=== PATIENT | male | born 1965 | race American Indian/Alaskan Native ===

== ENCOUNTER 2016-12-07 18:14 | Observation (INO) | payer MEDICAID, OTHER ==
[2016-12-07 18:14] VITALS: BMI 25.7
--- NOTE | 2016-12-07 19:37 | C.PDOC ---
History Of Present Illness Patient presents to the ED for EtOH intoxication. Patient just wants a place to stay. Patient denies any physical complaints at this time. Time Seen by Provider: 12/07/16 19:35 Chief Complaint (Nursing): Shortness Of Breath History Per: Patient History/Exam Limitations: intoxication Onset/Duration Of Symptoms: Hrs Current Symptoms Are (Timing): Still Present Recent travel outside of the [place]: No Past Medical History Reviewed: Historical Data, Nursing Documentation, Vital Signs Vital Signs: Last Vital Signs Temp 97.7 F 12/08/16 05:59 Pulse 93 H 12/08/16 05:59 Resp 20 12/08/16 05:59 BP 133/94 H 12/08/16 05:59 Pulse Ox 96 12/08/16 05:59 - Medical History PMH: Anxiety, Depression, HTN, Hypercholesterolemia, Personality Disorder ( multiple fights,agression), Schizophrenia Denies: Diabetes, Hepatitis, HIV, Chronic Kidney Disease, Seizures, Sexually Transmitted Disease - [facility] Procedures ALCOHOL DETOXIFICATION (01/08/14) DETOXIFICATION SERVICES FOR SUBSTANCE ABUSE TREATMENT (03/30/16) GROUP LIBRARY SCIENCE INSTRUCTOR FOR SUBSTANCE ABUSE TREATMENT, PSYCHOEDUCATION (03/06/16) GROUP PSYCHOTHERAPY (03/30/16) INDIVIDUAL PSYCHOTHERAPY, SUPPORTIVE (03/30/16) Family History: States: Unknown Family Hx - Social History Hx Tobacco Use: No Hx Alcohol Use: Yes Hx Substance Use: No - Immunization History Hx Tetanus Toxoid Vaccination: No Hx Influenza Vaccination: No Hx Pneumococcal Vaccination: No Review Of Systems Constitutional: Positive for: Other (EtOH intoxication) Gastrointestinal: Negative for: Nausea, Vomiting, Diarrhea Physical Exam - Physical Exam Appears: No Acute Distress, Other (EtOH on breath ) Skin: Warm, Dry Extremity: Normal ROM, No Tenderness ED Course And Treatment - Laboratory Results Result Diagrams: 12/07/16 20:45 12/07/16 20:45 Rate From EC Pulse Ox Interpretation: Normal - Radiology CXR: Interpreted by Me, Viewed By Me CXR Interpretation: No: Infiltrates, Fracture, Pnemothorax ED OBSERVATION Discharge: Yes Date of observation admission: 12/07/16 Time of observation admission: 21:13 - Observation admission statement Patient is being placed in observation because:: homeless - Goals of Observation Goals of observation are:: social service - Progress Note Progress Note: 12/07/16 21:30 no complaints 12/08/16 00:16 vitals stable 12/08/16 02:17 no complaints 12/08/16 04:17 arousable., no complaints Disposition Counseled Patient/Family Regarding: Studies Performed, Diagnosis, Need For Followup - Disposition Disposition: HOME/ ROUTINE Disposition Time: 19:37 Condition: FAIR - Clinical Impression Clinical Impression: Alcohol abuse - Scribe Statement The provider has reviewed the documentation as recorded by the Mikeibboone Nielsen All medical record entries made by the Agustin were at my direction and personally dictated by me. I have reviewed the chart and agree that the record accurately reflects my personal performance of the history, physical exam, medical decision making, and the department course for this patient. I have also personally directed, reviewed, and agree with the discharge instructions and disposition.
[2016-12-07] MEDS ORDERED: Sodium Chloride 0.9% 1,000 ML IV ONE (20:31)
[2016-12-07 20:58] LABS: BASO % 0.4 % (0.0-2.0); EOS # 0.1 K/uL (0.0-0.7); EOS % 2.1 % (0.0-4.0); LYMPH # 1.1 K/uL (1.0-4.3); LYMPH % 15.4 % (20.0-40.0); MEAN CELL VOLUME 92.4 fL (80.0-94.0); MEAN CORPUSCULAR HEMOGLOBIN 30.4 pg (27.0-31.0); MEAN CORPUSCULAR HGB CONC 32.9 g/dL (33.0-37.0); MEAN PLATELET VOLUME 7.9 fL (7.2-11.7); MONO # 1.3 K/uL (0.0-0.8); MONO % 18.5 % (0.0-10.0); RED CELL DISTRIBUTION WIDTH 12.8 % (11.5-14.5); WHITE BLOOD COUNT 6.8 K/uL (4.8-10.8)
[2016-12-07 21:08] LABS: CHLORIDE 100 mmol/L (98-107)
[2016-12-07 21:09] LABS: POTASSIUM 3.7 mmol/L (3.6-5.2); SODIUM 144 mmol/L (132-148)
[2016-12-07 21:11] LABS: AST/SGOT 67 U/L (17-59); BILIRUBIN,TOTAL 0.2 mg/dL (0.2-1.3); CARBON DIOXIDE 25 mmol/L (22-30); GFR AFRICAN-AMERICAN > 60
[2016-12-07 21:12] LABS: ALB/GLOB RATIO 1.2 (1.0-2.1); ALCOHOL SERUM 190 mg/dl (0-10); ALKALINE PHOSPHATASE 62 U/L (38-126); ALT/SGPT 25 U/L (21-72); BLOOD UREA NITROGEN 8 mg/dL (9-20); GLUCOSE,RANDOM 78 mg/dL (75-110); TOTAL PROTEIN 7.4 g/dL (6.3-8.3)
[2016-12-07 21:27] LABS: RBC URINE 1 /hpf (0-3); URINE BILIRUBIN NEGATIVE (NEGATIVE); URINE BLOOD NEGATIVE (NEGATIVE); URINE COLOR Straw (YELLOW); URINE GLUCOSE (UA) 1+ mg/dL (Normal); URINE KETONE NEGATIVE (NEGATIVE); URINE LEUKOCYTE ESTERASE NEG Leu/uL (Negative); URINE PROTEIN 2+ mg/dL (NEGATIVE); URINE UROBILINOGEN NORMAL mg/dL (0.2-1.0); WBC URINE 1 /hpf (0-5)
[2016-12-08 01:25] VITALS: RESP 20
[2016-12-08 06:02] VITALS: BP 133/94; PULSE 93; TEMP 97.7; O2SAT 96
--- NOTE | 2016-12-08 11:12 | RAD ---
PROCEDURE: CHEST RADIOGRAPH, 1 VIEW HISTORY: Detox/Psy COMPARISON: Comparison chest 01/22/2014 FINDINGS: LUNGS: Left lower lobe atelectasis and or infiltrate and small left effusion . Metallic skin closure doe seen along the left lateral chest wall. PLEURA: No apparent pneumothorax. . CARDIOVASCULAR: Cardiomegaly. OSSEOUS STRUCTURES: No significant abnormalities. VISUALIZED UPPER ABDOMEN: Normal. OTHER FINDINGS: None. IMPRESSION: Mild left basilar atelectasis and or infiltrate and small left effusion. Metallic skin closure doe seen along the left lateral chest wall
--- NOTE | 2016-12-09 23:43 | CARD ---
APPROVED REPORT EKG Measurement Heart [id number] MI 130P39 [id number] <Conclusion> Normal sinus rhythm Moderate voltage criteria for LVH, may be normal variant Borderline ECG
== END 2016-12-08 06:18 | disposition home or self-care (01) ==
LOC: C.ER 18:14 → C.9OBSV 21:12
PROVIDERS: ADMIT Emergency Medicine; ATTEND Emergency Medicine
DX: F10.120 Alcohol abuse with intoxication, uncomplicated (principal); Y90.6 Blood alcohol level of 120-199 mg/100 ml; I10 Essential (primary) hypertension

== ENCOUNTER 2016-12-10 01:06 | Inpatient (IN) | payer MEDICAID ==
[2016-12-10 01:06] VITALS: BMI 25.7
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
[2016-12-10 04:21] LABS: BASO # 0.1 K/uL (0.0-0.2); BASO % 1.8 % (0.0-2.0); EOS # 0.2 K/uL (0.0-0.7); EOS % 3.7 % (0.0-4.0); HEMATOCRIT 32.2 % (35.0-51.0); LYMPH # 1.5 K/uL (1.0-4.3); LYMPH % 35.1 % (20.0-40.0); MEAN CELL VOLUME 92.2 fL (80.0-94.0); MEAN CORPUSCULAR HEMOGLOBIN 30.9 pg (27.0-31.0); MEAN CORPUSCULAR HGB CONC 33.5 g/dL (33.0-37.0); MONO # 0.4 K/uL (0.0-0.8); MONO % 9.5 % (0.0-10.0); RED CELL DISTRIBUTION WIDTH 12.8 % (11.5-14.5); WHITE BLOOD COUNT 4.3 K/uL (4.8-10.8)
[2016-12-10 04:29] LABS: CHLORIDE 102 mmol/L (98-107)
[2016-12-10 04:30] LABS: POTASSIUM 3.8 mmol/L (3.6-5.2); SODIUM 145 mmol/L (132-148)
[2016-12-10 04:32] LABS: ALB/GLOB RATIO 1.1 (1.0-2.1); AST/SGOT 65 U/L (17-59); BILIRUBIN,TOTAL 0.3 mg/dL (0.2-1.3); BLOOD UREA NITROGEN 8 mg/dL (9-20); CARBON DIOXIDE 25 mmol/L (22-30); GFR AFRICAN-AMERICAN > 60; TOTAL PROTEIN 7.2 g/dL (6.3-8.3)
[2016-12-10 04:33] LABS: ALKALINE PHOSPHATASE 54 U/L (38-126); ALT/SGPT 35 U/L (21-72); CALCIUM 8.7 mg/dl (8.6-10.4); GLUCOSE,RANDOM 89 mg/dL (75-110)
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
[2016-12-10] MEDS ORDERED: Piperacillin/Tazobact 3.375 gm 100 ML IV STA (06:05)
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
--- NOTE | 2016-12-10 10:25 | RAD ---
HISTORY: chest pain, had recent chest tube on L side COMPARISON: Comparison chest 12/07/2016 FINDINGS: LUNGS: Increased opacity in the left mid to lower lung field consistent with the some combination of atelectasis and possibly infiltrate with small -medium size effusion. . Metallic skin closure doe again seen along the left lateral chest wall. Right lung clear. PLEURA: No pneumothorax apparent. CARDIOVASCULAR: Normal. OSSEOUS STRUCTURES: No significant abnormalities. VISUALIZED UPPER ABDOMEN: Normal. OTHER FINDINGS: None. IMPRESSION: Increased opacity in the left mid to lower lung field consistent with the some combination of atelectasis and possibly infiltrate with small -medium size effusion. . Metallic skin closure doe again seen along the left lateral chest wall. Right lung clear.
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
[2016-12-10] MEDS: Piperacillin/Tazobact 3.375 GM in Sodium Chloride 100 ML IVPB SCH ×2 (12:04→18:23)
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
[2016-12-10] MEDS: Vancomycin 1 gm/NS 200 ml 200 ML IVPB SCH (13:24)
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
[2016-12-11] MEDS: Piperacillin/Tazobact 3.375 GM in Sodium Chloride 100 ML IVPB SCH ×3 (02:00→17:44)
[2016-12-11 06:20] LABS: BASO # 0.1 K/uL (0.0-0.2); EOS # 0.2 K/uL (0.0-0.7); EOS % 3.3 % (0.0-4.0); HEMATOCRIT 32.3 % (35.0-51.0); LYMPH # 1.6 K/uL (1.0-4.3); MEAN CELL VOLUME 93.5 fL (80.0-94.0); MEAN CORPUSCULAR HEMOGLOBIN 30.5 pg (27.0-31.0); MEAN CORPUSCULAR HGB CONC 32.6 g/dL (33.0-37.0); MEAN PLATELET VOLUME 7.6 fL (7.2-11.7); MONO # 0.8 K/uL (0.0-0.8); MONO % 14.2 % (0.0-10.0); NRBC % 0.1 % (0.0-2.0); RED CELL DISTRIBUTION WIDTH 13.1 % (11.5-14.5); WHITE BLOOD COUNT 5.4 K/uL (4.8-10.8)
[2016-12-11 06:24] LABS: CHLORIDE 94 mmol/L (98-107); POTASSIUM 3.8 mmol/L (3.6-5.2); SODIUM 136 mmol/L (132-148)
[2016-12-11 06:26] LABS: GFR AFRICAN-AMERICAN > 60
[2016-12-11 06:27] LABS: ALB/GLOB RATIO 1.1 (1.0-2.1); ALKALINE PHOSPHATASE 52 U/L (38-126); ALT/SGPT 25 U/L (21-72); AST/SGOT 50 U/L (17-59); BILIRUBIN,TOTAL 0.5 mg/dL (0.2-1.3); BLOOD UREA NITROGEN 12 mg/dL (9-20); CALCIUM 8.6 mg/dl (8.6-10.4); CARBON DIOXIDE 31 mmol/L (22-30); GLUCOSE,RANDOM 85 mg/dL (75-110); TOTAL PROTEIN 6.5 g/dL (6.3-8.3)
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
[2016-12-11] MEDS: Multiple Vitamins Tab PO SCH (09:22)
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
--- NOTE | 2016-12-11 11:43 | CP.PCM.PN ---
<Darlene Hernandez H - Last Filed: 12/11/16 11:37> Subjective - Date & Time of Evaluation Date of Evaluation: 12/11/16 Time of Evaluation: 07:40 - Subjective Subjective: PGY2 Medicine Note - Dr. Jitendra Cobian's service: Patient seen and examined at bedside this AM. Patient sleeping comfortably. Patient reports pain at wound site. Patient denies fever, chills, SOB, abdominal pain, nausea, vomiting, diarrhea, constipation. Objective - Vital Signs/Intake and Output Vital Signs (last 24 hours): Temp Pulse Resp BP Pulse Ox 99.0 F 87 20 138/93 H 96 12/11/16 07:39 12/11/16 07:39 12/11/16 07:39 12/11/16 07:39 12/11/16 07:39 Intake and Output: 12/11/16 12/11/16 06:59 18:59 Intake Total 540 Balance 540 - Medications Medications: Current Medications Chlordiazepoxide (Librium) 25 mg PO Q6 [facility] PRN Reason: Taper Stop: 12/14/16 11:59 Last Admin: 12/11/16 05:47 Dose: 25 mg Folic Acid (Folic Acid) 1 mg PO DAILY [facility] Last Admin: 12/11/16 09:22 Dose: 1 mg Hydromorphone HCl (Dilaudid) 2 mg IVP Q8 PRN PRN Reason: Pain, moderate (4-7) Last Admin: 12/10/16 11:22 Dose: 2 mg Piperacillin Sod/Tazobactam (Sod 3.375 gm/ Sodium Chloride) 100 mls @ 200 mls/ hr IVPB Q8H [facility] Last Admin: 12/11/16 09:23 Dose: 200 mls/hr Vancomycin/Sodium Chloride (Vancocin) 200 mls @ 166.6 mls/hr IVPB Q12H [facility] Last Admin: 12/11/16 00:00 Dose: 166.6 mls/hr Influenza Virus Vaccine (Afluria) 45 mcg IM .ONCE ONE Stop: 12/12/16 10:01 Lorazepam (Ativan) 1 mg IVP Q4H PRN PRN Reason: Seizure activity Multivitamins (Hexavitamin) 1 tab PO DAILY [facility] Last Admin: 12/11/16 09:22 Dose: 1 tab Pneumococcal Polyvalent Vaccine (Pneumovax 23 Vaccine) 0.5 ml IM .ONCE ONE Stop: 12/12/16 10:01 Thiamine HCl (Vitamin B1 Tab) 100 mg PO DAILY [facility] Last Admin: 12/11/16 09:22 Dose: 100 mg - Labs Labs: 12/11/16 06:08 12/11/16 06:08 PT 11.0 SECONDS (9.7-12.2) 12/10/16 04:19 INR 1.0 12/10/16 04:19 APTT 34 SECONDS (21-34) 12/10/16 04:19 - Constitutional Appears: Non-toxic, No Acute Distress - Head Exam Head Exam: NORMAL INSPECTION - Eye Exam Eye Exam: EOMI - ENT Exam ENT Exam: Mucous Membranes Moist - Respiratory Exam Respiratory Exam: Chest Wall Tenderness, Clear to Ausculation Bilateral, NORMAL BREATHING PATTERN. absent: Rales, Rhonchi, Wheezes Additional comments: No drainage from wound site - Cardiovascular Exam Cardiovascular Exam: REGULAR RHYTHM, +S1, +S2. absent: Gallop, Rubs, Murmur - GI/Abdominal Exam GI & Abdominal Exam: Soft, Normal Bowel Sounds. absent: Firm, Guarding, Tenderness - Extremities Exam Extremities Exam: Normal Capillary Refill. absent: Pedal Edema - Neurological Exam Neurological Exam: Alert, Oriented x3 - Psychiatric Exam Psychiatric exam: Normal Affect, Normal Mood - Skin Skin Exam: Normal Color, Warm Assessment and Plan - Assessment and Plan (Free Text) Assessment: 1. Chest wound with abscess Sx consult - Dr. Hancock - help appreciated Patient cleared from surgical perspective Cardio consult - Dr. Nix - help appreciated F/U ECHO result EKG normal ID consult - Dr. Gordon- help appreciated Continue Vanco and Zosyn IVPB day 2 2. Alcohol abuse Librium taper Ativan IVP PRN seizure activity CIWA protocol Thiamine 100mg PO daily Folic Acid 1mg PO daily 3. Prophylaxis Protonix 40mg PO daily [facility] <Moraima Cobian - Last Filed: 12/11/16 20:04> Objective - Vital Signs/Intake and Output Vital Signs (last 24 hours): Temp Pulse Resp BP Pulse Ox 97.7 F 91 H 20 118/81 96 12/11/16 15:23 12/11/16 15:23 12/11/16 15:23 12/11/16 15:23 12/11/16 15:23 Intake and Output: 12/11/16 12/12/16 18:59 06:59 Intake Total 720 Output Total 200 Balance 520 - Medications Medications: Current Medications Chlordiazepoxide (Librium) 25 mg PO TID [facility] PRN Reason: Taper Stop: 12/14/16 11:59 Last Admin: 12/11/16 17:43 Dose: 25 mg Folic Acid (Folic Acid) 1 mg PO DAILY [facility] Last Admin: 12/11/16 09:22 Dose: 1 mg Hydromorphone HCl (Dilaudid) 2 mg IVP Q8 PRN PRN Reason: Pain, moderate (4-7) Last Admin: 12/11/16 13:05 Dose: 2 mg Piperacillin Sod/Tazobactam (Sod 3.375 gm/ Sodium Chloride) 100 mls @ 200 mls/ hr IVPB Q8H [facility] Last Admin: 12/11/16 17:44 Dose: 200 mls/hr Vancomycin/Sodium Chloride (Vancocin) 200 mls @ 166.6 mls/hr IVPB Q12H [facility] Last Admin: 12/11/16 12:25 Dose: 166.6 mls/hr Influenza Virus Vaccine (Afluria) 45 mcg IM .ONCE ONE Stop: 12/12/16 10:01 Lorazepam (Ativan) 1 mg IVP Q4H PRN PRN Reason: Seizure activity Multivitamins (Hexavitamin) 1 tab PO DAILY [facility] Last Admin: 12/11/16 09:22 Dose: 1 tab Pantoprazole Sodium (Protonix Ec Tab) 40 mg PO DAILY [facility] Last Admin: 12/11/16 12:25 Dose: 40 mg Pneumococcal Polyvalent Vaccine (Pneumovax 23 Vaccine) 0.5 ml IM .ONCE ONE Stop: 12/12/16 10:01 Thiamine HCl (Vitamin B1 Tab) 100 mg PO DAILY [facility] Last Admin: 12/11/16 09:22 Dose: 100 mg - Labs Labs: 12/11/16 06:08 12/11/16 06:08 PT 11.0 SECONDS (9.7-12.2) 12/10/16 04:19 INR 1.0 12/10/16 04:19 APTT 34 SECONDS (21-34) 12/10/16 04:19 Attending/Attestation - Attestation I have personally seen and examined this patient.: Yes I have fully participated in the care of the patient.: Yes I have reviewed all pertinent clinical information, including history, physical exam and plan: Yes Notes (Text): case seen and discussed with staff and resident mx agreed
--- NOTE | 2016-12-11 12:04 | CP.PCM.PN ---
Subjective - Date & Time of Evaluation Date of Evaluation: 12/11/16 Time of Evaluation: 08:50 - Subjective Subjective: Pt seen and examined at bedside. Pt awake, alert, and resting comfortably. Pt continues to complain of localized pain over wound site, at left upper quadrant of chest. Pt states that the pain is exacerbated by leaning back, coughing, and deep inspirations. However, pt denies the pain radiating elsewhere , and denies pus or bleeding from wound site. Pt also denies shortness of breath, subjective fever, cough, and congestion today. Pt admits that he has been compliant with his incentive spirometer, and has been using it every hour. Pt counseled to continue to use incentive spirometer every hour as preventative measures. Objective - Vital Signs/Intake and Output Vital Signs (last 24 hours): Temp Pulse Resp BP Pulse Ox 99.0 F 87 20 138/93 H 96 12/11/16 07:39 12/11/16 07:39 12/11/16 07:39 12/11/16 07:39 12/11/16 07:39 Intake and Output: 12/11/16 12/11/16 06:59 18:59 Intake Total 540 Balance 540 - Medications Medications: Current Medications Chlordiazepoxide (Librium) 25 mg PO TID [facility] PRN Reason: Taper Stop: 12/14/16 11:59 Last Admin: 12/11/16 05:47 Dose: 25 mg Folic Acid (Folic Acid) 1 mg PO DAILY [facility] Last Admin: 12/11/16 09:22 Dose: 1 mg Hydromorphone HCl (Dilaudid) 2 mg IVP Q8 PRN PRN Reason: Pain, moderate (4-7) Last Admin: 12/10/16 11:22 Dose: 2 mg Piperacillin Sod/Tazobactam (Sod 3.375 gm/ Sodium Chloride) 100 mls @ 200 mls/ hr IVPB Q8H [facility] Last Admin: 12/11/16 09:23 Dose: 200 mls/hr Vancomycin/Sodium Chloride (Vancocin) 200 mls @ 166.6 mls/hr IVPB Q12H [facility] Last Admin: 12/11/16 00:00 Dose: 166.6 mls/hr Influenza Virus Vaccine (Afluria) 45 mcg IM .ONCE ONE Stop: 12/12/16 10:01 Lorazepam (Ativan) 1 mg IVP Q4H PRN PRN Reason: Seizure activity Multivitamins (Hexavitamin) 1 tab PO DAILY [facility] Last Admin: 12/11/16 09:22 Dose: 1 tab Pantoprazole Sodium (Protonix Ec Tab) 40 mg PO DAILY [facility] Pneumococcal Polyvalent Vaccine (Pneumovax 23 Vaccine) 0.5 ml IM .ONCE ONE Stop: 12/12/16 10:01 Thiamine HCl (Vitamin B1 Tab) 100 mg PO DAILY [facility] Last Admin: 12/11/16 09:22 Dose: 100 mg - Labs Labs: 12/11/16 06:08 12/11/16 06:08 PT 11.0 SECONDS (9.7-12.2) 12/10/16 04:19 INR 1.0 12/10/16 04:19 APTT 34 SECONDS (21-34) 12/10/16 04:19 - Constitutional Appears: Non-toxic, No Acute Distress - Head Exam Head Exam: ATRAUMATIC, NORMOCEPHALIC - Eye Exam Eye Exam: Normal appearance Pupil Exam: NORMAL ACCOMODATION - ENT Exam ENT Exam: Mucous Membranes Moist - Respiratory Exam Respiratory Exam: Chest Wall Tenderness (Localized at wound site. ), Clear to Ausculation Bilateral, NORMAL BREATHING PATTERN. absent: Decreased Breath Sounds, Rales, Rhonchi, Wheezes, Respiratory Distress - Cardiovascular Exam Cardiovascular Exam: REGULAR RHYTHM, +S1, +S2. absent: Murmur - Extremities Exam Extremities Exam: absent: Pedal Edema - Neurological Exam Neurological Exam: Alert, Awake, Oriented x3 - Skin Skin Exam: Abrasion (Wound on left upper quadrant of chest, wrapped and undergoing treatment), Dry, Intact, Normal Color, Warm Assessment and Plan (1) Dyspnea on exertion Assessment & Plan: Inability to exert self likely due to pain at wound site with increased and prolonged inspiration as well as movement. Continue to monitor for fever, SOB, and CP. Status: Acute (2) Chest wall abscess Assessment & Plan: CT on 12/10/16 was unable to exclude abscess of chest wall. see report for full details. Consider surgical evaluation to rule out abscess of chest wall continue to monitor for SOB and GUALLPA, and pain medications Status: Acute (3) Alcohol abuse Assessment & Plan: Psychiatry team on board. Pt now on medications to prevent alcohol withdrawal and delirium tremens. Continue to monitor for Delirium Tremens Status: Acute
--- NOTE | 2016-12-11 12:14 | CP.PCM.PN ---
Subjective - Date & Time of Evaluation Date of Evaluation: 12/11/16 Time of Evaluation: 07:00 - Subjective Subjective: pain sob less Objective - Vital Signs/Intake and Output Vital Signs (last 24 hours): Temp Pulse Resp BP Pulse Ox 99.0 F 87 20 138/93 H 96 12/11/16 07:39 12/11/16 07:39 12/11/16 07:39 12/11/16 07:39 12/11/16 07:39 Intake and Output: 12/11/16 12/11/16 06:59 18:59 Intake Total 540 Balance 540 - Medications Medications: Current Medications Chlordiazepoxide (Librium) 25 mg PO TID [facility] PRN Reason: Taper Stop: 12/14/16 11:59 Last Admin: 12/11/16 05:47 Dose: 25 mg Folic Acid (Folic Acid) 1 mg PO DAILY [facility] Last Admin: 12/11/16 09:22 Dose: 1 mg Hydromorphone HCl (Dilaudid) 2 mg IVP Q8 PRN PRN Reason: Pain, moderate (4-7) Last Admin: 12/10/16 11:22 Dose: 2 mg Piperacillin Sod/Tazobactam (Sod 3.375 gm/ Sodium Chloride) 100 mls @ 200 mls/ hr IVPB Q8H [facility] Last Admin: 12/11/16 09:23 Dose: 200 mls/hr Vancomycin/Sodium Chloride (Vancocin) 200 mls @ 166.6 mls/hr IVPB Q12H [facility] Last Admin: 12/11/16 00:00 Dose: 166.6 mls/hr Influenza Virus Vaccine (Afluria) 45 mcg IM .ONCE ONE Stop: 12/12/16 10:01 Lorazepam (Ativan) 1 mg IVP Q4H PRN PRN Reason: Seizure activity Multivitamins (Hexavitamin) 1 tab PO DAILY [facility] Last Admin: 12/11/16 09:22 Dose: 1 tab Pantoprazole Sodium (Protonix Ec Tab) 40 mg PO DAILY [facility] Pneumococcal Polyvalent Vaccine (Pneumovax 23 Vaccine) 0.5 ml IM .ONCE ONE Stop: 12/12/16 10:01 Thiamine HCl (Vitamin B1 Tab) 100 mg PO DAILY [facility] Last Admin: 12/11/16 09:22 Dose: 100 mg - Labs Labs: 12/11/16 06:08 12/11/16 06:08 PT 11.0 SECONDS (9.7-12.2) 12/10/16 04:19 INR 1.0 12/10/16 04:19 APTT 34 SECONDS (21-34) 12/10/16 04:19 - Constitutional Appears: Non-toxic, Chronically Ill - Head Exam Head Exam: NORMOCEPHALIC - Eye Exam Eye Exam: absent: Scleral icterus - ENT Exam ENT Exam: Mucous Membranes Dry - Neck Exam Neck Exam: absent: Lymphadenopathy - Respiratory Exam Respiratory Exam: Decreased Breath Sounds, Rhonchi - Cardiovascular Exam Cardiovascular Exam: REGULAR RHYTHM, +S1, +S2 Assessment and Plan (1) Alcohol dependence Status: Acute (2) Chest wall abscess Status: Acute (3) Dyspnea on exertion Status: Acute
[2016-12-11] MEDS: Vancomycin 1 gm/NS 200 ml 200 ML IVPB SCH ×3 (12:25→22:10)
[2016-12-11] MEDS: Pantoprazole 40 mg EC Tab PO SCH (12:25)
--- NOTE | 2016-12-11 16:45 | CP.PCM.PN ---
Subjective - Date & Time of Evaluation Date of Evaluation: 12/11/16 Time of Evaluation: 12:00 - Subjective Subjective: clinically same Objective - Vital Signs/Intake and Output Vital Signs (last 24 hours): Temp Pulse Resp BP Pulse Ox 97.7 F 91 H 20 118/81 96 12/11/16 15:23 12/11/16 15:23 12/11/16 15:23 12/11/16 15:23 12/11/16 15:23 Intake and Output: 12/11/16 12/11/16 06:59 18:59 Intake Total 540 720 Output Total 200 Balance 540 520 - Medications Medications: Current Medications Chlordiazepoxide (Librium) 25 mg PO TID [facility] PRN Reason: Taper Stop: 12/14/16 11:59 Last Admin: 12/11/16 14:15 Dose: 25 mg Folic Acid (Folic Acid) 1 mg PO DAILY [facility] Last Admin: 12/11/16 09:22 Dose: 1 mg Hydromorphone HCl (Dilaudid) 2 mg IVP Q8 PRN PRN Reason: Pain, moderate (4-7) Last Admin: 12/11/16 13:05 Dose: 2 mg Piperacillin Sod/Tazobactam (Sod 3.375 gm/ Sodium Chloride) 100 mls @ 200 mls/ hr IVPB Q8H [facility] Last Admin: 12/11/16 09:23 Dose: 200 mls/hr Vancomycin/Sodium Chloride (Vancocin) 200 mls @ 166.6 mls/hr IVPB Q12H [facility] Last Admin: 12/11/16 12:25 Dose: 166.6 mls/hr Influenza Virus Vaccine (Afluria) 45 mcg IM .ONCE ONE Stop: 12/12/16 10:01 Lorazepam (Ativan) 1 mg IVP Q4H PRN PRN Reason: Seizure activity Multivitamins (Hexavitamin) 1 tab PO DAILY [facility] Last Admin: 12/11/16 09:22 Dose: 1 tab Pantoprazole Sodium (Protonix Ec Tab) 40 mg PO DAILY [facility] Last Admin: 12/11/16 12:25 Dose: 40 mg Pneumococcal Polyvalent Vaccine (Pneumovax 23 Vaccine) 0.5 ml IM .ONCE ONE Stop: 12/12/16 10:01 Thiamine HCl (Vitamin B1 Tab) 100 mg PO DAILY [facility] Last Admin: 12/11/16 09:22 Dose: 100 mg - Labs Labs: 12/11/16 06:08 12/11/16 06:08 PT 11.0 SECONDS (9.7-12.2) 12/10/16 04:19 INR 1.0 12/10/16 04:19 APTT 34 SECONDS (21-34) 12/10/16 04:19 - Constitutional Appears: Well - Head Exam Head Exam: ATRAUMATIC, NORMAL INSPECTION, NORMOCEPHALIC - Eye Exam Eye Exam: EOMI, Normal appearance, PERRL Pupil Exam: NORMAL ACCOMODATION, PERRL - ENT Exam ENT Exam: Mucous Membranes Moist, Normal Exam - Neck Exam Neck Exam: Full ROM, Normal Inspection. absent: Lymphadenopathy - Respiratory Exam Respiratory Exam: Decreased Breath Sounds - Cardiovascular Exam Cardiovascular Exam: REGULAR RHYTHM, +S1, +S2 - GI/Abdominal Exam GI & Abdominal Exam: Soft, Diminished Bowel Sounds - Rectal Exam Rectal Exam: Deferred Assessment and Plan (1) Alcohol abuse Status: Acute (2) Alcohol dependence Status: Acute (3) Alcohol intoxication Status: Acute (4) Alcohol intoxication Status: Acute (5) Alcohol intoxication in active alcoholic Status: Acute (6) Alcohol withdrawal syndrome Status: Acute (7) Cellulitis Status: Acute (8) Chest wall abscess Status: Acute (9) Constipation Status: Acute (10) Disorder due to alcohol abuse Status: Acute (11) Dyspnea on exertion Status: Acute (12) Major depressive disorder, recurrent, unspecified Status: Acute (13) Medical assessment Status: Acute (14) Narcotic abuse Status: Acute (15) Poison vanita dermatitis Status: Acute (16) Rectal bleeding Status: Acute (17) Schizoaffective disorder Status: Acute (18) Schizoaffective disorder Status: Acute (19) Urinary frequency Status: Acute (20) Visit for wound care Status: Acute (21) Visit for wound check Status: Acute - Assessment and Plan (Free Text) Plan: Counseling on alcohol cessation Monitor H&H Monitor wound IV antibiotics as advised Consults on board
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
[2016-12-12] MEDS: Piperacillin/Tazobact 3.375 GM in Sodium Chloride 100 ML IVPB SCH ×3 (02:00→17:19)
[2016-12-12 06:35] LABS: CHLORIDE 94 mmol/L (98-107)
[2016-12-12 06:37] LABS: BILIRUBIN,TOTAL 0.7 mg/dL (0.2-1.3); GFR AFRICAN-AMERICAN > 60
[2016-12-12 06:38] LABS: ALB/GLOB RATIO 1.2 (1.0-2.1); ALKALINE PHOSPHATASE 60 U/L (38-126); ALT/SGPT 26 U/L (21-72); AST/SGOT 37 U/L (17-59); BLOOD UREA NITROGEN 11 mg/dL (9-20); CALCIUM 8.8 mg/dl (8.6-10.4); CARBON DIOXIDE 32 mmol/L (22-30); GLUCOSE,RANDOM 100 mg/dL (75-110); TOTAL PROTEIN 6.8 g/dL (6.3-8.3)
[2016-12-12 06:50] LABS: BASO % 0.9 % (0.0-2.0); EOS # 0.2 K/uL (0.0-0.7); EOS % 4.2 % (0.0-4.0); HEMATOCRIT 32.8 % (35.0-51.0); LYMPH # 1.3 K/uL (1.0-4.3); LYMPH % 26.7 % (20.0-40.0); MEAN CELL VOLUME 93.6 fL (80.0-94.0); MEAN CORPUSCULAR HEMOGLOBIN 30.7 pg (27.0-31.0); MEAN CORPUSCULAR HGB CONC 32.8 g/dL (33.0-37.0); MEAN PLATELET VOLUME 7.8 fL (7.2-11.7); MONO # 0.7 K/uL (0.0-0.8); MONO % 13.8 % (0.0-10.0); RED CELL DISTRIBUTION WIDTH 13.1 % (11.5-14.5); WHITE BLOOD COUNT 4.9 K/uL (4.8-10.8)
[2016-12-12 06:58] LABS: SODIUM 135 mmol/L (132-148)
--- NOTE | 2016-12-12 07:27 | CP.PCM.PN ---
<Claus Morrison - Last Filed: 12/12/16 08:41> Subjective - Date & Time of Evaluation Date of Evaluation: 12/12/16 Time of Evaluation: 07:45 - Subjective Subjective: Cardiology Note- Dr. Nix' service Patient was seen and examined at bedside. Patient has no acute complaints at this time. No events overnight, per nursing. Objective - Vital Signs/Intake and Output Vital Signs (last 24 hours): Temp Pulse Resp BP Pulse Ox 97.7 F 75 18 116/74 97 12/12/16 07:19 12/12/16 07:19 12/12/16 07:19 12/12/16 07:19 12/12/16 07:19 Intake and Output: 12/12/16 12/12/16 06:59 18:59 Intake Total 400 Balance 400 - Medications Medications: Current Medications Chlordiazepoxide (Librium) 25 mg PO TID [facility] PRN Reason: Taper Stop: 12/14/16 11:59 Last Admin: 12/11/16 17:43 Dose: 25 mg Folic Acid (Folic Acid) 1 mg PO DAILY [facility] Last Admin: 12/11/16 09:22 Dose: 1 mg Hydromorphone HCl (Dilaudid) 2 mg IVP Q8 PRN PRN Reason: Pain, moderate (4-7) Last Admin: 12/11/16 13:05 Dose: 2 mg Piperacillin Sod/Tazobactam (Sod 3.375 gm/ Sodium Chloride) 100 mls @ 200 mls/ hr IVPB Q8H [facility] Last Admin: 12/12/16 02:00 Dose: 200 mls/hr Vancomycin/Sodium Chloride (Vancocin) 200 mls @ 166.6 mls/hr IVPB Q12H [facility] Last Admin: 12/11/16 22:10 Dose: 166.6 mls/hr Influenza Virus Vaccine (Afluria) 45 mcg IM .ONCE ONE Stop: 12/12/16 10:01 Lorazepam (Ativan) 1 mg IVP Q4H [facility] PRN Reason: Seizure activity Multivitamins (Hexavitamin) 1 tab PO DAILY [facility] Last Admin: 12/11/16 09:22 Dose: 1 tab Pantoprazole Sodium (Protonix Ec Tab) 40 mg PO DAILY [facility] Last Admin: 12/11/16 12:25 Dose: 40 mg Pneumococcal Polyvalent Vaccine (Pneumovax 23 Vaccine) 0.5 ml IM .ONCE ONE Stop: 12/12/16 10:01 Thiamine HCl (Vitamin B1 Tab) 100 mg PO DAILY [facility] Last Admin: 12/11/16 09:22 Dose: 100 mg - Labs Labs: 12/11/16 06:08 12/12/16 06:00 PT 11.0 SECONDS (9.7-12.2) 12/10/16 04:19 INR 1.0 12/10/16 04:19 APTT 34 SECONDS (21-34) 12/10/16 04:19 - Constitutional Appears: Non-toxic, No Acute Distress - Head Exam Head Exam: ATRAUMATIC, NORMAL INSPECTION, NORMOCEPHALIC - Eye Exam Pupil Exam: NORMAL ACCOMODATION - ENT Exam ENT Exam: Mucous Membranes Moist - Respiratory Exam Respiratory Exam: Clear to Ausculation Bilateral, NORMAL BREATHING PATTERN. absent: Prolonged Expiratory Phase, Rales, Rhonchi, Wheezes - Cardiovascular Exam Cardiovascular Exam: REGULAR RHYTHM, +S1, +S2 - GI/Abdominal Exam GI & Abdominal Exam: Soft, Normal Bowel Sounds. absent: Tenderness, Diminished Bowel Sounds, Hypoactive Bowel Sounds - Neurological Exam Neurological Exam: Alert, Awake, Oriented x3 - Psychiatric Exam Psychiatric exam: Normal Affect, Normal Mood - Skin Skin Exam: Dry, Normal Color, Warm. absent: Intact (left chest wound, superior to nipple, dry, tender to touch) Assessment and Plan (1) Chest wall abscess Status: Acute (2) Alcohol dependence Status: Acute - Assessment and Plan (Free Text) Assessment: (1) Chest wall abscess Status: Acute Comment: Chest CT w/o contrast- 12/10/16- Status post recent prcoedure to the left chest wall. Underlying edema in the chest wall, underlying loculated pleural fluid, underlying apparent parenchymal lung nodules, noting that all of these are in direct strasight line and possibly related to recent procedure, with history, the lung nodules are more likely to be abscesses. CXR- 12/10/16- Increased opacity in the left mid to lower lung field consistent with the some combination of atelectasis and possibly infiltrate with small-medium size effusion. Metallic skin closure doe again seen along the left lateral chest wall. Right lung clear. EKG- 12/07/16- NSR. Undergoing Vanc and Zosyn IV Abx treatment. Echo- 12/11/16-LV systolic function is normal. Normal LV segmental wall motion. Mild tricuspid regurg. Mild pulmonary hypertension (Please see full report) We will continue to follow. (2) Alcohol dependence Status: Acute Comment: Librium taper. management as per primary team Plan discussed with Dr. Nix <Lisa Nix - Last Filed: 12/14/16 10:21> Objective - Vital Signs/Intake and Output Vital Signs (last 24 hours): Temp Pulse Resp BP Pulse Ox 98.1 F 78 20 108/73 98 12/14/16 07:00 12/14/16 07:00 12/14/16 07:00 12/14/16 07:00 12/14/16 07:00 Intake and Output: 12/14/16 12/14/16 06:59 18:59 Intake Total 680 Output Total 1700 Balance -1020 - Medications Medications: Current Medications Chlordiazepoxide (Librium) 25 mg PO DAILY [facility] PRN Reason: Taper Stop: 12/14/16 11:59 Last Admin: 12/14/16 09:04 Dose: 25 mg Folic Acid (Folic Acid) 1 mg PO DAILY [facility] Last Admin: 12/14/16 09:05 Dose: 1 mg Hydromorphone HCl (Dilaudid) 2 mg IVP Q8 PRN PRN Reason: Pain, moderate (4-7) Last Admin: 12/12/16 12:16 Dose: 2 mg Piperacillin Sod/Tazobactam (Sod 3.375 gm/ Sodium Chloride) 100 mls @ 200 mls/ hr IVPB Q8H [facility] Last Admin: 12/14/16 09:05 Dose: 200 mls/hr Vancomycin/Sodium Chloride (Vancocin) 200 mls @ 166.6 mls/hr IVPB Q12H [facility] Last Admin: 12/14/16 10:04 Dose: 166.6 mls/hr Lorazepam (Ativan) 1 mg IVP Q4H [facility] PRN Reason: Seizure activity Multivitamins (Hexavitamin) 1 tab PO DAILY [facility] Last Admin: 12/14/16 09:04 Dose: 1 tab Pantoprazole Sodium (Protonix Ec Tab) 40 mg PO DAILY [facility] Last Admin: 12/14/16 09:05 Dose: 40 mg Thiamine HCl (Vitamin B1 Tab) 100 mg PO DAILY [facility] Last Admin: 12/14/16 09:05 Dose: 100 mg - Labs Labs: 12/14/16 05:45 12/14/16 05:45 PT 11.0 SECONDS (9.7-12.2) 12/10/16 04:19 INR 1.0 12/10/16 04:19 APTT 34 SECONDS (21-34) 12/10/16 04:19 Attending/Attestation - Attestation I have personally seen and examined this patient.: Yes I have fully participated in the care of the patient.: Yes I have reviewed all pertinent clinical information, including history, physical exam and plan: Yes Notes (Text): 12/14/16 10:20 pt rate control continue abc will need PICC
[2016-12-12] MEDS: Multiple Vitamins Tab PO SCH (09:53)
[2016-12-12] MEDS ORDERED: Pneumococcal 23-Valent Vaccine IM ONE (10:00)
[2016-12-12] MEDS ORDERED: Influenza Virus Vaccine 45 mcg/0.5 ml Syr IM ONE (10:00)
--- NOTE | 2016-12-12 10:42 | CP.PCM.PN ---
<Darlene Hernandez - Last Filed: 12/12/16 10:40> Subjective - Date & Time of Evaluation Date of Evaluation: 12/12/16 Time of Evaluation: 07:20 - Subjective Subjective: PGY2 Medicine Note - Dr. Jitendra Cobian's service: Patient seen and examined at bedside this AM. Patient sleeping comfortably. Patient reports pain at wound site. Patient denies fever, chills, SOB, abdominal pain, nausea, vomiting, diarrhea, constipation. Patient is odorous. Patient has been showered twice but odor remains. Objective - Vital Signs/Intake and Output Vital Signs (last 24 hours): Temp Pulse Resp BP Pulse Ox 97.7 F 75 18 116/74 97 12/12/16 07:19 12/12/16 08:00 12/12/16 07:19 12/12/16 07:19 12/12/16 07:19 Intake and Output: 12/12/16 12/12/16 06:59 18:59 Intake Total 400 Balance 400 - Medications Medications: Current Medications Chlordiazepoxide (Librium) 25 mg PO TID [facility] PRN Reason: Taper Stop: 12/14/16 11:59 Last Admin: 12/12/16 09:53 Dose: 25 mg Folic Acid (Folic Acid) 1 mg PO DAILY [facility] Last Admin: 12/12/16 09:53 Dose: 1 mg Hydromorphone HCl (Dilaudid) 2 mg IVP Q8 PRN PRN Reason: Pain, moderate (4-7) Last Admin: 12/11/16 13:05 Dose: 2 mg Piperacillin Sod/Tazobactam (Sod 3.375 gm/ Sodium Chloride) 100 mls @ 200 mls/ hr IVPB Q8H [facility] Last Admin: 12/12/16 09:54 Dose: 200 mls/hr Vancomycin/Sodium Chloride (Vancocin) 200 mls @ 166.6 mls/hr IVPB Q12H [facility] Last Admin: 12/11/16 22:10 Dose: 166.6 mls/hr Lorazepam (Ativan) 1 mg IVP Q4H PRN PRN Reason: Seizure activity Multivitamins (Hexavitamin) 1 tab PO DAILY [facility] Last Admin: 12/12/16 09:53 Dose: 1 tab Pantoprazole Sodium (Protonix Ec Tab) 40 mg PO DAILY [facility] Last Admin: 12/11/16 12:25 Dose: 40 mg Thiamine HCl (Vitamin B1 Tab) 100 mg PO DAILY [facility] Last Admin: 12/12/16 09:53 Dose: 100 mg - Labs Labs: 12/12/16 06:00 12/12/16 06:00 PT 11.0 SECONDS (9.7-12.2) 12/10/16 04:19 INR 1.0 12/10/16 04:19 APTT 34 SECONDS (21-34) 12/10/16 04:19 - Constitutional Appears: Non-toxic, No Acute Distress - Head Exam Head Exam: NORMAL INSPECTION - Eye Exam Eye Exam: EOMI - ENT Exam ENT Exam: Mucous Membranes Moist - Respiratory Exam Respiratory Exam: Chest Wall Tenderness, Clear to Ausculation Bilateral, NORMAL BREATHING PATTERN. absent: Rales, Rhonchi, Wheezes - Cardiovascular Exam Cardiovascular Exam: REGULAR RHYTHM, +S1, +S2. absent: Gallop, Rubs, Murmur - GI/Abdominal Exam GI & Abdominal Exam: Soft, Normal Bowel Sounds. absent: Firm, Guarding, Tenderness - Extremities Exam Extremities Exam: Normal Capillary Refill. absent: Pedal Edema - Neurological Exam Neurological Exam: Alert, Oriented x3 - Psychiatric Exam Psychiatric exam: Normal Affect, Normal Mood - Skin Skin Exam: Normal Color, Warm Assessment and Plan - Assessment and Plan (Free Text) Assessment: 1. Chest wound with abscess Sx consult - Dr. Hancock - help appreciated Patient cleared from surgical perspective Cardio consult - Dr. Nix - help appreciated ECHO shows grade I abnormal relaxation pattern and mild triscupid regurgitations EKG normal Blood culture positive for gram positive cocci Wound culture positive for Staph Aureus ID consult - Dr. Gordon- help appreciated Continue Vanco and Zosyn IVPB day 3 Will d/c to [facility] to continue IV Abx if possible PICC line ordered 2. Alcohol abuse Librium taper Ativan IVP PRN seizure activity CIWA protocol Thiamine 100mg PO daily Folic Acid 1mg PO daily 3. Prophylaxis Protonix 40mg PO daily SCD[facility] <Moraima Cobian S - Last Filed: 12/12/16 22:47> Objective - Vital Signs/Intake and Output Vital Signs (last 24 hours): Temp Pulse Resp BP Pulse Ox 97.4 F L 79 20 109/71 96 12/12/16 15:59 12/12/16 15:59 12/12/16 15:59 12/12/16 15:59 12/12/16 15:59 - Medications Medications: Current Medications Chlordiazepoxide (Librium) 25 mg PO BID [facility] PRN Reason: Taper Stop: 12/14/16 11:59 Last Admin: 12/12/16 17:19 Dose: 25 mg Folic Acid (Folic Acid) 1 mg PO DAILY [facility] Last Admin: 12/12/16 09:53 Dose: 1 mg Hydromorphone HCl (Dilaudid) 2 mg IVP Q8 PRN PRN Reason: Pain, moderate (4-7) Last Admin: 12/12/16 12:16 Dose: 2 mg Piperacillin Sod/Tazobactam (Sod 3.375 gm/ Sodium Chloride) 100 mls @ 200 mls/ hr IVPB Q8H [facility] Last Admin: 12/12/16 17:19 Dose: 200 mls/hr Vancomycin/Sodium Chloride (Vancocin) 200 mls @ 166.6 mls/hr IVPB Q12H [facility] Last Admin: 12/12/16 11:01 Dose: 166.6 mls/hr Lorazepam (Ativan) 1 mg IVP Q4H PRN PRN Reason: Seizure activity Multivitamins (Hexavitamin) 1 tab PO DAILY [facility] Last Admin: 12/12/16 09:53 Dose: 1 tab Pantoprazole Sodium (Protonix Ec Tab) 40 mg PO DAILY [facility] Last Admin: 12/12/16 11:00 Dose: 40 mg Thiamine HCl (Vitamin B1 Tab) 100 mg PO DAILY [facility] Last Admin: 12/12/16 09:53 Dose: 100 mg - Labs Labs: 12/12/16 06:00 12/12/16 06:00 PT 11.0 SECONDS (9.7-12.2) 12/10/16 04:19 INR 1.0 12/10/16 04:19 APTT 34 SECONDS (21-34) 12/10/16 04:19 Attending/Attestation - Attestation I have personally seen and examined this patient.: Yes I have fully participated in the care of the patient.: Yes I have reviewed all pertinent clinical information, including history, physical exam and plan: Yes Notes (Text): 12/12/16 22:47 case seen and discussed with staff and resident mx as agreed
[2016-12-12] MEDS: Pantoprazole 40 mg EC Tab PO SCH (11:00)
[2016-12-12] MEDS: Vancomycin 1 gm/NS 200 ml 200 ML IVPB SCH ×2 (11:01→23:35)
--- NOTE | 2016-12-12 11:13 | RAD ---
HISTORY: verify right PICC COMPARISON: Chest x-ray performed 12/10/16 TECHNIQUE: Chest, one view. FINDINGS: Right-sided PICC terminates at the expected location of the SVC. LUNGS: Left lower lobe atelectasis or pneumonia and small pleural effusion. No definite pneumothorax. Please note that chest x-ray has limited sensitivity for the detection of pulmonary masses. CARDIOVASCULAR: Heart size appears within normal limits. OSSEOUS STRUCTURES: No acute osseous abnormality identified. VISUALIZED UPPER ABDOMEN: Unremarkable. OTHER FINDINGS: None. IMPRESSION: Right-sided PICC. Left lower lobe atelectasis or pneumonia and small pleural effusion.
--- NOTE | 2016-12-12 11:52 | CP.PCM.PN ---
Subjective - Date & Time of Evaluation Date of Evaluation: 12/12/16 Time of Evaluation: 10:00 - Subjective Subjective: Pt seen and examined at bedside. Pt awake, alert, and resting comfortably. Pt continues to deny shortness of breath, subjective fever, cough, and congestion today. Pain on wound sight is improving Pt continues to deny any puss or bleeding from wound site. patient states that he is compliant with using his spirometer every hour Objective - Vital Signs/Intake and Output Vital Signs (last 24 hours): Temp Pulse Resp BP Pulse Ox 97.7 F 75 18 116/74 97 12/12/16 07:19 12/12/16 08:00 12/12/16 07:19 12/12/16 07:19 12/12/16 07:19 Intake and Output: 12/12/16 12/12/16 06:59 18:59 Intake Total 400 Balance 400 - Medications Medications: Current Medications Chlordiazepoxide (Librium) 25 mg PO TID [facility] PRN Reason: Taper Stop: 12/14/16 11:59 Last Admin: 12/12/16 09:53 Dose: 25 mg Folic Acid (Folic Acid) 1 mg PO DAILY [facility] Last Admin: 12/12/16 09:53 Dose: 1 mg Hydromorphone HCl (Dilaudid) 2 mg IVP Q8 PRN PRN Reason: Pain, moderate (4-7) Last Admin: 12/11/16 13:05 Dose: 2 mg Piperacillin Sod/Tazobactam (Sod 3.375 gm/ Sodium Chloride) 100 mls @ 200 mls/ hr IVPB Q8H [facility] Last Admin: 12/12/16 09:54 Dose: 200 mls/hr Vancomycin/Sodium Chloride (Vancocin) 200 mls @ 166.6 mls/hr IVPB Q12H [facility] Last Admin: 12/12/16 11:01 Dose: 166.6 mls/hr Lorazepam (Ativan) 1 mg IVP Q4H PRN PRN Reason: Seizure activity Multivitamins (Hexavitamin) 1 tab PO DAILY [facility] Last Admin: 12/12/16 09:53 Dose: 1 tab Pantoprazole Sodium (Protonix Ec Tab) 40 mg PO DAILY [facility] Last Admin: 12/12/16 11:00 Dose: 40 mg Thiamine HCl (Vitamin B1 Tab) 100 mg PO DAILY [facility] Last Admin: 12/12/16 09:53 Dose: 100 mg - Labs Labs: 12/12/16 06:00 12/12/16 06:00 PT 11.0 SECONDS (9.7-12.2) 12/10/16 04:19 INR 1.0 12/10/16 04:19 APTT 34 SECONDS (21-34) 12/10/16 04:19 - Constitutional Appears: Non-toxic, No Acute Distress - Head Exam Head Exam: NORMAL INSPECTION - Eye Exam Eye Exam: Normal appearance - ENT Exam ENT Exam: Mucous Membranes Moist - Respiratory Exam Respiratory Exam: Clear to Ausculation Bilateral - Cardiovascular Exam Cardiovascular Exam: REGULAR RHYTHM, RRR, +S1, +S2 - Neurological Exam Neurological Exam: Alert, Awake, Oriented x3 - Psychiatric Exam Psychiatric exam: Normal Affect, Normal Mood - Skin Skin Exam: Dry, Intact, Normal Color, Warm Additional comments: Wound site well dressed, dry, clean. Appears to be healing well. Assessment and Plan (1) Dyspnea on exertion Assessment & Plan: Continue to monitor for fever, SOB, and CP. Continue to monitor wound site Status: Acute (2) Chest wall abscess Assessment & Plan: CT on 12/10/16 was unable to exclude abscess of chest wall. see report for full details. Consider surgical evaluation to rule out abscess of chest wall continue to monitor for SOB and GUALLPA, and pain medications Status: Acute (3) Alcohol abuse Assessment & Plan: patient on librium taper continue to monitor for alcohol withdrawal and delirium tremens Psych team help appreciated Status: Acute
--- NOTE | 2016-12-12 18:16 | CP.PCM.PN ---
Subjective - Date & Time of Evaluation Date of Evaluation: 12/12/16 Time of Evaluation: 01:00 - Subjective Subjective: clinically same Objective - Vital Signs/Intake and Output Vital Signs (last 24 hours): Temp Pulse Resp BP Pulse Ox 97.4 F L 79 20 109/71 96 12/12/16 15:59 12/12/16 15:59 12/12/16 15:59 12/12/16 15:59 12/12/16 15:59 Intake and Output: 12/12/16 12/12/16 06:59 18:59 Intake Total 400 Balance 400 - Medications Medications: Current Medications Chlordiazepoxide (Librium) 25 mg PO BID [facility] PRN Reason: Taper Stop: 12/14/16 11:59 Last Admin: 12/12/16 17:19 Dose: 25 mg Folic Acid (Folic Acid) 1 mg PO DAILY [facility] Last Admin: 12/12/16 09:53 Dose: 1 mg Hydromorphone HCl (Dilaudid) 2 mg IVP Q8 PRN PRN Reason: Pain, moderate (4-7) Last Admin: 12/12/16 12:16 Dose: 2 mg Piperacillin Sod/Tazobactam (Sod 3.375 gm/ Sodium Chloride) 100 mls @ 200 mls/ hr IVPB Q8H [facility] Last Admin: 12/12/16 17:19 Dose: 200 mls/hr Vancomycin/Sodium Chloride (Vancocin) 200 mls @ 166.6 mls/hr IVPB Q12H [facility] Last Admin: 12/12/16 11:01 Dose: 166.6 mls/hr Lorazepam (Ativan) 1 mg IVP Q4H PRN PRN Reason: Seizure activity Multivitamins (Hexavitamin) 1 tab PO DAILY [facility] Last Admin: 12/12/16 09:53 Dose: 1 tab Pantoprazole Sodium (Protonix Ec Tab) 40 mg PO DAILY [facility] Last Admin: 12/12/16 11:00 Dose: 40 mg Thiamine HCl (Vitamin B1 Tab) 100 mg PO DAILY [facility] Last Admin: 12/12/16 09:53 Dose: 100 mg - Labs Labs: 12/12/16 06:00 12/12/16 06:00 PT 11.0 SECONDS (9.7-12.2) 12/10/16 04:19 INR 1.0 12/10/16 04:19 APTT 34 SECONDS (21-34) 12/10/16 04:19 - Constitutional Appears: Well - Head Exam Head Exam: ATRAUMATIC, NORMAL INSPECTION, NORMOCEPHALIC - Eye Exam Eye Exam: EOMI, Normal appearance, PERRL Pupil Exam: NORMAL ACCOMODATION, PERRL - ENT Exam ENT Exam: Mucous Membranes Moist, Normal Exam - Neck Exam Neck Exam: Full ROM, Normal Inspection. absent: Lymphadenopathy - Respiratory Exam Respiratory Exam: Decreased Breath Sounds - Cardiovascular Exam Cardiovascular Exam: REGULAR RHYTHM, +S1, +S2 - GI/Abdominal Exam GI & Abdominal Exam: Soft, Diminished Bowel Sounds - Rectal Exam Rectal Exam: Deferred Assessment and Plan (1) Alcohol abuse Status: Acute (2) Alcohol dependence Status: Acute (3) Alcohol intoxication Status: Acute (4) Alcohol intoxication Status: Acute (5) Alcohol intoxication in active alcoholic Status: Acute (6) Alcohol withdrawal syndrome Status: Acute (7) Cellulitis Status: Acute (8) Chest wall abscess Status: Acute (9) Constipation Status: Acute (10) Disorder due to alcohol abuse Status: Acute (11) Dyspnea on exertion Status: Acute (12) Major depressive disorder, recurrent, unspecified Status: Acute (13) Medical assessment Status: Acute (14) Narcotic abuse Status: Acute (15) Poison vanita dermatitis Status: Acute (16) Rectal bleeding Status: Acute (17) Schizoaffective disorder Status: Acute (18) Schizoaffective disorder Status: Acute (19) Urinary frequency Status: Acute (20) Visit for wound care Status: Acute (21) Visit for wound check Status: Acute - Assessment and Plan (Free Text) Plan: Continue same consults on board [facility] Psychiatric consult Spirometry Monitoring
--- NOTE | 2016-12-12 18:31 | CP.PCM.PN ---
Subjective - Date & Time of Evaluation Date of Evaluation: 12/12/16 Time of Evaluation: 09:00 - Subjective Subjective: still c/o pain less drainage Objective - Vital Signs/Intake and Output Vital Signs (last 24 hours): Temp Pulse Resp BP Pulse Ox 97.4 F L 79 20 109/71 96 12/12/16 15:59 12/12/16 15:59 12/12/16 15:59 12/12/16 15:59 12/12/16 15:59 Intake and Output: 12/12/16 12/12/16 06:59 18:59 Intake Total 400 Balance 400 - Medications Medications: Current Medications Chlordiazepoxide (Librium) 25 mg PO BID [facility] PRN Reason: Taper Stop: 12/14/16 11:59 Last Admin: 12/12/16 17:19 Dose: 25 mg Folic Acid (Folic Acid) 1 mg PO DAILY [facility] Last Admin: 12/12/16 09:53 Dose: 1 mg Hydromorphone HCl (Dilaudid) 2 mg IVP Q8 PRN PRN Reason: Pain, moderate (4-7) Last Admin: 12/12/16 12:16 Dose: 2 mg Piperacillin Sod/Tazobactam (Sod 3.375 gm/ Sodium Chloride) 100 mls @ 200 mls/ hr IVPB Q8H [facility] Last Admin: 12/12/16 17:19 Dose: 200 mls/hr Vancomycin/Sodium Chloride (Vancocin) 200 mls @ 166.6 mls/hr IVPB Q12H [facility] Last Admin: 12/12/16 11:01 Dose: 166.6 mls/hr Lorazepam (Ativan) 1 mg IVP Q4H PRN PRN Reason: Seizure activity Multivitamins (Hexavitamin) 1 tab PO DAILY [facility] Last Admin: 12/12/16 09:53 Dose: 1 tab Pantoprazole Sodium (Protonix Ec Tab) 40 mg PO DAILY [facility] Last Admin: 12/12/16 11:00 Dose: 40 mg Thiamine HCl (Vitamin B1 Tab) 100 mg PO DAILY [facility] Last Admin: 12/12/16 09:53 Dose: 100 mg - Labs Labs: 12/12/16 06:00 12/12/16 06:00 PT 11.0 SECONDS (9.7-12.2) 12/10/16 04:19 INR 1.0 12/10/16 04:19 APTT 34 SECONDS (21-34) 12/10/16 04:19 - Constitutional Appears: Non-toxic, Cachectic, Chronically Ill - Head Exam Head Exam: NORMOCEPHALIC - Eye Exam Eye Exam: absent: Scleral icterus - ENT Exam ENT Exam: Mucous Membranes Dry - Neck Exam Neck Exam: absent: Lymphadenopathy, Thyromegaly - Respiratory Exam Respiratory Exam: Decreased Breath Sounds, Clear to Ausculation Bilateral - Cardiovascular Exam Cardiovascular Exam: REGULAR RHYTHM, +S1, +S2 - GI/Abdominal Exam GI & Abdominal Exam: Distended, Soft. absent: Tenderness Assessment and Plan (1) Alcohol dependence Status: Acute (2) Chest wall abscess Status: Acute (3) Dyspnea on exertion Status: Acute
[2016-12-13] MEDS: Piperacillin/Tazobact 3.375 GM in Sodium Chloride 100 ML IVPB SCH ×3 (02:00→17:22)
[2016-12-13 06:40] LABS: CHLORIDE 95 mmol/L (98-107); SODIUM 137 mmol/L (132-148)
[2016-12-13 06:43] LABS: ALB/GLOB RATIO 1.2 (1.0-2.1); ALKALINE PHOSPHATASE 58 U/L (38-126); ALT/SGPT 25 U/L (21-72); AST/SGOT 37 U/L (17-59); BILIRUBIN,TOTAL 0.7 mg/dL (0.2-1.3); BLOOD UREA NITROGEN 11 mg/dL (9-20); CARBON DIOXIDE 30 mmol/L (22-30); GFR AFRICAN-AMERICAN > 60; GLUCOSE,RANDOM 100 mg/dL (75-110); TOTAL PROTEIN 6.7 g/dL (6.3-8.3)
[2016-12-13 06:44] LABS: CALCIUM 8.8 mg/dl (8.6-10.4)
[2016-12-13 06:45] LABS: BASO % 0.5 % (0.0-2.0); EOS # 0.2 K/uL (0.0-0.7); HEMATOCRIT 33.4 % (35.0-51.0); LYMPH # 0.7 K/uL (1.0-4.3); LYMPH % 11.7 % (20.0-40.0); MEAN CELL VOLUME 94.1 fL (80.0-94.0); MEAN CORPUSCULAR HEMOGLOBIN 31.7 pg (27.0-31.0); MEAN CORPUSCULAR HGB CONC 33.8 g/dL (33.0-37.0); MEAN PLATELET VOLUME 7.5 fL (7.2-11.7); MONO # 0.5 K/uL (0.0-0.8); MONO % 7.8 % (0.0-10.0); NRBC % 0.1 % (0.0-2.0); RED CELL DISTRIBUTION WIDTH 13.2 % (11.5-14.5); WHITE BLOOD COUNT 5.9 K/uL (4.8-10.8)
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
[2016-12-13] MEDS: Pantoprazole 40 mg EC Tab PO SCH (09:37)
[2016-12-13] MEDS: Multiple Vitamins Tab PO SCH (09:37)
[2016-12-13] MEDS: Vancomycin 1 gm/NS 200 ml 200 ML IVPB SCH ×2 (11:19→22:08)
--- NOTE | 2016-12-13 12:59 | CP.PCM.PN ---
Subjective - Date & Time of Evaluation Date of Evaluation: 12/13/16 Time of Evaluation: 12:20 - Subjective Subjective: clinically same Objective - Vital Signs/Intake and Output Vital Signs (last 24 hours): Temp Pulse Resp BP Pulse Ox 98 F 83 18 133/86 95 12/13/16 08:13 12/13/16 08:13 12/13/16 08:13 12/13/16 08:13 12/13/16 08:13 Intake and Output: 12/13/16 12/13/16 06:59 18:59 Intake Total 1370 Output Total 1900 Balance -530 - Medications Medications: Current Medications Chlordiazepoxide (Librium) 25 mg PO DAILY [facility] PRN Reason: Taper Stop: 12/14/16 11:59 Last Admin: 12/13/16 09:37 Dose: 25 mg Folic Acid (Folic Acid) 1 mg PO DAILY [facility] Last Admin: 12/13/16 09:37 Dose: 1 mg Hydromorphone HCl (Dilaudid) 2 mg IVP Q8 PRN PRN Reason: Pain, moderate (4-7) Last Admin: 12/12/16 12:16 Dose: 2 mg Piperacillin Sod/Tazobactam (Sod 3.375 gm/ Sodium Chloride) 100 mls @ 200 mls/ hr IVPB Q8H [facility] Last Admin: 12/13/16 09:38 Dose: 200 mls/hr Vancomycin/Sodium Chloride (Vancocin) 200 mls @ 166.6 mls/hr IVPB Q12H [facility] Last Admin: 12/13/16 11:19 Dose: 166.6 mls/hr Lorazepam (Ativan) 1 mg IVP Q4H [facility] PRN Reason: Seizure activity Multivitamins (Hexavitamin) 1 tab PO DAILY [facility] Last Admin: 12/13/16 09:37 Dose: 1 tab Pantoprazole Sodium (Protonix Ec Tab) 40 mg PO DAILY [facility] Last Admin: 12/13/16 09:37 Dose: 40 mg Thiamine HCl (Vitamin B1 Tab) 100 mg PO DAILY [facility] Last Admin: 12/13/16 09:38 Dose: 100 mg - Labs Labs: 12/13/16 06:20 12/13/16 06:20 PT 11.0 SECONDS (9.7-12.2) 12/10/16 04:19 INR 1.0 12/10/16 04:19 APTT 34 SECONDS (21-34) 12/10/16 04:19 - Constitutional Appears: Well - Head Exam Head Exam: ATRAUMATIC, NORMAL INSPECTION, NORMOCEPHALIC - Eye Exam Eye Exam: EOMI, Normal appearance, PERRL Pupil Exam: NORMAL ACCOMODATION, PERRL - ENT Exam ENT Exam: Mucous Membranes Moist, Normal Exam - Neck Exam Neck Exam: Full ROM, Normal Inspection. absent: Lymphadenopathy - Respiratory Exam Respiratory Exam: Decreased Breath Sounds - Cardiovascular Exam Cardiovascular Exam: REGULAR RHYTHM, +S1, +S2 - GI/Abdominal Exam GI & Abdominal Exam: Soft, Diminished Bowel Sounds - Rectal Exam Rectal Exam: Deferred Assessment and Plan (1) Alcohol abuse Status: Acute (2) Alcohol dependence Status: Acute (3) Alcohol intoxication Status: Acute (4) Alcohol intoxication Status: Acute (5) Alcohol intoxication in active alcoholic Status: Acute (6) Alcohol withdrawal syndrome Status: Acute (7) Cellulitis Status: Acute (8) Chest wall abscess Status: Acute (9) Constipation Status: Acute (10) Disorder due to alcohol abuse Status: Acute (11) Dyspnea on exertion Status: Acute (12) Major depressive disorder, recurrent, unspecified Status: Acute (13) Medical assessment Status: Acute (14) Narcotic abuse Status: Acute (15) Poison vanita dermatitis Status: Acute (16) Rectal bleeding Status: Acute (17) Schizoaffective disorder Status: Acute (18) Schizoaffective disorder Status: Acute (19) Urinary frequency Status: Acute (20) Visit for wound care Status: Acute (21) Visit for wound check Status: Acute - Assessment and Plan (Free Text) Plan: Continue as ordered IV antibiotics Vitals monitoring Dr. Hancock Cefazolin Lorazepam
--- NOTE | 2016-12-13 13:59 | CP.PCM.PN ---
Subjective - Date & Time of Evaluation Date of Evaluation: 12/13/16 Time of Evaluation: 09:00 - Subjective Subjective: Dr. Cobian service: Patient seen in room, he is sitting up comfortable. He is complaining of some mild chest pain but has no other complaints. He is able to walk ok and is using the incentive spirometer. Objective - Vital Signs/Intake and Output Vital Signs (last 24 hours): Temp Pulse Resp BP Pulse Ox 98 F 83 18 133/86 95 12/13/16 08:13 12/13/16 08:13 12/13/16 08:13 12/13/16 08:13 12/13/16 08:13 Intake and Output: 12/13/16 12/13/16 06:59 18:59 Intake Total 1370 Output Total 1900 Balance -530 - Medications Medications: Current Medications Chlordiazepoxide (Librium) 25 mg PO DAILY [facility] PRN Reason: Taper Stop: 12/14/16 11:59 Last Admin: 12/13/16 09:37 Dose: 25 mg Folic Acid (Folic Acid) 1 mg PO DAILY [facility] Last Admin: 12/13/16 09:37 Dose: 1 mg Hydromorphone HCl (Dilaudid) 2 mg IVP Q8 PRN PRN Reason: Pain, moderate (4-7) Last Admin: 12/12/16 12:16 Dose: 2 mg Piperacillin Sod/Tazobactam (Sod 3.375 gm/ Sodium Chloride) 100 mls @ 200 mls/ hr IVPB Q8H [facility] Last Admin: 12/13/16 09:38 Dose: 200 mls/hr Vancomycin/Sodium Chloride (Vancocin) 200 mls @ 166.6 mls/hr IVPB Q12H [facility] Last Admin: 12/13/16 11:19 Dose: 166.6 mls/hr Lorazepam (Ativan) 1 mg IVP Q4H PRN PRN Reason: Seizure activity Multivitamins (Hexavitamin) 1 tab PO DAILY [facility] Last Admin: 12/13/16 09:37 Dose: 1 tab Pantoprazole Sodium (Protonix Ec Tab) 40 mg PO DAILY [facility] Last Admin: 12/13/16 09:37 Dose: 40 mg Thiamine HCl (Vitamin B1 Tab) 100 mg PO DAILY [facility] Last Admin: 12/13/16 09:38 Dose: 100 mg - Labs Labs: 12/13/16 06:20 12/13/16 06:20 PT 11.0 SECONDS (9.7-12.2) 12/10/16 04:19 INR 1.0 12/10/16 04:19 APTT 34 SECONDS (21-34) 12/10/16 04:19 - Constitutional Appears: Non-toxic, No Acute Distress - Head Exam Head Exam: NORMAL INSPECTION - Eye Exam Eye Exam: Normal appearance, PERRL. absent: Scleral icterus Pupil Exam: NORMAL ACCOMODATION - ENT Exam ENT Exam: Normal Exam - Respiratory Exam Respiratory Exam: Clear to Ausculation Bilateral. absent: Rales, Rhonchi, Wheezes - Cardiovascular Exam Cardiovascular Exam: REGULAR RHYTHM, RRR, +S1, +S2. absent: Gallop, Rubs Additional comments: There is a wound dressing over the left side of his chest. - GI/Abdominal Exam GI & Abdominal Exam: Soft, Tenderness, Normal Bowel Sounds. absent: Guarding - Extremities Exam Extremities Exam: Normal Inspection. absent: Pedal Edema - Psychiatric Exam Psychiatric exam: Normal Affect, Normal Mood Assessment and Plan - Assessment and Plan (Free Text) Assessment: 1. Chest wound with abscess 12/13: PICC line in place, patient will need jail IV antibiotics, however he was denied [facility]. Will continue with current managment. Sx consult - Dr. Hancock - help appreciated Patient cleared from surgical perspective Cardio consult - Dr. Nix - help appreciated ECHO shows grade I abnormal relaxation pattern and mild triscupid regurgitations EKG normal Blood culture positive for gram positive cocci Wound culture positive for Staph Aureus ID consult - Dr. Gordon- help appreciated Continue Vanco and Zosyn IVPB day 3 Will d/c to [facility] to continue IV Abx if possible PICC line ordered 2. Alcohol abuse Librium taper Ativan IVP PRN seizure activity CIWA protocol Thiamine 100mg PO daily Folic Acid 1mg PO daily 3. Prophylaxis Protonix 40mg PO daily [facility]
[2016-12-14] MEDS: Piperacillin/Tazobact 3.375 GM in Sodium Chloride 100 ML IVPB SCH ×2 (02:00→09:05)
[2016-12-14 06:34] LABS: BASO % 0.8 % (0.0-2.0); EOS # 0.3 K/uL (0.0-0.7); EOS % 4.2 % (0.0-4.0); HEMATOCRIT 35.4 % (35.0-51.0); LYMPH % 17.4 % (20.0-40.0); MEAN CELL VOLUME 94.6 fL (80.0-94.0); MEAN CORPUSCULAR HEMOGLOBIN 30.3 pg (27.0-31.0); MEAN PLATELET VOLUME 7.8 fL (7.2-11.7); MONO # 0.6 K/uL (0.0-0.8); RED CELL DISTRIBUTION WIDTH 13.4 % (11.5-14.5)
[2016-12-14 06:42] LABS: CHLORIDE 95 mmol/L (98-107)
[2016-12-14 06:43] LABS: POTASSIUM 3.9 mmol/L (3.6-5.2); SODIUM 136 mmol/L (132-148)
[2016-12-14 06:45] LABS: ALB/GLOB RATIO 1.2 (1.0-2.1); ALKALINE PHOSPHATASE 53 U/L (38-126); ALT/SGPT 21 U/L (21-72); AST/SGOT 31 U/L (17-59); BILIRUBIN,TOTAL 0.6 mg/dL (0.2-1.3); BLOOD UREA NITROGEN 15 mg/dL (9-20); CARBON DIOXIDE 29 mmol/L (22-30); GFR AFRICAN-AMERICAN > 60
[2016-12-14 06:46] LABS: CALCIUM 8.8 mg/dl (8.6-10.4); GLUCOSE,RANDOM 92 mg/dL (75-110)
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
[2016-12-14] MEDS: Multiple Vitamins Tab PO SCH (09:04)
[2016-12-14] MEDS: Pantoprazole 40 mg EC Tab PO SCH (09:05)
--- NOTE | 2016-12-14 09:11 | CP.PCM.PN ---
<Bhupinder Mane H - Last Filed: 12/14/16 20:05> Subjective - Date & Time of Evaluation Date of Evaluation: 12/14/16 Time of Evaluation: 09:00 - Subjective Subjective: Dr. Cobian, service: Patient is seen and examined in room. He is complains of 2 episodes of diarrhea last night. He says they were dark brown in color. He currently denies abdominal pain, shortness of breath, nausea/vomiting, palpitations. He is still having pain over the left side of his affected chest wall area. Objective - Vital Signs/Intake and Output Vital Signs (last 24 hours): Temp Pulse Resp BP Pulse Ox 98.1 F 78 20 108/73 98 12/14/16 07:00 12/14/16 07:00 12/14/16 07:00 12/14/16 07:00 12/14/16 07:00 Intake and Output: 12/14/16 12/14/16 06:59 18:59 Intake Total 680 Output Total 1700 Balance -1020 - Medications Medications: Current Medications Chlordiazepoxide (Librium) 25 mg PO DAILY [facility] PRN Reason: Taper Stop: 12/14/16 11:59 Last Admin: 12/14/16 09:04 Dose: 25 mg Folic Acid (Folic Acid) 1 mg PO DAILY [facility] Last Admin: 12/14/16 09:05 Dose: 1 mg Hydromorphone HCl (Dilaudid) 2 mg IVP Q8 PRN PRN Reason: Pain, moderate (4-7) Last Admin: 12/12/16 12:16 Dose: 2 mg Piperacillin Sod/Tazobactam (Sod 3.375 gm/ Sodium Chloride) 100 mls @ 200 mls/ hr IVPB Q8H [facility] Last Admin: 12/14/16 09:05 Dose: 200 mls/hr Vancomycin/Sodium Chloride (Vancocin) 200 mls @ 166.6 mls/hr IVPB Q12H [facility] Last Admin: 12/13/16 22:08 Dose: 166.6 mls/hr Lorazepam (Ativan) 1 mg IVP Q4H PRN PRN Reason: Seizure activity Multivitamins (Hexavitamin) 1 tab PO DAILY [facility] Last Admin: 12/14/16 09:04 Dose: 1 tab Pantoprazole Sodium (Protonix Ec Tab) 40 mg PO DAILY [facility] Last Admin: 12/14/16 09:05 Dose: 40 mg Thiamine HCl (Vitamin B1 Tab) 100 mg PO DAILY [facility] Last Admin: 12/14/16 09:05 Dose: 100 mg - Labs Labs: 12/14/16 05:45 12/14/16 05:45 PT 11.0 SECONDS (9.7-12.2) 12/10/16 04:19 INR 1.0 12/10/16 04:19 APTT 34 SECONDS (21-34) 12/10/16 04:19 - Constitutional Appears: Non-toxic, No Acute Distress - Eye Exam Eye Exam: Normal appearance Pupil Exam: NORMAL ACCOMODATION - ENT Exam ENT Exam: Normal Exam - Respiratory Exam Respiratory Exam: Clear to Ausculation Bilateral. absent: Rales, Rhonchi, Wheezes Additional comments: clean dressing noted over the left chest wall area. - Cardiovascular Exam Cardiovascular Exam: REGULAR RHYTHM, RRR, +S1, +S2. absent: Gallop, Rubs - GI/Abdominal Exam GI & Abdominal Exam: Soft, Normal Bowel Sounds. absent: Distended, Guarding, Tenderness, Hyperactive Bowel Sounds - Neurological Exam Neurological Exam: Oriented x3 - Psychiatric Exam Psychiatric exam: Normal Affect, Normal Mood - Skin Skin Exam: Normal Color Assessment and Plan - Assessment and Plan (Free Text) Assessment: 1. Chest wound with abscess 12/14: Consider stool studies if diarrhea continues, IV antiobitics for now. Will start Florastor bid as well. 12/13: PICC line in place, patient will need nursing home IV antibiotics, however he was denied [facility]. Will continue with current managment. Sx consult - Dr. Hancock - help appreciated Patient cleared from surgical perspective Cardio consult - Dr. Nix - help appreciated ECHO shows grade I abnormal relaxation pattern and mild triscupid regurgitations EKG normal Blood culture positive for gram positive cocci Wound culture positive for Staph Aureus ID consult - Dr. Gordon- help appreciated Continue Vanco and Zosyn IVPB day 3 Will d/c to [facility] to continue IV Abx if possible PICC line ordered 2. Alcohol abuse Librium taper Ativan IVP PRN seizure activity CIWA protocol Thiamine 100mg PO daily Folic Acid 1mg PO daily 3. Prophylaxis Protonix 40mg PO daily [facility] <Moraima Cobian S - Last Filed: 12/15/16 16:56> Objective - Vital Signs/Intake and Output Vital Signs (last 24 hours): Temp Pulse Resp BP Pulse Ox 98.2 F 78 20 109/71 97 12/15/16 16:06 12/15/16 16:06 12/15/16 16:06 12/15/16 16:06 12/15/16 16:06 Intake and Output: 12/15/16 12/15/16 06:59 18:59 Intake Total 1400 Output Total 800 Balance -800 1400 - Medications Medications: Current Medications Folic Acid (Folic Acid) 1 mg PO DAILY [facility] Last Admin: 12/15/16 09:18 Dose: 1 mg Hydromorphone HCl (Dilaudid) 2 mg IVP Q8 PRN PRN Reason: Pain, moderate (4-7) Last Admin: 12/12/16 12:16 Dose: 2 mg Vancomycin/Sodium Chloride (Vancocin) 200 mls @ 166.6 mls/hr IVPB Q12H [facility] Last Admin: 12/15/16 11:44 Dose: 166.6 mls/hr Lorazepam (Ativan) 1 mg IVP Q4H PRN PRN Reason: Seizure activity Multivitamins (Hexavitamin) 1 tab PO DAILY [facility] Last Admin: 12/15/16 09:18 Dose: 1 tab Pantoprazole Sodium (Protonix Ec Tab) 40 mg PO DAILY [facility] Last Admin: 12/15/16 09:18 Dose: 40 mg Saccharomyces Boulardii (Florastor) 250 mg PO BID [facility] Last Admin: 12/15/16 09:18 Dose: 250 mg Thiamine HCl (Vitamin B1 Tab) 100 mg PO DAILY [facility] Last Admin: 12/15/16 09:18 Dose: 100 mg - Labs Labs: 12/15/16 05:58 12/15/16 05:58 PT 11.0 SECONDS (9.7-12.2) 12/10/16 04:19 INR 1.0 12/10/16 04:19 APTT 34 SECONDS (21-34) 12/10/16 04:19 Attending/Attestation - Attestation I have personally seen and examined this patient.: Yes I have fully participated in the care of the patient.: Yes I have reviewed all pertinent clinical information, including history, physical exam and plan: Yes Notes (Text): 12/14 case seen and discuss with resident and staff
[2016-12-14] MEDS: Vancomycin 1 gm/NS 200 ml 200 ML IVPB SCH ×2 (10:04→22:10)
--- NOTE | 2016-12-14 10:46 | CP.PCM.PN ---
Subjective - Date & Time of Evaluation Date of Evaluation: 12/14/16 Time of Evaluation: 11:40 - Subjective Subjective: clinically same Objective - Vital Signs/Intake and Output Vital Signs (last 24 hours): Temp Pulse Resp BP Pulse Ox 98.1 F 78 20 108/73 98 12/14/16 07:00 12/14/16 07:00 12/14/16 07:00 12/14/16 07:00 12/14/16 07:00 Intake and Output: 12/14/16 12/14/16 06:59 18:59 Intake Total 680 Output Total 1700 Balance -1020 - Medications Medications: Current Medications Chlordiazepoxide (Librium) 25 mg PO DAILY [facility] PRN Reason: Taper Stop: 12/14/16 11:59 Last Admin: 12/14/16 09:04 Dose: 25 mg Folic Acid (Folic Acid) 1 mg PO DAILY [facility] Last Admin: 12/14/16 09:05 Dose: 1 mg Hydromorphone HCl (Dilaudid) 2 mg IVP Q8 PRN PRN Reason: Pain, moderate (4-7) Last Admin: 12/12/16 12:16 Dose: 2 mg Piperacillin Sod/Tazobactam (Sod 3.375 gm/ Sodium Chloride) 100 mls @ 200 mls/ hr IVPB Q8H [facility] Last Admin: 12/14/16 09:05 Dose: 200 mls/hr Vancomycin/Sodium Chloride (Vancocin) 200 mls @ 166.6 mls/hr IVPB Q12H [facility] Last Admin: 12/14/16 10:04 Dose: 166.6 mls/hr Lorazepam (Ativan) 1 mg IVP Q4H PRN PRN Reason: Seizure activity Multivitamins (Hexavitamin) 1 tab PO DAILY [facility] Last Admin: 12/14/16 09:04 Dose: 1 tab Pantoprazole Sodium (Protonix Ec Tab) 40 mg PO DAILY [facility] Last Admin: 12/14/16 09:05 Dose: 40 mg Thiamine HCl (Vitamin B1 Tab) 100 mg PO DAILY [facility] Last Admin: 12/14/16 09:05 Dose: 100 mg - Labs Labs: 12/14/16 05:45 12/14/16 05:45 PT 11.0 SECONDS (9.7-12.2) 12/10/16 04:19 INR 1.0 12/10/16 04:19 APTT 34 SECONDS (21-34) 12/10/16 04:19 - Constitutional Appears: Well - Head Exam Head Exam: ATRAUMATIC, NORMAL INSPECTION, NORMOCEPHALIC - Eye Exam Eye Exam: EOMI, Normal appearance, PERRL Pupil Exam: NORMAL ACCOMODATION, PERRL - ENT Exam ENT Exam: Mucous Membranes Moist, Normal Exam - Neck Exam Neck Exam: Full ROM, Normal Inspection. absent: Lymphadenopathy - Respiratory Exam Respiratory Exam: Decreased Breath Sounds - Cardiovascular Exam Cardiovascular Exam: REGULAR RHYTHM, +S1, +S2 - GI/Abdominal Exam GI & Abdominal Exam: Soft, Diminished Bowel Sounds - Rectal Exam Rectal Exam: Deferred Assessment and Plan (1) Alcohol abuse Status: Acute (2) Alcohol dependence Status: Acute (3) Alcohol intoxication Status: Acute (4) Alcohol intoxication Status: Acute (5) Alcohol intoxication in active alcoholic Status: Acute (6) Alcohol withdrawal syndrome Status: Acute (7) Cellulitis Status: Acute (8) Chest wall abscess Status: Acute (9) Constipation Status: Acute (10) Disorder due to alcohol abuse Status: Acute (11) Dyspnea on exertion Status: Acute (12) Major depressive disorder, recurrent, unspecified Status: Acute (13) Medical assessment Status: Acute (14) Narcotic abuse Status: Acute (15) Poison vanita dermatitis Status: Acute (16) Rectal bleeding Status: Acute (17) Schizoaffective disorder Status: Acute (18) Schizoaffective disorder Status: Acute (19) Urinary frequency Status: Acute (20) Visit for wound care Status: Acute (21) Visit for wound check Status: Acute - Assessment and Plan (Free Text) Plan: Discontinue Zosyn Vancomycin Pain meds Consults on board Dr. Alva
--- NOTE | 2016-12-14 15:48 | CP.PCM.PN ---
Subjective - Date & Time of Evaluation Date of Evaluation: 12/14/16 Time of Evaluation: 09:00 - Subjective Subjective: still with drainage consider bone scan r/o om cont iv vanco d/c zosyn Objective - Vital Signs/Intake and Output Vital Signs (last 24 hours): Temp Pulse Resp BP Pulse Ox 98.1 F 78 20 108/73 98 12/14/16 07:00 12/14/16 08:00 12/14/16 07:00 12/14/16 07:00 12/14/16 07:00 Intake and Output: 12/14/16 12/14/16 06:59 18:59 Intake Total 680 820 Output Total 1700 Balance -1020 820 - Medications Medications: Current Medications Folic Acid (Folic Acid) 1 mg PO DAILY [facility] Last Admin: 12/14/16 09:05 Dose: 1 mg Hydromorphone HCl (Dilaudid) 2 mg IVP Q8 PRN PRN Reason: Pain, moderate (4-7) Last Admin: 12/12/16 12:16 Dose: 2 mg Piperacillin Sod/Tazobactam (Sod 3.375 gm/ Sodium Chloride) 100 mls @ 200 mls/ hr IVPB Q8H [facility] Last Admin: 12/14/16 09:05 Dose: 200 mls/hr Vancomycin/Sodium Chloride (Vancocin) 200 mls @ 166.6 mls/hr IVPB Q12H [facility] Last Admin: 12/14/16 10:04 Dose: 166.6 mls/hr Lorazepam (Ativan) 1 mg IVP Q4H PRN PRN Reason: Seizure activity Multivitamins (Hexavitamin) 1 tab PO DAILY [facility] Last Admin: 12/14/16 09:04 Dose: 1 tab Pantoprazole Sodium (Protonix Ec Tab) 40 mg PO DAILY [facility] Last Admin: 12/14/16 09:05 Dose: 40 mg Thiamine HCl (Vitamin B1 Tab) 100 mg PO DAILY [facility] Last Admin: 12/14/16 09:05 Dose: 100 mg - Labs Labs: 12/14/16 05:45 12/14/16 05:45 PT 11.0 SECONDS (9.7-12.2) 12/10/16 04:19 INR 1.0 12/10/16 04:19 APTT 34 SECONDS (21-34) 12/10/16 04:19 - Constitutional Appears: Non-toxic, Cachectic, Chronically Ill - Head Exam Head Exam: NORMOCEPHALIC - Eye Exam Eye Exam: PERRL. absent: Scleral icterus - ENT Exam ENT Exam: Mucous Membranes Dry - Neck Exam Neck Exam: absent: Lymphadenopathy - Respiratory Exam Respiratory Exam: Decreased Breath Sounds, Rhonchi - Cardiovascular Exam Cardiovascular Exam: REGULAR RHYTHM, +S1, +S2 - GI/Abdominal Exam GI & Abdominal Exam: Distended, Soft. absent: Tenderness - Rectal Exam Rectal Exam: Deferred Assessment and Plan (1) Alcohol dependence Status: Acute (2) Chest wall abscess Status: Acute (3) Dyspnea on exertion Status: Acute
[2016-12-15 06:12] LABS: BASO # 0.1 K/uL (0.0-0.2); BASO % 0.9 % (0.0-2.0); EOS # 0.3 K/uL (0.0-0.7); EOS % 3.6 % (0.0-4.0); HEMATOCRIT 36.8 % (35.0-51.0); LYMPH # 1.2 K/uL (1.0-4.3); LYMPH % 16.9 % (20.0-40.0); MEAN CELL VOLUME 94.2 fL (80.0-94.0); MEAN CORPUSCULAR HEMOGLOBIN 30.3 pg (27.0-31.0); MEAN CORPUSCULAR HGB CONC 32.1 g/dL (33.0-37.0); MONO # 0.8 K/uL (0.0-0.8); RED CELL DISTRIBUTION WIDTH 13.3 % (11.5-14.5)
[2016-12-15 06:25] LABS: CHLORIDE 97 mmol/L (98-107); SODIUM 137 mmol/L (132-148)
[2016-12-15 06:26] LABS: POTASSIUM 3.9 mmol/L (3.6-5.2)
[2016-12-15 06:28] LABS: ALB/GLOB RATIO 1.1 (1.0-2.1); ALKALINE PHOSPHATASE 55 U/L (38-126); ALT/SGPT 19 U/L (21-72); AST/SGOT 33 U/L (17-59); BILIRUBIN,TOTAL 0.6 mg/dL (0.2-1.3); BLOOD UREA NITROGEN 18 mg/dL (9-20); CALCIUM 8.6 mg/dl (8.6-10.4); CARBON DIOXIDE 29 mmol/L (22-30); GFR AFRICAN-AMERICAN > 60; GLUCOSE,RANDOM 93 mg/dL (75-110); TOTAL PROTEIN 7.2 g/dL (6.3-8.3)
[2016-12-15] MEDS: Saccharomyces Boulardi 250 mg Cap PO SCH ×2 (09:18→17:47)
[2016-12-15] MEDS: Pantoprazole 40 mg EC Tab PO SCH (09:18)
[2016-12-15] MEDS: Multiple Vitamins Tab PO SCH (09:18)
[2016-12-15] MEDS: Vancomycin 1 gm/NS 200 ml 200 ML IVPB SCH ×2 (11:44→22:58)
--- NOTE | 2016-12-15 15:01 | CP.PCM.PN ---
Subjective - Date & Time of Evaluation Date of Evaluation: 12/15/16 Time of Evaluation: 10:40 - Subjective Subjective: clinically same Objective - Vital Signs/Intake and Output Vital Signs (last 24 hours): Temp Pulse Resp BP Pulse Ox 98.4 F 75 20 113/75 96 12/15/16 07:00 12/15/16 08:00 12/15/16 07:00 12/15/16 07:00 12/15/16 07:00 Intake and Output: 12/15/16 12/15/16 06:59 18:59 Intake Total 1400 Output Total 800 Balance -800 1400 - Medications Medications: Current Medications Folic Acid (Folic Acid) 1 mg PO DAILY [facility] Last Admin: 12/15/16 09:18 Dose: 1 mg Hydromorphone HCl (Dilaudid) 2 mg IVP Q8 PRN PRN Reason: Pain, moderate (4-7) Last Admin: 12/12/16 12:16 Dose: 2 mg Vancomycin/Sodium Chloride (Vancocin) 200 mls @ 166.6 mls/hr IVPB Q12H [facility] Last Admin: 12/15/16 11:44 Dose: 166.6 mls/hr Lorazepam (Ativan) 1 mg IVP Q4H PRN PRN Reason: Seizure activity Multivitamins (Hexavitamin) 1 tab PO DAILY [facility] Last Admin: 12/15/16 09:18 Dose: 1 tab Pantoprazole Sodium (Protonix Ec Tab) 40 mg PO DAILY [facility] Last Admin: 12/15/16 09:18 Dose: 40 mg Saccharomyces Boulardii (Florastor) 250 mg PO BID [facility] Last Admin: 12/15/16 09:18 Dose: 250 mg Thiamine HCl (Vitamin B1 Tab) 100 mg PO DAILY [facility] Last Admin: 12/15/16 09:18 Dose: 100 mg - Labs Labs: 12/15/16 05:58 12/15/16 05:58 PT 11.0 SECONDS (9.7-12.2) 12/10/16 04:19 INR 1.0 12/10/16 04:19 APTT 34 SECONDS (21-34) 12/10/16 04:19 - Constitutional Appears: Well - Head Exam Head Exam: ATRAUMATIC, NORMAL INSPECTION, NORMOCEPHALIC - Eye Exam Eye Exam: EOMI, Normal appearance, PERRL Pupil Exam: NORMAL ACCOMODATION, PERRL - ENT Exam ENT Exam: Mucous Membranes Moist, Normal Exam - Neck Exam Neck Exam: Full ROM, Normal Inspection. absent: Lymphadenopathy - Respiratory Exam Respiratory Exam: Decreased Breath Sounds - Cardiovascular Exam Cardiovascular Exam: REGULAR RHYTHM, +S1, +S2 - GI/Abdominal Exam GI & Abdominal Exam: Soft, Diminished Bowel Sounds - Rectal Exam Rectal Exam: Deferred Assessment and Plan (1) Alcohol abuse Status: Acute (2) Alcohol intoxication Status: Acute (3) Alcohol dependence Status: Acute (4) Alcohol intoxication Status: Acute (5) Alcohol intoxication in active alcoholic Status: Acute (6) Alcohol withdrawal syndrome Status: Acute (7) Cellulitis Status: Acute (8) Chest wall abscess Status: Acute (9) Constipation Status: Acute (10) Disorder due to alcohol abuse Status: Acute (11) Dyspnea on exertion Status: Acute (12) Major depressive disorder, recurrent, unspecified Status: Acute (13) Medical assessment Status: Acute (14) Narcotic abuse Status: Acute (15) Poison vanita dermatitis Status: Acute (16) Rectal bleeding Status: Acute (17) Schizoaffective disorder Status: Acute (18) Schizoaffective disorder Status: Acute (19) Urinary frequency Status: Acute (20) Visit for wound care Status: Acute (21) Visit for wound check Status: Acute - Assessment and Plan (Free Text) Plan: Continue vancomycin discontinue Zosyn Bone scan Drainage present Consults Labs next a.m.
[2016-12-16] MEDS: Multiple Vitamins Tab PO SCH (09:11)
[2016-12-16] MEDS: Saccharomyces Boulardi 250 mg Cap PO SCH ×2 (09:11→17:24)
[2016-12-16] MEDS: Pantoprazole 40 mg EC Tab PO SCH (09:11)
[2016-12-16] MEDS: Vancomycin 1 gm/NS 200 ml 200 ML IVPB SCH (10:16)
--- NOTE | 2016-12-16 14:51 | CP.PCM.PN ---
Subjective - Date & Time of Evaluation Date of Evaluation: 12/16/16 Time of Evaluation: 10:00 - Subjective Subjective: CULTURE NEG FOR MRSA CONT IV ANCEF POSSIBLE LTAC Objective - Vital Signs/Intake and Output Vital Signs (last 24 hours): Temp Pulse Resp BP Pulse Ox 98 F 83 18 110/75 98 12/16/16 07:49 12/16/16 08:00 12/16/16 07:49 12/16/16 07:49 12/16/16 07:49 Intake and Output: 12/16/16 12/16/16 06:59 18:59 Intake Total 470 1400 Output Total 1200 400 Balance -730 1000 - Medications Medications: Current Medications Folic Acid (Folic Acid) 1 mg PO DAILY [facility] Last Admin: 12/16/16 09:11 Dose: 1 mg Cefazolin Sodium 2,000 mg/ (Sodium Chloride) 50 mls @ 100 mls/hr IVPB Q8H [facility] Lorazepam (Ativan) 1 mg IVP Q4H PRN PRN Reason: Seizure activity Multivitamins (Hexavitamin) 1 tab PO DAILY [facility] Last Admin: 12/16/16 09:11 Dose: 1 tab Pantoprazole Sodium (Protonix Ec Tab) 40 mg PO DAILY [facility] Last Admin: 12/16/16 09:11 Dose: 40 mg Saccharomyces Boulardii (Florastor) 250 mg PO BID [facility] Last Admin: 12/16/16 09:11 Dose: 250 mg Thiamine HCl (Vitamin B1 Tab) 100 mg PO DAILY [facility] Last Admin: 12/16/16 09:11 Dose: 100 mg - Labs Labs: 12/15/16 05:58 12/15/16 05:58 PT 11.0 SECONDS (9.7-12.2) 12/10/16 04:19 INR 1.0 12/10/16 04:19 APTT 34 SECONDS (21-34) 12/10/16 04:19 - Constitutional Appears: Non-toxic, Chronically Ill - Head Exam Head Exam: NORMOCEPHALIC - Eye Exam Eye Exam: PERRL. absent: Scleral icterus - ENT Exam ENT Exam: Mucous Membranes Dry - Neck Exam Neck Exam: absent: Lymphadenopathy - Respiratory Exam Respiratory Exam: Decreased Breath Sounds, Clear to Ausculation Bilateral - Cardiovascular Exam Cardiovascular Exam: REGULAR RHYTHM, +S1, +S2 - GI/Abdominal Exam GI & Abdominal Exam: Distended, Soft - Rectal Exam Rectal Exam: Deferred - Exam Exam: NORMAL INSPECTION Assessment and Plan (1) Alcohol dependence Status: Acute (2) Chest wall abscess Status: Acute (3) Dyspnea on exertion Status: Acute
--- NOTE | 2016-12-16 17:27 | CP.PCM.PN ---
Subjective - Date & Time of Evaluation Date of Evaluation: 12/16/16 Time of Evaluation: 07:30 - Subjective Subjective: Pt no cp tolerating PO on abx Objective - Vital Signs/Intake and Output Vital Signs (last 24 hours): Temp Pulse Resp BP Pulse Ox 98 F 84 18 119/88 100 12/16/16 15:17 12/16/16 16:00 12/16/16 15:17 12/16/16 15:17 12/16/16 15:17 Intake and Output: 12/16/16 12/16/16 06:59 18:59 Intake Total 470 1400 Output Total 1200 400 Balance -730 1000 - Medications Medications: Current Medications Folic Acid (Folic Acid) 1 mg PO DAILY [facility] Last Admin: 12/16/16 09:11 Dose: 1 mg Cefazolin Sodium 2 gm/ (Dextrose) 50 mls @ 100 mls/hr IVPB Q8H [facility] Last Admin: 12/16/16 17:24 Dose: 100 mls/hr Lorazepam (Ativan) 1 mg IVP Q4H PRN PRN Reason: Seizure activity Multivitamins (Hexavitamin) 1 tab PO DAILY [facility] Last Admin: 12/16/16 09:11 Dose: 1 tab Pantoprazole Sodium (Protonix Ec Tab) 40 mg PO DAILY [facility] Last Admin: 12/16/16 09:11 Dose: 40 mg Saccharomyces Boulardii (Florastor) 250 mg PO BID [facility] Last Admin: 12/16/16 17:24 Dose: 250 mg Thiamine HCl (Vitamin B1 Tab) 100 mg PO DAILY [facility] Last Admin: 12/16/16 09:11 Dose: 100 mg - Labs Labs: 12/15/16 05:58 12/15/16 05:58 PT 11.0 SECONDS (9.7-12.2) 12/10/16 04:19 INR 1.0 12/10/16 04:19 APTT 34 SECONDS (21-34) 12/10/16 04:19 - Constitutional Appears: Well - Head Exam Head Exam: ATRAUMATIC - Eye Exam Eye Exam: Normal appearance - ENT Exam ENT Exam: Mucous Membranes Moist - Respiratory Exam Respiratory Exam: Clear to Ausculation Bilateral - Cardiovascular Exam Cardiovascular Exam: REGULAR RHYTHM - GI/Abdominal Exam GI & Abdominal Exam: Normal Bowel Sounds - Extremities Exam Extremities Exam: Normal Inspection - Neurological Exam Neurological Exam: Alert, Awake - Psychiatric Exam Psychiatric exam: Normal Mood - Skin Skin Exam: Warm Assessment and Plan (1) Alcohol abuse Assessment & Plan: continue abx no signs of etoh withdrawal comfortable tolerating po hr 84 now Status: Acute (2) Chest wall abscess Status: Acute
--- NOTE | 2016-12-16 17:28 | CP.PCM.PN ---
Subjective - Date & Time of Evaluation Date of Evaluation: 12/16/16 Time of Evaluation: 10:15 - Subjective Subjective: clinically same Objective - Vital Signs/Intake and Output Vital Signs (last 24 hours): Temp Pulse Resp BP Pulse Ox 98 F 84 18 119/88 100 12/16/16 15:17 12/16/16 16:00 12/16/16 15:17 12/16/16 15:17 12/16/16 15:17 Intake and Output: 12/16/16 12/16/16 06:59 18:59 Intake Total 470 1400 Output Total 1200 400 Balance -730 1000 - Medications Medications: Current Medications Folic Acid (Folic Acid) 1 mg PO DAILY [facility] Last Admin: 12/16/16 09:11 Dose: 1 mg Cefazolin Sodium 2 gm/ (Dextrose) 50 mls @ 100 mls/hr IVPB Q8H [facility] Last Admin: 12/16/16 17:24 Dose: 100 mls/hr Lorazepam (Ativan) 1 mg IVP Q4H PRN PRN Reason: Seizure activity Multivitamins (Hexavitamin) 1 tab PO DAILY [facility] Last Admin: 12/16/16 09:11 Dose: 1 tab Pantoprazole Sodium (Protonix Ec Tab) 40 mg PO DAILY [facility] Last Admin: 12/16/16 09:11 Dose: 40 mg Saccharomyces Boulardii (Florastor) 250 mg PO BID [facility] Last Admin: 12/16/16 17:24 Dose: 250 mg Thiamine HCl (Vitamin B1 Tab) 100 mg PO DAILY [facility] Last Admin: 12/16/16 09:11 Dose: 100 mg - Labs Labs: 12/15/16 05:58 12/15/16 05:58 PT 11.0 SECONDS (9.7-12.2) 12/10/16 04:19 INR 1.0 12/10/16 04:19 APTT 34 SECONDS (21-34) 12/10/16 04:19 - Constitutional Appears: Well - Head Exam Head Exam: ATRAUMATIC, NORMAL INSPECTION, NORMOCEPHALIC - Eye Exam Eye Exam: EOMI, Normal appearance, PERRL Pupil Exam: NORMAL ACCOMODATION, PERRL - ENT Exam ENT Exam: Mucous Membranes Moist, Normal Exam - Neck Exam Neck Exam: Full ROM, Normal Inspection. absent: Lymphadenopathy - Respiratory Exam Respiratory Exam: Decreased Breath Sounds - Cardiovascular Exam Cardiovascular Exam: REGULAR RHYTHM, +S1, +S2 - GI/Abdominal Exam GI & Abdominal Exam: Soft, Diminished Bowel Sounds - Rectal Exam Rectal Exam: Deferred Assessment and Plan (1) Alcohol abuse Status: Acute (2) Alcohol intoxication Status: Acute (3) Alcohol dependence Status: Acute (4) Alcohol intoxication Status: Acute (5) Alcohol intoxication in active alcoholic Status: Acute (6) Alcohol withdrawal syndrome Status: Acute (7) Cellulitis Status: Acute (8) Chest wall abscess Status: Acute (9) Constipation Status: Acute (10) Disorder due to alcohol abuse Status: Acute (11) Dyspnea on exertion Status: Acute (12) Major depressive disorder, recurrent, unspecified Status: Acute (13) Medical assessment Status: Acute (14) Narcotic abuse Status: Acute (15) Poison vanita dermatitis Status: Acute (16) Rectal bleeding Status: Acute (17) Schizoaffective disorder Status: Acute (18) Schizoaffective disorder Status: Acute (19) Urinary frequency Status: Acute (20) Visit for wound care Status: Acute (21) Visit for wound check Status: Acute - Assessment and Plan (Free Text) Plan: Continue same Continue antibiotics Consults DVT prophylaxis Lorazepam Cefazolin
--- NOTE | 2016-12-17 07:23 | CP.PCM.PN ---
<Larissa Birmingham - Last Filed: 12/17/16 09:40> Subjective - Date & Time of Evaluation Date of Evaluation: 12/17/16 Time of Evaluation: 07:30 - Subjective Subjective: Cardiology Progress Note for Dr. Nix Patient seen and examined at bedside. There were no acute overnight events as per nursing. Patient reports feeling well. He is awaiting placement. He denies CP, SOB, numbness/tingling, n/v/d, fever or chills. Objective - Vital Signs/Intake and Output Vital Signs (last 24 hours): Temp Pulse Resp BP Pulse Ox 98.3 F 90 20 122/80 99 12/17/16 00:11 12/17/16 00:11 12/17/16 00:11 12/17/16 00:11 12/17/16 00:11 Intake and Output: 12/17/16 12/17/16 06:59 18:59 Intake Total 70 Balance 70 - Medications Medications: Current Medications Folic Acid (Folic Acid) 1 mg PO DAILY [facility] Last Admin: 12/16/16 09:11 Dose: 1 mg Cefazolin Sodium 2 gm/ (Dextrose) 50 mls @ 100 mls/hr IVPB Q8H [facility] Last Admin: 12/16/16 23:53 Dose: 100 mls/hr Lorazepam (Ativan) 1 mg IVP Q4H PRN PRN Reason: Seizure activity Multivitamins (Hexavitamin) 1 tab PO DAILY [facility] Last Admin: 12/16/16 09:11 Dose: 1 tab Pantoprazole Sodium (Protonix Ec Tab) 40 mg PO DAILY [facility] Last Admin: 12/16/16 09:11 Dose: 40 mg Saccharomyces Boulardii (Florastor) 250 mg PO BID [facility] Last Admin: 12/16/16 17:24 Dose: 250 mg Thiamine HCl (Vitamin B1 Tab) 100 mg PO DAILY [facility] Last Admin: 12/16/16 09:11 Dose: 100 mg - Labs Labs: 12/15/16 05:58 12/15/16 05:58 PT 11.0 SECONDS (9.7-12.2) 12/10/16 04:19 INR 1.0 12/10/16 04:19 APTT 34 SECONDS (21-34) 12/10/16 04:19 - Constitutional Appears: No Acute Distress - Head Exam Head Exam: NORMAL INSPECTION - Eye Exam Eye Exam: Normal appearance Pupil Exam: NORMAL ACCOMODATION - ENT Exam ENT Exam: Mucous Membranes Moist - Neck Exam Neck Exam: Full ROM - Respiratory Exam Respiratory Exam: Clear to Ausculation Bilateral, NORMAL BREATHING PATTERN. absent: Rales, Rhonchi, Wheezes - Cardiovascular Exam Cardiovascular Exam: REGULAR RHYTHM, +S1, +S2. absent: Tachycardia, Gallop, Rubs, Murmur - GI/Abdominal Exam GI & Abdominal Exam: Soft, Normal Bowel Sounds. absent: Guarding, Tenderness, Mass, Rebound - Extremities Exam Extremities Exam: Normal Inspection. absent: Calf Tenderness, Pedal Edema - Neurological Exam Neurological Exam: Alert, Awake, CN II-XII Intact, Oriented x3 - Skin Skin Exam: Dry, Normal Color, Warm Assessment and Plan - Assessment and Plan (Free Text) Assessment: This is a 51Y M with PMH alcoholism, HTN and HLD admitted for 1) Chest abscess 2) Bacteremia 4) Alcoholism 5) Hx of HTN 6) Hx of HLD Plan: - Patient awaiting placement - Continue Rocephin via PICC line - Continue to monitor vitals GI ppx: Protonix DVT ppx: SCDs Case seen, reviewed and discussed with Dr. Boyd Birmingham PGY1 <Lisa Nix - Last Filed: 01/28/17 05:51> Objective - Vital Signs/Intake and Output Vital Signs (last 24 hours): Temp Pulse Resp BP Pulse Ox 97.4 F L 93 H 20 155/82 H 99 12/24/16 08:00 12/24/16 08:00 12/24/16 08:00 12/24/16 08:00 12/24/16 08:00 - Labs Labs: 12/24/16 07:24 12/24/16 07:24 PT 11.0 SECONDS (9.7-12.2) 12/10/16 04:19 INR 1.0 12/10/16 04:19 APTT 34 SECONDS (21-34) 12/10/16 04:19 Assessment and Plan (1) Alcohol abuse Status: Acute (2) Chest wall abscess Status: Acute Attending/Attestation - Attestation I have personally seen and examined this patient.: Yes I have fully participated in the care of the patient.: Yes I have reviewed all pertinent clinical information, including history, physical exam and plan: Yes Notes (Text): 01/28/17 05:51 pt for tx for group home abx cp from trauma abscess
--- NOTE | 2016-12-17 09:07 | CP.PCM.PN ---
Subjective - Date & Time of Evaluation Date of Evaluation: 12/17/16 Time of Evaluation: 09:40 - Subjective Subjective: Dr. Lionel Cobain service: Patient is Objective - Vital Signs/Intake and Output Vital Signs (last 24 hours): Temp Pulse Resp BP Pulse Ox 97.7 F 81 18 103/69 98 12/17/16 07:00 12/17/16 07:00 12/17/16 07:00 12/17/16 07:00 12/17/16 07:00 Intake and Output: 12/17/16 12/17/16 06:59 18:59 Intake Total 70 Balance 70 - Medications Medications: Current Medications Folic Acid (Folic Acid) 1 mg PO DAILY [facility] Last Admin: 12/16/16 09:11 Dose: 1 mg Cefazolin Sodium 2 gm/ (Dextrose) 50 mls @ 100 mls/hr IVPB Q8H [facility] Last Admin: 12/16/16 23:53 Dose: 100 mls/hr Lorazepam (Ativan) 1 mg IVP Q4H PRN PRN Reason: Seizure activity Multivitamins (Hexavitamin) 1 tab PO DAILY [facility] Last Admin: 12/16/16 09:11 Dose: 1 tab Pantoprazole Sodium (Protonix Ec Tab) 40 mg PO DAILY [facility] Last Admin: 12/16/16 09:11 Dose: 40 mg Saccharomyces Boulardii (Florastor) 250 mg PO BID [facility] Last Admin: 12/16/16 17:24 Dose: 250 mg Thiamine HCl (Vitamin B1 Tab) 100 mg PO DAILY [facility] Last Admin: 12/16/16 09:11 Dose: 100 mg - Labs Labs: 12/15/16 05:58 12/15/16 05:58 PT 11.0 SECONDS (9.7-12.2) 12/10/16 04:19 INR 1.0 12/10/16 04:19 APTT 34 SECONDS (21-34) 12/10/16 04:19 Assessment and Plan - Assessment and Plan (Free Text) Assessment: 1. Chest wound with abscess 12/14: Consider stool studies if diarrhea continues, IV antiobitics for now. Will start Florastor bid as well. 12/13: PICC line in place, patient will need long-term IV antibiotics, however he was denied [facility]. Will continue with current managment. Sx consult - Dr. Hancock - help appreciated Patient cleared from surgical perspective Cardio consult - Dr. Nix - help appreciated ECHO shows grade I abnormal relaxation pattern and mild triscupid regurgitations EKG normal Blood culture positive for gram positive cocci Wound culture positive for Staph Aureus ID consult - Dr. Gordon- help appreciated Continue Vanco and Zosyn IVPB day 3 Will d/c to [facility] to continue IV Abx if possible PICC line ordered 2. Alcohol abuse Librium taper Ativan IVP PRN seizure activity CIWA protocol Thiamine 100mg PO daily Folic Acid 1mg PO daily 3. Prophylaxis Protonix 40mg PO daily [facility]
[2016-12-17] MEDS: Saccharomyces Boulardi 250 mg Cap PO SCH ×2 (09:13→18:32)
[2016-12-17] MEDS: Pantoprazole 40 mg EC Tab PO SCH (09:14)
[2016-12-17] MEDS: Multiple Vitamins Tab PO SCH (09:14)
--- NOTE | 2016-12-17 11:54 | CP.PCM.PN ---
Subjective - Date & Time of Evaluation Date of Evaluation: 12/17/16 Time of Evaluation: 08:00 - Subjective Subjective: cultures noted iv rx in progress Objective - Vital Signs/Intake and Output Vital Signs (last 24 hours): Temp Pulse Resp BP Pulse Ox 97.7 F 81 18 103/69 98 12/17/16 07:00 12/17/16 11:07 12/17/16 07:00 12/17/16 07:00 12/17/16 07:00 Intake and Output: 12/17/16 12/17/16 06:59 18:59 Intake Total 70 Balance 70 - Medications Medications: Current Medications Folic Acid (Folic Acid) 1 mg PO DAILY [facility] Last Admin: 12/17/16 09:14 Dose: 1 mg Cefazolin Sodium 2 gm/ (Dextrose) 50 mls @ 100 mls/hr IVPB Q8H [facility] Last Admin: 12/17/16 09:14 Dose: 100 mls/hr Multivitamins (Hexavitamin) 1 tab PO DAILY [facility] Last Admin: 12/17/16 09:14 Dose: 1 tab Pantoprazole Sodium (Protonix Ec Tab) 40 mg PO DAILY [facility] Last Admin: 12/17/16 09:14 Dose: 40 mg Saccharomyces Boulardii (Florastor) 250 mg PO BID [facility] Last Admin: 12/17/16 09:13 Dose: 250 mg Thiamine HCl (Vitamin B1 Tab) 100 mg PO DAILY [facility] Last Admin: 12/17/16 09:14 Dose: 100 mg - Labs Labs: 12/15/16 05:58 12/15/16 05:58 PT 11.0 SECONDS (9.7-12.2) 12/10/16 04:19 INR 1.0 12/10/16 04:19 APTT 34 SECONDS (21-34) 12/10/16 04:19 - Constitutional Appears: Non-toxic, Chronically Ill - Head Exam Head Exam: NORMOCEPHALIC - Eye Exam Eye Exam: absent: Scleral icterus - ENT Exam ENT Exam: Mucous Membranes Dry - Neck Exam Neck Exam: absent: Lymphadenopathy - Respiratory Exam Respiratory Exam: Decreased Breath Sounds - Cardiovascular Exam Cardiovascular Exam: REGULAR RHYTHM - GI/Abdominal Exam GI & Abdominal Exam: Distended Assessment and Plan (1) Alcohol dependence Status: Acute (2) Chest wall abscess Status: Acute (3) Dyspnea on exertion Status: Acute
--- NOTE | 2016-12-17 17:16 | CP.PCM.PN ---
Subjective - Date & Time of Evaluation Date of Evaluation: 12/17/16 Time of Evaluation: 10:40 - Subjective Subjective: clinically same Objective - Vital Signs/Intake and Output Vital Signs (last 24 hours): Temp Pulse Resp BP Pulse Ox 98 F 84 20 132/86 99 12/17/16 16:09 12/17/16 16:09 12/17/16 16:09 12/17/16 16:09 12/17/16 16:09 Intake and Output: 12/17/16 12/17/16 06:59 18:59 Intake Total 70 Balance 70 - Medications Medications: Current Medications Folic Acid (Folic Acid) 1 mg PO DAILY [facility] Last Admin: 12/17/16 09:14 Dose: 1 mg Cefazolin Sodium 2 gm/ (Dextrose) 50 mls @ 100 mls/hr IVPB Q8H [facility] Last Admin: 12/17/16 16:33 Dose: 100 mls/hr Multivitamins (Hexavitamin) 1 tab PO DAILY [facility] Last Admin: 12/17/16 09:14 Dose: 1 tab Pantoprazole Sodium (Protonix Ec Tab) 40 mg PO DAILY [facility] Last Admin: 12/17/16 09:14 Dose: 40 mg Saccharomyces Boulardii (Florastor) 250 mg PO BID [facility] Last Admin: 12/17/16 09:13 Dose: 250 mg Thiamine HCl (Vitamin B1 Tab) 100 mg PO DAILY [facility] Last Admin: 12/17/16 09:14 Dose: 100 mg - Labs Labs: 12/15/16 05:58 12/15/16 05:58 PT 11.0 SECONDS (9.7-12.2) 12/10/16 04:19 INR 1.0 12/10/16 04:19 APTT 34 SECONDS (21-34) 12/10/16 04:19 - Constitutional Appears: Well - Head Exam Head Exam: ATRAUMATIC, NORMAL INSPECTION, NORMOCEPHALIC - Eye Exam Eye Exam: EOMI, Normal appearance, PERRL Pupil Exam: NORMAL ACCOMODATION, PERRL - ENT Exam ENT Exam: Mucous Membranes Moist, Normal Exam - Neck Exam Neck Exam: Full ROM, Normal Inspection. absent: Lymphadenopathy - Respiratory Exam Respiratory Exam: Decreased Breath Sounds - Cardiovascular Exam Cardiovascular Exam: REGULAR RHYTHM, +S1, +S2 - GI/Abdominal Exam GI & Abdominal Exam: Soft, Diminished Bowel Sounds - Rectal Exam Rectal Exam: Deferred Assessment and Plan (1) Alcohol abuse Status: Acute (2) Alcohol intoxication Status: Acute (3) Alcohol dependence Status: Acute (4) Alcohol intoxication Status: Acute (5) Alcohol intoxication in active alcoholic Status: Acute (6) Alcohol withdrawal syndrome Status: Acute (7) Cellulitis Status: Acute (8) Chest wall abscess Status: Acute (9) Constipation Status: Acute (10) Disorder due to alcohol abuse Status: Acute (11) Dyspnea on exertion Status: Acute (12) Major depressive disorder, recurrent, unspecified Status: Acute (13) Medical assessment Status: Acute (14) Narcotic abuse Status: Acute (15) Poison vanita dermatitis Status: Acute (16) Rectal bleeding Status: Acute (17) Schizoaffective disorder Status: Acute (18) Schizoaffective disorder Status: Acute (19) Urinary frequency Status: Acute (20) Visit for wound care Status: Acute (21) Visit for wound check Status: Acute - Assessment and Plan (Free Text) Plan: IV antibiotics Consults on board Culture reports noted Labs next a.m. Talked with family
[2016-12-18] MEDS: Multiple Vitamins Tab PO SCH (09:04)
[2016-12-18] MEDS: Pantoprazole 40 mg EC Tab PO SCH (09:04)
[2016-12-18] MEDS: Saccharomyces Boulardi 250 mg Cap PO SCH ×2 (09:04→17:35)
--- NOTE | 2016-12-18 10:36 | CP.PCM.PN ---
Subjective - Date & Time of Evaluation Date of Evaluation: 12/18/16 Time of Evaluation: 12:20 - Subjective Subjective: clinically same Objective - Vital Signs/Intake and Output Vital Signs (last 24 hours): Temp Pulse Resp BP Pulse Ox 98 F 77 18 111/77 98 12/18/16 08:04 12/18/16 08:04 12/18/16 08:04 12/18/16 08:04 12/18/16 08:04 Intake and Output: 12/18/16 12/18/16 06:59 18:59 Intake Total 470 Output Total 200 Balance 270 - Medications Medications: Current Medications Folic Acid (Folic Acid) 1 mg PO DAILY [facility] Last Admin: 12/18/16 09:04 Dose: 1 mg Cefazolin Sodium 2 gm/ (Dextrose) 50 mls @ 100 mls/hr IVPB Q8H [facility] Last Admin: 12/18/16 09:04 Dose: 100 mls/hr Multivitamins (Hexavitamin) 1 tab PO DAILY [facility] Last Admin: 12/18/16 09:04 Dose: 1 tab Pantoprazole Sodium (Protonix Ec Tab) 40 mg PO DAILY [facility] Last Admin: 12/18/16 09:04 Dose: 40 mg Saccharomyces Boulardii (Florastor) 250 mg PO BID [facility] Last Admin: 12/18/16 09:04 Dose: 250 mg Thiamine HCl (Vitamin B1 Tab) 100 mg PO DAILY [facility] Last Admin: 12/18/16 09:04 Dose: 100 mg - Labs Labs: 12/15/16 05:58 12/15/16 05:58 PT 11.0 SECONDS (9.7-12.2) 12/10/16 04:19 INR 1.0 12/10/16 04:19 APTT 34 SECONDS (21-34) 12/10/16 04:19 - Constitutional Appears: Well - Head Exam Head Exam: ATRAUMATIC, NORMAL INSPECTION, NORMOCEPHALIC - Eye Exam Eye Exam: EOMI, Normal appearance, PERRL Pupil Exam: NORMAL ACCOMODATION, PERRL - ENT Exam ENT Exam: Mucous Membranes Moist, Normal Exam - Neck Exam Neck Exam: Full ROM, Normal Inspection. absent: Lymphadenopathy - Respiratory Exam Respiratory Exam: Decreased Breath Sounds - Cardiovascular Exam Cardiovascular Exam: REGULAR RHYTHM, +S1, +S2 - GI/Abdominal Exam GI & Abdominal Exam: Soft, Diminished Bowel Sounds - Rectal Exam Rectal Exam: Deferred Assessment and Plan (1) Alcohol abuse Status: Acute (2) Alcohol intoxication Status: Acute (3) Alcohol dependence Status: Acute (4) Alcohol intoxication Status: Acute (5) Alcohol intoxication in active alcoholic Status: Acute (6) Alcohol withdrawal syndrome Status: Acute (7) Cellulitis Status: Acute (8) Chest wall abscess Status: Acute (9) Constipation Status: Acute (10) Disorder due to alcohol abuse Status: Acute (11) Dyspnea on exertion Status: Acute (12) Major depressive disorder, recurrent, unspecified Status: Acute (13) Medical assessment Status: Acute (14) Narcotic abuse Status: Acute (15) Poison vanita dermatitis Status: Acute (16) Rectal bleeding Status: Acute (17) Schizoaffective disorder Status: Acute (18) Schizoaffective disorder Status: Acute (19) Urinary frequency Status: Acute (20) Visit for wound care Status: Acute (21) Visit for wound check Status: Acute - Assessment and Plan (Free Text) Plan: Diarrhea resolved No any major complaints Labs reviewed IV cefazolin ID consult Protonix
--- NOTE | 2016-12-18 11:30 | CP.PCM.PN ---
<MaryDarlene Paolo - Last Filed: 12/18/16 11:25> Subjective - Date & Time of Evaluation Date of Evaluation: 12/18/16 Time of Evaluation: 09:45 - Subjective Subjective: PGY2 Medicine Note- Dr. Jitendra Cobian's Service: Patient seen and examined at bedside this AM. Patient sitting up in bed comfortably. Patient reports left nipple pain. Patient says diarrhea has resolved. Patient denies fever, chills, SOB, abdominal pain, nausea, vomiting, diarrhea, constipation, dysuria. Objective - Vital Signs/Intake and Output Vital Signs (last 24 hours): Temp Pulse Resp BP Pulse Ox 98 F 77 18 111/77 98 12/18/16 08:04 12/18/16 08:04 12/18/16 08:04 12/18/16 08:04 12/18/16 08:04 Intake and Output: 12/18/16 12/18/16 06:59 18:59 Intake Total 470 Output Total 200 Balance 270 - Medications Medications: Current Medications Folic Acid (Folic Acid) 1 mg PO DAILY [facility] Last Admin: 12/18/16 09:04 Dose: 1 mg Cefazolin Sodium 2 gm/ (Dextrose) 50 mls @ 100 mls/hr IVPB Q8H [facility] Last Admin: 12/18/16 09:04 Dose: 100 mls/hr Multivitamins (Hexavitamin) 1 tab PO DAILY [facility] Last Admin: 12/18/16 09:04 Dose: 1 tab Pantoprazole Sodium (Protonix Ec Tab) 40 mg PO DAILY [facility] Last Admin: 12/18/16 09:04 Dose: 40 mg Saccharomyces Boulardii (Florastor) 250 mg PO BID [facility] Last Admin: 12/18/16 09:04 Dose: 250 mg Thiamine HCl (Vitamin B1 Tab) 100 mg PO DAILY [facility] Last Admin: 12/18/16 09:04 Dose: 100 mg - Labs Labs: 12/15/16 05:58 12/15/16 05:58 PT 11.0 SECONDS (9.7-12.2) 12/10/16 04:19 INR 1.0 12/10/16 04:19 APTT 34 SECONDS (21-34) 12/10/16 04:19 - Constitutional Appears: Non-toxic, No Acute Distress - Head Exam Head Exam: NORMAL INSPECTION - Eye Exam Eye Exam: EOMI - ENT Exam ENT Exam: Mucous Membranes Moist - Respiratory Exam Respiratory Exam: Clear to Ausculation Bilateral, NORMAL BREATHING PATTERN. absent: Rales, Rhonchi, Wheezes - Cardiovascular Exam Cardiovascular Exam: REGULAR RHYTHM, +S1, +S2. absent: Gallop, Rubs, Murmur - GI/Abdominal Exam GI & Abdominal Exam: Soft, Normal Bowel Sounds. absent: Firm, Guarding, Tenderness - Extremities Exam Extremities Exam: absent: Pedal Edema - Neurological Exam Neurological Exam: Alert, Oriented x3 - Psychiatric Exam Psychiatric exam: Normal Affect, Normal Mood - Skin Skin Exam: Normal Color, Warm Assessment and Plan - Assessment and Plan (Free Text) Assessment: 1. Chest wound with abscess 12/18: Continue IV antibiotics Diarrhea resolved with changing antibiotics Patient now on Cefazolin 2gm IVPB Q8H since 12/16/16 Continue Florastor 250mg PO BID 12/14: Consider stool studies if diarrhea continues, IV antiobitics for now. Will start Florastor bid as well. 12/13: PICC line in place, patient will need intermediate card tender IV antibiotics, however he was denied HÉCTOR. Will continue with current managment. Sx consult - Dr. Hancock - help appreciated Patient cleared from surgical perspective Cardio consult - Dr. Nix - help appreciated ECHO shows grade I abnormal relaxation pattern and mild triscupid regurgitations EKG normal Blood culture positive for gram positive cocci Wound culture positive for Staph Aureus ID consult - Dr. Gordon- help appreciated Continue Vanco and Zosyn IVPB day 3 Will d/c to [facility]CTOR to continue IV Abx if possible PICC line ordered 2. Alcohol abuse Librium taper Ativan IVP PRN seizure activity CIWA protocol Thiamine 100mg PO daily Folic Acid 1mg PO daily 3. Prophylaxis Protonix 40mg PO daily [facility] <Moraima Cobian S - Last Filed: 12/18/16 18:05> Objective - Vital Signs/Intake and Output Vital Signs (last 24 hours): Temp Pulse Resp BP Pulse Ox 98.4 F 87 20 114/79 97 12/18/16 15:00 12/18/16 15:00 12/18/16 15:00 12/18/16 15:00 12/18/16 15:00 Intake and Output: 12/18/16 12/18/16 06:59 18:59 Intake Total 470 Output Total 200 Balance 270 - Medications Medications: Current Medications Folic Acid (Folic Acid) 1 mg PO DAILY [facility] Last Admin: 12/18/16 09:04 Dose: 1 mg Cefazolin Sodium 2 gm/ (Dextrose) 50 mls @ 100 mls/hr IVPB Q8H [facility] Last Admin: 12/18/16 16:45 Dose: 100 mls/hr Multivitamins (Hexavitamin) 1 tab PO DAILY [facility] Last Admin: 12/18/16 09:04 Dose: 1 tab Pantoprazole Sodium (Protonix Ec Tab) 40 mg PO DAILY [facility] Last Admin: 12/18/16 09:04 Dose: 40 mg Saccharomyces Boulardii (Florastor) 250 mg PO BID [facility] Last Admin: 12/18/16 17:35 Dose: 250 mg Thiamine HCl (Vitamin B1 Tab) 100 mg PO DAILY [facility] Last Admin: 12/18/16 09:04 Dose: 100 mg - Labs Labs: 12/15/16 05:58 12/15/16 05:58 PT 11.0 SECONDS (9.7-12.2) 12/10/16 04:19 INR 1.0 12/10/16 04:19 APTT 34 SECONDS (21-34) 12/10/16 04:19 Attending/Attestation - Attestation I have personally seen and examined this patient.: Yes I have fully participated in the care of the patient.: Yes I have reviewed all pertinent clinical information, including history, physical exam and plan: Yes Notes (Text): 12/18/16 18:04 case seen and discused with staff and resident
--- NOTE | 2016-12-18 12:13 | CP.PCM.PN ---
<Larissa Birmingham - Last Filed: 12/18/16 15:48> Subjective - Date & Time of Evaluation Date of Evaluation: 12/18/16 Time of Evaluation: 12:00 - Subjective Subjective: Cardiology Progress Note for Dr. Nix Patient seen and examined at bedside. As per nursing, there were no acute overnight events. Patient reports he had some drainage from the trauma site, but denies having any pain, CP, n/v/d, SOB, dysuria, hematuria, numbness or tingling. Objective - Vital Signs/Intake and Output Vital Signs (last 24 hours): Temp Pulse Resp BP Pulse Ox 98 F 77 18 111/77 98 12/18/16 08:04 12/18/16 08:04 12/18/16 08:04 12/18/16 08:04 12/18/16 08:04 Intake and Output: 12/18/16 12/18/16 06:59 18:59 Intake Total 470 Output Total 200 Balance 270 - Medications Medications: Current Medications Folic Acid (Folic Acid) 1 mg PO DAILY [facility] Last Admin: 12/18/16 09:04 Dose: 1 mg Cefazolin Sodium 2 gm/ (Dextrose) 50 mls @ 100 mls/hr IVPB Q8H [facility] Last Admin: 12/18/16 09:04 Dose: 100 mls/hr Multivitamins (Hexavitamin) 1 tab PO DAILY [facility] Last Admin: 12/18/16 09:04 Dose: 1 tab Pantoprazole Sodium (Protonix Ec Tab) 40 mg PO DAILY [facility] Last Admin: 12/18/16 09:04 Dose: 40 mg Saccharomyces Boulardii (Florastor) 250 mg PO BID [facility] Last Admin: 12/18/16 09:04 Dose: 250 mg Thiamine HCl (Vitamin B1 Tab) 100 mg PO DAILY [facility] Last Admin: 12/18/16 09:04 Dose: 100 mg - Labs Labs: 12/15/16 05:58 12/15/16 05:58 PT 11.0 SECONDS (9.7-12.2) 12/10/16 04:19 INR 1.0 12/10/16 04:19 APTT 34 SECONDS (21-34) 12/10/16 04:19 - Constitutional Appears: No Acute Distress - Head Exam Head Exam: NORMAL INSPECTION - Eye Exam Eye Exam: Normal appearance Pupil Exam: NORMAL ACCOMODATION - ENT Exam ENT Exam: Mucous Membranes Moist - Neck Exam Neck Exam: Normal Inspection - Respiratory Exam Respiratory Exam: Clear to Ausculation Bilateral, NORMAL BREATHING PATTERN. absent: Rales, Rhonchi, Wheezes - Cardiovascular Exam Cardiovascular Exam: REGULAR RHYTHM, +S1, +S2. absent: Gallop, Rubs, Murmur - GI/Abdominal Exam GI & Abdominal Exam: Soft, Normal Bowel Sounds. absent: Rigid, Tenderness, Mass , Rebound - Extremities Exam Extremities Exam: Normal Inspection. absent: Calf Tenderness, Pedal Edema - Neurological Exam Neurological Exam: Alert, Awake, CN II-XII Intact, Oriented x3 - Psychiatric Exam Psychiatric exam: Normal Affect, Normal Mood - Skin Skin Exam: Dry, Normal Color, Warm Assessment and Plan - Assessment and Plan (Free Text) Assessment: This is a 51Y M with PMH alcoholism, HTN and HLD admitted for 1) Chest abscess 2) Bacteremia - blood cultures positive for coag neg staph 4) Alcoholism 5) Hx of HTN 6) Hx of HLD Plan: - Continue Rocephin IV - Continue to monitor vitals - pt normotensive despite having hx of HTN - Pt denied for HÉCTOR GI ppx: Protonix DVT ppx: SCDs Case seen, reviewed and discussed with Dr. Nix Thank you for the consultation. Will sign off. Please re-consult if needed. Paloma Birmingham PGY1 <Lisa Nix - Last Filed: 01/28/17 05:40> Objective - Vital Signs/Intake and Output Vital Signs (last 24 hours): Temp Pulse Resp BP Pulse Ox 97.4 F L 93 H 20 155/82 H 99 12/24/16 08:00 12/24/16 08:00 12/24/16 08:00 12/24/16 08:00 12/24/16 08:00 - Labs Labs: 12/24/16 07:24 12/24/16 07:24 PT 11.0 SECONDS (9.7-12.2) 12/10/16 04:19 INR 1.0 12/10/16 04:19 APTT 34 SECONDS (21-34) 12/10/16 04:19 Assessment and Plan (1) Alcohol abuse Status: Acute (2) Chest wall abscess Status: Acute Attending/Attestation - Attestation I have personally seen and examined this patient.: Yes I have fully participated in the care of the patient.: Yes I have reviewed all pertinent clinical information, including history, physical exam and plan: Yes Notes (Text): 01/28/17 05:40 for transfer to [facility] continue abx for abscess hr stable
[2016-12-18 16:37] VITALS: RESP 20
[2016-12-19 06:55] LABS: BASO # 0.1 K/uL (0.0-0.2); BASO % 1.4 % (0.0-2.0); EOS # 0.3 K/uL (0.0-0.7); EOS % 4.6 % (0.0-4.0); HEMATOCRIT 37.2 % (35.0-51.0); LYMPH # 1.8 K/uL (1.0-4.3); LYMPH % 30.7 % (20.0-40.0); MEAN CELL VOLUME 93.7 fL (80.0-94.0); MEAN CORPUSCULAR HEMOGLOBIN 30.6 pg (27.0-31.0); MEAN CORPUSCULAR HGB CONC 32.7 g/dL (33.0-37.0); MEAN PLATELET VOLUME 8.2 fL (7.2-11.7); MONO # 1.1 K/uL (0.0-0.8); MONO % 19.8 % (0.0-10.0); NRBC % 0.1 % (0.0-2.0); RED CELL DISTRIBUTION WIDTH 13.4 % (11.5-14.5); WHITE BLOOD COUNT 5.8 K/uL (4.8-10.8)
[2016-12-19 07:04] LABS: CHLORIDE 95 mmol/L (98-107); SODIUM 139 mmol/L (132-148)
[2016-12-19 07:07] LABS: ALB/GLOB RATIO 1.2 (1.0-2.1); ALKALINE PHOSPHATASE 52 U/L (38-126); ALT/SGPT 24 U/L (21-72); AST/SGOT 33 U/L (17-59); BILIRUBIN,TOTAL 0.7 mg/dL (0.2-1.3); BLOOD UREA NITROGEN 15 mg/dL (9-20); CARBON DIOXIDE 28 mmol/L (22-30); GFR AFRICAN-AMERICAN > 60; GLUCOSE,RANDOM 91 mg/dL (75-110); TOTAL PROTEIN 7.3 g/dL (6.3-8.3)
[2016-12-19 07:08] LABS: CALCIUM 8.8 mg/dl (8.6-10.4)
[2016-12-19 07:09] LABS: POTASSIUM 4.2 mmol/L (3.6-5.2)
[2016-12-19] MEDS: Multiple Vitamins Tab PO SCH (09:40)
[2016-12-19] MEDS: Pantoprazole 40 mg EC Tab PO SCH (09:40)
[2016-12-19] MEDS: Saccharomyces Boulardi 250 mg Cap PO SCH ×2 (09:40→17:12)
--- NOTE | 2016-12-19 12:57 | CP.PCM.PN ---
<MaryDarlene Paolo - Last Filed: 12/19/16 12:55> Subjective - Date & Time of Evaluation Date of Evaluation: 12/19/16 Time of Evaluation: 08:50 - Subjective Subjective: PGY2 Medicine Note- Dr. Jitendra Cobian's Service: Patient seen and examined at bedside this AM. Patient sitting up in bed comfortably. Patient reports left rib pain. Patient denies fever, chills, SOB , abdominal pain, nausea, vomiting, diarrhea, constipation, dysuria. Objective - Vital Signs/Intake and Output Vital Signs (last 24 hours): Temp Pulse Resp BP Pulse Ox 97.6 F 73 20 110/70 100 12/19/16 07:44 12/19/16 08:24 12/19/16 07:44 12/19/16 07:44 12/19/16 07:44 Intake and Output: 12/19/16 12/19/16 06:59 18:59 Intake Total 730 Balance 730 - Medications Medications: Current Medications Folic Acid (Folic Acid) 1 mg PO DAILY [facility] Last Admin: 12/19/16 09:40 Dose: 1 mg Cefazolin Sodium 2 gm/ (Dextrose) 50 mls @ 100 mls/hr IVPB Q8H [facility] Last Admin: 12/19/16 09:00 Dose: 100 mls/hr Multivitamins (Hexavitamin) 1 tab PO DAILY [facility] Last Admin: 12/19/16 09:40 Dose: 1 tab Pantoprazole Sodium (Protonix Ec Tab) 40 mg PO DAILY [facility] Last Admin: 12/19/16 09:40 Dose: 40 mg Saccharomyces Boulardii (Florastor) 250 mg PO BID [facility] Last Admin: 12/19/16 09:40 Dose: 250 mg Thiamine HCl (Vitamin B1 Tab) 100 mg PO DAILY [facility] Last Admin: 12/19/16 09:40 Dose: 100 mg - Labs Labs: 12/19/16 06:51 12/19/16 06:51 PT 11.0 SECONDS (9.7-12.2) 12/10/16 04:19 INR 1.0 12/10/16 04:19 APTT 34 SECONDS (21-34) 12/10/16 04:19 - Constitutional Appears: Non-toxic, No Acute Distress - Head Exam Head Exam: NORMAL INSPECTION - Eye Exam Eye Exam: EOMI - ENT Exam ENT Exam: Mucous Membranes Moist - Respiratory Exam Respiratory Exam: Clear to Ausculation Bilateral, NORMAL BREATHING PATTERN. absent: Rales, Rhonchi, Wheezes - Cardiovascular Exam Cardiovascular Exam: REGULAR RHYTHM, +S1, +S2. absent: Gallop, Rubs, Murmur - GI/Abdominal Exam GI & Abdominal Exam: Soft, Normal Bowel Sounds. absent: Firm, Guarding, Tenderness - Extremities Exam Extremities Exam: Normal Capillary Refill. absent: Pedal Edema - Neurological Exam Neurological Exam: Alert, Oriented x3 - Psychiatric Exam Psychiatric exam: Normal Affect, Normal Mood - Skin Skin Exam: Normal Color, Warm Assessment and Plan - Assessment and Plan (Free Text) Assessment: 1. Chest wound with abscess 12/19: continue IV Abx 12/18: Continue IV antibiotics Diarrhea resolved with changing antibiotics Patient now on Cefazolin 2gm IVPB Q8H since 12/16/16 Continue Florastor 250mg PO BID 12/14: Consider stool studies if diarrhea continues, IV antiobitics for now. Will start Florastor bid as well. 12/13: PICC line in place, patient will need fdc IV antibiotics, however he was denied HÉCTOR. Will continue with current managment. Sx consult - Dr. Hancock - help appreciated Patient cleared from surgical perspective Cardio consult - Dr. Nix - help appreciated ECHO shows grade I abnormal relaxation pattern and mild triscupid regurgitations EKG normal Blood culture positive for gram positive cocci Wound culture positive for Staph Aureus ID consult - Dr. Gordon- help appreciated Continue Vanco and Zosyn IVPB day 3 Will d/c to [facility]CTOR to continue IV Abx if possible PICC line ordered 2. Alcohol abuse Librium taper Ativan IVP PRN seizure activity CIWA protocol Thiamine 100mg PO daily Folic Acid 1mg PO daily 3. Prophylaxis Protonix 40mg PO daily [facility] <Moraima Cobian S - Last Filed: 12/26/16 22:46> Objective - Vital Signs/Intake and Output Vital Signs (last 24 hours): Temp Pulse Resp BP Pulse Ox 97.4 F L 93 H 20 155/82 H 99 12/24/16 08:00 12/24/16 08:00 12/24/16 08:00 12/24/16 08:00 12/24/16 08:00 - Labs Labs: 12/24/16 07:24 04/03/17 07:24 PT 11.0 SECONDS (9.7-12.2) 12/10/16 04:19 INR 1.0 12/10/16 04:19 APTT 34 SECONDS (21-34) 12/10/16 04:19 Attending/Attestation - Attestation I have personally seen and examined this patient.: Yes I have fully participated in the care of the patient.: Yes I have reviewed all pertinent clinical information, including history, physical exam and plan: Yes Notes (Text): case seen and discussed with staff and resident mx as agreed
--- NOTE | 2016-12-19 18:10 | CP.PCM.PN ---
Subjective - Date & Time of Evaluation Date of Evaluation: 12/19/16 Time of Evaluation: 09:00 - Subjective Subjective: clinically same Objective - Vital Signs/Intake and Output Vital Signs (last 24 hours): Temp Pulse Resp BP Pulse Ox 98.0 F 73 20 128/83 100 12/19/16 15:00 12/19/16 16:41 12/19/16 15:00 12/19/16 15:00 12/19/16 15:00 Intake and Output: 12/19/16 12/19/16 06:59 18:59 Intake Total 730 Balance 730 - Medications Medications: Current Medications Folic Acid (Folic Acid) 1 mg PO DAILY [facility] Last Admin: 12/19/16 09:40 Dose: 1 mg Cefazolin Sodium 2 gm/ (Dextrose) 50 mls @ 100 mls/hr IVPB Q8H [facility] Last Admin: 12/19/16 16:14 Dose: 100 mls/hr Multivitamins (Hexavitamin) 1 tab PO DAILY [facility] Last Admin: 12/19/16 09:40 Dose: 1 tab Pantoprazole Sodium (Protonix Ec Tab) 40 mg PO DAILY [facility] Last Admin: 12/19/16 09:40 Dose: 40 mg Saccharomyces Boulardii (Florastor) 250 mg PO BID [facility] Last Admin: 12/19/16 17:12 Dose: 250 mg Thiamine HCl (Vitamin B1 Tab) 100 mg PO DAILY [facility] Last Admin: 12/19/16 09:40 Dose: 100 mg - Labs Labs: 12/19/16 06:51 12/19/16 06:51 PT 11.0 SECONDS (9.7-12.2) 12/10/16 04:19 INR 1.0 12/10/16 04:19 APTT 34 SECONDS (21-34) 12/10/16 04:19 - Constitutional Appears: Well - Head Exam Head Exam: ATRAUMATIC, NORMAL INSPECTION, NORMOCEPHALIC - Eye Exam Eye Exam: EOMI, Normal appearance, PERRL Pupil Exam: NORMAL ACCOMODATION, PERRL - ENT Exam ENT Exam: Mucous Membranes Moist, Normal Exam - Neck Exam Neck Exam: Full ROM, Normal Inspection. absent: Lymphadenopathy - Respiratory Exam Respiratory Exam: Decreased Breath Sounds - Cardiovascular Exam Cardiovascular Exam: REGULAR RHYTHM, +S1, +S2 - GI/Abdominal Exam GI & Abdominal Exam: Soft, Diminished Bowel Sounds - Rectal Exam Rectal Exam: Deferred Assessment and Plan (1) Alcohol abuse Status: Acute (2) Alcohol intoxication Status: Acute (3) Alcohol dependence Status: Acute (4) Alcohol intoxication Status: Acute (5) Alcohol intoxication in active alcoholic Status: Acute (6) Alcohol withdrawal syndrome Status: Acute (7) Cellulitis Status: Acute (8) Chest wall abscess Status: Acute (9) Constipation Status: Acute (10) Disorder due to alcohol abuse Status: Acute (11) Dyspnea on exertion Status: Acute (12) Major depressive disorder, recurrent, unspecified Status: Acute (13) Medical assessment Status: Acute (14) Narcotic abuse Status: Acute (15) Poison vanita dermatitis Status: Acute (16) Rectal bleeding Status: Acute (17) Schizoaffective disorder Status: Acute (18) Schizoaffective disorder Status: Acute (19) Urinary frequency Status: Acute (20) Visit for wound care Status: Acute (21) Visit for wound check Status: Acute - Assessment and Plan (Free Text) Plan: Counseling for alcohol cessation Thiamine Folic acid ID consult Cardio consult Condition discussed with family
--- NOTE | 2016-12-19 19:09 | CP.PCM.PN ---
Subjective - Date & Time of Evaluation Date of Evaluation: 12/19/16 Time of Evaluation: 08:00 - Subjective Subjective: drainage + cont rx Objective - Vital Signs/Intake and Output Vital Signs (last 24 hours): Temp Pulse Resp BP Pulse Ox 98.0 F 73 20 128/83 100 12/19/16 15:00 12/19/16 16:41 12/19/16 15:00 12/19/16 15:00 12/19/16 15:00 - Medications Medications: Current Medications Folic Acid (Folic Acid) 1 mg PO DAILY [facility] Last Admin: 12/19/16 09:40 Dose: 1 mg Cefazolin Sodium 2 gm/ (Dextrose) 50 mls @ 100 mls/hr IVPB Q8H [facility] Last Admin: 12/19/16 16:14 Dose: 100 mls/hr Multivitamins (Hexavitamin) 1 tab PO DAILY [facility] Last Admin: 12/19/16 09:40 Dose: 1 tab Pantoprazole Sodium (Protonix Ec Tab) 40 mg PO DAILY [facility] Last Admin: 12/19/16 09:40 Dose: 40 mg Saccharomyces Boulardii (Florastor) 250 mg PO BID [facility] Last Admin: 12/19/16 17:12 Dose: 250 mg Thiamine HCl (Vitamin B1 Tab) 100 mg PO DAILY [facility] Last Admin: 12/19/16 09:40 Dose: 100 mg - Labs Labs: 12/19/16 06:51 12/19/16 06:51 PT 11.0 SECONDS (9.7-12.2) 12/10/16 04:19 INR 1.0 12/10/16 04:19 APTT 34 SECONDS (21-34) 12/10/16 04:19 - Constitutional Appears: Non-toxic, Cachectic, Chronically Ill - Head Exam Head Exam: NORMOCEPHALIC - Eye Exam Eye Exam: absent: Scleral icterus - ENT Exam ENT Exam: Mucous Membranes Dry, Normal External Ear Exam - Neck Exam Neck Exam: absent: Lymphadenopathy - Respiratory Exam Respiratory Exam: Decreased Breath Sounds - Cardiovascular Exam Cardiovascular Exam: REGULAR RHYTHM - GI/Abdominal Exam GI & Abdominal Exam: Distended, Soft - Rectal Exam Rectal Exam: Deferred - Exam Exam: NORMAL INSPECTION Assessment and Plan (1) Alcohol dependence Status: Acute (2) Chest wall abscess Status: Acute (3) Dyspnea on exertion Status: Acute
[2016-12-20 07:35] LABS: BASO # 0.1 K/uL (0.0-0.2); BASO % 1.5 % (0.0-2.0); EOS # 0.2 K/uL (0.0-0.7); LYMPH # 1.9 K/uL (1.0-4.3); LYMPH % 33.4 % (20.0-40.0); MEAN CELL VOLUME 93.6 fL (80.0-94.0); MEAN CORPUSCULAR HEMOGLOBIN 30.7 pg (27.0-31.0); MEAN CORPUSCULAR HGB CONC 32.8 g/dL (33.0-37.0); MEAN PLATELET VOLUME 7.7 fL (7.2-11.7); MONO # 1.1 K/uL (0.0-0.8); MONO % 18.9 % (0.0-10.0); NRBC % 0.1 % (0.0-2.0); RED CELL DISTRIBUTION WIDTH 13.2 % (11.5-14.5); WHITE BLOOD COUNT 5.7 K/uL (4.8-10.8)
[2016-12-20 07:55] LABS: CHLORIDE 96 mmol/L (98-107)
[2016-12-20 07:56] LABS: POTASSIUM 4.3 mmol/L (3.6-5.2); SODIUM 137 mmol/L (132-148)
[2016-12-20 07:58] LABS: ALB/GLOB RATIO 1.2 (1.0-2.1); ALKALINE PHOSPHATASE 58 U/L (38-126); AST/SGOT 29 U/L (17-59); BILIRUBIN,TOTAL 0.5 mg/dL (0.2-1.3); BLOOD UREA NITROGEN 13 mg/dL (9-20); CARBON DIOXIDE 26 mmol/L (22-30); GFR AFRICAN-AMERICAN > 60; GLUCOSE,RANDOM 86 mg/dL (75-110); TOTAL PROTEIN 7.1 g/dL (6.3-8.3)
[2016-12-20 07:59] LABS: ALT/SGPT 15 U/L (21-72); CALCIUM 8.9 mg/dl (8.6-10.4)
[2016-12-20] MEDS: Saccharomyces Boulardi 250 mg Cap PO SCH ×2 (09:40→18:26)
[2016-12-20] MEDS: Pantoprazole 40 mg EC Tab PO SCH (09:40)
[2016-12-20] MEDS: Multiple Vitamins Tab PO SCH (09:40)
--- NOTE | 2016-12-20 10:35 | CP.PCM.PN ---
<Bhupinder Mane - Last Filed: 12/20/16 17:47> Subjective - Date & Time of Evaluation Date of Evaluation: 12/20/16 Time of Evaluation: 10:00 - Subjective Subjective: Dr. Lionel Cobian service: patient seen and examined in room. Patient reports pain is improved but he still feels some minor pain at wound site. He is no longer having any more fever or chills as he had a few days ago. He is also walking, eating, having regular bowel movements with no diarrhea. Objective - Vital Signs/Intake and Output Vital Signs (last 24 hours): Temp Pulse Resp BP Pulse Ox 97.9 F 78 20 121/84 99 12/20/16 07:30 12/20/16 07:30 12/20/16 07:30 12/20/16 07:30 12/20/16 07:30 Intake and Output: 12/20/16 12/20/16 06:59 18:59 Intake Total 340 Balance 340 - Medications Medications: Current Medications Folic Acid (Folic Acid) 1 mg PO DAILY [facility] Last Admin: 12/20/16 09:40 Dose: 1 mg Cefazolin Sodium 2 gm/ (Dextrose) 50 mls @ 100 mls/hr IVPB Q8H [facility] Last Admin: 12/20/16 08:11 Dose: 100 mls/hr Multivitamins (Hexavitamin) 1 tab PO DAILY [facility] Last Admin: 12/20/16 09:40 Dose: 1 tab Pantoprazole Sodium (Protonix Ec Tab) 40 mg PO DAILY [facility] Last Admin: 12/20/16 09:40 Dose: 40 mg Saccharomyces Boulardii (Florastor) 250 mg PO BID [facility] Last Admin: 12/20/16 09:40 Dose: 250 mg Thiamine HCl (Vitamin B1 Tab) 100 mg PO DAILY [facility] Last Admin: 12/20/16 09:40 Dose: 100 mg - Labs Labs: 12/20/16 07:06 12/20/16 07:06 PT 11.0 SECONDS (9.7-12.2) 12/10/16 04:19 INR 1.0 12/10/16 04:19 APTT 34 SECONDS (21-34) 12/10/16 04:19 - Constitutional Appears: Non-toxic, No Acute Distress - Head Exam Head Exam: ATRAUMATIC, NORMOCEPHALIC - Eye Exam Eye Exam: Normal appearance - ENT Exam ENT Exam: Normal Exam - Respiratory Exam Respiratory Exam: Clear to Ausculation Bilateral. absent: Rhonchi, Wheezes Additional comments: dressing over his the left side of his chest - Cardiovascular Exam Cardiovascular Exam: REGULAR RHYTHM, RRR, +S1, +S2. absent: Gallop, Rubs - GI/Abdominal Exam GI & Abdominal Exam: Soft, Normal Bowel Sounds. absent: Tenderness - Extremities Exam Extremities Exam: Normal Inspection. absent: Pedal Edema - Back Exam Back Exam: NORMAL INSPECTION - Neurological Exam Neurological Exam: Alert. absent: Normal Gait - Psychiatric Exam Psychiatric exam: Normal Affect, Normal Mood - Skin Skin Exam: Normal Color, Warm Assessment and Plan - Assessment and Plan (Free Text) Assessment: 1. Chest wound with abscess 12/20: continue IV Abx for now, no changes 12/19: continue IV Abx 12/18: Continue IV antibiotics Diarrhea resolved with changing antibiotics Patient now on Cefazolin 2gm IVPB Q8H since 12/16/16 Continue Florastor 250mg PO BID 12/14: Consider stool studies if diarrhea continues, IV antiobitics for now. Will start Florastor bid as well. 12/13: PICC line in place, patient will need half-way IV antibiotics, however he was denied HÉCTOR. Will continue with current managment. Sx consult - Dr. Hancock - help appreciated Patient cleared from surgical perspective Cardio consult - Dr. Nix - help appreciated ECHO shows grade I abnormal relaxation pattern and mild triscupid regurgitations EKG normal Blood culture positive for gram positive cocci Wound culture positive for Staph Aureus ID consult - Dr. Gordon- help appreciated Continue Vanco and Zosyn IVPB day 3 Will d/c to [facility]CTOR to continue IV Abx if possible PICC line ordered 2. Alcohol abuse Librium taper Ativan IVP PRN seizure activity CIWA protocol Thiamine 100mg PO daily Folic Acid 1mg PO daily 3. Prophylaxis Protonix 40mg PO daily [facility] <Moraima Cobian S - Last Filed: 12/26/16 22:45> Objective - Vital Signs/Intake and Output Vital Signs (last 24 hours): Temp Pulse Resp BP Pulse Ox 97.4 F L 78 20 123/86 98 12/20/16 15:00 12/20/16 15:00 12/20/16 15:00 12/20/16 15:00 12/20/16 15:00 - Medications Medications: Current Medications Folic Acid (Folic Acid) 1 mg PO DAILY [facility] Last Admin: 12/20/16 09:40 Dose: 1 mg Cefazolin Sodium 2 gm/ (Dextrose) 50 mls @ 100 mls/hr IVPB Q8H [facility] Last Admin: 12/21/16 00:00 Dose: 100 mls/hr Multivitamins (Hexavitamin) 1 tab PO DAILY [facility] Last Admin: 12/20/16 09:40 Dose: 1 tab Pantoprazole Sodium (Protonix Ec Tab) 40 mg PO DAILY [facility] Last Admin: 12/20/16 09:40 Dose: 40 mg Saccharomyces Boulardii (Florastor) 250 mg PO BID [facility] Last Admin: 12/20/16 18:26 Dose: 250 mg Thiamine HCl (Vitamin B1 Tab) 100 mg PO DAILY [facility] Last Admin: 12/20/16 09:40 Dose: 100 mg - Labs Labs: 12/20/16 07:06 12/20/16 07:06 PT 11.0 SECONDS (9.7-12.2) 12/10/16 04:19 INR 1.0 12/10/16 04:19 APTT 34 SECONDS (21-34) 12/10/16 04:19 Attending/Attestation - Attestation I have personally seen and examined this patient.: Yes I have fully participated in the care of the patient.: Yes I have reviewed all pertinent clinical information, including history, physical exam and plan: Yes Notes (Text): case seen and discussed with staff and resident management agreed
--- NOTE | 2016-12-20 11:44 | CP.PCM.PN ---
Subjective - Date & Time of Evaluation Date of Evaluation: 12/20/16 Time of Evaluation: 09:20 - Subjective Subjective: clinically same Objective - Vital Signs/Intake and Output Vital Signs (last 24 hours): Temp Pulse Resp BP Pulse Ox 97.9 F 78 20 121/84 99 12/20/16 07:30 12/20/16 07:30 12/20/16 07:30 12/20/16 07:30 12/20/16 07:30 Intake and Output: 12/20/16 12/20/16 06:59 18:59 Intake Total 340 Balance 340 - Medications Medications: Current Medications Folic Acid (Folic Acid) 1 mg PO DAILY [facility] Last Admin: 12/20/16 09:40 Dose: 1 mg Cefazolin Sodium 2 gm/ (Dextrose) 50 mls @ 100 mls/hr IVPB Q8H [facility] Last Admin: 12/20/16 08:11 Dose: 100 mls/hr Multivitamins (Hexavitamin) 1 tab PO DAILY [facility] Last Admin: 12/20/16 09:40 Dose: 1 tab Pantoprazole Sodium (Protonix Ec Tab) 40 mg PO DAILY [facility] Last Admin: 12/20/16 09:40 Dose: 40 mg Saccharomyces Boulardii (Florastor) 250 mg PO BID [facility] Last Admin: 12/20/16 09:40 Dose: 250 mg Thiamine HCl (Vitamin B1 Tab) 100 mg PO DAILY [facility] Last Admin: 12/20/16 09:40 Dose: 100 mg - Labs Labs: 12/20/16 07:06 12/20/16 07:06 PT 11.0 SECONDS (9.7-12.2) 12/10/16 04:19 INR 1.0 12/10/16 04:19 APTT 34 SECONDS (21-34) 12/10/16 04:19 - Constitutional Appears: Well - Head Exam Head Exam: ATRAUMATIC, NORMAL INSPECTION, NORMOCEPHALIC - Eye Exam Eye Exam: EOMI, Normal appearance, PERRL Pupil Exam: NORMAL ACCOMODATION, PERRL - ENT Exam ENT Exam: Mucous Membranes Moist, Normal Exam - Neck Exam Neck Exam: Full ROM, Normal Inspection. absent: Lymphadenopathy - Respiratory Exam Respiratory Exam: Decreased Breath Sounds - Cardiovascular Exam Cardiovascular Exam: REGULAR RHYTHM, +S1, +S2 - GI/Abdominal Exam GI & Abdominal Exam: Soft, Diminished Bowel Sounds - Rectal Exam Rectal Exam: Deferred Assessment and Plan (1) Alcohol abuse Status: Acute (2) Alcohol intoxication Status: Acute (3) Alcohol dependence Status: Acute (4) Alcohol intoxication Status: Acute (5) Alcohol intoxication in active alcoholic Status: Acute (6) Alcohol withdrawal syndrome Status: Acute (7) Cellulitis Status: Acute (8) Chest wall abscess Status: Acute (9) Constipation Status: Acute (10) Disorder due to alcohol abuse Status: Acute (11) Dyspnea on exertion Status: Acute (12) Major depressive disorder, recurrent, unspecified Status: Acute (13) Medical assessment Status: Acute (14) Narcotic abuse Status: Acute (15) Poison vanita dermatitis Status: Acute (16) Rectal bleeding Status: Acute (17) Schizoaffective disorder Status: Acute (18) Schizoaffective disorder Status: Acute (19) Urinary frequency Status: Acute (20) Visit for wound care Status: Acute (21) Visit for wound check Status: Acute - Assessment and Plan (Free Text) Plan: Feeling better Wound care IV Cefazolin ID consult Protonix Dietitian referral
[2016-12-21 07:19] LABS: BASO % 0.5 % (0.0-2.0); EOS # 0.3 K/uL (0.0-0.7); EOS % 5.9 % (0.0-4.0); HEMATOCRIT 37.3 % (35.0-51.0); LYMPH # 1.8 K/uL (1.0-4.3); LYMPH % 34.8 % (20.0-40.0); MEAN CELL VOLUME 93.5 fL (80.0-94.0); MEAN CORPUSCULAR HEMOGLOBIN 30.2 pg (27.0-31.0); MEAN CORPUSCULAR HGB CONC 32.3 g/dL (33.0-37.0); MONO # 0.9 K/uL (0.0-0.8); MONO % 17.3 % (0.0-10.0); NRBC % 0.1 % (0.0-2.0); RED CELL DISTRIBUTION WIDTH 13.1 % (11.5-14.5); WHITE BLOOD COUNT 5.2 K/uL (4.8-10.8)
[2016-12-21 07:38] LABS: CHLORIDE 97 mmol/L (98-107); POTASSIUM 4.3 mmol/L (3.6-5.2); SODIUM 140 mmol/L (132-148)
[2016-12-21 07:40] LABS: GFR AFRICAN-AMERICAN > 60
[2016-12-21 07:41] LABS: ALB/GLOB RATIO 1.2 (1.0-2.1); ALKALINE PHOSPHATASE 51 U/L (38-126); ALT/SGPT 19 U/L (21-72); AST/SGOT 28 U/L (17-59); BILIRUBIN,TOTAL 0.8 mg/dL (0.2-1.3); BLOOD UREA NITROGEN 15 mg/dL (9-20); CALCIUM 8.7 mg/dl (8.6-10.4); CARBON DIOXIDE 26 mmol/L (22-30); GLUCOSE,RANDOM 85 mg/dL (75-110); TOTAL PROTEIN 7.4 g/dL (6.3-8.3)
[2016-12-21] MEDS: Pantoprazole 40 mg EC Tab PO SCH (09:22)
[2016-12-21] MEDS: Saccharomyces Boulardi 250 mg Cap PO SCH ×2 (09:22→17:19)
[2016-12-21] MEDS: Multiple Vitamins Tab PO SCH (09:22)
--- NOTE | 2016-12-21 09:53 | CP.PCM.PN ---
Subjective - Date & Time of Evaluation Date of Evaluation: 12/21/16 Time of Evaluation: 09:00 - Subjective Subjective: clinically same Objective - Vital Signs/Intake and Output Vital Signs (last 24 hours): Temp Pulse Resp BP Pulse Ox 97.9 F 79 20 109/68 98 12/21/16 07:56 12/21/16 07:56 12/21/16 07:56 12/21/16 07:56 12/21/16 07:56 Intake and Output: 12/21/16 12/21/16 06:59 18:59 Intake Total 340 Balance 340 - Medications Medications: Current Medications Folic Acid (Folic Acid) 1 mg PO DAILY [facility] Last Admin: 12/21/16 09:22 Dose: 1 mg Cefazolin Sodium 2 gm/ (Dextrose) 50 mls @ 100 mls/hr IVPB Q8H [facility] Last Admin: 12/21/16 08:04 Dose: 100 mls/hr Multivitamins (Hexavitamin) 1 tab PO DAILY [facility] Last Admin: 12/21/16 09:22 Dose: 1 tab Pantoprazole Sodium (Protonix Ec Tab) 40 mg PO DAILY [facility] Last Admin: 12/21/16 09:22 Dose: 40 mg Saccharomyces Boulardii (Florastor) 250 mg PO BID [facility] Last Admin: 12/21/16 09:22 Dose: 250 mg Thiamine HCl (Vitamin B1 Tab) 100 mg PO DAILY [facility] Last Admin: 12/21/16 09:22 Dose: 100 mg - Labs Labs: 12/21/16 07:01 12/21/16 07:01 PT 11.0 SECONDS (9.7-12.2) 12/10/16 04:19 INR 1.0 12/10/16 04:19 APTT 34 SECONDS (21-34) 12/10/16 04:19 - Constitutional Appears: Well - Head Exam Head Exam: ATRAUMATIC, NORMAL INSPECTION, NORMOCEPHALIC - Eye Exam Eye Exam: EOMI, Normal appearance, PERRL Pupil Exam: NORMAL ACCOMODATION, PERRL - ENT Exam ENT Exam: Mucous Membranes Moist, Normal Exam - Neck Exam Neck Exam: Full ROM, Normal Inspection. absent: Lymphadenopathy - Respiratory Exam Respiratory Exam: Decreased Breath Sounds - Cardiovascular Exam Cardiovascular Exam: REGULAR RHYTHM, +S1, +S2 - GI/Abdominal Exam GI & Abdominal Exam: Soft, Diminished Bowel Sounds - Rectal Exam Rectal Exam: Deferred Assessment and Plan (1) Alcohol abuse Status: Acute (2) Alcohol intoxication Status: Acute (3) Alcohol dependence Status: Acute (4) Alcohol intoxication Status: Acute (5) Alcohol intoxication in active alcoholic Status: Acute (6) Alcohol withdrawal syndrome Status: Acute (7) Cellulitis Status: Acute (8) Chest wall abscess Status: Acute (9) Constipation Status: Acute (10) Disorder due to alcohol abuse Status: Acute (11) Dyspnea on exertion Status: Acute (12) Major depressive disorder, recurrent, unspecified Status: Acute (13) Medical assessment Status: Acute (14) Narcotic abuse Status: Acute (15) Poison vanita dermatitis Status: Acute (16) Rectal bleeding Status: Acute (17) Schizoaffective disorder Status: Acute (18) Schizoaffective disorder Status: Acute (19) Urinary frequency Status: Acute (20) Visit for wound care Status: Acute (21) Visit for wound check Status: Acute - Assessment and Plan (Free Text) Plan: Continue IV antibiotics Protonix Wound care Dr. Evan Mane SCDs
--- NOTE | 2016-12-21 17:52 | CP.PCM.PN ---
Subjective - Date & Time of Evaluation Date of Evaluation: 12/21/16 Time of Evaluation: 07:00 - Subjective Subjective: slow progress need to cont iv rx Objective - Vital Signs/Intake and Output Vital Signs (last 24 hours): Temp Pulse Resp BP Pulse Ox 98.6 F 80 20 136/94 H 99 12/21/16 15:00 12/21/16 15:00 12/21/16 15:00 12/21/16 15:00 12/21/16 15:00 Intake and Output: 12/21/16 12/21/16 06:59 18:59 Intake Total 340 550 Balance 340 550 - Medications Medications: Current Medications Folic Acid (Folic Acid) 1 mg PO DAILY [facility] Last Admin: 12/21/16 09:22 Dose: 1 mg Cefazolin Sodium 2 gm/ (Dextrose) 50 mls @ 100 mls/hr IVPB Q8H [facility] Last Admin: 12/21/16 17:18 Dose: 100 mls/hr Multivitamins (Hexavitamin) 1 tab PO DAILY [facility] Last Admin: 12/21/16 09:22 Dose: 1 tab Pantoprazole Sodium (Protonix Ec Tab) 40 mg PO DAILY [facility] Last Admin: 12/21/16 09:22 Dose: 40 mg Saccharomyces Boulardii (Florastor) 250 mg PO BID [facility] Last Admin: 12/21/16 17:19 Dose: 250 mg Thiamine HCl (Vitamin B1 Tab) 100 mg PO DAILY [facility] Last Admin: 12/21/16 09:22 Dose: 100 mg - Labs Labs: 12/21/16 07:01 12/21/16 07:01 PT 11.0 SECONDS (9.7-12.2) 12/10/16 04:19 INR 1.0 12/10/16 04:19 APTT 34 SECONDS (21-34) 12/10/16 04:19 - Constitutional Appears: Non-toxic, Cachectic, Chronically Ill - Head Exam Head Exam: NORMOCEPHALIC - Eye Exam Eye Exam: PERRL. absent: Scleral icterus - ENT Exam ENT Exam: Mucous Membranes Dry, Normal External Ear Exam - Neck Exam Neck Exam: absent: Lymphadenopathy - Respiratory Exam Respiratory Exam: Decreased Breath Sounds, Clear to Ausculation Bilateral - Cardiovascular Exam Cardiovascular Exam: REGULAR RHYTHM, +S1, +S2 - GI/Abdominal Exam GI & Abdominal Exam: Distended, Soft. absent: Tenderness - Rectal Exam Rectal Exam: Deferred - Exam Exam: NORMAL INSPECTION - Extremities Exam Extremities Exam: absent: Pedal Edema - Back Exam Back Exam: absent: CVA tenderness (L), CVA tenderness (R) - Neurological Exam Neurological Exam: Alert, Awake, Oriented x3 Assessment and Plan (1) Alcohol dependence Status: Acute (2) Chest wall abscess Status: Acute (3) Dyspnea on exertion Status: Acute
--- NOTE | 2016-12-21 20:03 | CP.PCM.PN ---
Subjective - Date & Time of Evaluation Date of Evaluation: 12/21/16 Time of Evaluation: 10:00 - Subjective Subjective: Dr. Pineda service: Patient seen and examined in room. Patient is complaining of mild pain but other [place] has no other complaints. He denies fever, chills, nasuea, vomiting, or diarrhea. Objective - Vital Signs/Intake and Output Vital Signs (last 24 hours): Temp Pulse Resp BP Pulse Ox 98.6 F 80 20 136/94 H 99 12/21/16 15:00 12/21/16 15:00 12/21/16 15:00 12/21/16 15:00 12/21/16 15:00 Intake and Output: 12/21/16 12/22/16 18:59 06:59 Intake Total 550 Balance 550 - Medications Medications: Current Medications Folic Acid (Folic Acid) 1 mg PO DAILY [facility] Last Admin: 12/21/16 09:22 Dose: 1 mg Cefazolin Sodium 2 gm/ (Dextrose) 50 mls @ 100 mls/hr IVPB Q8H [facility] Last Admin: 12/21/16 17:18 Dose: 100 mls/hr Multivitamins (Hexavitamin) 1 tab PO DAILY [facility] Last Admin: 12/21/16 09:22 Dose: 1 tab Pantoprazole Sodium (Protonix Ec Tab) 40 mg PO DAILY [facility] Last Admin: 12/21/16 09:22 Dose: 40 mg Saccharomyces Boulardii (Florastor) 250 mg PO BID [facility] Last Admin: 12/21/16 17:19 Dose: 250 mg Thiamine HCl (Vitamin B1 Tab) 100 mg PO DAILY [facility] Last Admin: 12/21/16 09:22 Dose: 100 mg - Labs Labs: 12/21/16 07:01 12/21/16 07:01 PT 11.0 SECONDS (9.7-12.2) 12/10/16 04:19 INR 1.0 12/10/16 04:19 APTT 34 SECONDS (21-34) 12/10/16 04:19 - Constitutional Appears: Non-toxic, No Acute Distress - Head Exam Head Exam: ATRAUMATIC, NORMAL INSPECTION, NORMOCEPHALIC - Eye Exam Eye Exam: Normal appearance - ENT Exam ENT Exam: Normal Exam - Respiratory Exam Respiratory Exam: Clear to Ausculation Bilateral. absent: Rhonchi, Wheezes - Cardiovascular Exam Cardiovascular Exam: REGULAR RHYTHM, RRR, +S1, +S2. absent: Gallop, Rubs - GI/Abdominal Exam GI & Abdominal Exam: Soft. absent: Tenderness, Normal Bowel Sounds - Extremities Exam Extremities Exam: Normal Inspection - Neurological Exam Neurological Exam: Alert - Psychiatric Exam Psychiatric exam: Normal Affect, Normal Mood Assessment and Plan - Assessment and Plan (Free Text) Assessment: 1. Chest wound with abscess 12/21: IV Abx, no changes 12/20: continue IV Abx for now, no changes 12/19: continue IV Abx 12/18: Continue IV antibiotics Diarrhea resolved with changing antibiotics Patient now on Cefazolin 2gm IVPB Q8H since 12/16/16 Continue Florastor 250mg PO BID 12/14: Consider stool studies if diarrhea continues, IV antiobitics for now. Will start Florastor bid as well. 12/13: PICC line in place, patient will need buttermaker continuous churn IV antibiotics, however he was denied H[facility]CTOR. Will continue with current managment. Sx consult - Dr. Hancock - help appreciated Patient cleared from surgical perspective Cardio consult - Dr. Nix - help appreciated ECHO shows grade I abnormal relaxation pattern and mild triscupid regurgitations EKG normal Blood culture positive for gram positive cocci Wound culture positive for Staph Aureus ID consult - Dr. Gordon- help appreciated Continue Vanco and Zosyn IVPB day 3 Will d/c to [facility] to continue IV Abx if possible PICC line ordered 2. Alcohol abuse Librium taper Ativan IVP PRN seizure activity CIWA protocol Thiamine 100mg PO daily Folic Acid 1mg PO daily 3. Prophylaxis Protonix 40mg PO daily [facility]
[2016-12-22 07:34] LABS: BASO # 0.1 K/uL (0.0-0.2); BASO % 1.4 % (0.0-2.0); EOS # 0.5 K/uL (0.0-0.7); EOS % 9.4 % (0.0-4.0); HEMATOCRIT 36.8 % (35.0-51.0); LYMPH # 1.5 K/uL (1.0-4.3); LYMPH % 30.3 % (20.0-40.0); MEAN CORPUSCULAR HEMOGLOBIN 30.1 pg (27.0-31.0); MEAN CORPUSCULAR HGB CONC 32.3 g/dL (33.0-37.0); MEAN PLATELET VOLUME 7.9 fL (7.2-11.7); MONO # 0.9 K/uL (0.0-0.8); MONO % 18.2 % (0.0-10.0); NRBC % 0.1 % (0.0-2.0); WHITE BLOOD COUNT 4.9 K/uL (4.8-10.8)
[2016-12-22 07:36] LABS: CHLORIDE 97 mmol/L (98-107); POTASSIUM 4.1 mmol/L (3.6-5.2); SODIUM 137 mmol/L (132-148)
[2016-12-22 07:39] LABS: ALB/GLOB RATIO 1.2 (1.0-2.1); ALKALINE PHOSPHATASE 58 U/L (38-126); ALT/SGPT 14 U/L (21-72); AST/SGOT 25 U/L (17-59); BILIRUBIN,TOTAL 0.4 mg/dL (0.2-1.3); BLOOD UREA NITROGEN 14 mg/dL (9-20); CARBON DIOXIDE 28 mmol/L (22-30); GFR AFRICAN-AMERICAN > 60; GLUCOSE,RANDOM 88 mg/dL (75-110); TOTAL PROTEIN 7.1 g/dL (6.3-8.3)
[2016-12-22] MEDS: Multiple Vitamins Tab PO SCH (10:35)
[2016-12-22] MEDS: Pantoprazole 40 mg EC Tab PO SCH (10:35)
[2016-12-22] MEDS: Saccharomyces Boulardi 250 mg Cap PO SCH ×2 (10:36→17:49)
--- NOTE | 2016-12-22 14:35 | CP.PCM.PN ---
Subjective - Date & Time of Evaluation Date of Evaluation: 12/22/16 Time of Evaluation: 09:20 - Subjective Subjective: clinically same Objective - Vital Signs/Intake and Output Vital Signs (last 24 hours): Temp Pulse Resp BP Pulse Ox 98.2 F 94 H 20 115/74 100 12/22/16 08:00 12/22/16 08:00 12/22/16 08:00 12/22/16 08:00 12/22/16 08:00 Intake and Output: 12/22/16 12/22/16 06:59 18:59 Intake Total 550 Balance 550 - Medications Medications: Current Medications Folic Acid (Folic Acid) 1 mg PO DAILY [facility] Last Admin: 12/22/16 10:36 Dose: 1 mg Cefazolin Sodium 2 gm/ (Dextrose) 50 mls @ 100 mls/hr IVPB Q8H [facility] Last Admin: 12/22/16 10:35 Dose: 100 mls/hr Multivitamins (Hexavitamin) 1 tab PO DAILY [facility] Last Admin: 12/22/16 10:35 Dose: 1 tab Pantoprazole Sodium (Protonix Ec Tab) 40 mg PO DAILY [facility] Last Admin: 12/22/16 10:35 Dose: 40 mg Saccharomyces Boulardii (Florastor) 250 mg PO BID [facility] Last Admin: 12/22/16 10:36 Dose: 250 mg Thiamine HCl (Vitamin B1 Tab) 100 mg PO DAILY [facility] Last Admin: 12/22/16 10:36 Dose: 100 mg - Labs Labs: 12/22/16 07:13 12/22/16 07:13 PT 11.0 SECONDS (9.7-12.2) 12/10/16 04:19 INR 1.0 12/10/16 04:19 APTT 34 SECONDS (21-34) 12/10/16 04:19 Assessment and Plan (1) Alcohol abuse Status: Acute (2) Alcohol intoxication Status: Acute (3) Alcohol dependence Status: Acute (4) Alcohol intoxication Status: Acute (5) Alcohol intoxication in active alcoholic Status: Acute (6) Alcohol withdrawal syndrome Status: Acute (7) Cellulitis Status: Acute (8) Chest wall abscess Status: Acute (9) Constipation Status: Acute (10) Disorder due to alcohol abuse Status: Acute (11) Dyspnea on exertion Status: Acute (12) Major depressive disorder, recurrent, unspecified Status: Acute (13) Medical assessment Status: Acute (14) Narcotic abuse Status: Acute (15) Poison vanita dermatitis Status: Acute (16) Rectal bleeding Status: Acute (17) Schizoaffective disorder Status: Acute (18) Schizoaffective disorder Status: Acute (19) Urinary frequency Status: Acute (20) Visit for wound care Status: Acute (21) Visit for wound check Status: Acute - Assessment and Plan (Free Text) Plan: Continue same feeling better consults thiamine Protonix
[2016-12-23 07:11] LABS: BASO # 0.1 K/uL (0.0-0.2); BASO % 1.4 % (0.0-2.0); EOS # 0.5 K/uL (0.0-0.7); EOS % 10.7 % (0.0-4.0); LYMPH # 1.4 K/uL (1.0-4.3); LYMPH % 29.7 % (20.0-40.0); MEAN CELL VOLUME 92.9 fL (80.0-94.0); MEAN CORPUSCULAR HEMOGLOBIN 29.9 pg (27.0-31.0); MEAN CORPUSCULAR HGB CONC 32.2 g/dL (33.0-37.0); MEAN PLATELET VOLUME 7.9 fL (7.2-11.7); MONO # 0.8 K/uL (0.0-0.8); MONO % 17.8 % (0.0-10.0); NRBC % 0.1 % (0.0-2.0); RED CELL DISTRIBUTION WIDTH 13.4 % (11.5-14.5); WHITE BLOOD COUNT 4.6 K/uL (4.8-10.8)
[2016-12-23 07:19] LABS: CHLORIDE 97 mmol/L (98-107); POTASSIUM 4.2 mmol/L (3.6-5.2); SODIUM 139 mmol/L (132-148)
[2016-12-23 07:21] LABS: GFR AFRICAN-AMERICAN > 60
[2016-12-23 07:22] LABS: ALB/GLOB RATIO 1.2 (1.0-2.1); ALKALINE PHOSPHATASE 54 U/L (38-126); ALT/SGPT 20 U/L (21-72); AST/SGOT 25 U/L (17-59); BILIRUBIN,TOTAL 0.3 mg/dL (0.2-1.3); BLOOD UREA NITROGEN 13 mg/dL (9-20); CARBON DIOXIDE 28 mmol/L (22-30); GLUCOSE,RANDOM 83 mg/dL (75-110)
[2016-12-23 07:23] LABS: CALCIUM 8.8 mg/dl (8.6-10.4)
[2016-12-23] MEDS: Multiple Vitamins Tab PO SCH (09:51)
[2016-12-23] MEDS: Saccharomyces Boulardi 250 mg Cap PO SCH ×2 (09:51→17:14)
[2016-12-23] MEDS: Pantoprazole 40 mg EC Tab PO SCH (09:51)
--- NOTE | 2016-12-23 16:08 | CP.PCM.PN ---
Subjective - Date & Time of Evaluation Date of Evaluation: 12/23/16 Time of Evaluation: 08:25 - Subjective Subjective: kerri iv antibitic Objective - Vital Signs/Intake and Output Vital Signs (last 24 hours): Temp Pulse Resp BP Pulse Ox 99.1 F 82 20 118/77 100 12/23/16 08:00 12/23/16 08:00 12/23/16 08:00 12/23/16 08:00 12/23/16 08:00 Intake and Output: 12/23/16 12/23/16 06:59 18:59 Intake Total 740 Balance 740 - Medications Medications: Current Medications Folic Acid (Folic Acid) 1 mg PO DAILY [facility] Last Admin: 12/23/16 09:51 Dose: 1 mg Cefazolin Sodium 2 gm/ (Dextrose) 50 mls @ 100 mls/hr IVPB Q8H [facility] Last Admin: 12/23/16 09:49 Dose: 100 mls/hr Multivitamins (Hexavitamin) 1 tab PO DAILY [facility] Last Admin: 12/23/16 09:51 Dose: 1 tab Pantoprazole Sodium (Protonix Ec Tab) 40 mg PO DAILY [facility] Last Admin: 12/23/16 09:51 Dose: 40 mg Saccharomyces Boulardii (Florastor) 250 mg PO BID [facility] Last Admin: 12/23/16 09:51 Dose: 250 mg Thiamine HCl (Vitamin B1 Tab) 100 mg PO DAILY [facility] Last Admin: 12/23/16 09:51 Dose: 100 mg - Labs Labs: 12/23/16 07:01 12/23/16 07:01 PT 11.0 SECONDS (9.7-12.2) 12/10/16 04:19 INR 1.0 12/10/16 04:19 APTT 34 SECONDS (21-34) 12/10/16 04:19 Assessment and Plan (1) Alcohol abuse Status: Acute (2) Alcohol intoxication Status: Acute (3) Alcohol dependence Status: Acute (4) Alcohol intoxication Status: Acute (5) Alcohol intoxication in active alcoholic Status: Acute (6) Alcohol withdrawal syndrome Status: Acute (7) Cellulitis Status: Acute (8) Chest wall abscess Status: Acute (9) Constipation Status: Acute (10) Disorder due to alcohol abuse Status: Acute (11) Dyspnea on exertion Status: Acute (12) Major depressive disorder, recurrent, unspecified Status: Acute (13) Medical assessment Status: Acute (14) Narcotic abuse Status: Acute (15) Poison vanita dermatitis Status: Acute (16) Rectal bleeding Status: Acute (17) Schizoaffective disorder Status: Acute (18) Schizoaffective disorder Status: Acute (19) Urinary frequency Status: Acute (20) Visit for wound care Status: Acute (21) Visit for wound check Status: Acute - Assessment and Plan (Free Text) Plan: Continue same labs reviewed IV antibiotics P.o. as tolerated Consults
--- NOTE | 2016-12-23 16:21 | CP.PCM.PN ---
Subjective - Date & Time of Evaluation Date of Evaluation: 12/23/16 Time of Evaluation: 09:00 - Subjective Subjective: still c/o pain wound slow to heal cont iv rx for 6 weeks Objective - Vital Signs/Intake and Output Vital Signs (last 24 hours): Temp Pulse Resp BP Pulse Ox 99.1 F 82 20 118/77 100 12/23/16 08:00 12/23/16 08:00 12/23/16 08:00 12/23/16 08:00 12/23/16 08:00 Intake and Output: 12/23/16 12/23/16 06:59 18:59 Intake Total 740 Balance 740 - Medications Medications: Current Medications Folic Acid (Folic Acid) 1 mg PO DAILY [facility] Last Admin: 12/23/16 09:51 Dose: 1 mg Cefazolin Sodium 2 gm/ (Dextrose) 50 mls @ 100 mls/hr IVPB Q8H [facility] Last Admin: 12/23/16 09:49 Dose: 100 mls/hr Multivitamins (Hexavitamin) 1 tab PO DAILY [facility] Last Admin: 12/23/16 09:51 Dose: 1 tab Pantoprazole Sodium (Protonix Ec Tab) 40 mg PO DAILY [facility] Last Admin: 12/23/16 09:51 Dose: 40 mg Saccharomyces Boulardii (Florastor) 250 mg PO BID [facility] Last Admin: 12/23/16 09:51 Dose: 250 mg Thiamine HCl (Vitamin B1 Tab) 100 mg PO DAILY [facility] Last Admin: 12/23/16 09:51 Dose: 100 mg - Labs Labs: 12/23/16 07:01 12/23/16 07:01 PT 11.0 SECONDS (9.7-12.2) 12/10/16 04:19 INR 1.0 12/10/16 04:19 APTT 34 SECONDS (21-34) 12/10/16 04:19 - Constitutional Appears: Non-toxic - Head Exam Head Exam: NORMOCEPHALIC - Eye Exam Eye Exam: absent: Scleral icterus - ENT Exam ENT Exam: Mucous Membranes Dry - Neck Exam Neck Exam: absent: Lymphadenopathy - Respiratory Exam Respiratory Exam: Decreased Breath Sounds - Cardiovascular Exam Cardiovascular Exam: REGULAR RHYTHM - GI/Abdominal Exam GI & Abdominal Exam: Distended, Soft. absent: Tenderness Assessment and Plan (1) Alcohol dependence Status: Acute (2) Chest wall abscess Status: Acute (3) Dyspnea on exertion Status: Acute
[2016-12-24 01:26] VITALS: O2SAT 99
[2016-12-24 07:30] LABS: BASO % 0.1 % (0.0-2.0); EOS # 0.5 K/uL (0.0-0.7); EOS % 10.6 % (0.0-4.0); HEMATOCRIT 38.3 % (35.0-51.0); LYMPH # 1.5 K/uL (1.0-4.3); LYMPH % 33.9 % (20.0-40.0); MEAN CELL VOLUME 92.9 fL (80.0-94.0); MEAN CORPUSCULAR HGB CONC 32.3 g/dL (33.0-37.0); MEAN PLATELET VOLUME 7.4 fL (7.2-11.7); MONO # 0.7 K/uL (0.0-0.8); MONO % 16.4 % (0.0-10.0); RED CELL DISTRIBUTION WIDTH 13.1 % (11.5-14.5); WHITE BLOOD COUNT 4.5 K/uL (4.8-10.8)
[2016-12-24 07:40] LABS: CHLORIDE 96 mmol/L (98-107); SODIUM 139 mmol/L (132-148)
[2016-12-24 07:41] LABS: POTASSIUM 3.7 mmol/L (3.6-5.2)
[2016-12-24 07:43] LABS: ALB/GLOB RATIO 1.2 (1.0-2.1); ALKALINE PHOSPHATASE 54 U/L (38-126); ALT/SGPT 18 U/L (21-72); AST/SGOT 25 U/L (17-59); BILIRUBIN,TOTAL 0.3 mg/dL (0.2-1.3); BLOOD UREA NITROGEN 13 mg/dL (9-20); CARBON DIOXIDE 27 mmol/L (22-30); GFR AFRICAN-AMERICAN > 60; GLUCOSE,RANDOM 94 mg/dL (75-110); TOTAL PROTEIN 7.3 g/dL (6.3-8.3)
[2016-12-24 07:44] LABS: CALCIUM 8.9 mg/dl (8.6-10.4)
--- NOTE | 2016-12-24 09:52 | CP.PCM.PN ---
<Darlene Hernandez Paolo - Last Filed: 12/24/16 09:49> Subjective - Date & Time of Evaluation Date of Evaluation: 12/24/16 Time of Evaluation: 07:50 - Subjective Subjective: PGY2 Medicine Note - Dr. Jitendra Cobian's service: Patient seen and examined in room this AM. Patient reports continued upper left chest pain. Patient denies fever, chills, SOB, abdominal pain, nausea, vomiting, diarrhea, constipation. Objective - Vital Signs/Intake and Output Vital Signs (last 24 hours): Temp Pulse Resp BP Pulse Ox 98.1 F 77 20 110/77 99 12/24/16 00:00 12/24/16 00:00 12/24/16 00:00 12/24/16 00:00 12/24/16 00:00 Intake and Output: 12/24/16 12/24/16 06:59 18:59 Intake Total 450 340 Balance 450 340 - Medications Medications: Current Medications Folic Acid (Folic Acid) 1 mg PO DAILY [facility] Last Admin: 12/23/16 09:51 Dose: 1 mg Cefazolin Sodium 2 gm/ (Dextrose) 50 mls @ 100 mls/hr IVPB Q8H [facility] Last Admin: 12/24/16 08:28 Dose: 100 mls/hr Multivitamins (Hexavitamin) 1 tab PO DAILY [facility] Last Admin: 12/23/16 09:51 Dose: 1 tab Pantoprazole Sodium (Protonix Ec Tab) 40 mg PO DAILY [facility] Last Admin: 12/23/16 09:51 Dose: 40 mg Saccharomyces Boulardii (Florastor) 250 mg PO BID [facility] Last Admin: 12/23/16 17:14 Dose: 250 mg Thiamine HCl (Vitamin B1 Tab) 100 mg PO DAILY [facility] Last Admin: 12/23/16 09:51 Dose: 100 mg - Labs Labs: 12/24/16 07:24 12/24/16 07:24 PT 11.0 SECONDS (9.7-12.2) 12/10/16 04:19 INR 1.0 12/10/16 04:19 APTT 34 SECONDS (21-34) 12/10/16 04:19 - Constitutional Appears: Non-toxic, No Acute Distress - Head Exam Head Exam: NORMAL INSPECTION - Eye Exam Eye Exam: EOMI - ENT Exam ENT Exam: Mucous Membranes Moist - Respiratory Exam Respiratory Exam: Chest Wall Tenderness, Clear to Ausculation Bilateral, NORMAL BREATHING PATTERN. absent: Rales, Rhonchi, Wheezes - Cardiovascular Exam Cardiovascular Exam: REGULAR RHYTHM, +S1, +S2. absent: Gallop, Rubs, Murmur - GI/Abdominal Exam GI & Abdominal Exam: Soft, Normal Bowel Sounds. absent: Distended, Firm, Tenderness - Neurological Exam Neurological Exam: Alert, Oriented x3 - Psychiatric Exam Psychiatric exam: Normal Affect, Normal Mood - Skin Skin Exam: Normal Color, Warm Assessment and Plan - Assessment and Plan (Free Text) Assessment: 1. Chest wound with abscess 12/24: continue IV Abx for total of [address] Gordon. IV abx ending on January 21. Will discuss with case management. 12/21: IV Abx, no changes 12/20: continue IV Abx for now, no changes 12/19: continue IV Abx 12/18: Continue IV antibiotics Diarrhea resolved with changing antibiotics Patient now on Cefazolin 2gm IVPB Q8H since 12/16/16 Continue Florastor 250mg PO BID 12/14: Consider stool studies if diarrhea continues, IV antiobitics for now. Will start Florastor bid as well. 12/13: PICC line in place, patient will need keyboard specialist IV antibiotics, however he was denied [facility]CTOR. Will continue with current managment. Sx consult - Dr. Hancock - help appreciated Patient cleared from surgical perspective Cardio consult - Dr. Nix - help appreciated ECHO shows grade I abnormal relaxation pattern and mild triscupid regurgitations EKG normal Blood culture positive for gram positive cocci Wound culture positive for Staph Aureus ID consult - Dr. Gordon- help appreciated Continue Vanco and Zosyn IVPB day 3 Will d/c to [facility] to continue IV Abx if possible PICC line ordered 2. Alcohol abuse Librium taper Ativan IVP PRN seizure activity CIWA protocol Thiamine 100mg PO daily Folic Acid 1mg PO daily 3. Prophylaxis Protonix 40mg PO daily [facility] <Moraima Cobian S - Last Filed: 12/25/16 00:05> Objective - Vital Signs/Intake and Output Vital Signs (last 24 hours): Temp Pulse Resp BP Pulse Ox 97.4 F L 93 H 20 155/82 H 99 12/24/16 08:00 12/24/16 08:00 12/24/16 08:00 12/24/16 08:00 12/24/16 08:00 Intake and Output: 12/24/16 12/25/16 18:59 06:59 Intake Total 890 Balance 890 - Labs Labs: 12/24/16 07:24 12/24/16 07:24 PT 11.0 SECONDS (9.7-12.2) 12/10/16 04:19 INR 1.0 12/10/16 04:19 APTT 34 SECONDS (21-34) 12/10/16 04:19 Attending/Attestation - Attestation I have personally seen and examined this patient.: Yes I have fully participated in the care of the patient.: Yes I have reviewed all pertinent clinical information, including history, physical exam and plan: Yes Notes (Text): 12/25/16 00:05 case seen and discussed with staff and resident management as agreed
--- NOTE | 2016-12-24 10:45 | CP.PCM.PN ---
Subjective - Date & Time of Evaluation Date of Evaluation: 12/24/16 Time of Evaluation: 10:00 - Subjective Subjective: labs noted consider bone scan Objective - Vital Signs/Intake and Output Vital Signs (last 24 hours): Temp Pulse Resp BP Pulse Ox 98.1 F 77 20 110/77 99 12/24/16 00:00 12/24/16 00:00 12/24/16 00:00 12/24/16 00:00 12/24/16 00:00 Intake and Output: 12/24/16 12/24/16 06:59 18:59 Intake Total 450 340 Balance 450 340 - Medications Medications: Current Medications Folic Acid (Folic Acid) 1 mg PO DAILY [facility] Last Admin: 12/23/16 09:51 Dose: 1 mg Cefazolin Sodium 2 gm/ (Dextrose) 50 mls @ 100 mls/hr IVPB Q8H [facility] Last Admin: 12/24/16 08:28 Dose: 100 mls/hr Multivitamins (Hexavitamin) 1 tab PO DAILY [facility] Last Admin: 12/23/16 09:51 Dose: 1 tab Pantoprazole Sodium (Protonix Ec Tab) 40 mg PO DAILY [facility] Last Admin: 12/23/16 09:51 Dose: 40 mg Saccharomyces Boulardii (Florastor) 250 mg PO BID [facility] Last Admin: 12/23/16 17:14 Dose: 250 mg Thiamine HCl (Vitamin B1 Tab) 100 mg PO DAILY [facility] Last Admin: 12/23/16 09:51 Dose: 100 mg - Labs Labs: 12/24/16 07:24 12/24/16 07:24 PT 11.0 SECONDS (9.7-12.2) 12/10/16 04:19 INR 1.0 12/10/16 04:19 APTT 34 SECONDS (21-34) 12/10/16 04:19 - Constitutional Appears: Non-toxic, Cachectic, Chronically Ill - Head Exam Head Exam: NORMOCEPHALIC - Eye Exam Eye Exam: PERRL. absent: Scleral icterus - ENT Exam ENT Exam: Mucous Membranes Dry, Normal External Ear Exam - Neck Exam Neck Exam: absent: Lymphadenopathy - Respiratory Exam Respiratory Exam: Decreased Breath Sounds - Cardiovascular Exam Cardiovascular Exam: REGULAR RHYTHM - GI/Abdominal Exam GI & Abdominal Exam: Distended, Soft. absent: Tenderness Assessment and Plan (1) Alcohol dependence Status: Acute (2) Chest wall abscess Status: Acute (3) Dyspnea on exertion Status: Acute
[2016-12-24] MEDS: Saccharomyces Boulardi 250 mg Cap PO SCH (11:07)
[2016-12-24] MEDS: Multiple Vitamins Tab PO SCH (11:07)
[2016-12-24] MEDS: Pantoprazole 40 mg EC Tab PO SCH (11:07)
[2016-12-24 12:50] VITALS: BP 155/82; PULSE 93; TEMP 97.4
--- NOTE | 2016-12-24 18:15 | CP.PCM.PN ---
Subjective - Date & Time of Evaluation Date of Evaluation: 12/24/16 Time of Evaluation: 09:20 - Subjective Subjective: clinically same Objective - Vital Signs/Intake and Output Vital Signs (last 24 hours): Temp Pulse Resp BP Pulse Ox 97.4 F L 93 H 20 155/82 H 99 12/24/16 08:00 12/24/16 08:00 12/24/16 08:00 12/24/16 08:00 12/24/16 08:00 Intake and Output: 12/24/16 12/24/16 06:59 18:59 Intake Total 450 890 Balance 450 890 - Medications Medications: Current Medications Folic Acid (Folic Acid) 1 mg PO DAILY [facility] Last Admin: 12/24/16 11:07 Dose: 1 mg Cefazolin Sodium 2 gm/ (Dextrose) 50 mls @ 100 mls/hr IVPB Q8H [facility] Last Admin: 12/24/16 08:28 Dose: 100 mls/hr Multivitamins (Hexavitamin) 1 tab PO DAILY [facility] Last Admin: 12/24/16 11:07 Dose: 1 tab Pantoprazole Sodium (Protonix Ec Tab) 40 mg PO DAILY [facility] Last Admin: 12/24/16 11:07 Dose: 40 mg Saccharomyces Boulardii (Florastor) 250 mg PO BID [facility] Last Admin: 12/24/16 11:07 Dose: 250 mg Thiamine HCl (Vitamin B1 Tab) 100 mg PO DAILY [facility] Last Admin: 12/24/16 11:07 Dose: 100 mg - Labs Labs: 12/24/16 07:24 12/24/16 07:24 PT 11.0 SECONDS (9.7-12.2) 12/10/16 04:19 INR 1.0 12/10/16 04:19 APTT 34 SECONDS (21-34) 12/10/16 04:19 Assessment and Plan (1) Alcohol abuse Status: Acute (2) Alcohol intoxication Status: Acute (3) Alcohol dependence Status: Acute (4) Alcohol intoxication Status: Acute (5) Alcohol intoxication in active alcoholic Status: Acute (6) Alcohol withdrawal syndrome Status: Acute (7) Cellulitis Status: Acute (8) Chest wall abscess Status: Acute (9) Constipation Status: Acute (10) Disorder due to alcohol abuse Status: Acute (11) Dyspnea on exertion Status: Acute (12) Major depressive disorder, recurrent, unspecified Status: Acute (13) Medical assessment Status: Acute (14) Narcotic abuse Status: Acute (15) Poison vanita dermatitis Status: Acute (16) Rectal bleeding Status: Acute (17) Schizoaffective disorder Status: Acute (18) Schizoaffective disorder Status: Acute (19) Urinary frequency Status: Acute (20) Visit for wound care Status: Acute (21) Visit for wound check Status: Acute - Assessment and Plan (Free Text) Plan: Discharge patient to home IV antibiotics for 4 more weeks IV Rocephin Return to the emergency department if symptoms return follow-up at clinic after 1 week
--- NOTE | 2017-02-01 13:50 | CARD ---
APPROVED REPORT EKG Measurement Heart [id number] <Conclusion> Normal sinus rhythm Minimal voltage criteria for LVH, may be normal variant Borderline ECG
== END 2016-12-24 17:10 | disposition home or self-care (01) | DRG 418 ==
LOC: C.ER 01:06 → C.9E 07:13 → C.5T 08:16 → C.6T 12:53 → C.3T 12-18 10:34
PROVIDERS: ADMIT Internal Medicine Nephrology; ATTEND Internal Medicine Nephrology
PROC: GZ58ZZZ Individual Psychotherapy, Cognitive-Behavioral (ICD-10-PCS; 2016-12-11)
PROC: HZ2ZZZZ Detoxification Services for Substance Abuse Treatment (ICD-10-PCS; 2016-12-11)
PROC: B548ZZA Ultrasonography of Superior Vena Cava, Guidance (ICD-10-PCS; principal; 2016-12-12)
PROC: 02HV33Z Insertion of Infusion Device into Superior Vena Cava, Percutaneous Approach (ICD-10-PCS; 2016-12-12)
DX: T81.4XXA Infection following a procedure, initial encounter (principal); S21.112A Laceration without foreign body of left front wall of thorax without penetration into thoracic cavity, initial encounter; L02.213 Cutaneous abscess of chest wall; J98.11 Atelectasis; L03.313 Cellulitis of chest wall; F25.0 Schizoaffective disorder, bipolar type; T79.8XXA Other early complications of trauma, initial encounter; I10 Essential (primary) hypertension; Y83.8 Other surgical procedures as the cause of abnormal reaction of the patient, or of later complication, without mention of misadventure at the time of the procedure; E78.5 Hyperlipidemia, unspecified; E78.00 Pure hypercholesterolemia, unspecified; F17.200 Nicotine dependence, unspecified, uncomplicated; F41.1 Generalized anxiety disorder; X99.9XXA Assault by unspecified sharp object, initial encounter; F10.220 Alcohol dependence with intoxication, uncomplicated; B95.7 Other staphylococcus as the cause of diseases classified elsewhere; Z59.0 Homelessness

== ENCOUNTER 2016-12-25 13:37 | Emergency (ER) | payer MEDICAID ==
[2016-12-25 13:38] VITALS: BMI 25.7
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
[2016-12-25 16:00] VITALS: BP 102/65; PULSE 89; RESP 18; TEMP 98; O2SAT 99
== END 2016-12-25 16:00 | disposition home or self-care (01) ==
LOC: C.ER 13:37
DX: Z09 Encounter for follow-up examination after completed treatment for conditions other than malignant neoplasm (principal); Z98.890 Other specified postprocedural states

== ENCOUNTER 2016-12-26 14:20 | Inpatient (IN) | payer MEDICAID ==
[2016-12-26 14:20] VITALS: BMI 25.7
[2016-12-26] MEDS ORDERED: cefTRIAXone IV 1 gm in Dextros 50 ML IVPB ONE ×2 (14:44→14:59)
[2016-12-26 15:04] LABS: BASO # 0.1 K/uL (0.0-0.2); BASO % 1.1 % (0.0-2.0); EOS # 0.1 K/uL (0.0-0.7); EOS % 1.2 % (0.0-4.0); HEMATOCRIT 37.2 % (35.0-51.0); LYMPH # 1.7 K/uL (1.0-4.3); LYMPH % 20.6 % (20.0-40.0); MEAN CELL VOLUME 92.5 fL (80.0-94.0); MEAN CORPUSCULAR HEMOGLOBIN 30.2 pg (27.0-31.0); MEAN CORPUSCULAR HGB CONC 32.7 g/dL (33.0-37.0); MEAN PLATELET VOLUME 7.4 fL (7.2-11.7); MONO # 0.6 K/uL (0.0-0.8); MONO % 7.7 % (0.0-10.0); RED CELL DISTRIBUTION WIDTH 13.3 % (11.5-14.5); WHITE BLOOD COUNT 8.4 K/uL (4.8-10.8)
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
--- NOTE | 2016-12-26 16:00 | RAD ---
HISTORY: check PICC line placement COMPARISON: 12/12/2016 FINDINGS: LUNGS: No active pulmonary disease. PLEURA: No significant pleural effusion identified, no pneumothorax apparent. CARDIOVASCULAR: Normal heart size. Right PICC catheter terminates in the region of the right atrium. OSSEOUS STRUCTURES: No significant abnormalities. VISUALIZED UPPER ABDOMEN: Normal. OTHER FINDINGS: None. IMPRESSION: Right PICC catheter terminates in the region of the right atrium.
[2016-12-26 16:13] LABS: CHLORIDE 101 mmol/L (98-107); SODIUM 146 mmol/L (132-148)
[2016-12-26 16:14] LABS: POTASSIUM 4.2 mmol/L (3.6-5.2)
[2016-12-26 16:16] LABS: ALB/GLOB RATIO 1.3 (1.0-2.1); ALKALINE PHOSPHATASE 59 U/L (38-126); ALT/SGPT 19 U/L (21-72); AST/SGOT 55 U/L (17-59); BILIRUBIN,TOTAL 0.3 mg/dL (0.2-1.3); BLOOD UREA NITROGEN 15 mg/dL (9-20); CALCIUM 9.1 mg/dl (8.6-10.4); CARBON DIOXIDE 22 mmol/L (22-30); GFR AFRICAN-AMERICAN > 60; GLUCOSE,RANDOM 68 mg/dL (75-110); TOTAL PROTEIN 8.5 g/dL (6.3-8.3)
[2016-12-26 16:33] LABS: ALCOHOL SERUM 350 mg/dl (0-10)
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
[2016-12-27] MEDS ORDERED: HYDROmorphone 1 mg/ml ISec IVP PRN (03:04)
[2016-12-27 07:03] LABS: RBC URINE 1 /hpf (0-3); URINE BACTERIA RARE (<OCC); URINE BILIRUBIN NEGATIVE (NEGATIVE); URINE BLOOD NEGATIVE (NEGATIVE); URINE COLOR Yellow (YELLOW); URINE GLUCOSE (UA) NORMAL (Normal); URINE KETONE TRACE mg/dL (NEGATIVE); URINE LEUKOCYTE ESTERASE NEG Leu/uL (Negative); URINE PROTEIN NEGATIVE (NEGATIVE); URINE UROBILINOGEN NORMAL mg/dL (0.2-1.0); WBC URINE 2 /hpf (0-5)
[2016-12-27 09:21] VITALS: BP 120/76; PULSE 97; RESP 18; TEMP 99.7; O2SAT 98
[2016-12-27] MEDS ORDERED: cefTRIAXone (Rocephin) 2 gm Inj IVPB SCH (10:00)
[2016-12-27] MEDS ORDERED: cefTRIAXone 2 GM in Sodium Chloride 0.9% 100 ML IVPB SCH (10:00)
[2016-12-27] MEDS ORDERED: Pantoprazole 40 mg EC Tab PO SCH (10:00)
[2016-12-27] MEDS ORDERED: Multiple Vitamins Tab PO SCH (10:00)
[2016-12-27] MEDS ORDERED: Bacitracin Ointment 30 GM TUBE TOP SCH (16:00)
--- NOTE | 2016-12-27 17:14 | CP.PCM.PN ---
<AlhajiBhupinder H - Last Filed: 12/27/16 17:23> Subjective - Date & Time of Evaluation Date of Evaluation: 12/27/16 Time of Evaluation: 09:00 - Subjective Subjective: Dr. Ethan Cobian Patient admitted last night. He is reporting feeling weak and short breath trying to walk up a hill. But he has no other complaints. Objective - Vital Signs/Intake and Output Vital Signs (last 24 hours): Temp Pulse Resp BP Pulse Ox 99.7 F H 97 H 18 120/76 98 12/27/16 07:00 12/27/16 07:00 12/27/16 07:00 12/27/16 07:00 12/27/16 07:00 Intake and Output: 12/27/16 12/27/16 06:59 18:59 Intake Total 500 Balance 500 - Medications Medications: Current Medications Bacitracin (Bacitracin) 0 gm TOP DAILY [facility] Chlordiazepoxide (Librium) 25 mg PO Q8 PRN PRN Reason: alcohol withdrawal syndrome Heparin Sodium (Porcine) (Heparin) 5,000 units SC Q12 [facility] Last Admin: 12/27/16 10:28 Dose: 5,000 units Hydromorphone HCl (Dilaudid) 1 mg IVP Q8H PRN PRN Reason: Pain, severe (8-10) Ceftriaxone Sodium 2 gm/ (Sodium Chloride) 100 mls @ 200 mls/hr IVPB DAILY [facility] Last Admin: 12/27/16 10:28 Dose: 200 mls/hr Multivitamins (Hexavitamin) 1 tab PO DAILY [facility] Last Admin: 12/27/16 10:27 Dose: 1 tab Pantoprazole Sodium (Protonix Ec Tab) 40 mg PO DAILY [facility] Last Admin: 12/27/16 10:27 Dose: 40 mg Pneumococcal Polyvalent Vaccine (Pneumovax 23 Vaccine) 0.5 ml IM .ONCE ONE Stop: 12/28/16 10:01 Thiamine HCl (Vitamin B1 Tab) 100 mg PO DAILY [facility] Last Admin: 12/27/16 10:27 Dose: 100 mg - Constitutional Appears: Non-toxic, No Acute Distress - Head Exam Head Exam: NORMAL INSPECTION - Eye Exam Eye Exam: Normal appearance Pupil Exam: NORMAL ACCOMODATION - Neck Exam Neck Exam: Normal Inspection - Respiratory Exam Respiratory Exam: Clear to Ausculation Bilateral. absent: Rales, Rhonchi, Wheezes Additional comments: clean dressing observed. - Cardiovascular Exam Cardiovascular Exam: REGULAR RHYTHM, RRR, +S1, +S2. absent: Gallop, Rubs - GI/Abdominal Exam GI & Abdominal Exam: Soft, Normal Bowel Sounds. absent: Tenderness - Extremities Exam Extremities Exam: Normal Inspection - Back Exam Back Exam: NORMAL INSPECTION - Neurological Exam Neurological Exam: Oriented x3 - Psychiatric Exam Psychiatric exam: Normal Affect, Normal Mood - Skin Skin Exam: Normal Color Assessment and Plan (1) Chest wall abscess Assessment & Plan: Patient discharged home to have IV antibiotics as per previous discharge 28 days of IV Rocephin 2 grams daily. Status: Acute <CobianEvertruthabida S - Last Filed: 12/27/16 17:45> Objective - Vital Signs/Intake and Output Vital Signs (last 24 hours): Temp Pulse Resp BP Pulse Ox 99.7 F H 97 H 18 120/76 98 12/27/16 07:00 12/27/16 07:00 12/27/16 07:00 12/27/16 07:00 12/27/16 07:00 Intake and Output: 12/27/16 12/27/16 06:59 18:59 Intake Total 500 Balance 500 - Medications Medications: Current Medications Bacitracin (Bacitracin) 0 gm TOP DAILY [facility] Last Admin: 12/27/16 17:31 Dose: 1 applic Chlordiazepoxide (Librium) 25 mg PO Q8 PRN PRN Reason: alcohol withdrawal syndrome Heparin Sodium (Porcine) (Heparin) 5,000 units SC Q12 [facility] Last Admin: 12/27/16 10:28 Dose: 5,000 units Hydromorphone HCl (Dilaudid) 1 mg IVP Q8H PRN PRN Reason: Pain, severe (8-10) Ceftriaxone Sodium 2 gm/ (Sodium Chloride) 100 mls @ 200 mls/hr IVPB DAILY [facility] Last Admin: 12/27/16 10:28 Dose: 200 mls/hr Multivitamins (Hexavitamin) 1 tab PO DAILY [facility] Last Admin: 12/27/16 10:27 Dose: 1 tab Pantoprazole Sodium (Protonix Ec Tab) 40 mg PO DAILY [facility] Last Admin: 12/27/16 10:27 Dose: 40 mg Pneumococcal Polyvalent Vaccine (Pneumovax 23 Vaccine) 0.5 ml IM .ONCE ONE Stop: 12/28/16 10:01 Thiamine HCl (Vitamin B1 Tab) 100 mg PO DAILY [facility] Last Admin: 12/27/16 10:27 Dose: 100 mg Attending/Attestation - Attestation I have personally seen and examined this patient.: Yes I have fully participated in the care of the patient.: Yes I have reviewed all pertinent clinical information, including history, physical exam and plan: Yes Notes (Text): 12/27/16 17:45 case seen and discussed with staff adn resident
[2016-12-28] MEDS ORDERED: Influenza Virus Vaccine 45 mcg/0.5 ml Syr IM ONE (10:00)
[2016-12-28] MEDS ORDERED: Pneumococcal 23-Valent Vaccine IM ONE (10:00)
== END 2016-12-27 17:45 | disposition home or self-care (01) | DRG 277 ==
LOC: C.ER 14:20 → C.9E 16:14 → C.3T 20:41
PROVIDERS: ADMIT Internal Medicine Nephrology; ATTEND Internal Medicine Nephrology
DX: L02.213 Cutaneous abscess of chest wall (principal); F20.9 Schizophrenia, unspecified; I10 Essential (primary) hypertension; E78.00 Pure hypercholesterolemia, unspecified; Z87.891 Personal history of nicotine dependence; F10.129 Alcohol abuse with intoxication, unspecified; F60.9 Personality disorder, unspecified

== ENCOUNTER 2016-12-28 14:46 | Observation (INO) | payer MEDICAID ==
[2016-12-28 14:46] VITALS: BMI 24.0
[2016-12-28 14:51] VITALS: TEMP 97.6
[2016-12-28] MEDS ORDERED: Sodium Chloride 0.9% 1,000 ML IV ONE (15:26)
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
[2016-12-28 19:42] VITALS: BP 135/79; PULSE 89; RESP 18; O2SAT 98
== END 2016-12-28 19:06 | disposition home or self-care (01) ==
LOC: C.ER 14:46 → C.9OBSV 15:56
PROVIDERS: ADMIT Internal Medicine; ATTEND Internal Medicine
DX: R42 Dizziness and giddiness (principal); F11.10 Opioid abuse, uncomplicated; F10.10 Alcohol abuse, uncomplicated; I10 Essential (primary) hypertension; F60.9 Personality disorder, unspecified; F20.9 Schizophrenia, unspecified; E78.00 Pure hypercholesterolemia, unspecified; F32.9 Major depressive disorder, single episode, unspecified; F41.9 Anxiety disorder, unspecified; R78.81 Bacteremia; Z59.0 Homelessness
CPT/HCPCS: 99284; G0378

== ENCOUNTER 2016-12-29 19:50 | Observation (INO) | payer MEDICAID ==
[2016-12-29 19:50] VITALS: BMI 24.0
[2016-12-29 20:15] VITALS: RESP 20; TEMP 97.3; O2SAT 98
--- NOTE | 2016-12-29 20:59 | C.PDOC ---
History Of Present Illness The patient, a 51 y/o male, presents to the ED for evaluation of alcohol intoxication for an unknown duration. Patient is familiar to the ED and has had many prior visits concerning alcohol intoxication. Patient admits to drinking earlier today. He denies suicidal/homicidal ideation and has no physical complaints at this time. Chief Complaint (Nursing): Substance Abuse History Per: Patient History/Exam Limitations: intoxication Onset/Duration Of Symptoms: Unknown Current Symptoms Are (Timing): Still Present Suicide/Self Injury Attempted (Context): None Modifying Factor(s): Alcohol Associated Symptoms: denies: Suicidal Thoughts, Suicidal Plan Involuntary Hold By: None Recent travel outside of the [place]: No Additional History Per: Patient Past Medical History Reviewed: Historical Data, Nursing Documentation, Vital Signs Vital Signs: Last Vital Signs Temp 97.3 F L 12/29/16 20:13 Pulse 91 H 12/29/16 20:13 Resp 20 12/29/16 20:13 BP 118/81 12/29/16 20:13 Pulse Ox 98 12/29/16 21:02 - Medical History PMH: Anxiety, Depression, HTN, Hypercholesterolemia, Personality Disorder ( multiple fights,agression), Schizophrenia Denies: Diabetes, Hepatitis, HIV, Chronic Kidney Disease, Seizures, Sexually Transmitted Disease Surgical History: No Surg Hx - [facility] Procedures ALCOHOL DETOXIFICATION (01/08/14) DETOXIFICATION SERVICES FOR SUBSTANCE ABUSE TREATMENT (12/10/16) GROUP MOTION PICTURE DIRECTOR FOR SUBSTANCE ABUSE TREATMENT, PSYCHOEDUCATION (03/06/16) GROUP PSYCHOTHERAPY (03/30/16) INDIVIDUAL PSYCHOTHERAPY, COGNITIVE-BEHAVIORAL (12/10/16) INDIVIDUAL PSYCHOTHERAPY, SUPPORTIVE (03/30/16) INSERTION OF INFUSION DEV INTO SUP VENA CAVA, PERC APPROACH (12/10/16) ULTRASONOGRAPHY OF SUPERIOR VENA CAVA, GUIDANCE (12/10/16) Family History: States: Unknown Family Hx - Social History Hx Tobacco Use: No Hx Alcohol Use: Yes (daily) Hx Substance Use: No - Immunization History Hx Tetanus Toxoid Vaccination: No Hx Influenza Vaccination: No Hx Pneumococcal Vaccination: No Review Of Systems Except As Marked, All Systems Reviewed And Found Negative. Constitutional: Positive for: Other (+ETOH intoxication ) Psych: Negative for: Suicidal ideation Physical Exam - Physical Exam Appears: No Acute Distress, Other (visibly intoxicated ) Skin: Normal Color, Warm, Dry Head: Atraumatic, Normacephalic Eye(s): bilateral: Normal Inspection Oral Mucosa: Moist, Other (alcohol on breath ) Neck: Supple Chest: Symmetrical, No Deformity, No Tenderness Cardiovascular: Rhythm Regular Respiratory: Normal Breath Sounds Back: Normal Inspection Extremity: Normal ROM, Capillary Refill (less than 2 seconds) Neurological/Psych: Other (arousable to touch and verbal stimuli ) Gait: Unsteady ED Course And Treatment O2 Sat by Pulse Oximetry: 98 (on RA) Pulse Ox Interpretation: Normal ED OBSERVATION Discharge: Yes Date of observation admission: 12/29/16 - Observation admission statement Patient is being placed in observation because:: acute alcohol intoxication - Goals of Observation Goals of observation are:: sobriety - Progress Note Progress Note: 12/29/16 21:01 patient is resting comfortably, vitals remain stable. Disposition - Disposition Disposition: HOME/ ROUTINE Disposition Time: 06:00 Condition: IMPROVED - Clinical Impression Clinical Impression: Alcohol abuse - Scribe Statement The provider has reviewed the documentation as recorded by the Scribe (Monika Cobian) Provider Attestation: All medical record entries made by the Scribe were at my direction and personally dictated by me. I have reviewed the chart and agree that the record accurately reflects my personal performance of the history, physical exam, medical decision making, and the department course for this patient. I have also personally directed, reviewed, and agree with the discharge instructions and disposition.
[2016-12-30 06:00] VITALS: BP 119/73; PULSE 76
== END 2016-12-30 05:43 | disposition home or self-care (01) ==
LOC: C.ER 19:50 → C.9OBSV 21:26
PROVIDERS: ADMIT Emergency Medicine; ATTEND Emergency Medicine
DX: F10.229 Alcohol dependence with intoxication, unspecified (principal); F41.8 Other specified anxiety disorders; I10 Essential (primary) hypertension; F20.9 Schizophrenia, unspecified
CPT/HCPCS: 82948; 99283; G0378

== ENCOUNTER 2016-12-30 13:48 | Observation (INO) | payer MEDICAID ==
[2016-12-30 13:49] VITALS: BMI 24.0
--- NOTE | 2016-12-30 14:27 | C.PDOC ---
History Of Present Illness Pt was BIBEMS due to public alcohol intoxication. Time Seen by Provider: 12/30/16 13:56 Chief Complaint (Nursing): Substance Abuse History Per: Patient, EMS History/Exam Limitations: intoxication Onset/Duration Of Symptoms: Unknown (today) Current Symptoms Are (Timing): Still Present Suicide/Self Injury Attempted (Context): None Modifying Factor(s): Alcohol Severity: Severe Additional History Per: Prior Records Past Medical History Reviewed: Historical Data, Nursing Documentation, Vital Signs Vital Signs: Last Vital Signs Temp 98.2 F 12/30/16 21:23 Pulse 92 H 12/30/16 21:23 Resp 18 12/30/16 21:23 BP 105/58 L 12/30/16 21:23 Pulse Ox 97 12/30/16 21:23 - Medical History PMH: Anxiety, Depression, HTN, Hypercholesterolemia, Personality Disorder ( multiple fights,agression), Schizophrenia Other PMH: Alcohol abuse - [facility] Procedures ALCOHOL DETOXIFICATION (01/08/14) DETOXIFICATION SERVICES FOR SUBSTANCE ABUSE TREATMENT (12/10/16) GROUP DIGITAL COMPUTER SYSTEMS ANALYST FOR SUBSTANCE ABUSE TREATMENT, PSYCHOEDUCATION (03/06/16) GROUP PSYCHOTHERAPY (03/30/16) INDIVIDUAL PSYCHOTHERAPY, COGNITIVE-BEHAVIORAL (12/10/16) INDIVIDUAL PSYCHOTHERAPY, SUPPORTIVE (03/30/16) INSERTION OF INFUSION DEV INTO SUP VENA CAVA, PERC APPROACH (12/10/16) ULTRASONOGRAPHY OF SUPERIOR VENA CAVA, GUIDANCE (12/10/16) Family History: States: Unknown Family Hx - Social History Hx Tobacco Use: No Hx Alcohol Use: Yes (daily) Hx Substance Use: No - Immunization History Hx Tetanus Toxoid Vaccination: No Hx Influenza Vaccination: No Hx Pneumococcal Vaccination: No Review Of Systems Review Of Systems: ROS cannot be obtained secondary to pt's inabilty to answer questions. Physical Exam - Physical Exam Appears: No Acute Distress, Other (AOB, intoxicated) Skin: Normal Color, Warm, Dry Head: Atraumatic Eye(s): bilateral: PERRL Neck: Normal ROM, No Midline Cervical Tenderness, No Step Off Deformity, Supple Chest: No Subcutaneous Emphysema, Other (small wound in left anterior chest wall. No swelling or surrounding erythema. ) Cardiovascular: Rhythm Regular Respiratory: Normal Breath Sounds, No Accessory Muscle Use Gastrointestinal/Abdominal: Soft, No Tenderness Extremity: Normal ROM, No Deformity, Other (PICC line in left arm. No erythema, swelling or drainage.) Extremity: Bilateral: Normal Color And Temperature Pulses: Left Radial: Normal Neurological/Psych: Eyes Open With Command, Other (Moving all extremities) Pain Response: Withdraws With Pain Gait: Unable To Assess ED Course And Treatment O2 Sat by Pulse Oximetry: 96 Pulse Ox Interpretation: Normal ED OBSERVATION Date of observation admission: 12/30/16 Time of observation admission: 14:00 - Observation admission statement Patient is being placed in observation because:: Alcohol intoxication. - Goals of Observation Goals of observation are:: Sobriety. Disposition - Disposition Disposition Time: 00:53 Condition: STABLE - Clinical Impression Clinical Impression: Alcohol abuse Physician Patient Turnover Patient Signed Over To: Dimitri Matthews DO Handoff Comments: to reassess pt once sober in the AM
[2016-12-31 05:24] VITALS: BP 110/60; PULSE 90; RESP 20; TEMP 98.1; O2SAT 97
== END 2016-12-31 04:27 | disposition home or self-care (01) ==
LOC: C.ER 13:48 → C.9OBSV 14:29
PROVIDERS: ADMIT Emergency Medicine; ATTEND Emergency Medicine
DX: F10.129 Alcohol abuse with intoxication, unspecified (principal); I10 Essential (primary) hypertension
CPT/HCPCS: 82948; G0378

== ENCOUNTER 2017-01-07 13:32 | Observation (INO) | payer MEDICAID ==
[2017-01-07 13:32] VITALS: BMI 24.0
[2017-01-07 14:05] VITALS: TEMP 97.7
--- NOTE | 2017-01-07 15:43 | C.PDOC ---
History Of Present Illness 51 y/o male is brought to the ED by EMS for alcohol intoxication. Patient admits to drinking today. Denies any suicidal ideation, homicidal ideation, or any physical complaints. Patient is well known to this ED for a history of multiple prior visits for same. Time Seen by Provider: 01/07/17 15:07 Chief Complaint (Nursing): Substance Abuse History Per: Patient, EMS History/Exam Limitations: no limitations Onset/Duration Of Symptoms: Hrs, Persistent Current Symptoms Are (Timing): Still Present Suicide/Self Injury Attempted (Context): None Modifying Factor(s): Alcohol Recent travel outside of the [place]: No Past Medical History Reviewed: Historical Data, Nursing Documentation, Vital Signs Vital Signs: Last Vital Signs Temp 97.7 F 01/07/17 14:02 Pulse 88 01/07/17 14:02 Resp 18 01/07/17 14:02 BP 124/75 01/07/17 14:02 Pulse Ox 99 01/07/17 17:53 - Medical History PMH: Anxiety, Depression, HTN, Hypercholesterolemia, Personality Disorder ( multiple fights,agression), Schizophrenia Surgical History: No Surg Hx - [facility] Procedures ALCOHOL DETOXIFICATION (01/08/14) DETOXIFICATION SERVICES FOR SUBSTANCE ABUSE TREATMENT (12/10/16) GROUP IT WEB DEVELOPMENT CONSULTANT FOR SUBSTANCE ABUSE TREATMENT, PSYCHOEDUCATION (03/06/16) GROUP PSYCHOTHERAPY (03/30/16) INDIVIDUAL PSYCHOTHERAPY, COGNITIVE-BEHAVIORAL (12/10/16) INDIVIDUAL PSYCHOTHERAPY, SUPPORTIVE (03/30/16) INSERTION OF INFUSION DEV INTO SUP VENA CAVA, PERC APPROACH (12/10/16) ULTRASONOGRAPHY OF SUPERIOR VENA CAVA, GUIDANCE (12/10/16) Family History: States: No Known Family Hx - Social History Hx Tobacco Use: No Hx Alcohol Use: Yes (daily) Hx Substance Use: No - Immunization History Hx Tetanus Toxoid Vaccination: No Hx Influenza Vaccination: No Hx Pneumococcal Vaccination: No Review Of Systems Except As Marked, All Systems Reviewed And Found Negative. Constitutional: Positive for: Other (alcohol intoxication) Musculoskeletal: Negative for: Other (pain) Psych: Negative for: Suicidal ideation (or homicidal ideation) Physical Exam - Physical Exam Appears: Non-toxic, No Acute Distress, Unkempt Skin: Normal Color, Warm, Dry, Other (healing wound to the left chest, no evidence of cellulitis) Head: Atraumatic, Normacephalic Eye(s): bilateral: Normal Inspection, PERRL, EOMI Oral Mucosa: Moist Neck: Normal ROM Chest: Symmetrical Cardiovascular: Rhythm Regular, No Friction Rub, No Murmur Respiratory: Normal Breath Sounds, No Rales, No Rhonchi, No Wheezing Gastrointestinal/Abdominal: Normal Exam, Soft, No Tenderness Extremity: Normal ROM, Other ((+) PICC line in the right arm, no evidence of cellulitis) Extremity: Bilateral: Atraumatic Neurological/Psych: Oriented x3, Normal Speech, Normal Cognition, Normal Motor Gait: Steady ED Course And Treatment O2 Sat by Pulse Oximetry: 99 (ra) Pulse Ox Interpretation: Normal Medical Decision Making Medical Decision Making: Plan: * Finger Stick The patient is asking to change the dressing of his PICC line, dressing changed by the ED nurse. Pt has a wound on the chest which was cleansed and sterile dressing applied. ED OBSERVATION Discharge: Yes Date of observation admission: 01/07/17 Time of observation admission: 15:00 - Observation admission statement Patient is being placed in observation because:: alcohol intoxication - Goals of Observation Goals of observation are:: observing for sobriety and re-examination - Progress Note Progress Note: 01/07/17 16:29 Patient is resting comfortably. Arousable by name and movement. Speech still slurred and unsteady gait. 01/07/17 17:52 On re-exam, the patient reports improvement of symptoms. Ambulatory with steady gait, and normal speech. Abdomen is soft, non-tender and patient is tolerating PO well. Lungs are CTA, heart is RRR. Follow up with the medical doctor within 1 -2 days. Return if worsened. Disposition - Disposition Disposition: HOME/ ROUTINE Disposition Time: 17:53 Condition: IMPROVED - Clinical Impression Clinical Impression: Alcohol intoxication, Visit for wound check - PA / [employer] / Resident Statement MD/DO has reviewed & agrees with the documentation as recorded. - Scribe Statement The provider has reviewed the documentation as recorded by the Scribe (Keila Silva) All medical record entries made by the Scribe were at my direction and personally dictated by me. I have reviewed the chart and agree that the record accurately reflects my personal performance of the history, physical exam, medical decision making, and the department course for this patient. I have also personally directed, reviewed, and agree with the discharge instructions and disposition.
[2017-01-07 18:20] VITALS: BP 120/70; PULSE 78; RESP 20; O2SAT 98
== END 2017-01-07 17:53 | disposition home or self-care (01) ==
LOC: C.ER 13:32 → C.9OBSV 16:30
PROVIDERS: ADMIT Emergency Medicine; ATTEND Emergency Medicine
DX: F10.129 Alcohol abuse with intoxication, unspecified (principal); E78.00 Pure hypercholesterolemia, unspecified; I10 Essential (primary) hypertension; Z48.01 Encounter for change or removal of surgical wound dressing
CPT/HCPCS: 82948; G0378

== ENCOUNTER 2017-01-11 12:51 | Emergency (ER) | payer MEDICAID ==
[2017-01-11 12:52] VITALS: BMI 24.0
[2017-01-11 13:09] VITALS: BP 117/74; PULSE 83; TEMP 97.4; O2SAT 98
[2017-01-11] MEDS ORDERED: Naloxone 0.4 mg/ml Inj (Adult) IV ONE (13:40)
--- NOTE | 2017-01-11 13:42 | C.PDOC ---
History Of Present Illness 51 year old male with a history of alcohol and heroin abuse presents to the ED via EMS for public intoxication. Patient is well known to the ED for many recent evaluations for the same. He notes he receives IV antibiotics infusion daily and has no physical complaints. Time Seen by Provider: 01/11/17 13:13 Chief Complaint (Nursing): Shortness Of Breath History Per: Patient, EMS History/Exam Limitations: no limitations Onset/Duration Of Symptoms: Hrs Current Symptoms Are (Timing): Still Present Past Medical History Reviewed: Historical Data, Nursing Documentation, Vital Signs Vital Signs: Last Vital Signs Temp 97.4 F L 01/11/17 13:01 Pulse 83 01/11/17 13:01 Resp 12 01/11/17 13:40 BP 117/74 01/11/17 13:01 Pulse Ox 98 01/11/17 13:41 - Medical History PMH: Anxiety, Depression, HTN, Hypercholesterolemia, Personality Disorder ( multiple fights,agression), Schizophrenia - [facility] Procedures ALCOHOL DETOXIFICATION (01/08/14) DETOXIFICATION SERVICES FOR SUBSTANCE ABUSE TREATMENT (12/10/16) GROUP AUTO GARAGE MECHANIC FOR SUBSTANCE ABUSE TREATMENT, PSYCHOEDUCATION (03/06/16) GROUP PSYCHOTHERAPY (03/30/16) INDIVIDUAL PSYCHOTHERAPY, COGNITIVE-BEHAVIORAL (12/10/16) INDIVIDUAL PSYCHOTHERAPY, SUPPORTIVE (03/30/16) INSERTION OF INFUSION DEV INTO SUP VENA CAVA, PERC APPROACH (12/10/16) ULTRASONOGRAPHY OF SUPERIOR VENA CAVA, GUIDANCE (12/10/16) Family History: States: Unknown Family Hx - Social History Hx Tobacco Use: No Hx Alcohol Use: Yes (daily) Hx Substance Use: No - Immunization History Hx Tetanus Toxoid Vaccination: Yes Hx Influenza Vaccination: Yes Hx Pneumococcal Vaccination: No Review Of Systems Except As Marked, All Systems Reviewed And Found Negative. Constitutional: Positive for: Other (+Public intoxication). Negative for: Fever , Chills Cardiovascular: Negative for: Chest Pain, Palpitations Gastrointestinal: Negative for: Nausea, Vomiting, Abdominal Pain Physical Exam - Physical Exam Appears: Non-toxic, No Acute Distress Skin: Normal Color, Warm, Dry Head: Atraumatic, Normacephalic Eye(s): bilateral: EOMI, Other (+Pin point) Oral Mucosa: Moist Chest: Symmetrical Respiratory: No Accessory Muscle Use Extremity: Normal ROM, Other (+PICC line to right arm) Neurological/Psych: Oriented x3, Normal Speech Gait: Steady ED Course And Treatment O2 Sat by Pulse Oximetry: 98 (Room air) Pulse Ox Interpretation: Normal Progress Note: Patient given Narcan. Medical Decision Making Medical Decision Making: alcohol and heroine abuse, continued pt denies heroine abuse-pinpoint pupils c/w opiate abuse. NO acute issues fully ambultory and stable gait. Disposition Doctor Will See Patient In The: Office Counseled Patient/Family Regarding: Studies Performed, Diagnosis - Disposition Referrals: [facility] [Outside] [facility] [Outside] [facility] [Outside] Disposition: HOME/ ROUTINE Disposition Time: 13:41 Condition: GOOD Additional Instructions: follow-up in the outpatient infusion center for your regular antibiotics treatments. Avoid heroine/narcotics abuse. Seek outpatient or inpatient detox programs- see list given Instructions: Narcotic Abuse (ED), Alcohol Intoxication (ED) - Clinical Impression Clinical Impression: Alcohol abuse, Narcotic abuse - Scribe Statement The provider has reviewed the documentation as recorded by the Scribe Chaya Meneses. Provider Attestation: All medical record entries made by the Scribe were at my direction and personally dictated by me. I have reviewed the chart and agree that the record accurately reflects my personal performance of the history, physical exam, medical decision making, and the department course for this patient. I have also personally directed, reviewed, and agree with the discharge instructions and disposition.
[2017-01-11] MEDS ORDERED: Naloxone 0.4 mg/ml Inj (Adult) ONE (13:45)
[2017-01-11 13:50] VITALS: RESP 12
== END 2017-01-11 14:01 | disposition home or self-care (01) ==
LOC: C.ER 12:51
DX: F10.120 Alcohol abuse with intoxication, uncomplicated (principal); F11.10 Opioid abuse, uncomplicated; Y90.9 Presence of alcohol in blood, level not specified
CPT/HCPCS: 96374; 99283; J2310

== ENCOUNTER 2017-01-24 00:25 | Emergency (ER) | payer MEDICAID ==
[2017-01-24 00:25] VITALS: BMI 24.0
--- NOTE | 2017-01-24 00:53 | C.PDOC ---
History Of Present Illness pt states his picc line is hurting him. Unknown duration. Pt inebriated with strong etoh smell on breath. Able to move his arms without any difficulty Time Seen by Provider: 01/24/17 00:53 Chief Complaint (Nursing): Upper Extremity Problem/Injury History Per: Patient History/Exam Limitations: no limitations Onset/Duration Of Symptoms: Days Current Symptoms Are (Timing): Better Quality: Dull Severity: Mild Pain Scale Rating Of: 2 Exacerbating Factor(s): Nothing Recent travel outside of the [place]: No Additional History Per: Patient Past Medical History Reviewed: Historical Data, Nursing Documentation, Vital Signs Vital Signs: Last Vital Signs Temp 97.5 F L 01/24/17 05:18 Pulse 77 01/24/17 05:18 Resp 16 01/24/17 05:18 BP 106/70 01/24/17 05:18 Pulse Ox 99 01/24/17 05:18 - Medical History PMH: Anxiety, Depression, HTN, Hypercholesterolemia, Personality Disorder ( multiple fights,agression), Schizophrenia Denies: HIV, Chronic Kidney Disease, Seizures, Sexually Transmitted Disease - [facility] Procedures ALCOHOL DETOXIFICATION (01/08/14) DETOXIFICATION SERVICES FOR SUBSTANCE ABUSE TREATMENT (12/10/16) GROUP BANDING MACHINE OPERATOR FOR SUBSTANCE ABUSE TREATMENT, PSYCHOEDUCATION (03/06/16) GROUP PSYCHOTHERAPY (03/30/16) INDIVIDUAL PSYCHOTHERAPY, COGNITIVE-BEHAVIORAL (12/10/16) INDIVIDUAL PSYCHOTHERAPY, SUPPORTIVE (03/30/16) INSERTION OF INFUSION DEV INTO SUP VENA CAVA, PERC APPROACH (12/10/16) ULTRASONOGRAPHY OF SUPERIOR VENA CAVA, GUIDANCE (12/10/16) Family History: States: No Known Family Hx - Social History Hx Tobacco Use: No Hx Alcohol Use: Yes (daily) Hx Substance Use: No - Immunization History Hx Tetanus Toxoid Vaccination: Yes Hx Influenza Vaccination: Yes Hx Pneumococcal Vaccination: No Review Of Systems Constitutional: Negative for: Fever, Chills Cardiovascular: Negative for: Chest Pain, Palpitations Respiratory: Negative for: Shortness of Breath Gastrointestinal: Negative for: Nausea, Vomiting Genitourinary: Negative for: Dysuria Musculoskeletal: Positive for: Arm Pain (right with intact picc line) Skin: Negative for: Rash, Lesions, Jaundice Neurological: Negative for: Weakness Psych: Negative for: Anxiety Physical Exam - Physical Exam Appears: Non-toxic, No Acute Distress Skin: Warm, Dry Head: Normacephalic Chest: Symmetrical Cardiovascular: Rhythm Regular Respiratory: No Rales, No Rhonchi, No Wheezing Gastrointestinal/Abdominal: Soft, No Tenderness, No Distention Extremity: Normal ROM, Other (r picc line, no eythema) Extremity: Bilateral: Atraumatic Neurological/Psych: Oriented x3, Normal Speech, Normal Cognition Gait: Unsteady (due to alcohol intoxication) ED Course And Treatment O2 Sat by Pulse Oximetry: 96 Pulse Ox Interpretation: Normal - Radiology CXR: Interpreted by Me, Viewed By Me CXR Interpretation: Yes: Other (picc in proper placement). No: Infiltrates, Fracture, Pnemothorax Reevaluation Time: 05:21 Reassessment Condition: Improved ED OBSERVATION Discharge: Yes Date of observation admission: 01/24/17 Time of observation admission: 01:18 - Observation admission statement Patient is being placed in observation because:: acute alcohol intoxication - Goals of Observation Goals of observation are:: sobriety - Progress Note Progress Note: 01/24/17 01:18 no complaints, vitals stable 01/24/17 03:18 arousable 01/24/17 05:18 vitals stable Disposition Counseled Patient/Family Regarding: Studies Performed, Diagnosis, Need For Followup - Disposition Referrals: Moraima Cobian MD [Staff Provider] - Disposition: HOME/ ROUTINE Disposition Time: 00:53 Condition: FAIR Instructions: Alcohol Intoxication (DC) - Clinical Impression Clinical Impression: Alcohol intoxication
[2017-01-24 05:19] VITALS: BP 106/70; PULSE 77; RESP 16; TEMP 97.5
[2017-01-24 05:23] VITALS: O2SAT 96
--- NOTE | 2017-01-24 08:41 | RAD ---
PROCEDURE: CHEST RADIOGRAPH, 1 VIEW HISTORY: r picc line placement COMPARISON: 12/26/2016 FINDINGS: LUNGS: Right PICC line with tip extending to the cavoatrial junction. Mild venous congestion. PLEURA: No pneumothorax or pleural fluid seen. CARDIOVASCULAR: Normal. OSSEOUS STRUCTURES: No significant abnormalities. VISUALIZED UPPER ABDOMEN: Normal. OTHER FINDINGS: None. IMPRESSION: Right PICC line with tip extending to the cavoatrial junction. Mild venous congestion.
== END 2017-01-24 05:45 | disposition home or self-care (01) ==
LOC: C.ER 00:25
DX: F10.129 Alcohol abuse with intoxication, unspecified (principal); Y90.9 Presence of alcohol in blood, level not specified

== ENCOUNTER 2017-01-31 17:38 | Inpatient (IN) | payer MEDICAID ==
[2017-01-31 17:49] VITALS: BMI 25.7
[2017-01-31] MEDS ORDERED: Naloxone 0.4 mg/ml Inj (Adult) IV STA (18:06)
--- NOTE | 2017-01-31 18:54 | C.PDOC ---
History Of Present Illness A 51 y/o male brought in by EMS after being found obtunded at [facility] today. Pt has had many recent evaluations for alcohol abuse in the ER. Pt notes having a Picc line on the right arm for his daily antibiotics therapy, but notes not going to therapy today. Pt denies nausea, diarrhea, vomiting, fever, chills, suicidal or homicidal ideation, or any other complaints. Time Seen by Provider: 01/31/17 18:03 Chief Complaint (Nursing): Rib Injury History Per: Patient History/Exam Limitations: no limitations Onset/Duration Of Symptoms: Hrs Current Symptoms Are (Timing): Still Present Severity: Mild Recent travel outside of the [place]: No Additional History Per: Patient Past Medical History Reviewed: Historical Data, Nursing Documentation, Vital Signs Vital Signs: Last Vital Signs Temp 97.4 F L 01/31/17 17:49 Pulse 78 01/31/17 19:35 Resp 12 01/31/17 19:35 BP 121/82 01/31/17 19:35 Pulse Ox 98 01/31/17 21:15 - Medical History PMH: Anxiety, Depression, HTN, Hypercholesterolemia, Personality Disorder ( multiple fights,agression), Schizophrenia Denies: HIV, Chronic Kidney Disease, Seizures, Sexually Transmitted Disease - [facility] Procedures ALCOHOL DETOXIFICATION (01/08/14) DETOXIFICATION SERVICES FOR SUBSTANCE ABUSE TREATMENT (12/10/16) GROUP COUTIERIER FOR SUBSTANCE ABUSE TREATMENT, PSYCHOEDUCATION (03/06/16) GROUP PSYCHOTHERAPY (03/30/16) INDIVIDUAL PSYCHOTHERAPY, COGNITIVE-BEHAVIORAL (12/10/16) INDIVIDUAL PSYCHOTHERAPY, SUPPORTIVE (03/30/16) INSERTION OF INFUSION DEV INTO SUP VENA CAVA, PERC APPROACH (12/10/16) ULTRASONOGRAPHY OF SUPERIOR VENA CAVA, GUIDANCE (12/10/16) Family History: States: Unknown Family Hx - Social History Hx Tobacco Use: No Hx Alcohol Use: Yes (daily) Hx Substance Use: No - Immunization History Hx Tetanus Toxoid Vaccination: Yes Hx Influenza Vaccination: Yes Hx Pneumococcal Vaccination: No Review Of Systems Except As Marked, All Systems Reviewed And Found Negative. Constitutional: Positive for: Other (Obtunded). Negative for: Fever, Chills Gastrointestinal: Negative for: Nausea, Vomiting, Diarrhea Psych: Negative for: Suicidal ideation Physical Exam - Physical Exam Appears: Non-toxic, No Acute Distress, Other (Hypersomulent, + AOB) Skin: Warm, Dry Head: Atraumatic, Normacephalic Eye(s): bilateral: Other (Pinpoint pupils) Cardiovascular: Rhythm Regular, No Murmur Respiratory: Normal Breath Sounds, No Rales, No Rhonchi, No Wheezing Gastrointestinal/Abdominal: Soft, No Tenderness Extremity: Other (Picc line right arm. Good placement but dirty bandages.) Neurological/Psych: Normal Speech, Normal Motor, Normal Sensation, Other (Awake and alert) ED Course And Treatment - Laboratory Results Result Diagrams: 01/31/17 20:48 01/31/17 20:48 Lab Interpretation: Abnormal (etoh 358H, tox neg.) ECG: Interpreted By Me ECG Rhythm: Sinus Rhythm ECG Interpretation: Normal Rate From EC O2 Sat by Pulse Oximetry: 98 (RA) Pulse Ox Interpretation: Normal - Radiology CXR: Interpreted by Me CXR Interpretation: Yes: No Acute Disease Progress Note: narcan IV given, with no significant effect, tox neg opiates, ? if abusing narcotics Reevaluation Time: 21:30 Reassessment Condition: Improved - Physician Consult Information Outcome Of Conversation: 2100: d/w Dr. Gordon- pt's ID - ok to pull PICC line, will consult. 2100: d/w Dr. Jitendra hagan to Obs. Medical Decision Making Medical Decision Making: Impression: 51 y/o male found obtunded at [facility] today Plans: -Narcan -Reassess and disposition Patient is resting comfortably, and is in no acute distress. Patient was instructed to follow up with PMD in 1-2 days for further evaluation. persistent alcohol abuse, daily- non-compliant with daily IV Rocephin 2 g IV probably due to alcoholism ? if R arm PICC line still working- may be removed per Dr. Gordon Disposition Doctor Will See Patient In The: Hospital Counseled Patient/Family Regarding: Studies Performed, Diagnosis - Disposition Disposition: HOSPITALIZED Disposition Time: 21:31 Condition: FAIR - Clinical Impression Clinical Impression: Alcohol intoxication - Scribe Statement The provider has reviewed the documentation as recorded by the Scribe Blayne [email or web address] All medical record entries made by the Scribe were at my direction and personally dictated by me. I have reviewed the chart and agree that the record accurately reflects my personal performance of the history, physical exam, medical decision making, and the department course for this patient. I have also personally directed, reviewed, and agree with the discharge instructions and disposition.
[2017-01-31] MEDS ORDERED: Naloxone 0.4 mg/ml Inj (Adult) ONE (19:35)
[2017-01-31] MEDS ORDERED: Sodium Chloride 0.9% 1,000 ML IV ONE (19:55)
[2017-01-31] MEDS ORDERED: cefTRIAXone IV 1 gm in Dextros 100 ML IV ONE (20:09)
[2017-01-31] MEDS ORDERED: Sodium Chloride 0.9% 1,000 ML ONE (20:56)
[2017-01-31] MEDS ORDERED: cefTRIAXone IV 1 gm in Dextros 50 ML IVPB ONE (20:56)
[2017-01-31 21:02] LABS: BASO # 0.1 K/uL (0.0-0.2); BASO % 2.3 % (0.0-2.0); EOS # 0.1 K/uL (0.0-0.7); EOS % 4.5 % (0.0-4.0); HEMATOCRIT 37.4 % (35.0-51.0); LYMPH # 1.2 K/uL (1.0-4.3); LYMPH % 39.9 % (20.0-40.0); MEAN CELL VOLUME 91.1 fL (80.0-94.0); MEAN CORPUSCULAR HEMOGLOBIN 29.6 pg (27.0-31.0); MEAN CORPUSCULAR HGB CONC 32.5 g/dL (33.0-37.0); MEAN PLATELET VOLUME 8.1 fL (7.2-11.7); MONO # 0.4 K/uL (0.0-0.8); MONO % 13.9 % (0.0-10.0); RED CELL DISTRIBUTION WIDTH 14.3 % (11.5-14.5)
[2017-01-31 21:04] LABS: CHLORIDE 100 mmol/L (98-107)
[2017-01-31 21:05] LABS: POTASSIUM 4.4 mmol/L (3.6-5.2); SODIUM 140 mmol/L (132-148)
[2017-01-31 21:07] LABS: ALB/GLOB RATIO 1.3 (1.0-2.1); BILIRUBIN,TOTAL 0.6 mg/dL (0.2-1.3); CARBON DIOXIDE 29 mmol/L (22-30); GFR AFRICAN-AMERICAN > 60; TOTAL PROTEIN 7.8 g/dL (6.3-8.3)
[2017-01-31 21:08] LABS: ALKALINE PHOSPHATASE 71 U/L (38-126); ALT/SGPT 24 U/L (21-72); AST/SGOT 45 U/L (17-59); BLOOD UREA NITROGEN 10 mg/dL (9-20); CALCIUM 8.8 mg/dl (8.6-10.4); GLUCOSE,RANDOM 93 mg/dL (75-110)
[2017-01-31 21:10] LABS: URINE BACTERIA RARE (<OCC); URINE BILIRUBIN NEGATIVE (NEGATIVE); URINE BLOOD NEGATIVE (NEGATIVE); URINE COLOR Colorless (YELLOW); URINE GLUCOSE (UA) NORMAL (Normal); URINE KETONE NEGATIVE (NEGATIVE); URINE LEUKOCYTE ESTERASE NEG Leu/uL (Negative); URINE PROTEIN NEGATIVE (NEGATIVE); URINE UROBILINOGEN NORMAL mg/dL (0.2-1.0)
[2017-01-31 21:25] LABS: ALCOHOL SERUM 358 mg/dl (0-10)
[2017-01-31] MEDS ORDERED: Multivitamin (MVI) 10 ML, Thiamine 100 MG, Folic Acid 1 MG in Sodium Chloride 0.9% 1,00... IV ONE (22:50)
[2017-01-31] MEDS ORDERED: Dextrose 5%/0.45% NS 1,000 ML IV SCH (23:00)
--- NOTE | 2017-02-01 07:41 | RAD ---
HISTORY: adm COMPARISON: Comparison is made to 01/24/2017 FINDINGS: LUNGS: No active pulmonary disease. PLEURA: No significant pleural effusion identified, no pneumothorax apparent. CARDIOVASCULAR: Normal. OSSEOUS STRUCTURES: No significant abnormalities. VISUALIZED UPPER ABDOMEN: Normal. OTHER FINDINGS: None. IMPRESSION: No active disease.
[2017-02-01] MEDS ORDERED: Multivitamin (MVI) 10 ML, Thiamine 100 MG, Folic Acid 1 MG in Sodium Chloride 0.9% 1,00... IV ONE (09:08)
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
[2017-02-01] MEDS: Pantoprazole 40 mg EC Tab PO SCH (10:32)
[2017-02-01] MEDS: Enoxaparin 40 mg Syringe SC SCH (10:32)
--- NOTE | 2017-02-01 10:59 | CP.PCM.PN ---
<PrinceClaus - Last Filed: 02/01/17 14:19> Subjective - Date & Time of Evaluation Date of Evaluation: 02/01/17 Time of Evaluation: 09:00 - Subjective Subjective: Medicine Note- Dr. Cobian's service Patient was seen and examined at bedside. Patient reports he has pain in his right arm around the PICC site. He says he is unusure if he has been compliant with the antibiotics he was supposed to receive outpatient, he reports he has been drinking a lot, last drink was yesterday morning. No events overnight per nursing. Objective - Vital Signs/Intake and Output Vital Signs (last 24 hours): Temp Pulse Resp BP Pulse Ox 98.3 F 103 H 18 125/66 96 02/01/17 08:19 02/01/17 08:19 02/01/17 08:19 02/01/17 08:19 02/01/17 08:19 Intake and Output: 02/01/17 02/01/17 06:59 18:59 Intake Total 600 Balance 600 - Medications Medications: Current Medications Enoxaparin Sodium (Lovenox) 40 mg SC DAILY [facility] Last Admin: 02/01/17 10:32 Dose: 40 mg Ceftriaxone Sodium 1 gm/ (Sodium Chloride) 100 mls @ 100 mls/hr IVPB DAILY [facility] Last Admin: 02/01/17 10:33 Dose: 100 mls/hr Multivitamins/Vitamin C 10 ml/Thiamine HCl 100 mg/ Folic Acid 1 mg/ Sodium Chloride 1,011.2 mls @ 80 mls/hr IV .[id number] ONE Stop: 02/01/17 21:46 Pantoprazole Sodium (Protonix Ec Tab) 40 mg PO DAILY [facility] Last Admin: 02/01/17 10:32 Dose: 40 mg - Constitutional Appears: Non-toxic, No Acute Distress - Head Exam Head Exam: ATRAUMATIC, NORMAL INSPECTION, NORMOCEPHALIC - Eye Exam Pupil Exam: NORMAL ACCOMODATION, PERRL - ENT Exam ENT Exam: Mucous Membranes Moist - Respiratory Exam Respiratory Exam: Clear to Ausculation Bilateral, NORMAL BREATHING PATTERN. absent: Prolonged Expiratory Phase, Rales, Rhonchi, Wheezes - Cardiovascular Exam Cardiovascular Exam: REGULAR RHYTHM, +S1, +S2 Additional comments: Chest wound in right pectoral area clean and in tact. No erythema, drainage. Slightly tender to palpation. - GI/Abdominal Exam GI & Abdominal Exam: Soft, Normal Bowel Sounds. absent: Tenderness, Diminished Bowel Sounds, Hypoactive Bowel Sounds - Extremities Exam Extremities Exam: Normal Capillary Refill, Normal Inspection Additional comments: right arm , PICC in place, tender to palpation at insertion site and proximal. No erythema, swelling, drainage - Neurological Exam Neurological Exam: Alert, Awake, Oriented x3 - Psychiatric Exam Psychiatric exam: Normal Affect, Normal Mood - Skin Skin Exam: Dry, Intact, Normal Color, Warm Assessment and Plan - Assessment and Plan (Free Text) Assessment: Alcohol Abuse/Intoxication Alcohol, Quant on admission -358 Consult Psych- Dr. Monson Ativan 1mg IVP Q4h PRN Librium 50mg PO given today Librium taper starting tomorrow, to start at 25mg TID tomorrow Folic Acid 1mg PO Daily Multivitamin PO Daily Hx of Chest Wound/ infection Consult ID- Dr. Gordon Continue Ceftriaxone 1gm IVPB Daily Prophylactic Measure- Protonix 40mg PO Daily Lovenox 40mg SC Daily all medical management as per Dr. Cobian. <Moraima Cobian S - Last Filed: 04/26/17 00:30> Objective - Vital Signs/Intake and Output Vital Signs (last 24 hours): Temp Pulse Resp BP Pulse Ox 98.7 F 92 H 20 144/91 H 100 02/11/17 16:53 02/11/17 16:53 02/11/17 16:53 02/11/17 16:53 02/11/17 16:53 - Labs Labs: 02/09/17 08:32 02/09/17 08:32 Attending/Attestation - Attestation I have personally seen and examined this patient.: Yes I have fully participated in the care of the patient.: Yes I have reviewed all pertinent clinical information, including history, physical exam and plan: Yes Notes (Text): Intertrochanteric fracture of left femur -S/p left hip CR/IM nailing POD#3 -Follow ortho recommendations -Follow up outpatient in 1 week 2. DVT of left femoral vein -Follow vascular surgery and heme recommendations -Xray showed patient already had IVC filter in place -Lovenox 70mg SC BID 3. UTI -Follow ID recommendations -Continue rocephin for 7 more days -No leukocytosis, afebrile -Urine culture positive for Klebsiella Pneumoniae 4. Acute blood loss anemia -Continue to monitor CBC -Transfuse as needed 5. Hypothyroidism -Continue home synthroid 6. HTN -Continue home Amlodipine 7. HLD -Continue crestor
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
[2017-02-01] MEDS: Multiple Vitamins Tab PO SCH (12:25)
--- NOTE | 2017-02-01 18:29 | CP.PCM.CON ---
History of Present Illness - History of Present Illness History of Present Illness: A 51 y/o male brought in by EMS after being found obtunded at [facility] today. Pt has had many recent evaluations for alcohol abuse in the ER. Pt notes having a Picc line on the right arm for his daily antibiotics therapy, but notes not going to therapy today. Pt denies nausea, diarrhea, vomiting, fever, chills, suicidal or homicidal ideation, or any other complaints. - Medical History PMH: Anxiety, Depression, HTN, Hypercholesterolemia, Personality Disorder ( multiple fights,agression), Schizophrenia Denies: HIV, Chronic Kidney Disease, Seizures, Sexually Transmitted Disease - Review of Systems - Constitutional Constitutional: absent: As Per HPI, Anorexia, Chills, Daytime Sleepiness, Excessive Sweating, Fatigue, Fever, Frequent Falls, Headache, Increased Appetite , Lethargy, Malaise, Night Sweats, Snoring, Sleep Apnea, Weight Gain, Weight Loss, Weakness, Other - EENT Eyes: absent: As Per HPI, Blind Spots, Blurred Vision, Change in Vision, Decreased Night Vision, Diplopia, Discharge, Dry Eye, Exophthalmos, Floaters, Irritation, Itchy Eyes, Loss of Peripheral Vision, Pain, Photophobia, Requires Corrective Lenses, Sees Flashes, Spots in Vision, Tunnel Vision, Other Visual Disturbances, Loss of Vision, Other Ears: absent: As Per HPI, Decreased Hearing, Ear Discharge, Ear Pain, Tinnitus, Abnormal Hearing, Disequilibrium, Dizziness, Other Nose/Mouth/Throat: absent: As Per HPI, Epistaxis, Nasal Congestion, Nasal Discharge, Nasal Obstruction, Nasal Trauma, Nose Pain, Post Nasal Drip, Sinus Pain, Sinus Pressure, Bleeding Gums, Change in Voice, Dental Pain, Dry Mouth, Dysphagia, Halitosis, Hoarsness, Lip Swelling, Mouth Lesions, Mouth Pain, Odynophagia, Sore Throat, Throat Swelling, Tongue Swelling, Facial Pain, Neck Pain, Neck Mass, Other - Cardiovascular Cardiovascular: absent: As Per HPI, Acrocyanosis, Chest Pain, Chest Pain at Rest , Chest Pain with Activity, Claudication, Diaphoresis, Dyspnea, Dyspnea on Exertion, Edema, Irregular Heart Rhythm, Pain Radiating to Arm/Neck/Jaw, Leg Edema, Leg Ulcers, Lightheadedness, Orthopnea, Palpitations, Paroxysmal Nocturnal Dyspnea, Pedal Edema, Radiating Pain, Rapid Heart Rate, Slow Heart Rate, Syncope, Other - Respiratory Respiratory: absent: As Per HPI, Cough, Dyspnea, Hemoptysis, Dyspnea on Exertion , Wheezing, Snoring, Stridor, Pain on Inspiration, Chest Congestion, Excessive Mucous Production, Change in Mucous Color, Pain with Coughing, Other - Gastrointestinal Gastrointestinal: absent: As Per HPI, Abdominal Pain, Belching, Bloating, Change in Bowel Habits, Change in Stool Character, Coffee Ground Emesis, Constipation, Cramping, Diarrhea, Dyspepsia, Dysphagia, Early Satiety, Excessive Flatus, Fecal Incontinence, Heartburn, Hematemesis, Hematochezia, Loose Stools, Melena, Nausea, Odynophagia, Temesmus, Vomiting, Other - Genitourinary Genitourinary: absent: As Per HPI, Change in Urinary Stream, Difficulty Urinating, Dysuria, Flank Pain, Hematuria, Pyuria, Nocturia, Urinary Incontinence, Urinary Frequency, Urinary Hesitance, Urinary Urgency, Voiding Freq/Small Amts, Freq UTI, Hx Renal/Bladder Calculi, Hx /Renal Surgery, Bladder Distension, Other - Musculoskeletal Musculoskeletal: absent: As Per HPI, Abnormal Gait, Arthralgias, Atrophy, Back Pain, Deformity, Joint Swelling, Limited Range of Motion, Loss of Height, Muscle Cramps, Muscle Weakness, Myalgias, Neck Pain, Numbness, Radiating Pain into Limb, Stiffness, Tingling, Other - Integumentary Integumentary: absent: As Per HPI, Acne, Alopecia, Bleeding Lesions, Change in Hair, Change in Nails, Change in Pigmentation, Changing Lesions, Dry Skin, Erythema, Furuncle, Hirsutism, Lesions, New Lesions, Non-Healing Lesions, Photosensitivity, Pruritus, Rash, Skin Pain, Skin Ulcer, Sores, Striae, Swelling , Unusual Bruising, Wounds, Jaundice, Other - Neurological Neurological: absent: As Per HPI, Abnormal Gait, Abnormal Hearing, Abnormal Movements, Abnormal Speech, Behavioral Changes, Burning Sensations, Confusion, Convulsions, Disequilibrium, Dizziness, Numbness, Focal Weakness, Frequent Falls , Headaches, Lack of Coordination, Loss of Vision, Memory Loss, Paresthesias, Radicular Pain, Restless Legs, Sensory Deficit, Syncope, Tingling, Tremor, Vertigo, Weakness, Other Visual Disturbances, Other - Psychiatric Psychiatric: absent: As Per HPI, Abnormal Sleep Pattern, Anhedonia, Anxiety, Auditory Hallucinations, Behavioral Changes, Change in Appetite, Change in Libido, Confusion, Depression, Difficulty Concentrating, Hallucinations, Homicidal Ideation, Hopelessness, Irritability, Memory Loss, Mood Swings, Panic Attacks, Paranoia, Suicidal Ideation, Visual Hallucinations, Tactile Hallucinations, Other - Endocrine Endocrine: absent: As Per HPI, Change in Body Appearance, Change in Libido, Cold Intolorance, Deepening of Voice, Excessive Sweating, Fatigue, Flushing, Heat Intolorance, Increase in Ring/Shoe/Hat Size, Palpitations, Polydipsia, Polyphagia, Polyuria, Other - Hematologic/Lymphatic Hematologic: absent: As Per HPI, Easy Bleeding, Easy Bruising, Lymphadenopathy, Other Past Patient History - Infectious Disease Hx of Infectious Diseases: None - Past Medical History & Family History Past Medical History?: Yes - Past Social History Smoking Status: Never Smoked - CARDIAC Hx Cardiac Disorders: Yes Hx Congestive Heart Failure: No Hx Hypercholesterolemia: Yes Hx Hypertension: Yes - PULMONARY Hx Chronic Obstructive Pulmonary Disease (COPD): No - NEUROLOGICAL HX Cerebrovascular Accident: No - HEENT Hx HEENT Problems: No Hx Blind: No Hx Cataracts: No Hx Deafness: No Hx Difficulty Chewing: No Hx Epistaxis: No Hx Glaucoma: No Hx Macular Degeneration: No Hx Sinusitis: No - RENAL Hx Renal Failure: No - ENDOCRINE/METABOLIC Hx Diabetes Mellitus Type 1: No Hx Diabetes Mellitus Type 2: No Hx Hypothyroidism: No - HEMATOLOGICAL/ONCOLOGICAL Hx Blood Disorders: No Hx AIDS: No Hx Anemia: No Hx Blood Transfusions: No Hx Blood Transfusion Reaction: No Hx Bruising: No Hx Cancer: No Hx Chemotherapy: No Hx Cirrhosis: No Hx Gum Bleeding: No Hx Hemophilia: No Hx Hepatitis A: No Hx Hepatitis B: No Hx Hepatitis C: No Hx Human Immunodeficiency Virus (HIV): No Hx Leukemia: No Hx Metastesis: No Hx Shingles: No Hx Sickle Cell Disease: No Hx Unexplained Bleeding: No Hx von Willebrand's Disease: No - INTEGUMENTARY Hx Dermatological Problems: No Hx Basil Cell: No Hx Mi: No Hx Cellulitis: No Hx Eczema: No Hx Melanoma: No Hx Psoriasis: No Hx Squamous Cell: No - MUSCULOSKELETAL/RHEUMATOLOGICAL Hx Falls: No - GASTROINTESTINAL Hx Gastrointestinal Disorders: No Hx Bowel Surgery: No Hx Clostridium Difficile: No Hx Colitis: No Hx Colostomy: No Hx Constipation: No Hx Crohn's Disease: No Hx Diarrhea: No Hx Diverticulitis: No Hx Esophageal Varices: No Hx Fatty Liver Disease: No Hx Gall Bladder Disease: No Hx Gastritis: No Hx Gastroesophageal Reflux: No Hx Hemorrhoids: No Hx Ileostomy: No Hx Irritable Bowel: No Hx Liver Failure: No Hx Nausea: No Hx Pancreatitis: No HX Swallowing Problems: No Hx Ulcer: No Hx Vomiting: No - GENITOURINARY/GYNECOLOGICAL Hx Genitourinary Disorders: No - PSYCHIATRIC Hx Substance Use: No - SURGICAL HISTORY Hx Surgeries: Yes Hx Abdominal Aortic Aneurysm Repair: No Hx Amputation: No Hx Angiogram: No Hx Angioplasty: No Hx Appendectomy: No Hx Arteriovenous Shunt: No Hx Arthroscopy: No Hx Bile Duct Stent: No Hx Breast Biopsy: No Hx Cataract Extraction: No Hx Cardiac Catheterization: No Hx Carotid Endarterectomy: No Hx Section: No Hx Cholecystectomy: No Hx Coronary Artery Bypass Graft: No Hx Coronary Stent: No Hx Dilation and Curettage: No Hx Eye Surgery: No Hx Femoral-Popliteal Bypass Graft: No Hx Gastric Bypass Surgery: No Hx Herniorrhaphy: No Hx Hysterectomy: No Hx Joint Replacement: No Hx Kidney Transplant: No Hx Liver Transplant: No Hx Mastectomy: No Hx Musculoskeletal Surgery: No Hx Open Heart Surgery: No Hx Open Reduction Internal Fixation: No Hx Orthopedic Surgery: No Hx Parathyroidectomy: No Hx Penile Implant: No Hx Pulmonary Surgery: No Hx Splenectomy: No Hx Thyroidectomy: No Hx Tonsillectomy: No Hx Tubal Ligation: No Hx Valve Replacement: No Hx Vascular Surgery: No Hx Vascular Access Device: No Other/Comment: poor historian. Chest tube insertion as of Oct 2016; picc insertion right upper arm. - ANESTHESIA Hx Anesthesia: Yes Hx Anesthesia Reactions: No Hx Malignant Hyperthermia: No Meds Allergies/Adverse Reactions: Allergies Allergy/AdvReac Type Severity Reaction Status Date / Time No Known Allergies Allergy Verified 01/31/17 17:45 - Medications Medications: Current Medications Chlordiazepoxide (Librium) 25 mg PO TID NAOMY PRN Reason: Taper Stop: 02/05/17 11:59 Chlordiazepoxide (Librium) 25 mg PO Q12H NAOMY Stop: 02/02/17 06:01 Last Admin: 02/01/17 17:36 Dose: 25 mg Enoxaparin Sodium (Lovenox) 40 mg SC DAILY [facility] Last Admin: 02/01/17 10:32 Dose: 40 mg Folic Acid (Folic Acid) 1 mg PO DAILY [facility] Last Admin: 02/01/17 12:25 Dose: 1 mg Gabapentin (Neurontin) 100 mg PO TID [facility] Last Admin: 02/01/17 17:36 Dose: 100 mg Ceftriaxone Sodium 1 gm/ (Sodium Chloride) 100 mls @ 100 mls/hr IVPB DAILY [facility] Last Admin: 02/01/17 10:33 Dose: 100 mls/hr Multivitamins/Vitamin C 10 ml/Thiamine HCl 100 mg/ Folic Acid 1 mg/ Sodium Chloride 1,011.2 mls @ 80 mls/hr IV .[id number] ONE Stop: 02/01/17 21:46 Last Admin: 02/01/17 11:07 Dose: 80 mls/hr Lorazepam (Ativan) 1 mg IVP Q4H PRN PRN Reason: Withdrawal Symptoms Last Admin: 02/01/17 16:35 Dose: 1 mg Multivitamins (Hexavitamin) 1 tab PO DAILY [facility] Last Admin: 02/01/17 12:25 Dose: 1 tab Pantoprazole Sodium (Protonix Ec Tab) 40 mg PO DAILY [facility] Last Admin: 02/01/17 10:32 Dose: 40 mg Quetiapine Fumarate (Seroquel) 100 mg PO [facility] Thiamine HCl (Vitamin B1 Tab) 100 mg PO DAILY [facility] Last Admin: 02/01/17 12:25 Dose: 100 mg Physical Exam - Constitutional Appears: Non-toxic, Chronically Ill - Head Exam Head Exam: NORMOCEPHALIC - ENT Exam ENT Exam: Mucous Membranes Dry - Neck Exam Neck exam: Negative for: Lymphadenopathy - Respiratory Exam Respiratory Exam: Decreased Breath Sounds, Clear to Auscultation Bilateral - Cardiovascular Exam Cardiovascular Exam: REGULAR RHYTHM, +S1, +S2 - GI/Abdominal Exam GI & Abdominal Exam: Diminished Bowel Sounds, Soft. absent: Tenderness - Rectal Exam Rectal Exam: Deferred - Exam Exam: NORMAL INSPECTION - Extremities Exam Extremities exam: Negative for: pedal edema - Back Exam Back exam: absent: CVA tenderness (L), CVA tenderness (R) - Neurological Exam Neurological exam: Alert, CN II-XII Intact, Oriented x3, Reflexes Normal - Psychiatric Exam Psychiatric exam: Depressed - Skin Skin Exam: Dry Results - Vital Signs Recent Vital Signs: Last Vital Signs Temp 98.3 F 05/12/17 08:19 Pulse 103 H 02/01/17 08:19 Resp 18 02/01/17 08:19 BP 125/66 02/01/17 08:19 Pulse Ox 96 02/01/17 08:19 - Labs Result Diagrams: 01/31/17 20:48 01/31/17 20:48 Assessment & Plan (1) Alcohol intoxication Status: Acute (2) Alcohol abuse Status: Acute (3) Alcohol dependence Status: Acute (4) Alcohol intoxication Status: Acute (5) Alcohol intoxication in active alcoholic Status: Acute (6) Alcohol withdrawal syndrome Status: Acute - Assessment and Plan (Free Text) Assessment: s/p chest wall trauma/ infection s/p I and D neutrop[enia PICC in situ right arm recommend to remove PICC if cultures neg Heme eval and follow up detox and substance abuse counselling thank you very much
--- NOTE | 2017-02-02 09:08 | RAD ---
HISTORY: to check placement of PICC line COMPARISON: Comparison is made to 01/31/2017 FINDINGS: LUNGS: No active pulmonary disease. PLEURA: No significant pleural effusion identified, no pneumothorax apparent. CARDIOVASCULAR: Normal. OSSEOUS STRUCTURES: No significant abnormalities. VISUALIZED UPPER ABDOMEN: Normal. OTHER FINDINGS: Appropriate position of the right PICC line with the tip is likely at the distal SVC. IMPRESSION: No active disease.
[2017-02-02] MEDS: Multiple Vitamins Tab PO SCH (09:56)
[2017-02-02] MEDS: Enoxaparin 40 mg Syringe SC SCH (09:56)
[2017-02-02] MEDS: Pantoprazole 40 mg EC Tab PO SCH (09:56)
--- NOTE | 2017-02-02 14:35 | CP.PCM.PN ---
Subjective - Date & Time of Evaluation Date of Evaluation: 02/02/17 Time of Evaluation: 09:20 - Subjective Subjective: clinically same Objective - Vital Signs/Intake and Output Vital Signs (last 24 hours): Temp Pulse Resp BP Pulse Ox 97.9 F 77 20 148/90 97 02/02/17 07:28 02/02/17 07:28 02/02/17 07:28 02/02/17 07:28 02/02/17 07:28 Intake and Output: 02/02/17 02/02/17 06:59 18:59 Intake Total 680 Output Total 550 Balance 130 - Medications Medications: Current Medications Chlordiazepoxide (Librium) 25 mg PO TID [facility] PRN Reason: Taper Stop: 02/05/17 11:59 Last Admin: 02/02/17 13:52 Dose: 25 mg Enoxaparin Sodium (Lovenox) 40 mg SC DAILY [facility] Last Admin: 02/02/17 09:56 Dose: 40 mg Folic Acid (Folic Acid) 1 mg PO DAILY [facility] Last Admin: 02/02/17 09:55 Dose: 1 mg Gabapentin (Neurontin) 100 mg PO TID [facility] Last Admin: 02/02/17 13:52 Dose: 100 mg Ceftriaxone Sodium 1 gm/ (Sodium Chloride) 100 mls @ 100 mls/hr IVPB DAILY [facility] Last Admin: 02/02/17 10:20 Dose: 100 mls/hr Lorazepam (Ativan) 1 mg IVP Q4H PRN PRN Reason: Withdrawal Symptoms Last Admin: 02/01/17 16:35 Dose: 1 mg Multivitamins (Hexavitamin) 1 tab PO DAILY [facility] Last Admin: 02/02/17 09:56 Dose: 1 tab Pantoprazole Sodium (Protonix Ec Tab) 40 mg PO DAILY [facility] Last Admin: 02/02/17 09:56 Dose: 40 mg Quetiapine Fumarate (Seroquel) 100 mg PO HS [facility] Last Admin: 02/01/17 20:59 Dose: 100 mg Thiamine HCl (Vitamin B1 Tab) 100 mg PO DAILY [facility] Last Admin: 02/02/17 09:55 Dose: 100 mg Assessment and Plan (1) Alcohol abuse Status: Acute (2) Alcohol dependence Status: Acute (3) Alcohol intoxication Status: Acute (4) Alcohol intoxication Status: Acute (5) Alcohol intoxication in active alcoholic Status: Acute (6) Alcohol withdrawal syndrome Status: Acute (7) Cellulitis Status: Acute (8) Chest wall abscess Status: Acute (9) Constipation Status: Acute (10) Disorder due to alcohol abuse Status: Acute (11) Dyspnea on exertion Status: Acute (12) Major depressive disorder, recurrent, unspecified Status: Acute (13) Medical assessment Status: Acute (14) Narcotic abuse Status: Acute (15) Poison vanita dermatitis Status: Acute (16) Rectal bleeding Status: Acute (17) Schizoaffective disorder Status: Acute (18) Schizoaffective disorder Status: Acute (19) Urinary frequency Status: Acute (20) Visit for wound care Status: Acute (21) Visit for wound check Status: Acute - Assessment and Plan (Free Text) Plan: Consult ID Consult psychiatry Folic acid Lovenox Ceftriaxone Protonix Librium Neurontin Thiamine
[2017-02-03] MEDS: Multiple Vitamins Tab PO SCH (10:20)
[2017-02-03] MEDS: Pantoprazole 40 mg EC Tab PO SCH (10:20)
[2017-02-03] MEDS: Enoxaparin 40 mg Syringe SC SCH (10:20)
--- NOTE | 2017-02-03 14:18 | CP.PCM.PN ---
Subjective - Date & Time of Evaluation Date of Evaluation: 02/03/17 Time of Evaluation: 07:00 - Subjective Subjective: CULTURES NEG THUS FAR IV RX IN PROGRESS WOULD D/C PICC LINE Objective - Vital Signs/Intake and Output Vital Signs (last 24 hours): Temp Pulse Resp BP Pulse Ox 97.6 F 84 20 126/88 98 02/03/17 08:19 02/03/17 08:19 02/03/17 08:19 02/03/17 08:19 02/03/17 08:19 Intake and Output: 02/03/17 02/03/17 06:59 18:59 Intake Total 830 Output Total 500 Balance -500 830 - Medications Medications: Current Medications Chlordiazepoxide (Librium) 25 mg PO BID [facility] PRN Reason: Taper Stop: 02/05/17 11:59 Last Admin: 02/03/17 10:20 Dose: 25 mg Enoxaparin Sodium (Lovenox) 40 mg SC DAILY [facility] Last Admin: 02/03/17 10:20 Dose: 40 mg Folic Acid (Folic Acid) 1 mg PO DAILY [facility] Last Admin: 02/03/17 10:20 Dose: 1 mg Gabapentin (Neurontin) 100 mg PO TID [facility] Last Admin: 02/03/17 13:18 Dose: 100 mg Ceftriaxone Sodium 1 gm/ (Sodium Chloride) 100 mls @ 100 mls/hr IVPB DAILY [facility] Last Admin: 02/03/17 10:20 Dose: 100 mls/hr Lorazepam (Ativan) 1 mg IVP Q4H PRN PRN Reason: Withdrawal Symptoms Last Admin: 02/01/17 16:35 Dose: 1 mg Multivitamins (Hexavitamin) 1 tab PO DAILY [facility] Last Admin: 02/03/17 10:20 Dose: 1 tab Pantoprazole Sodium (Protonix Ec Tab) 40 mg PO DAILY [facility] Last Admin: 02/03/17 10:20 Dose: 40 mg Quetiapine Fumarate (Seroquel) 100 mg PO HS [facility] Last Admin: 02/02/17 21:45 Dose: 100 mg Thiamine HCl (Vitamin B1 Tab) 100 mg PO DAILY [facility] Last Admin: 02/03/17 10:20 Dose: 100 mg - Constitutional Appears: Non-toxic, Chronically Ill - Head Exam Head Exam: NORMOCEPHALIC - Eye Exam Eye Exam: PERRL. absent: Scleral icterus - ENT Exam ENT Exam: Mucous Membranes Dry - Neck Exam Neck Exam: absent: Lymphadenopathy - Respiratory Exam Respiratory Exam: Decreased Breath Sounds, Rhonchi - Cardiovascular Exam Cardiovascular Exam: REGULAR RHYTHM, +S1, +S2 - GI/Abdominal Exam GI & Abdominal Exam: Distended, Soft, Diminished Bowel Sounds - Rectal Exam Rectal Exam: Deferred Assessment and Plan (1) Alcohol intoxication Status: Acute (2) Alcohol abuse Status: Acute (3) Alcohol dependence Status: Acute (4) Alcohol intoxication Status: Acute (5) Alcohol intoxication in active alcoholic Status: Acute (6) Alcohol withdrawal syndrome Status: Acute
--- NOTE | 2017-02-03 16:21 | CP.PCM.PN ---
Subjective - Date & Time of Evaluation Date of Evaluation: 02/03/17 Time of Evaluation: 13:10 - Subjective Subjective: Clinically same Objective - Vital Signs/Intake and Output Vital Signs (last 24 hours): Temp Pulse Resp BP Pulse Ox 97.6 F 84 20 126/88 98 02/03/17 08:19 02/03/17 08:19 02/03/17 08:19 02/03/17 08:19 02/03/17 08:19 Intake and Output: 02/03/17 02/03/17 06:59 18:59 Intake Total 830 Output Total 500 Balance -500 830 - Medications Medications: Current Medications Chlordiazepoxide (Librium) 25 mg PO BID [facility] PRN Reason: Taper Stop: 02/05/17 11:59 Last Admin: 02/03/17 10:20 Dose: 25 mg Enoxaparin Sodium (Lovenox) 40 mg SC DAILY [facility] Last Admin: 02/03/17 10:20 Dose: 40 mg Folic Acid (Folic Acid) 1 mg PO DAILY [facility] Last Admin: 02/03/17 10:20 Dose: 1 mg Gabapentin (Neurontin) 100 mg PO TID [facility] Last Admin: 02/03/17 13:18 Dose: 100 mg Ceftriaxone Sodium 1 gm/ (Sodium Chloride) 100 mls @ 100 mls/hr IVPB DAILY [facility] Last Admin: 02/03/17 10:20 Dose: 100 mls/hr Lorazepam (Ativan) 1 mg IVP Q4H PRN PRN Reason: Withdrawal Symptoms Last Admin: 02/01/17 16:35 Dose: 1 mg Multivitamins (Hexavitamin) 1 tab PO DAILY [facility] Last Admin: 02/03/17 10:20 Dose: 1 tab Pantoprazole Sodium (Protonix Ec Tab) 40 mg PO DAILY [facility] Last Admin: 02/03/17 10:20 Dose: 40 mg Quetiapine Fumarate (Seroquel) 100 mg PO HS [facility] Last Admin: 02/02/17 21:45 Dose: 100 mg Thiamine HCl (Vitamin B1 Tab) 100 mg PO DAILY [facility] Last Admin: 02/03/17 10:20 Dose: 100 mg Assessment and Plan (1) Alcohol abuse Status: Acute (2) Alcohol dependence Status: Acute (3) Alcohol intoxication Status: Acute (4) Alcohol intoxication Status: Acute (5) Alcohol intoxication in active alcoholic Status: Acute (6) Alcohol withdrawal syndrome Status: Acute (7) Cellulitis Status: Acute (8) Chest wall abscess Status: Acute (9) Constipation Status: Acute (10) Disorder due to alcohol abuse Status: Acute (11) Dyspnea on exertion Status: Acute (12) Major depressive disorder, recurrent, unspecified Status: Acute (13) Medical assessment Status: Acute (14) Narcotic abuse Status: Acute (15) Poison vanita dermatitis Status: Acute (16) Rectal bleeding Status: Acute (17) Schizoaffective disorder Status: Acute (18) Schizoaffective disorder Status: Acute (19) Urinary frequency Status: Acute (20) Visit for wound care Status: Acute (21) Visit for wound check Status: Acute - Assessment and Plan (Free Text) Plan: Follow-up with ID Follow-up with psychiatry Culture negative Continue antibiotic as ordered Librium Folic acid Thiamine Protonix Discontinue PICC line
--- NOTE | 2017-02-04 07:24 | CP.PCM.PN ---
<Claus Morrison - Last Filed: 02/04/17 11:29> Subjective - Date & Time of Evaluation Date of Evaluation: 02/04/17 Time of Evaluation: 07:45 - Subjective Subjective: Medicine Note- Dr. Cobian's service Patient was seen and examined at bedside. Patient reports that he is feeling well, no acute complaints at this time. He still has tenderness along his PICC line and proximal to it. No events overnight, per nursing. Objective - Vital Signs/Intake and Output Vital Signs (last 24 hours): Temp Pulse Resp BP Pulse Ox 98 F 74 20 133/95 H 98 02/04/17 00:00 02/04/17 00:00 02/04/17 00:00 02/04/17 00:00 02/04/17 00:00 Intake and Output: 02/04/17 02/04/17 06:59 18:59 Intake Total 350 Output Total 450 Balance -100 - Medications Medications: Current Medications Chlordiazepoxide (Librium) 25 mg PO BID [facility] PRN Reason: Taper Stop: 02/05/17 11:59 Last Admin: 02/03/17 17:48 Dose: 25 mg Enoxaparin Sodium (Lovenox) 40 mg SC DAILY [facility] Last Admin: 02/03/17 10:20 Dose: 40 mg Folic Acid (Folic Acid) 1 mg PO DAILY [facility] Last Admin: 02/03/17 10:20 Dose: 1 mg Gabapentin (Neurontin) 100 mg PO TID [facility] Last Admin: 02/03/17 17:49 Dose: 100 mg Ceftriaxone Sodium 1 gm/ (Sodium Chloride) 100 mls @ 100 mls/hr IVPB DAILY [facility] Last Admin: 02/03/17 10:20 Dose: 100 mls/hr Lorazepam (Ativan) 1 mg IVP Q4H PRN PRN Reason: Withdrawal Symptoms Last Admin: 02/01/17 16:35 Dose: 1 mg Multivitamins (Hexavitamin) 1 tab PO DAILY [facility] Last Admin: 02/03/17 10:20 Dose: 1 tab Pantoprazole Sodium (Protonix Ec Tab) 40 mg PO DAILY [facility] Last Admin: 02/03/17 10:20 Dose: 40 mg Quetiapine Fumarate (Seroquel) 100 mg PO HS [facility] Last Admin: 02/03/17 21:26 Dose: 100 mg Thiamine HCl (Vitamin B1 Tab) 100 mg PO DAILY [facility] Last Admin: 02/03/17 10:20 Dose: 100 mg - Constitutional Appears: Non-toxic, No Acute Distress - Head Exam Head Exam: ATRAUMATIC, NORMAL INSPECTION, NORMOCEPHALIC - Eye Exam Pupil Exam: NORMAL ACCOMODATION, PERRL - ENT Exam ENT Exam: Mucous Membranes Moist - Neck Exam Neck Exam: Normal Inspection - Respiratory Exam Respiratory Exam: Clear to Ausculation Bilateral, NORMAL BREATHING PATTERN. absent: Prolonged Expiratory Phase, Rales, Rhonchi, Wheezes - Cardiovascular Exam Cardiovascular Exam: REGULAR RHYTHM, +S1, +S2 Additional comments: left sided chest wound present, tender to palpation, no erythema or drainage. - GI/Abdominal Exam GI & Abdominal Exam: Soft, Normal Bowel Sounds. absent: Tenderness, Diminished Bowel Sounds, Hernia, Hyperactive Bowel Sounds, Hypoactive Bowel Sounds - Extremities Exam Extremities Exam: Normal Capillary Refill, Normal Inspection - Neurological Exam Neurological Exam: Alert, Awake, Oriented x3 - Psychiatric Exam Psychiatric exam: Normal Affect, Normal Mood - Skin Skin Exam: Dry, Intact, Normal Color, Warm Assessment and Plan - Assessment and Plan (Free Text) Assessment: Alcohol Abuse/Intoxication Alcohol, Quant on admission -358 Consult Psych- Dr. Monson Ativan 1mg IVP Q4h PRN Continue Librium Taper Folic Acid 1mg PO Daily Multivitamin PO Daily Depression Continue Seroquel 100mg PO Daily Hx of Chest Wound/ infection Consult ID- Dr. Gordon Continue Ceftriaxone 1gm IVPB Daily Pending Blood Culture Prophylactic Measure- Protonix 40mg PO Daily Lovenox 40mg SC Daily all medical management as per Dr. Cobian. <Moraima Cobian - Last Filed: 02/04/17 20:47> Objective - Vital Signs/Intake and Output Vital Signs (last 24 hours): Temp Pulse Resp BP Pulse Ox 98.0 F 76 20 124/83 98 02/04/17 16:00 02/04/17 16:00 02/04/17 16:00 02/04/17 16:00 02/04/17 16:00 Intake and Output: 02/04/17 02/05/17 18:59 06:59 Intake Total 600 Balance 600 - Medications Medications: Current Medications Chlordiazepoxide (Librium) 25 mg PO DAILY [facility] PRN Reason: Taper Stop: 02/05/17 11:59 Last Admin: 02/04/17 09:31 Dose: 25 mg Enoxaparin Sodium (Lovenox) 40 mg SC DAILY [facility] Last Admin: 02/04/17 09:31 Dose: 40 mg Folic Acid (Folic Acid) 1 mg PO DAILY [facility] Last Admin: 02/04/17 09:31 Dose: 1 mg Gabapentin (Neurontin) 100 mg PO TID [facility] Last Admin: 02/04/17 17:49 Dose: 100 mg Ceftriaxone Sodium 1 gm/ (Sodium Chloride) 100 mls @ 100 mls/hr IVPB DAILY [facility] Last Admin: 02/04/17 09:32 Dose: 100 mls/hr Lorazepam (Ativan) 1 mg IVP Q4H PRN PRN Reason: Withdrawal Symptoms Last Admin: 02/01/17 16:35 Dose: 1 mg Multivitamins (Hexavitamin) 1 tab PO DAILY [facility] Last Admin: 02/04/17 09:31 Dose: 1 tab Pantoprazole Sodium (Protonix Ec Tab) 40 mg PO DAILY [facility] Last Admin: 02/04/17 09:31 Dose: 40 mg Quetiapine Fumarate (Seroquel) 100 mg PO HS [facility] Last Admin: 02/03/17 21:26 Dose: 100 mg Thiamine HCl (Vitamin B1 Tab) 100 mg PO DAILY [facility] Last Admin: 02/04/17 09:31 Dose: 100 mg - Labs Labs: 02/04/17 11:57 02/04/17 11:57 Attending/Attestation - Attestation I have personally seen and examined this patient.: Yes I have fully participated in the care of the patient.: Yes I have reviewed all pertinent clinical information, including history, physical exam and plan: Yes Notes (Text): 02/04/17 20:47 h/o chest wound infection on rocephin case seen and discused with staff and resident
[2017-02-04] MEDS: Enoxaparin 40 mg Syringe SC SCH (09:31)
[2017-02-04] MEDS: Multiple Vitamins Tab PO SCH (09:31)
[2017-02-04] MEDS: Pantoprazole 40 mg EC Tab PO SCH (09:31)
--- NOTE | 2017-02-04 10:07 | CARD ---
APPROVED REPORT EKG Measurement Heart [id number] [id number] <Conclusion> Sinus rhythm with short [place] LVH Borderline ECG
[2017-02-04 12:08] LABS: BASO % 1.1 % (0.0-2.0); EOS # 0.2 K/uL (0.0-0.7); EOS % 4.2 % (0.0-4.0); HEMATOCRIT 38.9 % (35.0-51.0); LYMPH # 1.1 K/uL (1.0-4.3); LYMPH % 28.6 % (20.0-40.0); MEAN CELL VOLUME 92.5 fL (80.0-94.0); MEAN CORPUSCULAR HGB CONC 32.4 g/dL (33.0-37.0); MEAN PLATELET VOLUME 8.9 fL (7.2-11.7); MONO # 0.7 K/uL (0.0-0.8); MONO % 19.3 % (0.0-10.0); NRBC % 0.1 % (0.0-2.0); RED CELL DISTRIBUTION WIDTH 13.8 % (11.5-14.5); WHITE BLOOD COUNT 3.7 K/uL (4.8-10.8)
[2017-02-04 12:14] LABS: CHLORIDE 93 mmol/L (98-107)
[2017-02-04 12:15] LABS: POTASSIUM 3.9 mmol/L (3.6-5.2); SODIUM 133 mmol/L (132-148)
[2017-02-04 12:17] LABS: ALB/GLOB RATIO 1.3 (1.0-2.1); ALKALINE PHOSPHATASE 57 U/L (38-126); AST/SGOT 36 U/L (17-59); BILIRUBIN,TOTAL 0.6 mg/dL (0.2-1.3); BLOOD UREA NITROGEN 13 mg/dL (9-20); CARBON DIOXIDE 31 mmol/L (22-30); GFR AFRICAN-AMERICAN > 60; GLUCOSE,RANDOM 85 mg/dL (75-110); TOTAL PROTEIN 7.2 g/dL (6.3-8.3)
[2017-02-04 12:18] LABS: ALT/SGPT 24 U/L (21-72); CALCIUM 8.5 mg/dl (8.6-10.4)
--- NOTE | 2017-02-04 17:52 | CP.PCM.PN ---
Subjective - Date & Time of Evaluation Date of Evaluation: 02/04/17 Time of Evaluation: 09:40 - Subjective Subjective: clinically same Objective - Vital Signs/Intake and Output Vital Signs (last 24 hours): Temp Pulse Resp BP Pulse Ox 98.0 F 76 20 124/83 98 02/04/17 16:00 02/04/17 16:00 02/04/17 16:00 02/04/17 16:00 02/04/17 16:00 Intake and Output: 02/04/17 02/04/17 06:59 18:59 Intake Total 350 600 Output Total 450 Balance -100 600 - Medications Medications: Current Medications Chlordiazepoxide (Librium) 25 mg PO DAILY [facility] PRN Reason: Taper Stop: 02/05/17 11:59 Last Admin: 02/04/17 09:31 Dose: 25 mg Enoxaparin Sodium (Lovenox) 40 mg SC DAILY [facility] Last Admin: 02/04/17 09:31 Dose: 40 mg Folic Acid (Folic Acid) 1 mg PO DAILY [facility] Last Admin: 02/04/17 09:31 Dose: 1 mg Gabapentin (Neurontin) 100 mg PO TID [facility] Last Admin: 02/04/17 17:49 Dose: 100 mg Ceftriaxone Sodium 1 gm/ (Sodium Chloride) 100 mls @ 100 mls/hr IVPB DAILY [facility] Last Admin: 02/04/17 09:32 Dose: 100 mls/hr Lorazepam (Ativan) 1 mg IVP Q4H PRN PRN Reason: Withdrawal Symptoms Last Admin: 02/01/17 16:35 Dose: 1 mg Multivitamins (Hexavitamin) 1 tab PO DAILY [facility] Last Admin: 02/04/17 09:31 Dose: 1 tab Pantoprazole Sodium (Protonix Ec Tab) 40 mg PO DAILY [facility] Last Admin: 02/04/17 09:31 Dose: 40 mg Quetiapine Fumarate (Seroquel) 100 mg PO HS [facility] Last Admin: 02/03/17 21:26 Dose: 100 mg Thiamine HCl (Vitamin B1 Tab) 100 mg PO DAILY [facility] Last Admin: 02/04/17 09:31 Dose: 100 mg - Labs Labs: 02/04/17 11:57 02/04/17 11:57 - Constitutional Appears: Well - Head Exam Head Exam: ATRAUMATIC, NORMAL INSPECTION, NORMOCEPHALIC - Eye Exam Eye Exam: EOMI, Normal appearance, PERRL Pupil Exam: NORMAL ACCOMODATION, PERRL - ENT Exam ENT Exam: Mucous Membranes Moist, Normal Exam - Neck Exam Neck Exam: Full ROM, Normal Inspection. absent: Lymphadenopathy - Respiratory Exam Respiratory Exam: Decreased Breath Sounds - Cardiovascular Exam Cardiovascular Exam: REGULAR RHYTHM, +S1, +S2 - GI/Abdominal Exam GI & Abdominal Exam: Soft, Diminished Bowel Sounds - Rectal Exam Rectal Exam: Deferred Assessment and Plan (1) Alcohol abuse Status: Acute (2) Alcohol dependence Status: Acute (3) Alcohol intoxication Status: Acute (4) Alcohol intoxication Status: Acute (5) Alcohol intoxication in active alcoholic Status: Acute (6) Alcohol withdrawal syndrome Status: Acute (7) Cellulitis Status: Acute (8) Chest wall abscess Status: Acute (9) Constipation Status: Acute (10) Disorder due to alcohol abuse Status: Acute (11) Dyspnea on exertion Status: Acute (12) Major depressive disorder, recurrent, unspecified Status: Acute (13) Medical assessment Status: Acute (14) Narcotic abuse Status: Acute (15) Poison vanita dermatitis Status: Acute (16) Rectal bleeding Status: Acute (17) Schizoaffective disorder Status: Acute (18) Schizoaffective disorder Status: Acute (19) Urinary frequency Status: Acute (20) Visit for wound care Status: Acute (21) Visit for wound check Status: Acute - Assessment and Plan (Free Text) Plan: ollow-up with ID Follow-up with psychiatry Continue antibiotic as ordered Librium Folic acid Thiamine Protonix
[2017-02-04] MEDS ORDERED: Vancomycin 1 gm/NS 200 ml 1 GM/200 ML BAG IVPB ONE (22:00)
--- NOTE | 2017-02-05 07:04 | CP.PCM.PN ---
<Claus Morrison - Last Filed: 02/05/17 13:10> Subjective - Date & Time of Evaluation Date of Evaluation: 02/05/17 Time of Evaluation: 07:50 - Subjective Subjective: Medicine note- Dr. Cobian's service Patient was seen and examined at bedside. Patient reports no acute complaints. He says his chest wound and the area proximal to the PICC line is tankroom tender. He denies any fevers, chills. No events overnight, per nursing. Objective - Vital Signs/Intake and Output Vital Signs (last 24 hours): Temp Pulse Resp BP Pulse Ox 98.1 F 85 20 112/78 96 02/05/17 02:11 02/05/17 02:11 02/05/17 02:11 02/05/17 02:11 02/05/17 02:11 Intake and Output: 02/05/17 02/05/17 06:59 18:59 Intake Total 300 Output Total 450 Balance -150 - Medications Medications: Current Medications Chlordiazepoxide (Librium) 25 mg PO DAILY [facility] Reason: Taper Stop: 02/05/17 11:59 Last Admin: 02/04/17 09:31 Dose: 25 mg Enoxaparin Sodium (Lovenox) 40 mg SC DAILY [facility] Last Admin: 02/04/17 09:31 Dose: 40 mg Folic Acid (Folic Acid) 1 mg PO DAILY [facility] Last Admin: 02/04/17 09:31 Dose: 1 mg Gabapentin (Neurontin) 100 mg PO TID [facility] Last Admin: 02/04/17 17:49 Dose: 100 mg Ceftriaxone Sodium 1 gm/ (Sodium Chloride) 100 mls @ 100 mls/hr IVPB DAILY [facility] Last Admin: 02/04/17 09:32 Dose: 100 mls/hr Vancomycin/Sodium Chloride (Vancocin) 1 gm in 200 mls @ 133 mls/hr IVPB ONCE ONE Stop: 02/05/17 11:30 Lorazepam (Ativan) 1 mg IVP Q4H PRN PRN Reason: Withdrawal Symptoms Last Admin: 02/01/17 16:35 Dose: 1 mg Multivitamins (Hexavitamin) 1 tab PO DAILY [facility] Last Admin: 02/04/17 09:31 Dose: 1 tab Pantoprazole Sodium (Protonix Ec Tab) 40 mg PO DAILY [facility] Last Admin: 05/15/17 09:31 Dose: 40 mg Quetiapine Fumarate (Seroquel) 100 mg PO [facility] Last Admin: 02/04/17 21:43 Dose: 100 mg Thiamine HCl (Vitamin B1 Tab) 100 mg PO DAILY [facility] Last Admin: 02/04/17 09:31 Dose: 100 mg - Labs Labs: 02/04/17 11:57 02/04/17 11:57 - Constitutional Appears: Non-toxic, No Acute Distress - Head Exam Head Exam: ATRAUMATIC, NORMAL INSPECTION, NORMOCEPHALIC - Eye Exam Pupil Exam: NORMAL ACCOMODATION, PERRL - ENT Exam ENT Exam: Mucous Membranes Moist - Respiratory Exam Respiratory Exam: Clear to Ausculation Bilateral, NORMAL BREATHING PATTERN. absent: Prolonged Expiratory Phase, Rales, Rhonchi, Wheezes - Cardiovascular Exam Cardiovascular Exam: REGULAR RHYTHM, +S1, +S2 Additional comments: left chest wound tender to palpation - GI/Abdominal Exam GI & Abdominal Exam: Soft, Normal Bowel Sounds. absent: Tenderness, Diminished Bowel Sounds, Hypoactive Bowel Sounds - Extremities Exam Extremities Exam: Normal Capillary Refill - Neurological Exam Neurological Exam: Alert, Awake, Oriented x3 - Psychiatric Exam Psychiatric exam: Normal Affect, Normal Mood - Skin Skin Exam: Dry, Intact, Normal Color, Warm Assessment and Plan - Assessment and Plan (Free Text) Assessment: Alcohol Abuse/Intoxication Alcohol, Quant on admission -358 Consult Psych- Dr. Monson Ativan 1mg IVP Q4h PRN Continue Librium Taper Folic Acid 1mg PO Daily Multivitamin PO Daily Depression Continue Seroquel 100mg PO Daily Hx of Chest Wound/ infection Consult ID- Dr. Gordon Continue Ceftriaxone 1gm IVPB Daily Blood culture - 02/03/17- gram positive cocci in 1 tube, no growth in 2nd tube Ordered blood culture today, instructed nurse to collect peripherally before vanco is started Ordered PICC line to be removed Prophylactic Measure- Protonix 40mg PO Daily Lovenox 40mg SC Daily all medical management as per Dr. Cobian. <Moraima Cobian - Last Filed: 02/05/17 13:41> Objective - Vital Signs/Intake and Output Vital Signs (last 24 hours): Temp Pulse Resp BP Pulse Ox 97.7 F 71 20 114/72 98 02/05/17 07:45 02/05/17 07:45 02/05/17 07:45 02/05/17 07:45 02/05/17 07:45 Intake and Output: 02/05/17 02/05/17 06:59 18:59 Intake Total 300 Output Total 450 Balance -150 - Medications Medications: Current Medications Enoxaparin Sodium (Lovenox) 40 mg SC DAILY [facility] Last Admin: 02/05/17 10:53 Dose: 40 mg Folic Acid (Folic Acid) 1 mg PO DAILY [facility] Last Admin: 02/05/17 10:40 Dose: 1 mg Gabapentin (Neurontin) 100 mg PO TID [facility] Last Admin: 02/05/17 10:40 Dose: 100 mg Ceftriaxone Sodium 1 gm/ (Sodium Chloride) 100 mls @ 100 mls/hr IVPB DAILY [facility] Last Admin: 02/05/17 10:40 Dose: 100 mls/hr Vancomycin/Sodium Chloride (Vancocin) 1 gm in 200 mls @ 133.333 mls/hr IVPB Q12H [facility] Stop: 02/11/17 01:01 Lorazepam (Ativan) 1 mg IVP Q4H PRN PRN Reason: Withdrawal Symptoms Last Admin: 02/01/17 16:35 Dose: 1 mg Multivitamins (Hexavitamin) 1 tab PO DAILY [facility] Last Admin: 02/05/17 10:40 Dose: 1 tab Pantoprazole Sodium (Protonix Ec Tab) 40 mg PO DAILY [facility] Last Admin: 02/05/17 10:47 Dose: 40 mg Quetiapine Fumarate (Seroquel) 100 mg PO HS [facility] Last Admin: 02/04/17 21:43 Dose: 100 mg Thiamine HCl (Vitamin B1 Tab) 100 mg PO DAILY [facility] Last Admin: 02/05/17 10:40 Dose: 100 mg - Labs Labs: 02/05/17 07:09 02/05/17 07:09 Attending/Attestation - Attestation I have personally seen and examined this patient.: Yes I have fully participated in the care of the patient.: Yes I have reviewed all pertinent clinical information, including history, physical exam and plan: Yes Notes (Text): 02/05/17 13:[address] gordon who wnts to remove piccline and blod cultrue if still psotive will tret kerri same pt been notified about it
[2017-02-05 07:47] LABS: BASO # 0.1 K/uL (0.0-0.2); EOS # 0.2 K/uL (0.0-0.7); EOS % 4.4 % (0.0-4.0); HEMATOCRIT 38.9 % (35.0-51.0); LYMPH # 1.4 K/uL (1.0-4.3); LYMPH % 33.3 % (20.0-40.0); MEAN CELL VOLUME 92.7 fL (80.0-94.0); MEAN CORPUSCULAR HEMOGLOBIN 30.1 pg (27.0-31.0); MEAN CORPUSCULAR HGB CONC 32.5 g/dL (33.0-37.0); MONO # 0.6 K/uL (0.0-0.8); MONO % 14.5 % (0.0-10.0); NRBC % 0.1 % (0.0-2.0); RED CELL DISTRIBUTION WIDTH 14.1 % (11.5-14.5); WHITE BLOOD COUNT 4.1 K/uL (4.8-10.8)
[2017-02-05 08:00] LABS: CHLORIDE 98 mmol/L (98-107)
[2017-02-05 08:01] LABS: POTASSIUM 4.1 mmol/L (3.6-5.2); SODIUM 135 mmol/L (132-148)
[2017-02-05 08:03] LABS: ALB/GLOB RATIO 1.2 (1.0-2.1); AST/SGOT 38 U/L (17-59); BILIRUBIN,TOTAL 0.6 mg/dL (0.2-1.3); CARBON DIOXIDE 30 mmol/L (22-30); GFR AFRICAN-AMERICAN > 60; TOTAL PROTEIN 7.3 g/dL (6.3-8.3)
[2017-02-05 08:04] LABS: ALKALINE PHOSPHATASE 58 U/L (38-126); ALT/SGPT 21 U/L (21-72); BLOOD UREA NITROGEN 14 mg/dL (9-20); CALCIUM 8.9 mg/dl (8.6-10.4); GLUCOSE,RANDOM 89 mg/dL (75-110)
[2017-02-05] MEDS ORDERED: Vancomycin 1 gm/NS 200 ml 1 GM/200 ML BAG IVPB ONE (10:00)
[2017-02-05] MEDS: Multiple Vitamins Tab PO SCH (10:40)
[2017-02-05] MEDS: Pantoprazole 40 mg EC Tab PO SCH (10:47)
[2017-02-05] MEDS: Enoxaparin 40 mg Syringe SC SCH (10:53)
--- NOTE | 2017-02-05 12:37 | CP.PCM.PN ---
Subjective - Date & Time of Evaluation Date of Evaluation: 02/05/17 Time of Evaluation: 09:00 - Subjective Subjective: blood c/s + 1/2 sets with coag neg staph will need to remove PICC line start Vanco Objective - Vital Signs/Intake and Output Vital Signs (last 24 hours): Temp Pulse Resp BP Pulse Ox 97.7 F 71 20 114/72 98 02/05/17 07:45 02/05/17 07:45 02/05/17 07:45 02/05/17 07:45 02/05/17 07:45 Intake and Output: 02/05/17 02/05/17 06:59 18:59 Intake Total 300 Output Total 450 Balance -150 - Medications Medications: Current Medications Enoxaparin Sodium (Lovenox) 40 mg SC DAILY [facility] Last Admin: 02/05/17 10:53 Dose: 40 mg Folic Acid (Folic Acid) 1 mg PO DAILY [facility] Last Admin: 02/05/17 10:40 Dose: 1 mg Gabapentin (Neurontin) 100 mg PO TID [facility] Last Admin: 02/05/17 10:40 Dose: 100 mg Ceftriaxone Sodium 1 gm/ (Sodium Chloride) 100 mls @ 100 mls/hr IVPB DAILY [facility] Last Admin: 02/05/17 10:40 Dose: 100 mls/hr Lorazepam (Ativan) 1 mg IVP Q4H PRN PRN Reason: Withdrawal Symptoms Last Admin: 02/01/17 16:35 Dose: 1 mg Multivitamins (Hexavitamin) 1 tab PO DAILY [facility] Last Admin: 02/05/17 10:40 Dose: 1 tab Pantoprazole Sodium (Protonix Ec Tab) 40 mg PO DAILY [facility] Last Admin: 02/05/17 10:47 Dose: 40 mg Quetiapine Fumarate (Seroquel) 100 mg PO HS [facility] Last Admin: 02/04/17 21:43 Dose: 100 mg Thiamine HCl (Vitamin B1 Tab) 100 mg PO DAILY [facility] Last Admin: 02/05/17 10:40 Dose: 100 mg - Labs Labs: 02/05/17 07:09 02/05/17 07:09 Assessment and Plan (1) Alcohol intoxication Status: Acute (2) Alcohol abuse Status: Acute (3) Alcohol dependence Status: Acute (4) Alcohol intoxication Status: Acute (5) Alcohol intoxication in active alcoholic Status: Acute (6) Alcohol withdrawal syndrome Status: Acute
[2017-02-05] MEDS ORDERED: Vancomycin 1 gm/NS 200 ml 1 GM/200 ML BAG IVPB SCH (13:00)
[2017-02-06] MEDS: Vancomycin 1 gm/NS 200 ml 1 GM/200 ML BAG IVPB SCH ×2 (01:02→14:40)
--- NOTE | 2017-02-06 07:36 | CP.PCM.PN ---
<JumaJosé Miguel - Last Filed: 02/06/17 15:24> Subjective - Date & Time of Evaluation Date of Evaluation: 02/06/17 Time of Evaluation: 09:00 - Subjective Subjective: PGY2 on medicine Dr. Cobian service: Pt seen and examined at bedside this morning. Pt said his left sided chest wound soreness persisted. PICC line was removed and covered in clean dressing. Denied fever, chills, n/v, constipation, diarrhea. Objective - Vital Signs/Intake and Output Vital Signs (last 24 hours): Temp Pulse Resp BP Pulse Ox 99 F 96 H 20 98/59 L 97 02/06/17 00:00 02/06/17 06:05 02/06/17 06:05 02/06/17 06:05 02/06/17 06:05 Intake and Output: 02/06/17 02/06/17 06:59 18:59 Intake Total 540 Balance 540 - Medications Medications: Current Medications Enoxaparin Sodium (Lovenox) 40 mg SC DAILY [facility] Last Admin: 02/05/17 10:53 Dose: 40 mg Folic Acid (Folic Acid) 1 mg PO DAILY [facility] Last Admin: 02/05/17 10:40 Dose: 1 mg Gabapentin (Neurontin) 100 mg PO TID [facility] Last Admin: 02/05/17 17:34 Dose: 100 mg Ceftriaxone Sodium 1 gm/ (Sodium Chloride) 100 mls @ 100 mls/hr IVPB DAILY [facility] Last Admin: 02/05/17 10:40 Dose: 100 mls/hr Vancomycin/Sodium Chloride (Vancocin) 1 gm in 200 mls @ 133.333 mls/hr IVPB Q12H [facility] Stop: 02/11/17 01:01 Last Admin: 02/06/17 01:02 Dose: 133.333 mls/hr Lorazepam (Ativan) 1 mg IVP Q4H PRN PRN Reason: Withdrawal Symptoms Last Admin: 02/01/17 16:35 Dose: 1 mg Multivitamins (Hexavitamin) 1 tab PO DAILY [facility] Last Admin: 02/05/17 10:40 Dose: 1 tab Pantoprazole Sodium (Protonix Ec Tab) 40 mg PO DAILY [facility] Last Admin: 02/05/17 10:47 Dose: 40 mg Quetiapine Fumarate (Seroquel) 100 mg PO HS [facility] Last Admin: 02/05/17 22:21 Dose: 100 mg Thiamine HCl (Vitamin B1 Tab) 100 mg PO DAILY [facility] Last Admin: 02/05/17 10:40 Dose: 100 mg - Labs Labs: 02/05/17 07:09 02/05/17 07:09 - Constitutional Appears: Non-toxic, No Acute Distress - Head Exam Head Exam: NORMAL INSPECTION, NORMOCEPHALIC - Eye Exam Eye Exam: Normal appearance Pupil Exam: NORMAL ACCOMODATION - Respiratory Exam Respiratory Exam: Chest Wall Tenderness, Clear to Ausculation Bilateral, NORMAL BREATHING PATTERN. absent: Rhonchi, Wheezes - Cardiovascular Exam Cardiovascular Exam: REGULAR RHYTHM, +S1, +S2. absent: Gallop, Rubs - GI/Abdominal Exam GI & Abdominal Exam: Soft, Normal Bowel Sounds - Neurological Exam Neurological Exam: Alert, Awake, Oriented x3 - Psychiatric Exam Psychiatric exam: Normal Mood - Skin Skin Exam: Intact Assessment and Plan - Assessment and Plan (Free Text) Assessment: Alcohol Abuse/Intoxication Alcohol, Quant on admission -358 Consult Psych- Dr. Monson Ativan 1mg IVP Q4h PRN Folic Acid 1mg PO Daily Librium Taper finished Multivitamin PO Daily Depression Continue Seroquel 100mg PO Daily Hx of Chest Wound/ infection Consult ID- Dr. Gordon Ceftriaxone 1g IV daily 02/01 Vancomycin 1g IV q12H 02/06 Blood culture - 02/03/17- gram positive cocci in 1 tube, no growth in 2nd tube Ordered blood culture today, instructed nurse to collect peripherally before vanco is started Ordered PICC line to be removed F/U repeat blood culture Prophylactic Measure Protonix 40mg PO Daily Lovenox 40mg SC Daily All medical management as per Dr. Cobian. <Moraima Cobian S - Last Filed: 04/26/17 00:30> Objective - Vital Signs/Intake and Output Vital Signs (last 24 hours): Temp Pulse Resp BP Pulse Ox 98.7 F 92 H 20 144/91 H 100 02/11/17 16:53 02/11/17 16:53 02/11/17 16:53 02/11/17 16:53 02/11/17 16:53 - Labs Labs: 02/09/17 08:32 02/09/17 08:32 Attending/Attestation - Attestation I have personally seen and examined this patient.: Yes I have fully participated in the care of the patient.: Yes I have reviewed all pertinent clinical information, including history, physical exam and plan: Yes Notes (Text): Is seen and discussed with the staff and the resident continue IV ceftriaxone management as ordered
[2017-02-06 07:51] LABS: BASO % 0.3 % (0.0-2.0); EOS # 0.1 K/uL (0.0-0.7); HEMATOCRIT 35.2 % (35.0-51.0); LYMPH # 0.5 K/uL (1.0-4.3); MEAN CORPUSCULAR HEMOGLOBIN 30.3 pg (27.0-31.0); MEAN CORPUSCULAR HGB CONC 32.9 g/dL (33.0-37.0); MEAN PLATELET VOLUME 8.5 fL (7.2-11.7); MONO # 0.9 K/uL (0.0-0.8); MONO % 12.3 % (0.0-10.0); PLATELET COUNT 173 K/uL (130-400); RED CELL DISTRIBUTION WIDTH 13.8 % (11.5-14.5)
[2017-02-06 07:54] LABS: WHITE BLOOD COUNT 7.2 K/uL (4.8-10.8)
[2017-02-06 08:07] LABS: CHLORIDE 96 mmol/L (98-107); POTASSIUM 3.8 mmol/L (3.6-5.2); SODIUM 133 mmol/L (132-148)
[2017-02-06 08:09] LABS: ALB/GLOB RATIO 1.2 (1.0-2.1); AST/SGOT 28 U/L (17-59); BILIRUBIN,TOTAL 0.6 mg/dL (0.2-1.3); CARBON DIOXIDE 30 mmol/L (22-30); GFR AFRICAN-AMERICAN > 60; TOTAL PROTEIN 6.7 g/dL (6.3-8.3)
[2017-02-06 08:10] LABS: ALKALINE PHOSPHATASE 44 U/L (38-126); ALT/SGPT 21 U/L (21-72); BLOOD UREA NITROGEN 15 mg/dL (9-20); CALCIUM 8.4 mg/dl (8.6-10.4); GLUCOSE,RANDOM 103 mg/dL (75-110)
[2017-02-06 08:45] LABS: EOSINOPHIL 5 % (0-4); NEUTROPHIL 78 % (50-75); TOTAL CELLS COUNTED 100
--- NOTE | 2017-02-06 09:45 | CP.PCM.PN ---
Subjective - Date & Time of Evaluation Date of Evaluation: 02/06/17 Time of Evaluation: 09:40 - Subjective Subjective: clinically same Objective - Vital Signs/Intake and Output Vital Signs (last 24 hours): Temp Pulse Resp BP Pulse Ox 98.8 F 105 H 20 95/61 L 98 02/06/17 07:00 02/06/17 07:00 02/06/17 07:00 02/06/17 07:00 02/06/17 07:00 Intake and Output: 02/06/17 02/06/17 06:59 18:59 Intake Total 540 Balance 540 - Medications Medications: Current Medications Enoxaparin Sodium (Lovenox) 40 mg SC DAILY [facility] Last Admin: 02/05/17 10:53 Dose: 40 mg Folic Acid (Folic Acid) 1 mg PO DAILY [facility] Last Admin: 02/05/17 10:40 Dose: 1 mg Gabapentin (Neurontin) 100 mg PO TID [facility] Last Admin: 02/05/17 17:34 Dose: 100 mg Ceftriaxone Sodium 1 gm/ (Sodium Chloride) 100 mls @ 100 mls/hr IVPB DAILY [facility] Last Admin: 02/05/17 10:40 Dose: 100 mls/hr Vancomycin/Sodium Chloride (Vancocin) 1 gm in 200 mls @ 133.333 mls/hr IVPB Q12H [facility] Stop: 02/11/17 01:01 Last Admin: 02/06/17 01:02 Dose: 133.333 mls/hr Lorazepam (Ativan) 1 mg IVP Q4H PRN PRN Reason: Withdrawal Symptoms Last Admin: 02/01/17 16:35 Dose: 1 mg Multivitamins (Hexavitamin) 1 tab PO DAILY [facility] Last Admin: 02/05/17 10:40 Dose: 1 tab Pantoprazole Sodium (Protonix Ec Tab) 40 mg PO DAILY [facility] Last Admin: 02/05/17 10:47 Dose: 40 mg Quetiapine Fumarate (Seroquel) 100 mg PO HS [facility] Last Admin: 02/05/17 22:21 Dose: 100 mg Thiamine HCl (Vitamin B1 Tab) 100 mg PO DAILY [facility] Last Admin: 02/05/17 10:40 Dose: 100 mg - Labs Labs: 02/06/17 07:31 02/06/17 07:31 - Constitutional Appears: Well - Head Exam Head Exam: ATRAUMATIC, NORMAL INSPECTION, NORMOCEPHALIC - Eye Exam Eye Exam: EOMI, Normal appearance, PERRL Pupil Exam: NORMAL ACCOMODATION, PERRL - ENT Exam ENT Exam: Mucous Membranes Moist, Normal Exam - Neck Exam Neck Exam: Full ROM, Normal Inspection. absent: Lymphadenopathy - Respiratory Exam Respiratory Exam: Decreased Breath Sounds - Cardiovascular Exam Cardiovascular Exam: REGULAR RHYTHM, +S1, +S2 - GI/Abdominal Exam GI & Abdominal Exam: Soft, Diminished Bowel Sounds - Rectal Exam Rectal Exam: Deferred Assessment and Plan (1) Alcohol abuse Status: Acute (2) Alcohol dependence Status: Acute (3) Alcohol intoxication Status: Acute (4) Alcohol intoxication Status: Acute (5) Alcohol intoxication in active alcoholic Status: Acute (6) Alcohol withdrawal syndrome Status: Acute (7) Cellulitis Status: Acute (8) Chest wall abscess Status: Acute (9) Constipation Status: Acute (10) Disorder due to alcohol abuse Status: Acute (11) Dyspnea on exertion Status: Acute (12) Major depressive disorder, recurrent, unspecified Status: Acute (13) Medical assessment Status: Acute (14) Narcotic abuse Status: Acute (15) Poison vanita dermatitis Status: Acute (16) Rectal bleeding Status: Acute (17) Schizoaffective disorder Status: Acute (18) Schizoaffective disorder Status: Acute (19) Urinary frequency Status: Acute (20) Visit for wound care Status: Acute (21) Visit for wound check Status: Acute - Assessment and Plan (Free Text) Plan: Follow-up with ID Follow-up with psychiatry Continue Lovenox Folic acid Neurontin IV antibiotics Protonix Thiamine Follow-up repeat blood culture
[2017-02-06] MEDS: Multiple Vitamins Tab PO SCH (11:10)
[2017-02-06] MEDS: Enoxaparin 40 mg Syringe SC SCH (11:10)
[2017-02-06] MEDS: Pantoprazole 40 mg EC Tab PO SCH (11:10)
--- NOTE | 2017-02-06 17:27 | CP.PCM.PN ---
Subjective - Date & Time of Evaluation Date of Evaluation: 02/06/17 Time of Evaluation: 10:00 - Subjective Subjective: blood c/s + recc to d/c picc line cont vanco Objective - Vital Signs/Intake and Output Vital Signs (last 24 hours): Temp Pulse Resp BP Pulse Ox 98.4 F 96 H 20 105/71 98 02/06/17 16:00 02/06/17 16:00 02/06/17 16:00 02/06/17 16:00 02/06/17 16:00 Intake and Output: 02/06/17 02/06/17 06:59 18:59 Intake Total 540 490 Output Total 600 Balance 540 -110 - Medications Medications: Current Medications Enoxaparin Sodium (Lovenox) 40 mg SC DAILY [facility] Last Admin: 02/06/17 11:10 Dose: 40 mg Folic Acid (Folic Acid) 1 mg PO DAILY [facility] Last Admin: 02/06/17 11:10 Dose: 1 mg Gabapentin (Neurontin) 100 mg PO TID [facility] Last Admin: 02/06/17 14:40 Dose: 100 mg Ceftriaxone Sodium 1 gm/ (Sodium Chloride) 100 mls @ 100 mls/hr IVPB DAILY [facility] Last Admin: 02/06/17 11:11 Dose: 100 mls/hr Vancomycin/Sodium Chloride (Vancocin) 1 gm in 200 mls @ 133.333 mls/hr IVPB Q12H [facility] Stop: 02/11/17 01:01 Last Admin: 02/06/17 14:40 Dose: 133.333 mls/hr Lorazepam (Ativan) 1 mg IVP Q4H PRN PRN Reason: Withdrawal Symptoms Last Admin: 02/01/17 16:35 Dose: 1 mg Multivitamins (Hexavitamin) 1 tab PO DAILY [facility] Last Admin: 02/06/17 11:10 Dose: 1 tab Pantoprazole Sodium (Protonix Ec Tab) 40 mg PO DAILY [facility] Last Admin: 02/06/17 11:10 Dose: 40 mg Quetiapine Fumarate (Seroquel) 100 mg PO HS [facility] Last Admin: 02/05/17 22:21 Dose: 100 mg Thiamine HCl (Vitamin B1 Tab) 100 mg PO DAILY [facility] Last Admin: 02/06/17 11:10 Dose: 100 mg - Labs Labs: 02/06/17 07:31 02/06/17 07:31 Assessment and Plan (1) Alcohol intoxication Status: Acute (2) Alcohol abuse Status: Acute (3) Alcohol dependence Status: Acute (4) Alcohol intoxication Status: Acute (5) Alcohol intoxication in active alcoholic Status: Acute (6) Alcohol withdrawal syndrome Status: Acute
[2017-02-07 07:50] LABS: CHLORIDE 100 mmol/L (98-107); POTASSIUM 4.6 mmol/L (3.6-5.2); SODIUM 137 mmol/L (132-148)
[2017-02-07 07:52] LABS: ALB/GLOB RATIO 1.2 (1.0-2.1); ALKALINE PHOSPHATASE 49 U/L (38-126); ALT/SGPT 17 U/L (21-72); AST/SGOT 31 U/L (17-59); BILIRUBIN,TOTAL 0.6 mg/dL (0.2-1.3); BLOOD UREA NITROGEN 15 mg/dL (9-20); CARBON DIOXIDE 29 mmol/L (22-30); GFR AFRICAN-AMERICAN > 60; TOTAL PROTEIN 6.9 g/dL (6.3-8.3)
[2017-02-07 07:53] LABS: CALCIUM 8.9 mg/dl (8.6-10.4); GLUCOSE,RANDOM 105 mg/dL (75-110)
[2017-02-07 08:08] LABS: BASO % 0.9 % (0.0-2.0); EOS # 0.2 K/uL (0.0-0.7); EOS % 4.5 % (0.0-4.0); HEMATOCRIT 36.4 % (35.0-51.0); LYMPH % 23.6 % (20.0-40.0); MEAN CELL VOLUME 93.3 fL (80.0-94.0); MEAN CORPUSCULAR HEMOGLOBIN 30.2 pg (27.0-31.0); MEAN CORPUSCULAR HGB CONC 32.4 g/dL (33.0-37.0); MEAN PLATELET VOLUME 8.3 fL (7.2-11.7); MONO # 0.9 K/uL (0.0-0.8); NRBC % 0.1 % (0.0-2.0); RED CELL DISTRIBUTION WIDTH 13.9 % (11.5-14.5); WHITE BLOOD COUNT 4.3 K/uL (4.8-10.8)
--- NOTE | 2017-02-07 22:29 | CP.PCM.PN ---
Subjective - Date & Time of Evaluation Date of Evaluation: 02/07/17 Time of Evaluation: 12:30 - Subjective Subjective: Clinically same Objective - Vital Signs/Intake and Output Vital Signs (last 24 hours): Temp Pulse Resp BP Pulse Ox 97.4 F L 91 H 20 123/85 99 02/07/17 15:00 02/07/17 15:00 02/07/17 15:00 02/07/17 15:00 02/07/17 15:00 - Medications Medications: Current Medications Enoxaparin Sodium (Lovenox) 40 mg SC DAILY [facility] Last Admin: 02/06/17 11:10 Dose: 40 mg Folic Acid (Folic Acid) 1 mg PO DAILY [facility] Last Admin: 02/06/17 11:10 Dose: 1 mg Gabapentin (Neurontin) 100 mg PO TID [facility] Last Admin: 02/06/17 17:29 Dose: 100 mg Ceftriaxone Sodium 1 gm/ (Sodium Chloride) 100 mls @ 100 mls/hr IVPB DAILY [facility] Last Admin: 02/06/17 11:11 Dose: 100 mls/hr Vancomycin/Sodium Chloride (Vancocin) 1 gm in 200 mls @ 133.333 mls/hr IVPB Q12H [facility] Stop: 02/11/17 01:01 Last Admin: 02/06/17 14:40 Dose: 133.333 mls/hr Lorazepam (Ativan) 1 mg IVP Q4H PRN PRN Reason: Withdrawal Symptoms Last Admin: 02/01/17 16:35 Dose: 1 mg Multivitamins (Hexavitamin) 1 tab PO DAILY [facility] Last Admin: 02/06/17 11:10 Dose: 1 tab Pantoprazole Sodium (Protonix Ec Tab) 40 mg PO DAILY [facility] Last Admin: 02/06/17 11:10 Dose: 40 mg Quetiapine Fumarate (Seroquel) 100 mg PO HS [facility] Last Admin: 02/07/17 21:39 Dose: 100 mg Thiamine HCl (Vitamin B1 Tab) 100 mg PO DAILY [facility] Last Admin: 02/06/17 11:10 Dose: 100 mg - Labs Labs: 02/06/17 07:31 02/07/17 04:00 Assessment and Plan - Assessment and Plan (Free Text) Plan: Follow-up with ID Follow-up with psychiatry Blood culture positive Continue vancomycin Lovenox Folic acid Thiamine Neurontin
[2017-02-08] MEDS: Vancomycin 1 gm/NS 200 ml 1 GM/200 ML BAG IVPB SCH ×3 (01:15→14:09)
[2017-02-08 08:25] VITALS: RESP 20
[2017-02-08 09:13] LABS: BASO # 0.1 K/uL (0.0-0.2); BASO % 1.6 % (0.0-2.0); EOS # 0.3 K/uL (0.0-0.7); EOS % 5.1 % (0.0-4.0); HEMATOCRIT 37.9 % (35.0-51.0); LYMPH # 1.3 K/uL (1.0-4.3); LYMPH % 26.3 % (20.0-40.0); MEAN CELL VOLUME 92.7 fL (80.0-94.0); MEAN CORPUSCULAR HGB CONC 32.3 g/dL (33.0-37.0); MEAN PLATELET VOLUME 8.7 fL (7.2-11.7); MONO # 1.1 K/uL (0.0-0.8); PLATELET COUNT 210 K/uL (130-400); RED CELL DISTRIBUTION WIDTH 13.5 % (11.5-14.5)
[2017-02-08] MEDS: Enoxaparin 40 mg Syringe SC SCH (09:20)
[2017-02-08] MEDS: Pantoprazole 40 mg EC Tab PO SCH (09:20)
[2017-02-08] MEDS: Multiple Vitamins Tab PO SCH (09:20)
--- NOTE | 2017-02-08 09:32 | CP.PCM.PN ---
<Rhoda Bejarano - Last Filed: 02/08/17 10:29> Subjective - Date & Time of Evaluation Date of Evaluation: 02/08/17 Time of Evaluation: 10:29 - Subjective Subjective: Medicine Progress Note Patient seen and examined. Patient has no acute complaints and is no acute distress. Denies chest pain, headache, shortness of breath and abdominal pain. Objective - Vital Signs/Intake and Output Vital Signs (last 24 hours): Temp Pulse Resp BP Pulse Ox 97.9 F 75 20 122/83 99 02/08/17 08:24 02/08/17 08:24 02/08/17 08:24 02/08/17 08:24 02/08/17 08:24 Intake and Output: 02/08/17 02/08/17 06:59 18:59 Intake Total 440 Balance 440 - Medications Medications: Current Medications Enoxaparin Sodium (Lovenox) 40 mg SC DAILY [facility] Last Admin: 02/08/17 09:20 Dose: 40 mg Folic Acid (Folic Acid) 1 mg PO DAILY [facility] Last Admin: 02/08/17 09:20 Dose: 1 mg Gabapentin (Neurontin) 100 mg PO TID [facility] Last Admin: 02/08/17 09:20 Dose: 100 mg Ceftriaxone Sodium 1 gm/ (Sodium Chloride) 100 mls @ 100 mls/hr IVPB DAILY [facility] Last Admin: 02/08/17 09:25 Dose: 100 mls/hr Vancomycin/Sodium Chloride (Vancocin) 1 gm in 200 mls @ 133.333 mls/hr IVPB Q12H [facility] Stop: 02/11/17 01:01 Last Admin: 02/08/17 01:15 Dose: 133.333 mls/hr Lorazepam (Ativan) 1 mg IVP Q4H PRN PRN Reason: Withdrawal Symptoms Last Admin: 02/01/17 16:35 Dose: 1 mg Multivitamins (Hexavitamin) 1 tab PO DAILY [facility] Last Admin: 02/08/17 09:20 Dose: 1 tab Pantoprazole Sodium (Protonix Ec Tab) 40 mg PO DAILY [facility] Last Admin: 02/08/17 09:20 Dose: 40 mg Quetiapine Fumarate (Seroquel) 100 mg PO HS [facility] Last Admin: 02/07/17 21:39 Dose: 100 mg Thiamine HCl (Vitamin B1 Tab) 100 mg PO DAILY [facility] Last Admin: 02/08/17 09:20 Dose: 100 mg - Labs Labs: 02/08/17 09:01 02/07/17 04:00 - Constitutional Appears: Non-toxic, No Acute Distress - Head Exam Head Exam: ATRAUMATIC, NORMOCEPHALIC - Eye Exam Eye Exam: EOMI, Normal appearance - ENT Exam ENT Exam: Mucous Membranes Moist - Respiratory Exam Respiratory Exam: Clear to Ausculation Bilateral, NORMAL BREATHING PATTERN - Cardiovascular Exam Cardiovascular Exam: REGULAR RHYTHM, +S1, +S2 - GI/Abdominal Exam GI & Abdominal Exam: Soft, Normal Bowel Sounds - Extremities Exam Extremities Exam: Normal Inspection - Neurological Exam Neurological Exam: Alert, Awake, Oriented x3 - Psychiatric Exam Psychiatric exam: Normal Affect, Normal Mood - Skin Skin Exam: Normal Color, Warm Assessment and Plan - Assessment and Plan (Free Text) Assessment: Alcohol Abuse/Intoxication Alcohol, Quant on admission -358 Consult Psych- Dr. Monson Ativan 1mg IVP Q4h PRN Folic Acid 1mg PO Daily Librium Taper finished Multivitamin PO Daily Depression Continue Seroquel 100mg PO Daily Hx of Chest Wound/ infection Consult ID- Dr. Gordon. Per Dr Gordon, blood culture must be negative for 5 days before discharging. Ceftriaxone 1g IV daily since 02/01 Vancomycin 1g IV q12H since 02/06 Blood culture - 02/03/17- gram positive cocci in 1 tube, no growth in 2nd tube Repeat blood culture 02/05 negative x48 hours PICC line removed 02/06 Prophylactic Measure Protonix 40mg PO Daily Lovenox 40mg SC Daily All medical management as per Dr. Cobian. <Moraima Cobian S - Last Filed: 02/08/17 15:14> Objective - Vital Signs/Intake and Output Vital Signs (last 24 hours): Temp Pulse Resp BP Pulse Ox 97.9 F 75 20 122/83 99 02/08/17 08:24 02/08/17 08:24 02/08/17 08:24 02/08/17 08:24 02/08/17 08:24 Intake and Output: 02/08/17 02/08/17 06:59 18:59 Intake Total 440 Balance 440 - Medications Medications: Current Medications Folic Acid (Folic Acid) 1 mg PO DAILY [facility] Last Admin: 02/08/17 09:20 Dose: 1 mg Gabapentin (Neurontin) 100 mg PO TID [facility] Last Admin: 02/08/17 14:16 Dose: 100 mg Ceftriaxone Sodium 1 gm/ (Sodium Chloride) 100 mls @ 100 mls/hr IVPB DAILY [facility] Last Admin: 02/08/17 09:25 Dose: 100 mls/hr Vancomycin/Sodium Chloride (Vancocin) 1 gm in 200 mls @ 133.333 mls/hr IVPB Q12H [facility] Stop: 02/11/17 01:01 Last Admin: 02/08/17 14:09 Dose: 133.333 mls/hr Multivitamins (Hexavitamin) 1 tab PO DAILY [facility] Last Admin: 02/08/17 09:20 Dose: 1 tab Pantoprazole Sodium (Protonix Ec Tab) 40 mg PO DAILY [facility] Last Admin: 02/08/17 09:20 Dose: 40 mg Quetiapine Fumarate (Seroquel) 100 mg PO HS [facility] Last Admin: 02/07/17 21:39 Dose: 100 mg Thiamine HCl (Vitamin B1 Tab) 100 mg PO DAILY [facility] Last Admin: 02/08/17 09:20 Dose: 100 mg - Labs Labs: 02/08/17 09:01 02/08/17 09:01 Attending/Attestation - Attestation I have personally seen and examined this patient.: Yes I have fully participated in the care of the patient.: Yes I have reviewed all pertinent clinical information, including history, physical exam and plan: Yes Notes (Text): 02/08/17 15:13 discussed wt pt and staff admitetd iw chest tube infection
[2017-02-08 10:10] LABS: CHLORIDE 97 mmol/L (98-107)
[2017-02-08 10:11] LABS: POTASSIUM 4.3 mmol/L (3.6-5.2); SODIUM 137 mmol/L (132-148)
[2017-02-08 10:13] LABS: BILIRUBIN,TOTAL 0.4 mg/dL (0.2-1.3); CARBON DIOXIDE 31 mmol/L (22-30); GFR AFRICAN-AMERICAN > 60
[2017-02-08 10:14] LABS: ALB/GLOB RATIO 1.2 (1.0-2.1); ALKALINE PHOSPHATASE 57 U/L (38-126); ALT/SGPT 23 U/L (21-72); AST/SGOT 32 U/L (17-59); BLOOD UREA NITROGEN 16 mg/dL (9-20); CALCIUM 9.4 mg/dl (8.6-10.4); GLUCOSE,RANDOM 99 mg/dL (75-110); TOTAL PROTEIN 7.3 g/dL (6.3-8.3)
[2017-02-08 10:35] LABS: BASOPHIL 1 % (0-2); EOSINOPHIL 6 % (0-4); NEUTROPHIL 46 % (50-75); REACTIVE LYMPHOCYTES 1 % (0-0); TOTAL CELLS COUNTED 100
[2017-02-08 10:36] LABS: LARGE PLATELETS PRESENT
--- NOTE | 2017-02-08 14:15 | CP.PCM.PN ---
Subjective - Date & Time of Evaluation Date of Evaluation: 02/08/17 Time of Evaluation: 10:00 - Subjective Subjective: REPEAT C/S NEG PICC LINE REMOVED TO COMPLETE 7 DAYS IV VANCO Objective - Vital Signs/Intake and Output Vital Signs (last 24 hours): Temp Pulse Resp BP Pulse Ox 97.9 F 75 20 122/83 99 02/08/17 08:24 02/08/17 08:24 02/08/17 08:24 02/08/17 08:24 02/08/17 08:24 Intake and Output: 02/08/17 02/08/17 06:59 18:59 Intake Total 440 Balance 440 - Medications Medications: Current Medications Folic Acid (Folic Acid) 1 mg PO DAILY [facility] Last Admin: 02/08/17 09:20 Dose: 1 mg Gabapentin (Neurontin) 100 mg PO TID [facility] Last Admin: 02/08/17 09:20 Dose: 100 mg Ceftriaxone Sodium 1 gm/ (Sodium Chloride) 100 mls @ 100 mls/hr IVPB DAILY [facility] Last Admin: 02/08/17 09:25 Dose: 100 mls/hr Vancomycin/Sodium Chloride (Vancocin) 1 gm in 200 mls @ 133.333 mls/hr IVPB Q12H [facility] Stop: 02/11/17 01:01 Last Admin: 02/08/17 14:09 Dose: 133.333 mls/hr Multivitamins (Hexavitamin) 1 tab PO DAILY [facility] Last Admin: 02/08/17 09:20 Dose: 1 tab Pantoprazole Sodium (Protonix Ec Tab) 40 mg PO DAILY [facility] Last Admin: 02/08/17 09:20 Dose: 40 mg Quetiapine Fumarate (Seroquel) 100 mg PO HS [facility] Last Admin: 02/07/17 21:39 Dose: 100 mg Thiamine HCl (Vitamin B1 Tab) 100 mg PO DAILY [facility] Last Admin: 02/08/17 09:20 Dose: 100 mg - Labs Labs: 02/08/17 09:01 02/08/17 09:01 Assessment and Plan (1) Alcohol intoxication Status: Acute (2) Alcohol abuse Status: Acute (3) Alcohol dependence Status: Acute (4) Alcohol intoxication Status: Acute (5) Alcohol intoxication in active alcoholic Status: Acute (6) Alcohol withdrawal syndrome Status: Acute
[2017-02-09] MEDS: Vancomycin 1 gm/NS 200 ml 1 GM/200 ML BAG IVPB SCH ×2 (00:40→14:17)
[2017-02-09 08:53] LABS: EOS # 0.2 K/uL (0.0-0.7); EOS % 4.4 % (0.0-4.0); HEMATOCRIT 37.6 % (35.0-51.0); LYMPH # 1.3 K/uL (1.0-4.3); LYMPH % 25.6 % (20.0-40.0); MEAN CELL VOLUME 92.9 fL (80.0-94.0); MEAN CORPUSCULAR HEMOGLOBIN 30.2 pg (27.0-31.0); MEAN CORPUSCULAR HGB CONC 32.5 g/dL (33.0-37.0); MEAN PLATELET VOLUME 8.4 fL (7.2-11.7); MONO % 20.9 % (0.0-10.0); NRBC % 0.1 % (0.0-2.0); PLATELET COUNT 247 K/uL (130-400); WHITE BLOOD COUNT 4.9 K/uL (4.8-10.8)
[2017-02-09 09:06] LABS: CHLORIDE 96 mmol/L (98-107)
[2017-02-09 09:07] LABS: POTASSIUM 4.3 mmol/L (3.6-5.2); SODIUM 138 mmol/L (132-148)
[2017-02-09 09:09] LABS: ALB/GLOB RATIO 1.2 (1.0-2.1); ALKALINE PHOSPHATASE 52 U/L (38-126); ALT/SGPT 18 U/L (21-72); AST/SGOT 25 U/L (17-59); BILIRUBIN,TOTAL 0.5 mg/dL (0.2-1.3); BLOOD UREA NITROGEN 15 mg/dL (9-20); CARBON DIOXIDE 34 mmol/L (22-30); GFR AFRICAN-AMERICAN > 60; GLUCOSE,RANDOM 105 mg/dL (75-110); TOTAL PROTEIN 7.3 g/dL (6.3-8.3)
[2017-02-09 09:10] LABS: CALCIUM 9.4 mg/dl (8.6-10.4)
[2017-02-09 09:34] LABS: EOSINOPHIL 5 % (0-4); NEUTROPHIL 43 % (50-75); REACTIVE LYMPHOCYTES 1 % (0-0); TOTAL CELLS COUNTED 100
[2017-02-09 09:38] LABS: LARGE PLATELETS PRESENT
[2017-02-09] MEDS: Multiple Vitamins Tab PO SCH (10:42)
[2017-02-09] MEDS: Pantoprazole 40 mg EC Tab PO SCH (10:42)
--- NOTE | 2017-02-09 12:41 | CP.PCM.PN ---
Subjective - Date & Time of Evaluation Date of Evaluation: 02/09/17 Time of Evaluation: 07:20 - Subjective Subjective: clinically same Objective - Vital Signs/Intake and Output Vital Signs (last 24 hours): Temp Pulse Resp BP Pulse Ox 97.6 F 81 20 119/77 97 02/09/17 08:16 02/09/17 08:16 02/09/17 08:16 02/09/17 08:16 02/09/17 08:16 Intake and Output: 02/09/17 02/09/17 06:59 18:59 Intake Total 1100 Output Total 0 Balance 1100 - Medications Medications: Current Medications Folic Acid (Folic Acid) 1 mg PO DAILY [facility] Last Admin: 02/09/17 10:42 Dose: 1 mg Gabapentin (Neurontin) 100 mg PO TID [facility] Last Admin: 02/09/17 10:42 Dose: 100 mg Ceftriaxone Sodium 1 gm/ (Sodium Chloride) 100 mls @ 100 mls/hr IVPB DAILY [facility] Last Admin: 02/09/17 10:43 Dose: 100 mls/hr Vancomycin/Sodium Chloride (Vancocin) 1 gm in 200 mls @ 133.333 mls/hr IVPB Q12H [facility] Stop: 02/11/17 01:01 Last Admin: 02/09/17 00:40 Dose: 133.333 mls/hr Multivitamins (Hexavitamin) 1 tab PO DAILY [facility] Last Admin: 02/09/17 10:42 Dose: 1 tab Pantoprazole Sodium (Protonix Ec Tab) 40 mg PO DAILY [facility] Last Admin: 02/09/17 10:42 Dose: 40 mg Quetiapine Fumarate (Seroquel) 100 mg PO [facility] Last Admin: 02/08/17 22:12 Dose: 100 mg Thiamine HCl (Vitamin B1 Tab) 100 mg PO DAILY [facility] Last Admin: 02/09/17 10:42 Dose: 100 mg - Labs Labs: 02/09/17 08:32 02/09/17 08:32 - Constitutional Appears: Well - Head Exam Head Exam: ATRAUMATIC, NORMAL INSPECTION, NORMOCEPHALIC - Eye Exam Eye Exam: EOMI, Normal appearance, PERRL Pupil Exam: NORMAL ACCOMODATION, PERRL - ENT Exam ENT Exam: Mucous Membranes Moist, Normal Exam - Neck Exam Neck Exam: Full ROM, Normal Inspection. absent: Lymphadenopathy - Respiratory Exam Respiratory Exam: Decreased Breath Sounds - Cardiovascular Exam Cardiovascular Exam: REGULAR RHYTHM, +S1, +S2 - GI/Abdominal Exam GI & Abdominal Exam: Soft, Diminished Bowel Sounds - Rectal Exam Rectal Exam: Deferred Assessment and Plan - Assessment and Plan (Free Text) Plan: Follow-up with ID Follow-up with psychiatry Repeat C/S negative Continue vancomycin Folic acid Neurontin Protonix Thiamine
[2017-02-10] MEDS: Vancomycin 1 gm/NS 200 ml 1 GM/200 ML BAG IVPB SCH ×4 (01:10→13:00)
[2017-02-10] MEDS: Multiple Vitamins Tab PO SCH ×2 (10:50→11:08)
[2017-02-10] MEDS: Pantoprazole 40 mg EC Tab PO SCH ×2 (10:50→11:08)
--- NOTE | 2017-02-10 14:48 | CP.PCM.PN ---
Subjective - Date & Time of Evaluation Date of Evaluation: 02/10/17 Time of Evaluation: 11:50 - Subjective Subjective: Clinically same Objective - Vital Signs/Intake and Output Vital Signs (last 24 hours): Temp Pulse Resp BP Pulse Ox 97.3 F L 82 20 127/87 99 02/10/17 08:34 02/10/17 08:34 02/10/17 08:34 02/10/17 08:34 02/10/17 08:34 Intake and Output: 02/10/17 02/10/17 06:59 18:59 Intake Total 1400 900 Balance 1400 900 - Medications Medications: Current Medications Folic Acid (Folic Acid) 1 mg PO DAILY [facility] Last Admin: 02/10/17 11:08 Dose: 1 mg Gabapentin (Neurontin) 100 mg PO TID [facility] Last Admin: 02/10/17 14:40 Dose: 100 mg Vancomycin/Sodium Chloride (Vancocin) 1 gm in 200 mls @ 133.333 mls/hr IVPB Q12H [facility] Stop: 02/11/17 01:01 Last Admin: 02/10/17 13:00 Dose: 133.333 mls/hr Multivitamins (Hexavitamin) 1 tab PO DAILY [facility] Last Admin: 02/10/17 11:08 Dose: 1 tab Pantoprazole Sodium (Protonix Ec Tab) 40 mg PO DAILY [facility] Last Admin: 02/10/17 11:08 Dose: 40 mg Quetiapine Fumarate (Seroquel) 100 mg PO HS [facility] Last Admin: 02/09/17 21:30 Dose: 100 mg Thiamine HCl (Vitamin B1 Tab) 100 mg PO DAILY [facility] Last Admin: 02/10/17 11:11 Dose: 100 mg - Labs Labs: 02/09/17 08:32 02/09/17 08:32 - Constitutional Appears: Well - Head Exam Head Exam: ATRAUMATIC, NORMAL INSPECTION, NORMOCEPHALIC - Eye Exam Eye Exam: EOMI, Normal appearance, PERRL Pupil Exam: NORMAL ACCOMODATION, PERRL - ENT Exam ENT Exam: Mucous Membranes Moist, Normal Exam - Neck Exam Neck Exam: Full ROM, Normal Inspection. absent: Lymphadenopathy - Respiratory Exam Respiratory Exam: Decreased Breath Sounds - Cardiovascular Exam Cardiovascular Exam: REGULAR RHYTHM, +S1 - GI/Abdominal Exam GI & Abdominal Exam: Soft, Diminished Bowel Sounds Assessment and Plan - Assessment and Plan (Free Text) Plan: awaiting for cmoplete culture to be neg kerri as ordered will speak to dr. chen again for aura murray g
[2017-02-11] MEDS: Vancomycin 1 gm/NS 200 ml 1 GM/200 ML BAG IVPB SCH
[2017-02-11] MEDS: Multiple Vitamins Tab PO SCH (10:34)
[2017-02-11] MEDS: Pantoprazole 40 mg EC Tab PO SCH (10:34)
--- NOTE | 2017-02-11 12:03 | CP.PCM.PN ---
Subjective - Date & Time of Evaluation Date of Evaluation: 02/11/17 Time of Evaluation: 08:50 - Subjective Subjective: Medicine Note- Dr. Cobian's service Patient was seen and examined at bedside. Patient reports no acute complaints at this time. No events overnight, per nursing. Objective - Vital Signs/Intake and Output Vital Signs (last 24 hours): Temp Pulse Resp BP Pulse Ox 98.4 F 77 20 127/90 98 02/11/17 08:21 02/11/17 08:21 02/11/17 08:21 02/11/17 08:21 02/11/17 08:21 Intake and Output: 02/11/17 02/11/17 06:59 18:59 Intake Total 1150 500 Balance 1150 500 - Medications Medications: Current Medications Folic Acid (Folic Acid) 1 mg PO DAILY [facility] Last Admin: 02/11/17 10:34 Dose: 1 mg Gabapentin (Neurontin) 100 mg PO TID [facility] Last Admin: 02/11/17 10:33 Dose: 100 mg Multivitamins (Hexavitamin) 1 tab PO DAILY [facility] Last Admin: 02/11/17 10:34 Dose: 1 tab Pantoprazole Sodium (Protonix Ec Tab) 40 mg PO DAILY [facility] Last Admin: 02/11/17 10:34 Dose: 40 mg Quetiapine Fumarate (Seroquel) 100 mg PO HS [facility] Last Admin: 02/10/17 21:16 Dose: 100 mg Thiamine HCl (Vitamin B1 Tab) 100 mg PO DAILY [facility] Last Admin: 02/11/17 10:33 Dose: 100 mg - Labs Labs: 02/09/17 08:32 02/09/17 08:32 - Constitutional Appears: Non-toxic, No Acute Distress - Head Exam Head Exam: ATRAUMATIC, NORMAL INSPECTION, NORMOCEPHALIC - Eye Exam Pupil Exam: NORMAL ACCOMODATION, PERRL - ENT Exam ENT Exam: Mucous Membranes Moist - Respiratory Exam Respiratory Exam: Clear to Ausculation Bilateral, NORMAL BREATHING PATTERN. absent: Prolonged Expiratory Phase, Rales, Rhonchi, Wheezes - Cardiovascular Exam Cardiovascular Exam: REGULAR RHYTHM, +S1 - GI/Abdominal Exam GI & Abdominal Exam: Soft, Normal Bowel Sounds. absent: Tenderness, Diminished Bowel Sounds, Hernia, Hypoactive Bowel Sounds - Extremities Exam Extremities Exam: Normal Capillary Refill, Normal Inspection - Neurological Exam Neurological Exam: Alert, Awake, Oriented x3 - Psychiatric Exam Psychiatric exam: Normal Affect, Normal Mood - Skin Skin Exam: Dry, Intact, Normal Color, Warm Assessment and Plan - Assessment and Plan (Free Text) Assessment: Alcohol Abuse/Intoxication Alcohol, Quant on admission -358 Consult Psych- Dr. Monson Folic Acid 1mg PO Daily Librium Taper finished Multivitamin PO Daily Depression Continue Seroquel 100mg PO Daily Hx of Chest Wound/ infection Consult ID- Dr. Gordon. Per Dr Gordon, blood culture must be negative for 5 days before discharging. Ceftriaxone 1g IV daily since 02/01 Vancomycin 1g IV q12H since 02/06 Blood culture - 02/03/17- gram positive cocci in 1 tube, no growth in 2nd tube Repeat blood culture 02/05 negative x48 hours PICC line removed 02/06 Prophylactic Measure Protonix 40mg PO Daily Lovenox 40mg SC Daily All medical management as per Dr. Cobian As per Dr. Gordon, patient will not need additional antibiotics. Patient is to be discharged home, as per Dr. Cobian.
[2017-02-11 16:47] VITALS: O2SAT 100
[2017-02-11 16:55] VITALS: BP 144/91; PULSE 92; TEMP 98.7
== END 2017-02-11 17:36 | disposition home or self-care (01) | DRG 750 ==
LOC: C.ER 17:38 → C.9E 21:22 → C.3T 02-01 01:27 → OBSVTOIN 02-02 17:11
PROVIDERS: ADMIT Internal Medicine Nephrology; ATTEND Internal Medicine Nephrology
PROC: 02PYX3Z Removal of Infusion Device from Great Vessel, External Approach (ICD-10-PCS; principal; 2017-02-06)
DX: F10.239 Alcohol dependence with withdrawal, unspecified (principal); F20.9 Schizophrenia, unspecified; I10 Essential (primary) hypertension; F32.9 Major depressive disorder, single episode, unspecified; F41.9 Anxiety disorder, unspecified; E78.00 Pure hypercholesterolemia, unspecified; F60.9 Personality disorder, unspecified; Z91.19 Patient's noncompliance with other medical treatment and regimen; L08.9 Local infection of the skin and subcutaneous tissue, unspecified; Y90.8 Blood alcohol level of 240 mg/100 ml or more; B95.7 Other staphylococcus as the cause of diseases classified elsewhere; Z45.2 Encounter for adjustment and management of vascular access device

== ENCOUNTER 2017-02-21 17:55 | Inpatient (IN) | payer MEDICAID ==
[2017-02-21 17:57] VITALS: BMI 27.1
[2017-02-21 21:08] LABS: BASO % 0.6 % (0.0-2.0); EOS # 0.2 K/uL (0.0-0.7); EOS % 3.7 % (0.0-4.0); HEMATOCRIT 33.1 % (35.0-51.0); LYMPH # 1.5 K/uL (1.0-4.3); LYMPH % 28.2 % (20.0-40.0); MEAN CORPUSCULAR HEMOGLOBIN 29.7 pg (27.0-31.0); MEAN CORPUSCULAR HGB CONC 33.1 g/dL (33.0-37.0); MEAN PLATELET VOLUME 7.6 fL (7.2-11.7); MONO # 0.4 K/uL (0.0-0.8); MONO % 8.2 % (0.0-10.0); NRBC % 0.1 % (0.0-2.0); RED CELL DISTRIBUTION WIDTH 13.1 % (11.5-14.5); WHITE BLOOD COUNT 5.2 K/uL (4.8-10.8)
[2017-02-21 21:10] LABS: CHLORIDE 101 mmol/L (98-107)
[2017-02-21 21:11] LABS: POTASSIUM 3.9 mmol/L (3.6-5.2); SODIUM 140 mmol/L (132-148)
[2017-02-21 21:13] LABS: ALB/GLOB RATIO 1.3 (1.0-2.1); ALKALINE PHOSPHATASE 73 U/L (38-126); ALT/SGPT 30 U/L (21-72); AST/SGOT 33 U/L (17-59); BILIRUBIN,TOTAL 0.5 mg/dL (0.2-1.3); BLOOD UREA NITROGEN 14 mg/dL (9-20); CARBON DIOXIDE 22 mmol/L (22-30); GFR AFRICAN-AMERICAN > 60; GLUCOSE,RANDOM 48 mg/dL (75-110); TOTAL PROTEIN 7.2 g/dL (6.3-8.3)
[2017-02-21 21:14] LABS: CALCIUM 8.5 mg/dl (8.6-10.4)
[2017-02-21 21:21] LABS: MEAN CELL VOLUME 89.9 fL (80.0-94.0)
[2017-02-21 21:26] LABS: ALCOHOL SERUM 346 mg/dl (0-10)
--- NOTE | 2017-02-21 21:27 | C.PDOC ---
History Of Present Illness 51 year old patient is brought to the emergency department by ambulance for public intoxication. Patient also complains of suicidal ideation. He denies homicidal ideation or any other complaints at this time. Time Seen by Provider: 02/21/17 19:44 Chief Complaint (Nursing): Psychiatric Evaluation History Per: Patient History/Exam Limitations: intoxication Onset/Duration Of Symptoms: Other Current Symptoms Are (Timing): Still Present Suicide/Self Injury Attempted (Context): None Modifying Factor(s): Alcohol Severity: None Pain Scale Rating Of: 0 Associated Symptoms: Suicidal Thoughts Recent travel outside of the [place]: No Additional History Per: EMS Past Medical History Reviewed: Historical Data, Nursing Documentation, Vital Signs Vital Signs: Last Vital Signs Temp 98.5 F 02/21/17 17:57 Pulse 104 H 02/21/17 17:57 Resp 16 02/21/17 17:57 BP 105/58 L 02/21/17 17:57 Pulse Ox 95 02/21/17 21:36 - Medical History PMH: Anxiety, Depression, HTN, Hypercholesterolemia, Personality Disorder ( multiple fights,agression), Schizophrenia - [facility] Procedures ALCOHOL DETOXIFICATION (01/08/14) DETOXIFICATION SERVICES FOR SUBSTANCE ABUSE TREATMENT (12/10/16) GROUP GENERAL ASSEMBLER INSTALLER FOR SUBSTANCE ABUSE TREATMENT, PSYCHOEDUCATION (03/06/16) GROUP PSYCHOTHERAPY (03/30/16) INDIVIDUAL PSYCHOTHERAPY, COGNITIVE-BEHAVIORAL (12/10/16) INDIVIDUAL PSYCHOTHERAPY, SUPPORTIVE (03/30/16) INSERTION OF INFUSION DEV INTO SUP VENA CAVA, PERC APPROACH (12/10/16) REMOVAL OF INFUSION DEV FROM GREAT VESSEL, END MATCHER APPROACH (02/02/17) ULTRASONOGRAPHY OF SUPERIOR VENA CAVA, GUIDANCE (12/10/16) Family History: States: Unknown Family Hx - Social History Hx Tobacco Use: No Hx Alcohol Use: Yes Hx Substance Use: No - Immunization History Hx Tetanus Toxoid Vaccination: Yes Hx Influenza Vaccination: Yes Hx Pneumococcal Vaccination: No Review Of Systems Except As Marked, All Systems Reviewed And Found Negative. Constitutional: Positive for: Other (intoxicated). Negative for: Fever Cardiovascular: Negative for: Chest Pain Respiratory: Negative for: Shortness of Breath Gastrointestinal: Negative for: Nausea, Vomiting Psych: Positive for: Suicidal ideation Physical Exam - Physical Exam Appears: Other (tall, black, foul smelling, disheveled, intoxicated) Skin: Warm, Dry Head: Atraumatic, Normacephalic Neck: Normal ROM, Supple Chest: Symmetrical Cardiovascular: Rhythm Regular Respiratory: Normal Breath Sounds, No Rales, No Rhonchi, No Wheezing Gastrointestinal/Abdominal: Soft, No Tenderness Back: Normal Inspection Extremity: Normal ROM Neurological/Psych: Oriented x3 ED Course And Treatment - Laboratory Results Result Diagrams: 02/21/17 20:59 02/21/17 20:59 Lab Interpretation: Abnormal (etoh 346 H) O2 Sat by Pulse Oximetry: 95 (room air) Pulse Ox Interpretation: Normal Progress Note: Plan: Labs Reevaluation Time: 00:30 (improved) Reassessment Condition: Improved - Physician Consult Information Outcome Of Conversation: 0030: d/w Crisis- pending sobriety approx 5AM then will assess. Medical Decision Making Medical Decision Making: alcohol abuse, mental illness pending Crisis eval 5A Disposition - Disposition Disposition Time: 01:00 Condition: FAIR - Clinical Impression Clinical Impression: Alcohol intoxication - Scribe Statement Nadai Cobian Provider Attestation: All medical record entries made by the Scribe were at my direction and personally dictated by me. I have reviewed the chart and agree that the record accurately reflects my personal performance of the history, physical exam, medical decision making, and the department course for this patient. I have also personally directed, reviewed, and agree with the discharge instructions and disposition. Physician Patient Turnover Patient Signed Over To: Uriel Abad Handoff Comments: dispo per Crisis eval
[2017-02-22 02:10] LABS: URINE BILIRUBIN NEGATIVE (NEGATIVE); URINE BLOOD NEGATIVE (NEGATIVE); URINE COLOR Yellow (YELLOW); URINE GLUCOSE (UA) NORMAL (Normal); URINE KETONE TRACE mg/dL (NEGATIVE); URINE LEUKOCYTE ESTERASE NEG Leu/uL (Negative); URINE PROTEIN NEGATIVE (NEGATIVE); URINE UROBILINOGEN NORMAL mg/dL (0.2-1.0); WBC URINE < 1 /hpf (0-5)
[2017-02-22 05:11] VITALS: O2SAT 100
[2017-02-22] MEDS ORDERED: Pneumococcal 23-Valent Vaccine IM ONE (05:59)
[2017-02-22] MEDS ORDERED: Divalproex 250 mg DR Tab PO SCH (10:00)
[2017-02-22] MEDS: Multiple Vitamins Tab PO SCH (10:17)
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
[2017-02-23] MEDS: Multiple Vitamins Tab PO SCH (10:06)
--- NOTE | 2017-02-23 18:37 | PCM.PYCHPN ---
Psychiatric Progress Note - Psychiatric Progress Note Patient seen today, length of contact: 15 minutes Patient Chief Complaint: I'm feeling better Problems Identified/Issues Discussed: Patient seen. Chart reviewed. Case discussed with the staff. Issues related to illness and treatment were discussed with the patient. Reported compliant with treatment with no adverse affects. Tolerating treatment very well. Reported feeling left-sided chest pain as patient had some kind of surgery on his left side of chest second he to pneumothorax. Denied any exertional chest pain or sweating. Denied any shortness of breath. Appears because of his chest surgery patient still has pain. Will call medicine for evaluation. At the time of evaluation, patient was awake alert oriented 3, had no delusions, no auditory or visual hallucinations, no suicidal ideations or homicidal ideations. Medical Problems: None reported except left-sided hydrothorax Diagnostic Results: Reviewed DSM 5 Symptoms Update: Improving with treatment Medication Change: No Medical Record Reviewed: Yes Consults ordered or reviewed: Medical consult Mental Status Examination - Cognitive Function Orientation: Person, Place, Situation, Time Memory: Intact Attention: WNL Concentration: WNL Association: WN Fund of Knowledge: [facility] Decription of patient's judgement and insights: Fair - Mood Mood: Depressed (Less than before) - Affect Affect: Other (Appropriate) - Speech Speech: Appropriate - Formal Thought Process Formal Thought Process: No Impairment Psychotic Thoughts and Behaviors: On - Suicidal Ideation Suicidal Ideation: No - Homicidal Ideation Homicidal Ideation: No Goal/Treatment Plan - Goal/Treatment Plan Need for Continued Stay: Remain at risks for inpatient hospitalization, Discharge may exacerbated symptoms, Severe functional impairment Progress Toward Problem(s) and Goals/Treatment Plan: Patient education Supportive therapy Continue treatment as before Estimated Date of D/C: 02/28/17 - Smoking Cessation Smoking Cessation Initiated: No
[2017-02-23] MEDS ORDERED: Aspirin 325 mg EC Tablets PO STA (19:20)
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
[2017-02-24] MEDS: Multiple Vitamins Tab PO SCH (09:32)
--- NOTE | 2017-02-24 16:25 | PCM.PYCHPN ---
Psychiatric Progress Note - Psychiatric Progress Note Patient seen today, length of contact: 15 minutes Patient Chief Complaint: I'm feeling better Problems Identified/Issues Discussed: Patient seen. Chart reviewed. Case discussed with the staff. Issues related to illness and treatment were discussed with the patient. Reported compliant with treatment with no adverse affects. Tolerating treatment very well. At the time of evaluation, patient was awake alert oriented 3, had no delusions, no auditory or visual hallucinations, no suicidal ideations or homicidal ideations. Medical Problems: None reported Diagnostic Results: Reviewed DSM 5 Symptoms Update: Improving with treatment Medication Change: No Medical Record Reviewed: Yes Consults ordered or reviewed: Reviewed Mental Status Examination - Cognitive Function Orientation: Person, Place, Situation, Time Memory: Intact Attention: WNL Concentration: WNL Association: WN Fund of Knowledge: [facility] Decription of patient's judgement and insights: Fair - Mood Mood: Depressed (Less than before) - Affect Affect: Other (Appropriate) - Speech Speech: Appropriate - Formal Thought Process Formal Thought Process: No Impairment Psychotic Thoughts and Behaviors: None - Suicidal Ideation Suicidal Ideation: No - Homicidal Ideation Homicidal Ideation: No Goal/Treatment Plan - Goal/Treatment Plan Need for Continued Stay: Remain at risks for inpatient hospitalization, Discharge may exacerbated symptoms, Severe functional impairment Progress Toward Problem(s) and Goals/Treatment Plan: Patient education Supportive therapy Continue treatment as before Estimated Date of D/C: 02/28/17 - Smoking Cessation Smoking Cessation Initiated: No
[2017-02-25] MEDS: Multiple Vitamins Tab PO SCH (09:36)
--- NOTE | 2017-02-25 14:17 | PCM.PYCHPN ---
Psychiatric Progress Note - Psychiatric Progress Note Patient seen today, length of contact: 15 minutes Patient Chief Complaint: "I'm feeling better." Problems Identified/Issues Discussed: The pt is seen, chart reviewed, case discussed with staff. The pt is compliant with medications and reports no side-effects. Pt complains of left-sided chest pain - medicine was consulted, and patient was given pain medication. Patient denies suicidal ideation, homicidal ideation, hallucinations, and paranoia. Symptoms are improving but needs more time to stabilize. After care discussed, support and psychoeducation given. Medication Change: No Medical Record Reviewed: Yes Mental Status Examination - Cognitive Function Orientation: Person, Place, Situation, Time Memory: Intact Attention: WNL Concentration: WNL Association: WNL Fund of Knowledge: WN - Mood Mood: Depressed (Less than before) - Affect Affect: Other (Appropriate) - Speech Speech: Appropriate - Formal Thought Process Formal Thought Process: No Impairment - Suicidal Ideation Suicidal Ideation: No - Homicidal Ideation Homicidal Ideation: No Goal/Treatment Plan - Goal/Treatment Plan Need for Continued Stay: Remain at risks for inpatient hospitalization, Discharge may exacerbated symptoms, Severe functional impairment Progress Toward Problem(s) and Goals/Treatment Plan: Alcohol Withdrawal: 1. Librium detox 2. As needed medications 3. Support and psychoeducation daily 4. Attend groups and activities daily 5. Mi and CBT MAjor depression: 1. Zoloft and seroquel 2. As needed medications 3. CBt 4. Support and psychoeducation daily 5. Attend groups and activities daily 17 min Estimated Date of D/C: 02/28/17
[2017-02-26] MEDS: Multiple Vitamins Tab PO SCH (09:41)
--- NOTE | 2017-02-26 15:00 | PCM.PYCHPN ---
Psychiatric Progress Note - Psychiatric Progress Note Patient seen today, length of contact: 17 minutes Patient Chief Complaint: "I'm feeling better." Problems Identified/Issues Discussed: The pt is seen, chart reviewed, case discussed with staff. The pt is compliant with medications and reports no side-effects. Pt tolerates diet, states he slept well and his mood is okay. Denies sadness, depression, hallucinations. Symptoms are improving but needs more time to stabilize. After care discussed, support and psychoeducation given. Pt plans to be discharged tomorrow and follow up in [facility]. Time: 17 min Medication Change: No Medical Record Reviewed: Yes Mental Status Examination - Cognitive Function Orientation: Person, Place, Situation, Time Memory: Intact Attention: WNL Concentration: WNL Association: WNL Fund of Knowledge: WNL - Mood Mood: Depressed (Less than before) - Affect Affect: Other (Appropriate) - Speech Speech: Appropriate - Formal Thought Process Formal Thought Process: No Impairment - Suicidal Ideation Suicidal Ideation: No - Homicidal Ideation Homicidal Ideation: No Goal/Treatment Plan - Goal/Treatment Plan Need for Continued Stay: Remain at risks for inpatient hospitalization, Discharge may exacerbated symptoms, Severe functional impairment Progress Toward Problem(s) and Goals/Treatment Plan: Alcohol Withdrawal: 1. Librium detox 2. As needed medications 3. Support and psychoeducation daily 4. Attend groups and activities daily 5. Mi and CBT MAjor depression: 1. Zoloft and seroquel 2. As needed medications 3. CBt 4. Support and psychoeducation daily 5. Attend groups and activities daily 17 min Estimated Date of D/C: 02/28/17
[2017-02-27 08:10] VITALS: BP 124/79; PULSE 81; RESP 20; TEMP 98.1
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
[2017-02-27] MEDS: Multiple Vitamins Tab PO SCH (09:30)
--- NOTE | 2017-03-01 16:21 | CARD ---
APPROVED REPORT EKG Measurement Heart [id number] <Conclusion> Normal sinus rhythm Possible Left atrial enlargement Left ventricular hypertrophy Abnormal ECG
== END 2017-02-27 11:00 | disposition home or self-care (01) | DRG 750 ==
LOC: C.ER 17:55 → C.5E 02-22 04:55
PROVIDERS: ADMIT Psychiatry & Neurology Psychiatry; ATTEND Psychiatry & Neurology Psychiatry
PROC: HZ2ZZZZ Detoxification Services for Substance Abuse Treatment (ICD-10-PCS; principal; 2017-02-22)
PROC: HZ36ZZZ Individual Counseling for Substance Abuse Treatment, Psychoeducation (ICD-10-PCS; 2017-02-22)
PROC: HZ42ZZZ Group Counseling for Substance Abuse Treatment, Cognitive-Behavioral (ICD-10-PCS; 2017-02-22)
PROC: HZ59ZZZ Individual Psychotherapy for Substance Abuse Treatment, Supportive (ICD-10-PCS; 2017-02-22)
DX: F10.230 Alcohol dependence with withdrawal, uncomplicated (principal); F33.2 Major depressive disorder, recurrent severe without psychotic features; R45.851 Suicidal ideations; F20.9 Schizophrenia, unspecified; F10.220 Alcohol dependence with intoxication, uncomplicated; F41.9 Anxiety disorder, unspecified; I10 Essential (primary) hypertension; E78.00 Pure hypercholesterolemia, unspecified; F60.9 Personality disorder, unspecified; G47.00 Insomnia, unspecified; Y90.8 Blood alcohol level of 240 mg/100 ml or more

== ENCOUNTER 2017-03-13 00:28 | Emergency (ER) | payer MEDICAID ==
[2017-03-13 00:28] VITALS: BMI 27.1
[2017-03-13 02:02] VITALS: TEMP 97.6
--- NOTE | 2017-03-13 05:02 | C.PDOC ---
History Of Present Illness Patient presents to the ER looking for a place to spend the night. Denies any physical complaints at this time. Time Seen by Provider: 03/13/17 02:59 Chief Complaint (Nursing): Psychiatric Evaluation History Per: Patient History/Exam Limitations: no limitations Onset/Duration Of Symptoms: Hrs Current Symptoms Are (Timing): Still Present Suicide/Self Injury Attempted (Context): None Modifying Factor(s): None Severity: None Pain Scale Rating Of: 0 Associated Symptoms: denies: Depression, Suicidal Thoughts, Suicidal Plan Recent travel outside of the [place]: No Past Medical History Reviewed: Historical Data, Nursing Documentation, Vital Signs Vital Signs: Last Vital Signs Temp 97.6 F 03/13/17 01:45 Pulse 83 03/13/17 01:45 Resp 17 03/13/17 01:45 BP 102/60 03/13/17 01:45 Pulse Ox 95 03/13/17 05:01 - Medical History PMH: Anxiety, Depression, HTN, Hypercholesterolemia, Personality Disorder ( multiple fights,agression), Schizophrenia Surgical History: No Surg Hx - [facility] Procedures ALCOHOL DETOXIFICATION (01/08/14) DETOXIFICATION SERVICES FOR SUBSTANCE ABUSE TREATMENT (02/22/17) GROUP WOOL BRUSHER FOR SUBSTANCE ABUSE TREATMENT, PSYCHOEDUCATION (03/06/16) GROUP WOOL BRUSHER FOR SUBSTANCE ABUSE, COGNITIVE BEHAVIORAL (02/22/17) GROUP PSYCHOTHERAPY (03/30/16) INDIV WOOL BRUSHER FOR SUBSTANCE ABUSE TREATMENT, PSYCHOEDUCATION (02/22/17) INDIV PSYCHOTHERAPY FOR SUBSTANCE ABUSE TREATMENT, SUPPORT (02/22/17) INDIVIDUAL PSYCHOTHERAPY, COGNITIVE-BEHAVIORAL (12/10/16) INDIVIDUAL PSYCHOTHERAPY, SUPPORTIVE (03/30/16) INSERTION OF INFUSION DEV INTO SUP VENA CAVA, PERC APPROACH (12/10/16) REMOVAL OF INFUSION DEV FROM GREAT VESSEL, PRACTICE PHYSICIAN APPROACH (02/02/17) ULTRASONOGRAPHY OF SUPERIOR VENA CAVA, GUIDANCE (12/10/16) Family History: States: No Known Family Hx - Social History Hx Tobacco Use: No Hx Alcohol Use: Yes Hx Substance Use: Yes - Immunization History Hx Tetanus Toxoid Vaccination: Yes Hx Influenza Vaccination: Yes Hx Pneumococcal Vaccination: No Review Of Systems Constitutional: Negative for: Fever, Chills Gastrointestinal: Negative for: Nausea, Vomiting, Diarrhea Physical Exam - Physical Exam Appears: Non-toxic Skin: Warm, Dry Oral Mucosa: Moist Chest: Symmetrical, No Tenderness Cardiovascular: Rhythm Regular, No Murmur Respiratory: No Rales, No Rhonchi, No Wheezing Gastrointestinal/Abdominal: Soft, No Tenderness Neurological/Psych: Oriented x3 ED Course And Treatment O2 Sat by Pulse Oximetry: 95 (Room air) Pulse Ox Interpretation: Normal Disposition Counseled Patient/Family Regarding: Studies Performed, Diagnosis, Need For Followup - Disposition Referrals: [facility] [Outside] Disposition Time: 05:01 Condition: FAIR - Clinical Impression Clinical Impression: Alcohol intoxication - Scribe Statement The provider has reviewed the documentation as recorded by the Scribe Drew Mcnamara All medical record entries made by the Scribe were at my direction and personally dictated by me. I have reviewed the chart and agree that the record accurately reflects my personal performance of the history, physical exam, medical decision making, and the department course for this patient. I have also personally directed, reviewed, and agree with the discharge instructions and disposition.
[2017-03-13 05:41] VITALS: BP 108/73; PULSE 78; RESP 18; O2SAT 98
== END 2017-03-13 05:41 | disposition home or self-care (01) ==
LOC: SUPCPDRO 00:28 → C.ER 00:28
DX: F10.120 Alcohol abuse with intoxication, uncomplicated (principal); Y90.9 Presence of alcohol in blood, level not specified

== ENCOUNTER 2017-03-26 02:49 | Observation (INO) | payer MEDICAID ==
[2017-03-26 02:50] VITALS: BMI 27.1
--- NOTE | 2017-03-26 03:44 | C.PDOC ---
History Of Present Illness Patient presents to the ED intoxicated and seeking a place to stay. Patient denies any suicidal ideations, homicidal ideations, or physical complaints at this time. Time Seen by Provider: 03/26/17 03:43 Chief Complaint (Nursing): Medical Clearance History Per: Patient History/Exam Limitations: no limitations Severity: None Pain Scale Rating Of: 0 Reports Recently: Seen In ED Recent travel outside of the [place]: No Additional History Per: Prior Records Past Medical History Reviewed: Historical Data, Nursing Documentation, Vital Signs Vital Signs: Last Vital Signs Temp 98.3 F 03/26/17 03:01 Pulse 88 03/26/17 03:01 Resp 22 03/26/17 03:01 BP 129/78 03/26/17 03:01 Pulse Ox 98 03/26/17 03:50 - Medical History PMH: Anxiety, Depression, HTN, Hypercholesterolemia, Personality Disorder ( multiple fights,agression), Schizophrenia Surgical History: Denies: Appendectomy - [facility] Procedures ALCOHOL DETOXIFICATION (01/08/14) DETOXIFICATION SERVICES FOR SUBSTANCE ABUSE TREATMENT (02/22/17) GROUP MEDICAL INSURANCE CLAIMS SPECIALIST FOR SUBSTANCE ABUSE TREATMENT, PSYCHOEDUCATION (03/06/16) GROUP MEDICAL INSURANCE CLAIMS SPECIALIST FOR SUBSTANCE ABUSE, COGNITIVE BEHAVIORAL (02/22/17) GROUP PSYCHOTHERAPY (03/30/16) INDIV MEDICAL INSURANCE CLAIMS SPECIALIST FOR SUBSTANCE ABUSE TREATMENT, PSYCHOEDUCATION (02/22/17) INDIV PSYCHOTHERAPY FOR SUBSTANCE ABUSE TREATMENT, SUPPORT (02/22/17) INDIVIDUAL PSYCHOTHERAPY, COGNITIVE-BEHAVIORAL (12/10/16) INDIVIDUAL PSYCHOTHERAPY, SUPPORTIVE (03/30/16) INSERTION OF INFUSION DEV INTO SUP VENA CAVA, PERC APPROACH (12/10/16) REMOVAL OF INFUSION DEV FROM GREAT VESSEL, HOME WEATHERIZING WORKER APPROACH (02/02/17) ULTRASONOGRAPHY OF SUPERIOR VENA CAVA, GUIDANCE (12/10/16) Family History: States: No Known Family Hx - Social History Hx Tobacco Use: No Hx Alcohol Use: Yes Hx Substance Use: Yes - Immunization History Hx Tetanus Toxoid Vaccination: Yes Hx Influenza Vaccination: Yes Hx Pneumococcal Vaccination: No Review Of Systems Constitutional: Negative for: Fever, Chills Cardiovascular: Negative for: Chest Pain, Palpitations Respiratory: Negative for: Cough, Shortness of Breath Gastrointestinal: Negative for: Nausea, Vomiting, Abdominal Pain, Diarrhea Physical Exam - Physical Exam Appears: Non-toxic, No Acute Distress Skin: Warm, Dry Head: Atraumatic Eye(s): bilateral: Normal Inspection, PERRL, EOMI Oral Mucosa: Moist Neck: Supple Chest: Symmetrical, No Deformity Cardiovascular: Rhythm Regular Respiratory: No Rales, No Rhonchi, No Wheezing Gastrointestinal/Abdominal: Soft, No Tenderness, No Distention, No Guarding, No Rebound Extremity: Normal ROM, No Tenderness Neurological/Psych: Oriented x3 ED Course And Treatment O2 Sat by Pulse Oximetry: 98 (room air ) ED OBSERVATION Date of observation admission: 03/26/17 Time of observation admission: 03:45 - Observation admission statement Patient is being placed in observation because:: acute alcohol intoxication - Goals of Observation Goals of observation are:: sobriety - Progress Note Progress Note: 03/26/17 03:46 vitals stable Disposition Counseled Patient/Family Regarding: Studies Performed, Diagnosis, Need For Followup - Disposition Disposition Time: 03:43 Condition: UNKNOWN - Clinical Impression Clinical Impression: Alcohol abuse, Alcohol intoxication - Scribe Statement The provider has reviewed the documentation as recorded by the Scribboone Nielsen All medical record entries made by the Mikeibboone were at my direction and personally dictated by me. I have reviewed the chart and agree that the record accurately reflects my personal performance of the history, physical exam, medical decision making, and the department course for this patient. I have also personally directed, reviewed, and agree with the discharge instructions and disposition. Physician Patient Turnover Patient Signed Over To: Raman Crawford Handoff Comments: pending sobriety
[2017-03-26 09:57] VITALS: O2SAT 99
[2017-03-26 13:04] VITALS: BP 116/70; PULSE 72; RESP 17; TEMP 97
== END 2017-03-26 12:57 | disposition home or self-care (01) ==
LOC: C.ER 02:49 → C.9OBSV 03:44
PROVIDERS: ADMIT Emergency Medicine; ATTEND Emergency Medicine
DX: F10.129 Alcohol abuse with intoxication, unspecified (principal); E78.00 Pure hypercholesterolemia, unspecified; F60.9 Personality disorder, unspecified; I10 Essential (primary) hypertension

== ENCOUNTER 2017-03-26 19:56 | Emergency (ER) | payer MEDICAID ==
[2017-03-26 19:56] VITALS: BMI 27.1
--- NOTE | 2017-03-26 20:07 | C.PDOC ---
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 Pt was just discharge from here for ETOH intoxication 8 hours ago. Denies suicidal or homicidal ideation, or any physical complaints. Time Seen by Provider: 03/26/17 20:06 Chief Complaint (Nursing): Medical Clearance History Per: Patient History/Exam Limitations: no limitations Onset/Duration Of Symptoms: Hrs Current Symptoms Are (Timing): Still Present Severity: Mild Reports Recently: Seen In ED Recent travel outside of the [place]: No Additional History Per: Patient Past Medical History Reviewed: Historical Data, Nursing Documentation, Vital Signs Vital Signs: Last Vital Signs Temp 98.3 F 03/26/17 20:00 Pulse 83 03/26/17 20:00 Resp 18 03/26/17 20:00 BP 122/79 03/26/17 20:00 Pulse Ox 99 03/26/17 22:13 - Medical History PMH: Anxiety, Depression, HTN, Hypercholesterolemia, Personality Disorder ( multiple fights,agression), Schizophrenia Denies: Alzheimer's Disease, Anemia, Arthritis, Asthma, Atrial Fibrillation, Bipolar Disorder, Bronchitis, Cardia Arrhythmia, CHF, COPD, Crohn's Disease, Dementia, Diabetes, Diverticulitis, Emphysema, Fractures, Gastritis, Gall Bladder Disease, Hepatitis, HIV, Hyperthyroidism, Hypothyroidism, Kidney Stones , Migraine, Mitral Valve Prolapse, Multiple Sclerosis, Osteoporosis, Pancreatitis, Paranoia, Parkinson's Disease, Peripheral Edema, Pneumonia, Post Traumatic Stress Disorder, Pulmonary Embolism, Chronic Kidney Disease, Rheumatoid Arthritis, Seizures, Sickle Cell Disease, Sexually Transmitted Disease, Sleep Apnea, TIA Surgical History: Denies: Appendectomy, CABG, Carotid Endarterectomy, Cholecystectomy, Coronary Stent, Pacemaker, [facility] Procedures ALCOHOL DETOXIFICATION (01/08/14) DETOXIFICATION SERVICES FOR SUBSTANCE ABUSE TREATMENT (02/22/17) GROUP ROLLER SKATE REPAIRER FOR SUBSTANCE ABUSE TREATMENT, PSYCHOEDUCATION (03/06/16) GROUP ROLLER SKATE REPAIRER FOR SUBSTANCE ABUSE, COGNITIVE BEHAVIORAL (02/22/17) GROUP PSYCHOTHERAPY (03/30/16) INDIV ROLLER SKATE REPAIRER FOR SUBSTANCE ABUSE TREATMENT, PSYCHOEDUCATION (02/22/17) INDIV PSYCHOTHERAPY FOR SUBSTANCE ABUSE TREATMENT, SUPPORT (02/22/17) INDIVIDUAL PSYCHOTHERAPY, COGNITIVE-BEHAVIORAL (12/10/16) INDIVIDUAL PSYCHOTHERAPY, SUPPORTIVE (03/30/16) INSERTION OF INFUSION DEV INTO SUP VENA CAVA, PERC APPROACH (12/10/16) REMOVAL OF INFUSION DEV FROM GREAT VESSEL, STAFF SOFTWARE ENGINEER APPROACH (02/02/17) ULTRASONOGRAPHY OF SUPERIOR VENA CAVA, GUIDANCE (12/10/16) Family History: States: Unknown Family Hx - Social History Hx Tobacco Use: No Hx Alcohol Use: Yes Hx Substance Use: Yes - Immunization History Hx Tetanus Toxoid Vaccination: Yes Hx Influenza Vaccination: Yes Hx Pneumococcal Vaccination: No Review Of Systems Except As Marked, All Systems Reviewed And Found Negative. Constitutional: Positive for: Other (ETOH intoxication). Negative for: Fever, Chills Cardiovascular: Negative for: Chest Pain Respiratory: Negative for: Shortness of Breath Gastrointestinal: Negative for: Nausea, Vomiting, Abdominal Pain, Diarrhea Psych: Negative for: Suicidal ideation, Other (Homicidal ideation) Physical Exam - Physical Exam Appears: Non-toxic, No Acute Distress, Other (Mild intoxication, (+) AOB, argumentative, coherent) Skin: Warm, Dry Head: Atraumatic, Normacephalic Eye(s): bilateral: Normal Inspection Cardiovascular: Rhythm Regular Respiratory: Normal Breath Sounds, No Rales, No Rhonchi, No Wheezing Gastrointestinal/Abdominal: Soft, No Tenderness Neurological/Psych: Oriented x3 Gait: Steady ED Course And Treatment O2 Sat by Pulse Oximetry: 99 (RA) Pulse Ox Interpretation: Normal Medical Decision Making Medical Decision Making: Impression: A 51 y/o M is here for ETOH intoxication today. alcohol abuse coherent, argumentative, does not want to be in ER Disposition Doctor Will See Patient In The: Office Counseled Patient/Family Regarding: Studies Performed, Diagnosis - Disposition Referrals: Alcoholics Anonymous [Outside] [facility] [Outside] [facility] [employer] [facility] [Outside] Disposition: HOME/ ROUTINE Disposition Time: 20:06 Condition: GOOD Instructions: Abuse of Alcohol (ED) - Clinical Impression Clinical Impression: Alcohol abuse - Scribe Statement The provider has reviewed the documentation as recorded by the Scribe Blayne [email or web address] All medical record entries made by the Scribe were at my direction and personally dictated by me. I have reviewed the chart and agree that the record accurately reflects my personal performance of the history, physical exam, medical decision making, and the department course for this patient. I have also personally directed, reviewed, and agree with the discharge instructions and disposition.
[2017-03-26 20:09] VITALS: BP 122/79; PULSE 83; RESP 18; TEMP 98.3; O2SAT 99
== END 2017-03-26 20:15 | disposition home or self-care (01) ==
LOC: C.ER 19:56
DX: F10.10 Alcohol abuse, uncomplicated (principal); Y90.9 Presence of alcohol in blood, level not specified

== ENCOUNTER 2017-09-05 22:05 | Emergency (ER) | payer MEDICAID ==
[2017-09-05 22:06] VITALS: BMI 27.1
[2017-09-05] MEDS ORDERED: DiphenhydrAMINE 50 mg/ml Inj IM STA (22:20)
--- NOTE | 2017-09-05 22:20 | C.PDOC ---
History Of Present Illness Patient brought in by EMS after being found intoxicated in public. On arrival patient is agitated and combative, he was restrained for his own safety and safety of the staff. Patient has not verbalized any complaints at this time. Time Seen by Provider: 09/05/17 22:17 Chief Complaint (Nursing): Substance Abuse History Per: EMS History/Exam Limitations: no limitations Onset/Duration Of Symptoms: Hrs Current Symptoms Are (Timing): Still Present Suicide/Self Injury Attempted (Context): None Modifying Factor(s): Alcohol Severity: None Pain Scale Rating Of: 0 Associated Symptoms: denies: Depression, Suicidal Thoughts, Suicidal Plan Involuntary Hold By: None Recent travel outside of the [place]: No Past Medical History Reviewed: Historical Data, Nursing Documentation, Vital Signs Vital Signs: Last Vital Signs Temp 98.7 F 09/05/17 22:13 Pulse 70 09/06/17 04:00 Resp 14 09/06/17 04:00 BP 86/53 L 09/06/17 04:00 Pulse Ox 96 09/06/17 04:00 - Medical History PMH: Anxiety, Depression, HTN, Hypercholesterolemia, Personality Disorder ( multiple fights,agression), Schizophrenia - [facility] Procedures ALCOHOL DETOXIFICATION (01/08/14) DETOXIFICATION SERVICES FOR SUBSTANCE ABUSE TREATMENT (02/22/17) GROUP FINANCIAL AGENT FOR SUBSTANCE ABUSE TREATMENT, PSYCHOEDUCATION (03/06/16) GROUP FINANCIAL AGENT FOR SUBSTANCE ABUSE, COGNITIVE BEHAVIORAL (02/22/17) GROUP PSYCHOTHERAPY (03/30/16) INDIV FINANCIAL AGENT FOR SUBSTANCE ABUSE TREATMENT, PSYCHOEDUCATION (02/22/17) INDIV PSYCHOTHERAPY FOR SUBSTANCE ABUSE TREATMENT, SUPPORT (02/22/17) INDIVIDUAL PSYCHOTHERAPY, COGNITIVE-BEHAVIORAL (12/10/16) INDIVIDUAL PSYCHOTHERAPY, SUPPORTIVE (03/30/16) INSERTION OF INFUSION DEV INTO SUP VENA CAVA, PERC APPROACH (12/10/16) REMOVAL OF INFUSION DEV FROM GREAT VESSEL, ELECTRONICS SYSTEM MECHANIC APPROACH (02/02/17) ULTRASONOGRAPHY OF SUPERIOR VENA CAVA, GUIDANCE (12/10/16) Family History: States: No Known Family Hx - Social History Hx Tobacco Use: No Hx Alcohol Use: Yes Hx Substance Use: Yes - Immunization History Hx Tetanus Toxoid Vaccination: Yes Hx Influenza Vaccination: Yes Hx Pneumococcal Vaccination: No Review Of Systems Constitutional: Negative for: Fever, Chills Gastrointestinal: Negative for: Nausea, Vomiting Physical Exam - Physical Exam Appears: Non-toxic, Combative, Agitated, Other (ETOH on breath) Skin: Warm, Dry Head: Normacephalic Oral Mucosa: Moist Chest: Symmetrical, No Tenderness Cardiovascular: Rhythm Regular Respiratory: No Rales, No Rhonchi, No Wheezing Gastrointestinal/Abdominal: Soft, No Tenderness Extremity: Other (Callus to bilateral feet) Neurological/Psych: Oriented x3 ED Course And Treatment O2 Sat by Pulse Oximetry: 100 (Room air) Pulse Ox Interpretation: Normal Progress Note: Benadryl, haldol, and ativan administered. 2:06 AM pt resting comfortable. vitals stable Reevaluation Time: 05:47 Reassessment Condition: Improved Disposition Counseled Patient/Family Regarding: Studies Performed, Diagnosis, Need For Followup - Disposition Referrals: [facility] [Outside] Disposition: HOME/ ROUTINE Disposition Time: 11:25 Condition: FAIR Instructions: Alcohol Intoxication (DC) Forms: [facility] (Mongolian) - Clinical Impression Clinical Impression: Alcohol abuse, Alcohol intoxication - Scribe Statement The provider has reviewed the documentation as recorded by the Scribboone Mcnamara All medical record entries made by the Scribe were at my direction and personally dictated by me. I have reviewed the chart and agree that the record accurately reflects my personal performance of the history, physical exam, medical decision making, and the department course for this patient. I have also personally directed, reviewed, and agree with the discharge instructions and disposition.
[2017-09-05] MEDS ORDERED: DiphenhydrAMINE 50 mg/ml Inj ONE (22:24)
[2017-09-06 09:35] VITALS: TEMP 98.8
[2017-09-06 10:40] VITALS: BP 114/75; PULSE 90; RESP 18; O2SAT 99
== END 2017-09-06 10:40 | disposition home or self-care (01) ==
LOC: C.ER 22:05
DX: F10.129 Alcohol abuse with intoxication, unspecified (principal); E78.00 Pure hypercholesterolemia, unspecified; I10 Essential (primary) hypertension
CPT/HCPCS: 96372; 99285; J1200; J1630; J2060

== ENCOUNTER 2017-09-11 12:03 | Inpatient (IN) | payer MEDICAID ==
[2017-09-11 12:03] VITALS: BMI 27.1
[2017-09-11 13:25] LABS: BASO % 0.9 % (0.0-2.0); EOS % 1.3 % (0.0-4.0); HEMOGLOBIN 12.6 g/dL (12.0-18.0); LYMPH # 1.2 K/uL (1.0-4.3); LYMPH % 33.3 % (20.0-40.0); MEAN CELL VOLUME 92.8 fL (80.0-94.0); MEAN CORPUSCULAR HEMOGLOBIN 31.3 pg (27.0-31.0); MEAN CORPUSCULAR HGB CONC 33.7 g/dL (33.0-37.0); MEAN PLATELET VOLUME 7.8 fL (7.2-11.7); MONO # 0.4 K/uL (0.0-0.8); MONO % 10.5 % (0.0-10.0); RBC 4.03 Mil/uL (4.40-5.90); RED CELL DISTRIBUTION WIDTH 12.6 % (11.5-14.5); WHITE BLOOD COUNT 3.7 K/uL (4.8-10.8)
[2017-09-11 13:28] LABS: URINE BILIRUBIN NEGATIVE (NEGATIVE); URINE BLOOD NEGATIVE (NEGATIVE); URINE CLARITY Clear (Clear); URINE COLOR Straw (YELLOW); URINE GLUCOSE (UA) NORMAL (Normal); URINE LEUKOCYTE ESTERASE NEG Leu/uL (Negative); URINE NITRATE NEGATIVE (NEGATIVE); URINE PROTEIN NEGATIVE (NEGATIVE); URINE UROBILINOGEN NORMAL mg/dL (0.2-1.0)
[2017-09-11 13:48] LABS: ALBUMIN 4.2 g/dL (3.5-5.0); ALT/SGPT 20 U/L (21-72); AST/SGOT 31 U/L (17-59); BLOOD UREA NITROGEN 8 mg/dL (9-20); CALCIUM 8.5 mg/dl (8.6-10.4); GFR AFRICAN-AMERICAN > 60; GFR NON-AFRICAN AMERICAN > 60
[2017-09-11 13:54] LABS: BARBITURATES, UR NEGATIVE (NEGATIVE); BENZODIAZEPINES, UR NEGATIVE (NEGATIVE); OPIATES, UR NEGATIVE (NEGATIVE); PHENCYCLIDINE, UR NEGATIVE (NEGATIVE)
--- NOTE | 2017-09-11 15:32 | C.PDOC ---
History Of Present Illness 52 year old male with PMHx of HTN and questionable phsych presents to the ED for SI, ETOH intoxication. Patient states he is homeless and has tried to drink cleaning fluids in the past to kill himself. Patient also reports he fell twice in the last few days, has visible lipoma in his left side forehead and multiple scarring over his eyebrows. Patient denies abdominal pain, fever, nausea, vomit , back pain, diarrhea, weakness, numbness. Patient spoke with psych about his SI ideations. Time Seen by Provider: 09/11/17 12:53 Chief Complaint (Nursing): Psychiatric Evaluation History Per: Patient Onset/Duration Of Symptoms: Days Current Symptoms Are (Timing): Still Present Suicide/Self Injury Attempted (Context): Ingestion Modifying Factor(s): Alcohol Associated Symptoms: Suicidal Thoughts, Suicidal Plan. denies: Depression Involuntary Hold By: None Recent travel outside of the [place]: No Additional History Per: Patient Past Medical History Reviewed: Historical Data, Nursing Documentation, Vital Signs Vital Signs: Last Vital Signs Temp 97.9 F 09/11/17 17:10 Pulse 78 09/11/17 17:10 Resp 18 09/11/17 17:10 BP 127/89 09/11/17 17:10 Pulse Ox 96 09/11/17 18:48 - Medical History PMH: Anxiety, Depression, HTN, Hypercholesterolemia, Personality Disorder ( multiple fights,agression), Schizophrenia Denies: Alzheimer's Disease, Anemia, Arthritis, Asthma, Atrial Fibrillation, Bipolar Disorder, Bronchitis, Cardia Arrhythmia, CHF, COPD, Crohn's Disease, Dementia, Diabetes, Diverticulitis, Emphysema, Fractures, Gastritis, Gall Bladder Disease, Hepatitis, HIV, Hyperthyroidism, Hypothyroidism, Kidney Stones , Migraine, Mitral Valve Prolapse, Multiple Sclerosis, Osteoporosis, Pancreatitis, Paranoia, Parkinson's Disease, Peripheral Edema, Pneumonia, Post Traumatic Stress Disorder, Pulmonary Embolism, Chronic Kidney Disease, Rheumatoid Arthritis, Seizures, Sickle Cell Disease, Sexually Transmitted Disease, Sleep Apnea, TIA Surgical History: No Surg Hx Denies: Appendectomy, CABG, Carotid Endarterectomy, Cholecystectomy, Coronary Stent, Pacemaker, Tonsillectomy - [facility] Procedures ALCOHOL DETOXIFICATION (01/08/14) DETOXIFICATION SERVICES FOR SUBSTANCE ABUSE TREATMENT (02/22/17) GROUP ARCHITECTURE INSTRUCTOR FOR SUBSTANCE ABUSE TREATMENT, PSYCHOEDUCATION (03/06/16) GROUP ARCHITECTURE INSTRUCTOR FOR SUBSTANCE ABUSE, COGNITIVE BEHAVIORAL (02/22/17) GROUP PSYCHOTHERAPY (03/30/16) INDIV ARCHITECTURE INSTRUCTOR FOR SUBSTANCE ABUSE TREATMENT, PSYCHOEDUCATION (02/22/17) INDIV PSYCHOTHERAPY FOR SUBSTANCE ABUSE TREATMENT, SUPPORT (02/22/17) INDIVIDUAL PSYCHOTHERAPY, COGNITIVE-BEHAVIORAL (12/10/16) INDIVIDUAL PSYCHOTHERAPY, SUPPORTIVE (03/30/16) INSERTION OF INFUSION DEV INTO SUP VENA CAVA, PERC APPROACH (12/10/16) REMOVAL OF INFUSION DEV FROM GREAT VESSEL, ASSISTANT PROFESSOR OF THEATER APPROACH (02/02/17) ULTRASONOGRAPHY OF SUPERIOR VENA CAVA, GUIDANCE (12/10/16) Family History: States: Unknown Family Hx - Social History Hx Tobacco Use: No Hx Alcohol Use: Yes Hx Substance Use: No - Immunization History Hx Tetanus Toxoid Vaccination: Yes Hx Influenza Vaccination: Yes Hx Pneumococcal Vaccination: No Review Of Systems Constitutional: Negative for: Fever, Chills Eyes: Negative for: Vision Change Cardiovascular: Negative for: Chest Pain, Palpitations Respiratory: Negative for: Cough, Shortness of Breath Gastrointestinal: Negative for: Nausea, Vomiting, Abdominal Pain Musculoskeletal: Negative for: Back Pain Skin: Negative for: Rash Neurological: Negative for: Weakness, Numbness, Headache Psych: Positive for: Suicidal ideation. Negative for: Depression Physical Exam - Physical Exam Appears: Non-toxic, No Acute Distress Skin: Normal Color, Warm, Dry Head: Atraumatic, Normacephalic, Other (Lipoma over left forehead, chronic scarring over eyebrows) Nose: No Discharge, No Deformity Oral Mucosa: Moist Neck: Normal ROM, Supple Chest: Symmetrical Cardiovascular: Rhythm Regular, No Murmur Respiratory: Normal Breath Sounds, No Rales, No Rhonchi, No Wheezing Gastrointestinal/Abdominal: Soft, No Tenderness, No Distention, No Rebound Extremity: Normal ROM, No Pedal Edema, No Calf Tenderness, No Deformity, No Swelling Neurological/Psych: Oriented x3, Normal Speech, Normal Cognition Gait: Steady ED Course And Treatment - Laboratory Results Result Diagrams: 09/11/17 13:12 09/11/17 13:12 O2 Sat by Pulse Oximetry: 96 (On RA) Pulse Ox Interpretation: Normal Medical Decision Making Medical Decision Making: Impression : 52 y/o male with SI Plan: * 1:1 obs * UA * Blood work Patient awake, alert, no distress. Breathalizer 119. Crisis advised. pending admission. Disposition Counseled Patient/Family Regarding: Studies Performed, Diagnosis - Disposition Disposition Time: 18:48 Condition: STABLE - Clinical Impression Clinical Impression: Alcohol abuse, Suicidal intent - Scribe Statement The provider has reviewed the documentation as recorded by the Scribe Gage Beth All medical record entries made by the Scribe were at my direction and personally dictated by me. I have reviewed the chart and agree that the record accurately reflects my personal performance of the history, physical exam, medical decision making, and the department course for this patient. I have also personally directed, reviewed, and agree with the discharge instructions and disposition. Physician Patient Turnover Patient Signed Over To: Charisma Lindsey Handoff Comments: pending final dispo by crisis
--- NOTE | 2017-09-11 20:42 | PCM.BM ---
<Arley Zambrano - Last Filed: 09/11/17 20:38> Treatment Plan Problems - Problems identified on initial assessmt Depression Date Initiated: 09/11/17 Time Initiated: 20:39 Assessment reference: NA Alcohol Abuse Date Initiated: 09/11/17 Time Initiated: 20:39 Assessment reference: NA Treatment assets and liabiliti Patient Assests: adapts well, cooperative, educated, self-reliant, ADL independent, physically healthy, negotiates basic needs Patient Liabilities: live alone, financial problems (unemployed), substance abuse (alcohol), medical problems (hypertension) - Milieu Protocol Maintain good personal hygiene: daily Encourage regular showers, daily Remind patient to perform daily oral care, every shift Assist patient to perform ADL's Conduct patient checks and document Observation sheet: Q15 minutes (For safety) Maintain personal safety: every shift Educate patient to report safety concerns to staff, every shift Monitor environment for contraband/sharps Medication safety: Monitor for expected outcome, potential side effects: every shift, Assess barriers to learning: every shift, Assess readiness for medication education: every shift <Monroe Henry - Last Filed: 09/13/17 10:39> - Diagnosis (1) Bipolar affective disorder, depressed, severe, with psychotic behavior Status: Acute Interventions: 09/13/17 10:40 * Assess/adjust medications daily and /or as needed * See patient on an individual basis 7x/week to assess level of manic behaviors and stability * Discuss risks, benefits, side effects and alternatives of medications * (2) Alcohol dependence Status: Acute Interventions: 09/13/17 10:40 * Assess 7x/week regarding severity of withdrawal * Educate regarding risks, benefits, side effects and alternatives of medications * Use Motivational Interviewing for abstinence * Use CBT for relapse prevention * Medication management for withdrawal symptoms * Encourage medication assisted treatment * <Shruthi Ernst - Last Filed: 09/13/17 11:05> Family Contact Family involvement: Tom/SO not involved - Goals for Treatment Patient goals for treatment: "I want to go back to the [facility] program." Discharge/Continuing Care - Education Needs Education Needs: Patient Medication, Patient Coping Skills, Patient Placement options, Patient Community resources - Discharge Discharge Criteria: Tolerates medication w/o severe side effects, Reduction of target symptoms Discharge to:: Home - Treatment Team Participation Discussed with Family/SO: No Was Patient/Family/SO present at Treatment Team Meeting: Yes
[2017-09-12] MEDS: Multiple Vitamins Tab PO SCH (09:53)
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
[2017-09-13] MEDS: Multiple Vitamins Tab PO SCH (09:45)
--- NOTE | 2017-09-13 09:55 | PCM.PYCHPN ---
Psychiatric Progress Note - Psychiatric Progress Note Patient seen today, length of contact: 15 min Patient Chief Complaint: I am feeling little better.' Problems Identified/Issues Discussed: Patient seen and evaluated, chart reviewed and discussed with the nurse. Patient appears more organized and less paranoid and less delusional. Patient remained isolated, confined and withdrawn. Patient still reports withdrawal symptom from drinking including shakes, anxiety and headaches. He reports depressed mood and feelings of hopelessness and helplessness. He is taking medication and denies any side effects. He needs more time for stabilization. Supportive therapy and psychoeducation were given. Medication Change: Yes (librium tapr) Medical Record Reviewed: Yes Mental Status Examination - Cognitive Function Orientation: Person, Place, Situation, Time Memory: Intact Attention: WNL Concentration: Poor Association: WNL Fund of Knowledge: Poor - Mood Mood: Depressed, Anxious - Affect Affect: Constricted, Depressed - Speech Speech: Soft - Formal Thought Process Formal Thought Process: Hallucinations - Suicidal Ideation Suicidal Ideation: No - Homicidal Ideation Homicidal Ideation: No Goal/Treatment Plan - Goal/Treatment Plan Need for Continued Stay: Severe depression anxiety, Severe functional impairment Progress Toward Problem(s) and Goals/Treatment Plan: Bipolar depressed severe with psychotic features Alcohol disorder severe Alcohol withdrawal CBT Psychoeducation Supportive therapy, group therapy, individual therapy Neurontin 300 mg pO TID Zoloft 50 mg PO Daily Trazodone 50 mg by mouth daily at bedtime Librium when necessary Librium taper Folic acid/thiamine/multivitamin - Smoking Cessation Smoking Cessation Initiated: No
[2017-09-13] MEDS ORDERED: Pneumococcal 23-Valent Vaccine IM ONE (10:00)
[2017-09-14] MEDS: Multiple Vitamins Tab PO SCH (09:34)
--- NOTE | 2017-09-14 14:39 | PCM.PYCHPN ---
Psychiatric Progress Note - Psychiatric Progress Note Patient seen today, length of contact: 15 min Patient Chief Complaint: "I have withdrawal symptoms and bipolar disorder" Problems Identified/Issues Discussed: Patient was seen. Chart was reviewed important content noted. Nurse input received that he is compliant with the medications. Patient reported alcohol withdrawal symptoms including shakes nausea, headaches. No events overnight. Patient stated that he is compliant with the medication and denied side effects. Patient slept well and is eating well. Patient reported depressive symptoms. However he denied suicidal or homicidal ideations. Patient does not report hallucinations. No delusions elicited. No paranoia elicited. Patient has remained in good clinical and behavioral control. Symptoms are improving, but needs more time to stabilize. Patient is finding medications beneficial and would like to continue with treatment plan. Patient appreciated that treatment team is trying to help. DSM 5 Symptoms Update: Bipolar depressed severe with psychotic features Alcohol disorder severe Alcohol withdrawal Medication Change: Yes (librium taper) Medical Record Reviewed: Yes Mental Status Examination - Cognitive Function Orientation: Person, Place, Situation, Time Memory: Intact Attention: WNL Concentration: Poor Association: WNL Fund of Knowledge: Poor Decription of patient's judgement and insights: ANXIOUS but cooperative Judgment good, insight good - Mood Mood: Depressed, Anxious - Affect Affect: Constricted, Depressed - Speech Speech: Soft - Formal Thought Process Formal Thought Process: Hallucinations Psychotic Thoughts and Behaviors: Denied - Suicidal Ideation Suicidal Ideation: No - Homicidal Ideation Homicidal Ideation: No Goal/Treatment Plan - Goal/Treatment Plan Need for Continued Stay: Severe depression anxiety, Discharge may exacerbated symptoms, Severe functional impairment Progress Toward Problem(s) and Goals/Treatment Plan: CBT Psychoeducation Supportive therapy, group therapy, individual therapy Neurontin 300 mg pO TID Zoloft 50 mg PO Daily Trazodone 50 mg by mouth daily at bedtime Librium when necessary Librium taper Folic acid/thiamine/multivitamin Estimated Date of D/C: 09/20/17 - Smoking Cessation Smoking Cessation Initiated: Yes
[2017-09-15] MEDS: Multiple Vitamins Tab PO SCH (09:31)
--- NOTE | 2017-09-15 12:24 | PCM.PYCHPN ---
Psychiatric Progress Note - Psychiatric Progress Note Patient seen today, length of contact: 15 min Patient Chief Complaint: "I can't sleep well" Problems Identified/Issues Discussed: The pt is seen, chart reviewed, case discussed with staff. Support given, CBT and [place] used briefly No new symptoms reported, improving slowly and needs more time No SEs from medications, risks discussed. After care discussed Medication Change: Yes (librium taper) Medical Record Reviewed: Yes Mental Status Examination - Cognitive Function Orientation: Person, Place, Situation, Time Memory: Intact Attention: WNL Concentration: Poor Association: WNL Fund of Knowledge: Poor - Mood Mood: Depressed, Anxious - Affect Affect: Constricted, Depressed - Speech Speech: Soft - Formal Thought Process Formal Thought Process: No Impairment - Suicidal Ideation Suicidal Ideation: No - Homicidal Ideation Homicidal Ideation: No Goal/Treatment Plan - Goal/Treatment Plan Need for Continued Stay: Severe depression anxiety, Discharge may exacerbated symptoms, Severe functional impairment Progress Toward Problem(s) and Goals/Treatment Plan: Continue medications Support and psychoeducation daily Attend groups and activities daily After care planning by ROGER Estimated Date of D/C: 09/20/17
[2017-09-16] MEDS: Multiple Vitamins Tab PO SCH (09:20)
--- NOTE | 2017-09-16 17:36 | PCM.PYCHPN ---
Psychiatric Progress Note - Psychiatric Progress Note Patient seen today, length of contact: 15 min Patient Chief Complaint: "Medication is helping them" Problems Identified/Issues Discussed: Patient was seen. Chart was reviewed important content noted. Nurse input received that he is compliant with the medications. Patient reported improvement in alcohol withdrawal symptoms including shakes nausea, headaches. No events overnight. Patient stated that he is compliant with the medication and denied side effects. Patient slept well and is eating well. Patient denied depressive symptoms. He denied suicidal or homicidal ideations. Patient reported improvement in auditory hallucinations. No delusions elicited. No paranoia elicited. Patient has remained in good clinical and behavioral control. Symptoms are improving, but needs more time to stabilize. Patient is finding medications beneficial and would like to continue with treatment plan. Patient appreciated that treatment team is trying to help. Diagnostic Results: Schizoaffective d/o, Etoh use d/o, Severe, withdrawal symptoms. Medication Change: Yes (librium taper) Medical Record Reviewed: Yes Mental Status Examination - Cognitive Function Orientation: Person, Place, Situation, Time Memory: Intact Attention: WNL Concentration: WNL Association: WNL Fund of Knowledge: [facility] Decription of patient's judgement and insights: fair/fair Addtional comments: Calm and cooperative - Mood Mood: Anxious - Affect Affect: Constricted, Depressed - Speech Speech: Appropriate, Soft - Formal Thought Process Formal Thought Process: No Impairment Psychotic Thoughts and Behaviors: denied - Suicidal Ideation Suicidal Ideation: No Plan: denied, intent or plan - Homicidal Ideation Homicidal Ideation: No Plan: denied, intent or plan Goal/Treatment Plan - Goal/Treatment Plan Need for Continued Stay: Severe depression anxiety, Discharge may exacerbated symptoms, Severe functional impairment Progress Toward Problem(s) and Goals/Treatment Plan: Continue CBT Psychoeducation Supportive therapy, group therapy, individual therapy Neurontin 300 mg pO TID Zoloft 50 mg PO Daily Trazodone 50 mg by mouth daily at bedtime Librium when necessary Librium taper Folic acid/thiamine/multivitamin Estimated Date of D/C: 09/20/17 - Smoking Cessation Smoking Cessation Initiated: Yes
[2017-09-17 06:07] VITALS: O2SAT 95
--- NOTE | 2017-09-17 11:00 | PCM.PYCHPN ---
Psychiatric Progress Note - Psychiatric Progress Note Patient seen today, length of contact: 15 min Patient Chief Complaint: I am feeling little better.' Problems Identified/Issues Discussed: Patient seen and evaluated, chart reviewed and discussed with the nurse. Patient appears more organized and less paranoid and less delusional. Patient remained isolated, confined and withdrawn. Patient still reports withdrawal symptom from drinking including shakes, anxiety and headaches. He reports depressed mood and feelings of hopelessness and helplessness. He is taking medication and denies any side effects. He needs more time for stabilization. Supportive therapy and psychoeducation were given. Medication Change: Yes (librium taper) Medical Record Reviewed: Yes Mental Status Examination - Cognitive Function Orientation: Person, Place, Situation, Time Memory: Intact Attention: WNL Concentration: WNL Association: WNL Fund of Knowledge: WNL - Mood Mood: Anxious - Affect Affect: Constricted, Depressed - Speech Speech: Appropriate, Soft - Formal Thought Process Formal Thought Process: No Impairment - Suicidal Ideation Suicidal Ideation: No - Homicidal Ideation Homicidal Ideation: No Goal/Treatment Plan - Goal/Treatment Plan Need for Continued Stay: Severe depression anxiety, Discharge may exacerbated symptoms, Severe functional impairment Progress Toward Problem(s) and Goals/Treatment Plan: Bipolar depressed severe with psychotic features Alcohol disorder severe Alcohol withdrawal CBT Psychoeducation Supportive therapy, group therapy, individual therapy Neurontin 300 mg pO TID Zoloft 50 mg PO Daily Trazodone 50 mg by mouth daily at bedtime Librium when necessary Librium taper Folic acid/thiamine/multivitamin Estimated Date of D/C: 09/20/17
[2017-09-17] MEDS: Multiple Vitamins Tab PO SCH (11:09)
[2017-09-18] MEDS: Multiple Vitamins Tab PO SCH (10:24)
[2017-09-19] MEDS: Multiple Vitamins Tab PO SCH (09:36)
[2017-09-20] MEDS: Multiple Vitamins Tab PO SCH (09:13)
--- NOTE | 2017-09-20 12:49 | PCM.PYCHPN ---
Psychiatric Progress Note - Psychiatric Progress Note Patient seen today, length of contact: 15 min Patient Chief Complaint: I am feeling little better.' Problems Identified/Issues Discussed: Patient seen and evaluated, chart reviewed and discussed with the nurse. Patient reports improvement in his mood and paranoia. He reports improvement in the withdrawal symptom. He still reports poor sleep and remained isolated. He is taking medication and denies any side effects. He needs more time for stabilization. Supportive therapy and psychoeducation were given. Medication Change: No Medical Record Reviewed: Yes Mental Status Examination - Cognitive Function Orientation: Person, Place, Situation, Time Memory: Intact Attention: WNL Concentration: Poor Association: WNL Fund of Knowledge: Poor - Mood Mood: Anxious - Affect Affect: Constricted, Depressed - Speech Speech: Appropriate, Soft - Formal Thought Process Formal Thought Process: No Impairment - Suicidal Ideation Suicidal Ideation: No - Homicidal Ideation Homicidal Ideation: No Goal/Treatment Plan - Goal/Treatment Plan Need for Continued Stay: Severe depression anxiety, Discharge may exacerbated symptoms, Severe functional impairment Progress Toward Problem(s) and Goals/Treatment Plan: Bipolar depressed severe with psychotic features Alcohol disorder severe Alcohol withdrawal CBT Psychoeducation Supportive therapy, group therapy, individual therapy Neurontin 300 mg pO TID Zoloft 100 mg PO Daily Trazodone 100 mg by mouth daily at bedtime Folic acid/thiamine/multivitamin Estimated Date of D/C: 09/20/17 - Smoking Cessation Smoking Cessation Initiated: No
[2017-09-21] MEDS: Multiple Vitamins Tab PO SCH (09:55)
[2017-09-22] MEDS: Multiple Vitamins Tab PO SCH (10:06)
[2017-09-23] MEDS: Multiple Vitamins Tab PO SCH (09:32)
[2017-09-24 06:01] VITALS: BP 106/65; PULSE 76; RESP 18; TEMP 97.6
--- NOTE | 2017-09-24 07:30 | PCM.PYCHPN ---
Psychiatric Progress Note - Psychiatric Progress Note Patient seen today, length of contact: 15 min Patient Chief Complaint: I AM GETTING AGGREVATED WITH SOME OTHER PATIENTS. THE NURSES TELL ME TO IGNORE ONE ESPECIALLY PATIENT Problems Identified/Issues Discussed: MANAGEMENT OF SYMPTOMS AUDITORY COMMAND HALLUCINATION IMPULSE CONTROL Medical Problems: NOTHING ACUTE Diagnostic Results: REVIEWED DSM 5 Symptoms Update: AUDITORY HALLUCINATION Medication Change: No Medical Record Reviewed: Yes Mental Status Examination - Cognitive Function Orientation: Place, Situation, Time Memory: Intact Attention: WNL Concentration: Poor Association: WNL Fund of Knowledge: Poor - Mood Mood: Anxious Additional comments: IRRITABLE - Affect Affect: Other Additional comments: ANGRY - Speech Speech: Appropriate - Formal Thought Process Formal Thought Process: No Impairment - Suicidal Ideation Suicidal Ideation: No - Homicidal Ideation Homicidal Ideation: No Goal/Treatment Plan - Goal/Treatment Plan Need for Continued Stay: Severe depression anxiety, Discharge may exacerbated symptoms Progress Toward Problem(s) and Goals/Treatment Plan: BIPOLAR DISORDER IL CBT MEDS ALCOHOL USE DISORDER IL CBT Estimated Date of D/C: 09/24/17 - Smoking Cessation Smoking Cessation Initiated: Yes
--- NOTE | 2017-09-24 07:39 | PCM.PYCHPN ---
Psychiatric Progress Note - Psychiatric Progress Note Patient seen today, length of contact: 15 min Patient Chief Complaint: I AM CONCENTRATING BETTER, I CAN PLAY CARDS Problems Identified/Issues Discussed: SYMPTOM MANAGEMENT ADHERENCE TO MEDS AND TREATMENT POST ACUTE WITHDRAWAL SYNDROME Medical Problems: NOTHING ACUTE Diagnostic Results: REVIEWED Medical Record Reviewed: Yes Mental Status Examination - Cognitive Function Orientation: Place, Situation, Time Memory: Intact Attention: WNL Concentration: WNL Association: WNL Fund of Knowledge: WNL - Mood Mood: Anxious, Other Additional comments: IRRITABLE - Affect Affect: Constricted, Other - Speech Speech: Appropriate - Formal Thought Process Formal Thought Process: No Impairment - Suicidal Ideation Suicidal Ideation: No Goal/Treatment Plan - Goal/Treatment Plan Need for Continued Stay: Severe depression anxiety, Discharge may exacerbated symptoms Progress Toward Problem(s) and Goals/Treatment Plan: BIPOLAR DISORDER MEDICATIONS CBT AR ALCOHOL USE DISORDER AR CBT Estimated Date of D/C: 09/24/17 - Smoking Cessation Smoking Cessation Initiated: Yes
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
[2017-09-24] MEDS: Multiple Vitamins Tab PO SCH (11:22)
== END 2017-09-24 01:00 | disposition home or self-care (01) | DRG 430 ==
LOC: C.ER 12:03 → C.5E 19:38
PROC: GZ3ZZZZ Medication Management (ICD-10-PCS; principal; 2017-09-11)
PROC: HZ89ZZZ Medication Management for Substance Abuse Treatment, Other Replacement Medication (ICD-10-PCS; 2017-09-11)
PROC: GZHZZZZ Group Psychotherapy (ICD-10-PCS; 2017-09-11)
PROC: GZ56ZZZ Individual Psychotherapy, Supportive (ICD-10-PCS; 2017-09-11)
DX: F31.5 Bipolar disorder, current episode depressed, severe, with psychotic features (principal); R45.851 Suicidal ideations; F10.239 Alcohol dependence with withdrawal, unspecified; I10 Essential (primary) hypertension; E78.00 Pure hypercholesterolemia, unspecified; D17.9 Benign lipomatous neoplasm, unspecified; Z87.828 Personal history of other (healed) physical injury and trauma

== ENCOUNTER 2017-10-01 12:05 | Emergency (ER) | payer MEDICAID ==
[2017-10-01 12:05] VITALS: BMI 27.1
[2017-10-01 13:55] LABS: BASO % 0.8 % (0.0-2.0); EOS # 0.1 K/uL (0.0-0.7); EOS % 2.6 % (0.0-4.0); HEMOGLOBIN 12.2 g/dL (12.0-18.0); LYMPH # 1.3 K/uL (1.0-4.3); LYMPH % 33.6 % (20.0-40.0); MEAN CORPUSCULAR HGB CONC 33.6 g/dL (33.0-37.0); MEAN PLATELET VOLUME 7.6 fL (7.2-11.7); MONO # 0.5 K/uL (0.0-0.8); MONO % 12.9 % (0.0-10.0); NEUT # 1.9 K/uL (1.8-7.0); NEUT % 50.1 % (50.0-75.0); RBC 3.95 Mil/uL (4.40-5.90); WHITE BLOOD COUNT 3.8 K/uL (4.8-10.8)
[2017-10-01 14:01] LABS: SQUAMOUS EPITHIAL < 1 /hpf (0-5); URINE BACTERIA RARE (<OCC); URINE BILIRUBIN NEGATIVE (NEGATIVE); URINE BLOOD NEGATIVE (NEGATIVE); URINE CLARITY Clear (Clear); URINE COLOR Straw (YELLOW); URINE GLUCOSE (UA) NORMAL (Normal); URINE LEUKOCYTE ESTERASE NEG Leu/uL (Negative); URINE NITRATE NEGATIVE (NEGATIVE); URINE PROTEIN NEGATIVE (NEGATIVE); URINE UROBILINOGEN NORMAL mg/dL (0.2-1.0)
[2017-10-01 14:18] LABS: ALB/GLOB RATIO 1.3 (1.0-2.1); ALBUMIN 4.3 g/dL (3.5-5.0); ALT/SGPT 30 U/L (21-72); AST/SGOT 36 U/L (17-59); BLOOD UREA NITROGEN 8 mg/dL (9-20); CALCIUM 8.2 mg/dl (8.6-10.4); GFR AFRICAN-AMERICAN > 60; GFR NON-AFRICAN AMERICAN > 60
[2017-10-01 14:22] LABS: BARBITURATES, UR NEGATIVE (NEGATIVE); BENZODIAZEPINES, UR NEGATIVE (NEGATIVE); OPIATES, UR NEGATIVE (NEGATIVE); PHENCYCLIDINE, UR NEGATIVE (NEGATIVE)
--- NOTE | 2017-10-01 14:35 | C.PDOC ---
History Of Present Illness 52 year old male, with history of Schizophrenia, is brought to ED for evaluation of headache. Patient states he fell asleep on a chair, slipped, and fell off the chair hitting the right side of his head on the floor. Patient is a poor historian, and denies to provide any history of present illness. Pt states he "feels like I want to do something to myself". Pt denies LOC, syncope , dizziness, weakness, numbness, vision change, nausea, vomiting, chest pain, cough, or shortness of breath. Denies any other injuries. Time Seen by Provider: 10/01/17 12:51 Chief Complaint (Nursing): Headache History Per: Patient History/Exam Limitations: no limitations Onset/Duration Of Symptoms: Days Current Symptoms Are (Timing): Still Present Quality: Aching Preceeding Symptoms: None. denies: Visual Disturbances, Known Migraine Symptoms Associated Symptoms: denies: Photophobia, Blurred Vision, Nausea, Vomiting, Extremity Weakness Recent travel outside of the [place]: No Additional History Per: Patient Past Medical History Reviewed: Historical Data, Nursing Documentation, Vital Signs Vital Signs: Last Vital Signs Temp 98.0 F 10/01/17 18:47 Pulse 84 10/01/17 18:47 Resp 18 10/01/17 18:47 BP 128/78 10/01/17 18:47 Pulse Ox 98 10/01/17 18:47 - Medical History PMH: Anxiety, Depression, HTN, Hypercholesterolemia, Personality Disorder ( multiple fights,agression), Schizophrenia Denies: Alzheimer's Disease, Anemia, Arthritis, Asthma, Atrial Fibrillation, Bipolar Disorder, Bronchitis, Cardia Arrhythmia, CHF, COPD, Crohn's Disease, Dementia, Diabetes (Patient denied), Diverticulitis, Emphysema, Fractures, Gastritis, Gall Bladder Disease, Hepatitis (Patient denied), HIV, Hyperthyroidism, Hypothyroidism, Kidney Stones, Migraine, Mitral Valve Prolapse , Multiple Sclerosis, Osteoporosis, Pancreatitis, Paranoia, Parkinson's Disease , Peripheral Edema, Pneumonia, Post Traumatic Stress Disorder, Pulmonary Embolism, Chronic Kidney Disease, Rheumatoid Arthritis, Seizures, Sickle Cell Disease, Sexually Transmitted Disease, Sleep Apnea, TIA Surgical History: Denies: Appendectomy, CABG, Carotid Endarterectomy, Cholecystectomy, Coronary Stent, Pacemaker, Tonsillectomy - [facility] Procedures ALCOHOL DETOXIFICATION (01/08/14) DETOXIFICATION SERVICES FOR SUBSTANCE ABUSE TREATMENT (02/22/17) GROUP BOX TRUCK OWNER OPERATOR FOR SUBSTANCE ABUSE TREATMENT, PSYCHOEDUCATION (03/06/16) GROUP BOX TRUCK OWNER OPERATOR FOR SUBSTANCE ABUSE, COGNITIVE BEHAVIORAL (02/22/17) GROUP PSYCHOTHERAPY (09/11/17) INDIV BOX TRUCK OWNER OPERATOR FOR SUBSTANCE ABUSE TREATMENT, PSYCHOEDUCATION (02/22/17) INDIV PSYCHOTHERAPY FOR SUBSTANCE ABUSE TREATMENT, SUPPORT (02/22/17) INDIVIDUAL PSYCHOTHERAPY, COGNITIVE-BEHAVIORAL (12/10/16) INDIVIDUAL PSYCHOTHERAPY, SUPPORTIVE (09/11/17) INSERTION OF INFUSION DEV INTO SUP VENA CAVA, PERC APPROACH (12/10/16) MEDICATION MANAGEMENT (09/11/17) MEDS MGMT FOR SUBSTANCE ABUSE TREATMENT, OTH REPL MED (09/11/17) REMOVAL OF INFUSION DEV FROM GREAT VESSEL, TWIST PACKER APPROACH (02/02/17) ULTRASONOGRAPHY OF SUPERIOR VENA CAVA, GUIDANCE (12/10/16) Family History: States: Unknown Family Hx - Social History Hx Tobacco Use: No Hx Alcohol Use: Yes Hx Substance Use: Yes - Immunization History Hx Tetanus Toxoid Vaccination: Yes Hx Influenza Vaccination: Yes Hx Pneumococcal Vaccination: No Review Of Systems Except As Marked, All Systems Reviewed And Found Negative. Constitutional: Negative for: Fever, Chills Cardiovascular: Negative for: Chest Pain, Palpitations Respiratory: Negative for: Cough, Shortness of Breath Gastrointestinal: Negative for: Nausea, Vomiting Musculoskeletal: Negative for: Neck Pain Neurological: Positive for: Headache. Negative for: Weakness, Numbness, Change in Speech, Dizziness Physical Exam - Physical Exam Appears: Non-toxic, No Acute Distress Skin: Normal Color, Warm, Dry, No Rash Head: Atraumatic, Normacephalic, No Tenderness Eye(s): bilateral: PERRL Oral Mucosa: Moist, No Drooling Neck: Supple Cardiovascular: Rhythm Regular, No Murmur Respiratory: No Accessory Muscle Use, No Rales, No Rhonchi, No Wheezing Extremity: Normal ROM, No Pedal Edema, No Deformity Neurological/Psych: Oriented x3, Normal Speech, No Other (no focal deficits) ED Course And Treatment - Laboratory Results Result Diagrams: 10/01/17 13:49 10/01/17 13:49 O2 Sat by Pulse Oximetry: 97 (RA) Pulse Ox Interpretation: Normal - CT Scan/US CT head w/o contrast Other Rad Studies (CT/US): Read By Radiologist, Radiology Report Reviewed CT/US Interpretation: (-) acute. IMPRESSION: No acute intracranial pathology identified. Findings as above. Progress Note: BLOOD WORK, IMAGING REVIEW AND APPAERS NORMAL. AT 16:00, PT IS MEDICALLY CLEARED FOR PES EVALUATION NOW. At 16:20, pt was interviewed by TRINA Tao, Alcohol noted to be inappropriate high for evaluation now. WIll re- interview at 18:00. At 18:10, PES worker re-interview patient and case was discussed with , pt did not meet admission criteria, and discharge with outpt f/u recommend at present time. Pt advised, stable for discharge now. Disposition Counseled Patient/Family Regarding: Studies Performed, Diagnosis, Need For Followup - Disposition Referrals: [facility] [Outside] Disposition: HOME/ ROUTINE Disposition Time: 18:55 Condition: STABLE Additional Instructions: Follow up with pmd, Psych in 2-3 days for re-evaluation and further treatment as indicated return if any new changes. Instructions: Head Injury (ED), Alcohol Intoxication (ED) Forms: [email or web address] (Turkmen) - Clinical Impression Clinical Impression: Head injury, Alcohol intoxication - PA / WATER SOFTENER SERVICER AND INSTALLER / Resident Statement MD/DO has reviewed & agrees with the documentation as recorded. - Scribe Statement The provider has reviewed the documentation as recorded by the Scribe Quentin Cobian All medical record entries made by the Mikeibboone were at my direction and personally dictated by me. I have reviewed the chart and agree that the record accurately reflects my personal performance of the history, physical exam, medical decision making, and the department course for this patient. I have also personally directed, reviewed, and agree with the discharge instructions and disposition.
--- NOTE | 2017-10-01 15:40 | CT ---
PROCEDURE: CT HEAD WITHOUT CONTRAST. HISTORY: injury, pain COMPARISON: Noncontrast head CT performed 01/22/14 TECHNIQUE: Axial computed tomography images were obtained through the head/brain without intravenous contrast. Radiation dose: Total exam DLP = 1084.95 mGy-cm. This CT exam was performed using one or more of the following dose reduction techniques: Automated exposure control, adjustment of the mA and/or kV according to patient size, and/or use of iterative reconstruction technique. FINDINGS: HEMORRHAGE: No intracranial hemorrhage. BRAIN: No mass effect or edema. The chinchilla-white matter differentiation appears intact. Please note that MRI with diffusion imaging is more sensitive in the detection of acute ischemic event. VENTRICLES: No hydrocephalus. CALVARIUM: Unremarkable. PARANASAL SINUSES: Unremarkable as visualized. No significant inflammatory changes. MASTOID AIR CELLS: Unremarkable as visualized. No inflammatory changes. OTHER FINDINGS: Left anterior scalp low-attenuation cystic-appearing structure measures approximately 2.3 x 2.9 cm, possibly sebaceous cyst or epidermoid cyst. IMPRESSION: No acute intracranial pathology identified. Findings as above.
[2017-10-01 18:47] VITALS: BP 128/78; PULSE 84; RESP 18; TEMP 98
[2017-10-01 18:56] VITALS: O2SAT 97
== END 2017-10-01 18:58 | disposition home or self-care (01) ==
LOC: C.ER 12:05
DX: S09.90XA Unspecified injury of head, initial encounter (principal); W07.XXXA Fall from chair, initial encounter; F10.129 Alcohol abuse with intoxication, unspecified; Y90.8 Blood alcohol level of 240 mg/100 ml or more

== ENCOUNTER 2017-10-01 21:58 | Emergency (ER) | payer MEDICAID ==
[2017-10-01 21:58] VITALS: BMI 27.1
--- NOTE | 2017-10-01 22:10 | C.PDOC ---
History Of Present Illness 52 y/o male presents to ED by ambulance after he was found publicly intoxicated. Denies any physical complaints. Patient has had multiple ED visits for similar symptoms. Time Seen by Provider: 10/01/17 22:09 Chief Complaint (Nursing): Substance Abuse History Per: Patient History/Exam Limitations: no limitations Onset/Duration Of Symptoms: Hrs Current Symptoms Are (Timing): Still Present Suicide/Self Injury Attempted (Context): None Modifying Factor(s): Alcohol Associated Symptoms: denies: Anger, Anxiety, Agitation, Suicidal Thoughts, Suicidal Plan Recent travel outside of the [place]: No Past Medical History Reviewed: Historical Data, Nursing Documentation, Vital Signs Vital Signs: Last Vital Signs Temp 97.5 F L 10/02/17 01:46 Pulse 68 10/02/17 04:50 Resp 14 10/02/17 04:50 BP 93/64 L 10/02/17 04:50 Pulse Ox 97 10/02/17 04:50 - Medical History PMH: Anxiety, Depression, HTN, Hypercholesterolemia, Personality Disorder ( multiple fights,agression), Schizophrenia Surgical History: Denies: Appendectomy, CABG, Carotid Endarterectomy, Cholecystectomy, Coronary Stent, Pacemaker, Tonsillectomy - [facility] Procedures ALCOHOL DETOXIFICATION (01/08/14) DETOXIFICATION SERVICES FOR SUBSTANCE ABUSE TREATMENT (02/22/17) GROUP ZONING ADMINISTRATOR FOR SUBSTANCE ABUSE TREATMENT, PSYCHOEDUCATION (03/06/16) GROUP ZONING ADMINISTRATOR FOR SUBSTANCE ABUSE, COGNITIVE BEHAVIORAL (02/22/17) GROUP PSYCHOTHERAPY (09/11/17) INDIV ZONING ADMINISTRATOR FOR SUBSTANCE ABUSE TREATMENT, PSYCHOEDUCATION (02/22/17) INDIV PSYCHOTHERAPY FOR SUBSTANCE ABUSE TREATMENT, SUPPORT (02/22/17) INDIVIDUAL PSYCHOTHERAPY, COGNITIVE-BEHAVIORAL (12/10/16) INDIVIDUAL PSYCHOTHERAPY, SUPPORTIVE (09/11/17) INSERTION OF INFUSION DEV INTO SUP VENA CAVA, PERC APPROACH (12/10/16) MEDICATION MANAGEMENT (09/11/17) MEDS MGMT FOR SUBSTANCE ABUSE TREATMENT, OTH REPL MED (09/11/17) REMOVAL OF INFUSION DEV FROM GREAT VESSEL, WOVEN WOOD SHADE ASSEMBLER APPROACH (02/02/17) ULTRASONOGRAPHY OF SUPERIOR VENA CAVA, GUIDANCE (12/10/16) Family History: States: Unknown Family Hx Other Family History: nc - Social History Hx Tobacco Use: No Hx Alcohol Use: Yes Hx Substance Use: Yes - Immunization History Hx Tetanus Toxoid Vaccination: Yes Hx Influenza Vaccination: Yes Hx Pneumococcal Vaccination: No Review Of Systems Constitutional: Positive for: Other (Intoxicated). Negative for: Fever Cardiovascular: Negative for: Chest Pain, Palpitations Respiratory: Negative for: Cough, Shortness of Breath Gastrointestinal: Negative for: Nausea, Vomiting, Abdominal Pain, Diarrhea Neurological: Negative for: Weakness, Numbness Physical Exam - Physical Exam Appears: Well, Non-toxic, No Acute Distress Skin: Warm, Dry Head: Atraumatic Eye(s): bilateral: PERRL Nose: No Discharge Oral Mucosa: Moist Neck: Supple Chest: Symmetrical, No Tenderness Cardiovascular: Rhythm Regular Respiratory: No Decreased Breath Sounds, No Accessory Muscle Use, No Rales, No Rhonchi, No Stridor, No Wheezing Gastrointestinal/Abdominal: Soft, No Tenderness Extremity: No Swelling Neurological/Psych: Oriented x3, Other (no focal deficits) Medical Decision Making Medical Decision Makin pt a&ox3 and ambulatory with steady gait prior to dc Disposition - Disposition Referrals: Alcoholics Anonymous [Outside] [facility] [Outside] Disposition: HOME/ ROUTINE Disposition Time: 05:30 Condition: STABLE Forms: General Discharge Instructions, [facility] (Faroese) - Clinical Impression Clinical Impression: Alcohol intoxication - Scribe Statement The provider has reviewed the documentation as recorded by the Scribboone Valencia All medical record entries made by the Scribe were at my direction and personally dictated by me. I have reviewed the chart and agree that the record accurately reflects my personal performance of the history, physical exam, medical decision making, and the department course for this patient. I have also personally directed, reviewed, and agree with the discharge instructions and disposition.
[2017-10-02 01:47] VITALS: RESP 14
[2017-10-02 04:50] VITALS: BP 93/64; PULSE 68; O2SAT 97
[2017-10-02 05:51] VITALS: TEMP 97.8
== END 2017-10-02 05:52 | disposition home or self-care (01) ==
LOC: C.ER 21:58
DX: F10.129 Alcohol abuse with intoxication, unspecified (principal); Y90.9 Presence of alcohol in blood, level not specified

== ENCOUNTER 2017-10-02 22:50 | Emergency (ER) | payer MEDICAID ==
[2017-10-02 22:50] VITALS: BMI 27.1
[2017-10-02 23:46] VITALS: O2SAT 97
--- NOTE | 2017-10-03 01:26 | C.PDOC ---
History Of Present Illness pt has been drinking requesting a place to stay. No other complaints Time Seen by Provider: 10/03/17 01:25 Chief Complaint (Nursing): Substance Abuse History Per: Patient History/Exam Limitations: no limitations Onset/Duration Of Symptoms: Days Current Symptoms Are (Timing): Gone Suicide/Self Injury Attempted (Context): None Modifying Factor(s): Alcohol Severity: None Associated Symptoms: Anger Involuntary Hold By: None Recent travel outside of the [place]: No Additional History Per: Patient Past Medical History Reviewed: Historical Data, Nursing Documentation, Vital Signs Vital Signs: Last Vital Signs Temp 97.9 F 10/02/17 23:42 Pulse 82 10/02/17 23:42 Resp 20 10/02/17 23:42 BP 132/78 10/02/17 23:42 Pulse Ox 97 10/03/17 01:32 - Medical History PMH: Anxiety, Depression, HTN, Hypercholesterolemia, Personality Disorder ( multiple fights,agression), Schizophrenia Denies: Alzheimer's Disease, Anemia, Arthritis, Asthma, Atrial Fibrillation, Bipolar Disorder, Bronchitis, Cardia Arrhythmia, CHF, COPD, Crohn's Disease, Dementia, Diabetes (Patient denied), Diverticulitis, Emphysema, Fractures, Gastritis, Gall Bladder Disease, Hepatitis (Patient denied), HIV, Hyperthyroidism, Hypothyroidism, Kidney Stones, Migraine, Mitral Valve Prolapse , Multiple Sclerosis, Osteoporosis, Pancreatitis, Paranoia, Parkinson's Disease , Peripheral Edema, Pneumonia, Post Traumatic Stress Disorder, Pulmonary Embolism, Chronic Kidney Disease, Rheumatoid Arthritis, Seizures, Sickle Cell Disease, Sexually Transmitted Disease, Sleep Apnea, TIA Surgical History: Denies: Appendectomy, CABG, Carotid Endarterectomy, Cholecystectomy, Coronary Stent, Pacemaker, Tonsillectomy - [facility] Procedures ALCOHOL DETOXIFICATION (01/08/14) DETOXIFICATION SERVICES FOR SUBSTANCE ABUSE TREATMENT (02/22/17) GROUP TRAIN ANNOUNCER FOR SUBSTANCE ABUSE TREATMENT, PSYCHOEDUCATION (03/06/16) GROUP TRAIN ANNOUNCER FOR SUBSTANCE ABUSE, COGNITIVE BEHAVIORAL (02/22/17) GROUP PSYCHOTHERAPY (09/11/17) INDIV TRAIN ANNOUNCER FOR SUBSTANCE ABUSE TREATMENT, PSYCHOEDUCATION (02/22/17) INDIV PSYCHOTHERAPY FOR SUBSTANCE ABUSE TREATMENT, SUPPORT (02/22/17) INDIVIDUAL PSYCHOTHERAPY, COGNITIVE-BEHAVIORAL (12/10/16) INDIVIDUAL PSYCHOTHERAPY, SUPPORTIVE (09/11/17) INSERTION OF INFUSION DEV INTO SUP VENA CAVA, PERC APPROACH (12/10/16) MEDICATION MANAGEMENT (09/11/17) MEDS MGMT FOR SUBSTANCE ABUSE TREATMENT, OTH REPL MED (09/11/17) REMOVAL OF INFUSION DEV FROM GREAT VESSEL, OCC MED PHYSICIAN APPROACH (02/02/17) ULTRASONOGRAPHY OF SUPERIOR VENA CAVA, GUIDANCE (12/10/16) Family History: States: No Known Family Hx - Social History Hx Tobacco Use: No Hx Alcohol Use: Yes Hx Substance Use: Yes - Immunization History Hx Tetanus Toxoid Vaccination: Yes Hx Influenza Vaccination: Yes Hx Pneumococcal Vaccination: No Review Of Systems Constitutional: Negative for: Fever Cardiovascular: Negative for: Chest Pain Respiratory: Negative for: Shortness of Breath Gastrointestinal: Negative for: Nausea Musculoskeletal: Negative for: Back Pain Neurological: Negative for: Weakness Psych: Negative for: Anxiety Physical Exam - Physical Exam Appears: Non-toxic Neck: Supple Chest: Symmetrical Cardiovascular: Rhythm Regular Extremity: Normal ROM Neurological/Psych: Oriented x3, Normal Speech Gait: Steady ED Course And Treatment O2 Sat by Pulse Oximetry: 97 Pulse Ox Interpretation: Normal Progress Note: pt became abusive, and was ambulating without difficulty. pt was discharged Disposition Counseled Patient/Family Regarding: Diagnosis, Need For Followup - Disposition Referrals: [facility] [Outside] Disposition: HOME/ ROUTINE Disposition Time: 01:25 Condition: FAIR Forms: [facility] (Citizen Of [place]) - Clinical Impression Clinical Impression: Alcohol abuse
[2017-10-03 01:38] VITALS: BP 109/72; PULSE 78; RESP 18; TEMP 97.4
== END 2017-10-03 01:25 | disposition home or self-care (01) ==
LOC: C.ER 22:50
DX: F10.10 Alcohol abuse, uncomplicated (principal); Y90.9 Presence of alcohol in blood, level not specified

== ENCOUNTER 2017-10-06 02:06 | Emergency (ER) | payer MEDICAID ==
[2017-10-06 02:07] VITALS: BMI 27.1
[2017-10-06 02:19] VITALS: RESP 20
--- NOTE | 2017-10-06 05:40 | C.PDOC ---
History Of Present Illness 52 years old male presents intoxicated and states it is cold outside and wants to stay the night. Patient denies any physical complaints. Chief Complaint (Nursing): Substance Abuse History Per: Patient History/Exam Limitations: no limitations Onset/Duration Of Symptoms: Hrs Current Symptoms Are (Timing): Still Present Suicide/Self Injury Attempted (Context): None Modifying Factor(s): Alcohol Associated Symptoms: denies: Anger, Depression, Suicidal Thoughts, Suicidal Plan Involuntary Hold By: None Recent travel outside of the [place]: No Past Medical History Reviewed: Historical Data, Nursing Documentation, Vital Signs Vital Signs: Last Vital Signs Temp 98 F 10/06/17 05:58 Pulse 89 10/06/17 05:58 Resp 20 10/06/17 05:58 BP 141/66 10/06/17 05:58 Pulse Ox 96 10/06/17 06:02 - Medical History PMH: Anxiety, Depression, HTN, Hypercholesterolemia, Personality Disorder ( multiple fights,agression), Schizophrenia Surgical History: No Surg Hx - [facility] Procedures ALCOHOL DETOXIFICATION (01/08/14) DETOXIFICATION SERVICES FOR SUBSTANCE ABUSE TREATMENT (02/22/17) GROUP ETHYL BLENDER FOR SUBSTANCE ABUSE TREATMENT, PSYCHOEDUCATION (03/06/16) GROUP ETHYL BLENDER FOR SUBSTANCE ABUSE, COGNITIVE BEHAVIORAL (02/22/17) GROUP PSYCHOTHERAPY (09/11/17) INDIV ETHYL BLENDER FOR SUBSTANCE ABUSE TREATMENT, PSYCHOEDUCATION (02/22/17) INDIV PSYCHOTHERAPY FOR SUBSTANCE ABUSE TREATMENT, SUPPORT (02/22/17) INDIVIDUAL PSYCHOTHERAPY, COGNITIVE-BEHAVIORAL (12/10/16) INDIVIDUAL PSYCHOTHERAPY, SUPPORTIVE (09/11/17) INSERTION OF INFUSION DEV INTO SUP VENA CAVA, PERC APPROACH (12/10/16) MEDICATION MANAGEMENT (09/11/17) MEDS MGMT FOR SUBSTANCE ABUSE TREATMENT, OTH REPL MED (09/11/17) REMOVAL OF INFUSION DEV FROM GREAT VESSEL, ELECTRICAL HARDWARE ENGINEER APPROACH (02/02/17) ULTRASONOGRAPHY OF SUPERIOR VENA CAVA, GUIDANCE (12/10/16) Family History: States: Unknown Family Hx - Social History Hx Tobacco Use: No Hx Alcohol Use: Yes Hx Substance Use: No - Immunization History Hx Tetanus Toxoid Vaccination: No Hx Influenza Vaccination: No Hx Pneumococcal Vaccination: No Review Of Systems Constitutional: Negative for: Fever Cardiovascular: Negative for: Chest Pain Gastrointestinal: Negative for: Nausea, Vomiting, Diarrhea Neurological: Negative for: Weakness, Numbness Psych: Negative for: Anxiety, Suicidal ideation Physical Exam - Physical Exam Appears: Well, Non-toxic, No Acute Distress, Other ( ETOH on breath, slurred speech unsteady gait) Skin: Normal Color, Warm, Dry Head: Atraumatic, Normacephalic Eye(s): bilateral: Normal Inspection Oral Mucosa: Moist Throat: No Erythema, No Exudate Neck: Supple Chest: Symmetrical, No Tenderness Cardiovascular: Rhythm Regular Respiratory: No Decreased Breath Sounds, No Accessory Muscle Use, No Rales, No Rhonchi, No Wheezing Gastrointestinal/Abdominal: Soft, No Tenderness Extremity: Normal ROM Extremity: Bilateral: Normal Color And Temperature, Normal ROM Pulses: Left Radial: Normal, Right Radial: Normal Neurological/Psych: Oriented x3, Normal Speech, Normal Cognition ED Course And Treatment O2 Sat by Pulse Oximetry: 96 (RA) Pulse Ox Interpretation: Normal Progress Note: On re-evaluation, patient feels better, alert and oriented, steady gait, normal speech. patient is stable to be d/c home. Disposition - Disposition Disposition: HOME/ ROUTINE Disposition Time: 05:40 Condition: STABLE Forms: [facility] (Cymraes) - Clinical Impression Clinical Impression: Alcohol intoxication - PA / STUMMEL SELECTOR / Resident Statement MD/DO has reviewed & agrees with the documentation as recorded. - Scribe Statement The provider has reviewed the documentation as recorded by the Mikeibboone Valencia All medical record entries made by the Mikeibboone were at my direction and personally dictated by me. I have reviewed the chart and agree that the record accurately reflects my personal performance of the history, physical exam, medical decision making, and the department course for this patient. I have also personally directed, reviewed, and agree with the discharge instructions and disposition.
[2017-10-06 05:59] VITALS: BP 141/66; PULSE 89; TEMP 98
[2017-10-06 06:02] VITALS: O2SAT 96
== END 2017-10-06 05:59 | disposition home or self-care (01) ==
LOC: C.ER 02:06
DX: F10.129 Alcohol abuse with intoxication, unspecified (principal); E78.00 Pure hypercholesterolemia, unspecified; I10 Essential (primary) hypertension

== ENCOUNTER 2017-10-06 21:56 | Emergency (ER) | payer MEDICAID ==
[2017-10-06 22:01] VITALS: BMI 27.1
--- NOTE | 2017-10-06 22:32 | C.PDOC ---
History Of Present Illness <Georgina Johnson - Last Filed: 10/07/17 00:22> <Shayne Espinoza - Last Filed: 10/07/17 18:20> Patient is a 52 y/o male, with a Hx of schizoaffective disorder, who presents to the ED with a complaint of SI/HI since earlier today. Patient reports to have been arrested by police earlier today. Admits to auditory hallucinations, drinking alcohol, and is prescribed Trazodone and Debacon but admits no improvement of symptoms. Patient denies suicidal plan or drug use. (Georgina Johnson) History Per: Patient History/Exam Limitations: no limitations Onset/Duration Of Symptoms: Hrs (earlier today) Suicide/Self Injury Attempted (Context): None Associated Symptoms: Suicidal Thoughts. denies: Suicidal Plan Recent travel outside of the [place]: No <Georgina Johnson - Last Filed: 10/07/17 00:22> <Shayne Espinoza - Last Filed: 10/07/17 18:20> Chief Complaint (Nursing): Psychiatric Evaluation Past Medical History Reviewed: Historical Data, Nursing Documentation, Vital Signs - Medical History PMH: Anxiety, Depression, HTN, Hypercholesterolemia, Personality Disorder ( multiple fights,agression), Schizophrenia Denies: Alzheimer's Disease, Anemia, Arthritis, Asthma, Atrial Fibrillation, Bipolar Disorder, Bronchitis, Cardia Arrhythmia, CHF, COPD, Crohn's Disease, Dementia, Diabetes (Patient denied), Diverticulitis, Emphysema, Fractures, Gastritis, Gall Bladder Disease, Hepatitis (Patient denied), HIV, Hyperthyroidism, Hypothyroidism, Kidney Stones, Migraine, Mitral Valve Prolapse , Multiple Sclerosis, Osteoporosis, Pancreatitis, Paranoia, Parkinson's Disease , Peripheral Edema, Pneumonia, Post Traumatic Stress Disorder, Pulmonary Embolism, Chronic Kidney Disease, Rheumatoid Arthritis, Seizures, Sickle Cell Disease, Sexually Transmitted Disease, Sleep Apnea, TIA Surgical History: Denies: Appendectomy, CABG, Carotid Endarterectomy, Cholecystectomy, Coronary Stent, Pacemaker, Tonsillectomy Family History: States: Unknown Family Hx - Social History Hx Tobacco Use: No Hx Alcohol Use: Yes Hx Substance Use: No - Immunization History Hx Tetanus Toxoid Vaccination: No Hx Influenza Vaccination: No Hx Pneumococcal Vaccination: No <Georgina Johnson - Last Filed: 10/07/17 00:22> Vital Signs: Last Vital Signs Temp 98.6 F 10/07/17 10:20 Pulse 108 H 10/07/17 10:20 Resp 20 10/07/17 10:20 BP 124/72 10/07/17 10:20 Pulse Ox 97 10/07/17 10:20 - [facility] Procedures ALCOHOL DETOXIFICATION (01/08/14) DETOXIFICATION SERVICES FOR SUBSTANCE ABUSE TREATMENT (02/22/17) GROUP CUSTOMER CARE CONSULTANT FOR SUBSTANCE ABUSE TREATMENT, PSYCHOEDUCATION (03/06/16) GROUP CUSTOMER CARE CONSULTANT FOR SUBSTANCE ABUSE, COGNITIVE BEHAVIORAL (02/22/17) GROUP PSYCHOTHERAPY (09/11/17) INDIV CUSTOMER CARE CONSULTANT FOR SUBSTANCE ABUSE TREATMENT, PSYCHOEDUCATION (02/22/17) INDIV PSYCHOTHERAPY FOR SUBSTANCE ABUSE TREATMENT, SUPPORT (02/22/17) INDIVIDUAL PSYCHOTHERAPY, COGNITIVE-BEHAVIORAL (12/10/16) INDIVIDUAL PSYCHOTHERAPY, SUPPORTIVE (09/11/17) INSERTION OF INFUSION DEV INTO SUP VENA CAVA, PERC APPROACH (12/10/16) MEDICATION MANAGEMENT (09/11/17) MEDS MGMT FOR SUBSTANCE ABUSE TREATMENT, OTH REPL MED (09/11/17) REMOVAL OF INFUSION DEV FROM GREAT VESSEL, BAND ATTACHER APPROACH (02/02/17) ULTRASONOGRAPHY OF SUPERIOR VENA CAVA, GUIDANCE (12/10/16) Review Of Systems Psych: Positive for: Suicidal ideation, Other (homicidal ideation) <Georgina Johnson - Last Filed: 10/07/17 00:22> Physical Exam - Physical Exam Appears: Well, Non-toxic Skin: Normal Color, Warm, Dry, Other (no evidence of IV drug use) Oral Mucosa: Moist Cardiovascular: Rhythm Regular, No Murmur Respiratory: Decreased Breath Sounds (diminished but present breath sounds on left lung), No Rales, No Rhonchi, No Wheezing <Georgina Johnson - Last Filed: 10/07/17 00:22> ED Course And Treatment - Laboratory Results Result Diagrams: 10/06/17 23:12 10/06/17 23:12 O2 Sat by Pulse Oximetry: 98 <Georgina Johnson - Last Filed: 10/07/17 00:22> - Laboratory Results Result Diagrams: 10/06/17 23:12 10/06/17 23:12 <Shayne Espinoza - Last Filed: 10/07/17 18:20> Medical Decision Making <Georgina Johnson - Last Filed: 10/07/17 00:22> <Shayne Espinoza - Last Filed: 10/07/17 18:20> Medical Decision Making: Plan: * Crisis evaluation * (Georgina Johnson) Disposition <Georgina Johnson - Last Filed: 10/07/17 00:22> Discussed With Dr.: Monroe Henry Doctor Will See Patient In The: Hospital Counseled Patient/Family Regarding: Studies Performed, Diagnosis - Disposition Disposition Time: 11:00 <Shayne Espinoza - Last Filed: 10/07/17 18:20> - Disposition Referrals: [facility] at [facility] [Outside] Disposition: HOME/ ROUTINE Condition: STABLE Additional Instructions: stop drinking follow up with [facility] call to make an appointment return to ER if symptoms worsens or progress Instructions: Bipolar Disorder (ED), Abuse of Alcohol (ED) Forms: General Discharge Instructions, [facility] ([place]) - Clinical Impression Clinical Impression: Alcohol abuse - Scribe Statement The provider has reviewed the documentation as recorded by the Scribe <Georgina Johnson - Last Filed: 10/07/17 00:22> <Shayne Espinoza - Last Filed: 10/07/17 18:20> - Scribe Statement Faith Smallwood All medical record entries made by the Scribe were at my direction and personally dictated by me. I have reviewed the chart and agree that the record accurately reflects my personal performance of the history, physical exam, medical decision making, and the department course for this patient. I have also personally directed, reviewed, and agree with the discharge instructions and disposition. (Georgina Johnson) Addendum <Georgina Johnson - Last Filed: 10/07/17 00:22> <Shayne Espinoza - Last Filed: 10/07/17 18:20> Addendum: Patient was signed out to me pending sobriety and crisis evaluation. Patient was seen by crisis and cleared for discharge, Dr. Henry at 1030 am and advised to follow up [facility]. Patient has no other complaints at this time and will be discharged accordingly. 10/07/17 10:30 (Shayne Espinoza) Disposition <Georgina Johnson - Last Filed: 10/07/17 00:22> Discussed With Dr.: Monroe Henry Counseled Patient/Family Regarding: Studies Performed, Need For Followup Disposition Time: 10:30 <Shayne Espinoza M - Last Filed: 10/07/17 18:20> Clinical Impression: Alcohol abuse Disposition: HOME/ ROUTINE Condition: STABLE Additional Instructions: stop drinking follow up with [facility] call to make an appointment return to ER if symptoms worsens or progress Instructions: Bipolar Disorder (ED), Abuse of Alcohol (ED) Referrals: [facility] at [facility] [Outside] Stand Alone Forms: [facility] ([place]), General Discharge Instructions
[2017-10-06 23:15] LABS: BASO % 0.9 % (0.0-2.0); EOS # 0.1 K/uL (0.0-0.7); EOS % 2.9 % (0.0-4.0); HEMOGLOBIN 13.1 g/dL (12.0-18.0); LYMPH # 1.2 K/uL (1.0-4.3); LYMPH % 32.9 % (20.0-40.0); MEAN CELL VOLUME 92.6 fL (80.0-94.0); MEAN CORPUSCULAR HEMOGLOBIN 31.3 pg (27.0-31.0); MEAN CORPUSCULAR HGB CONC 33.8 g/dL (33.0-37.0); MONO # 0.4 K/uL (0.0-0.8); MONO % 11.6 % (0.0-10.0); NEUT # 1.9 K/uL (1.8-7.0); NEUT % 51.7 % (50.0-75.0); NRBC % 0.1 % (0.0-2.0); RBC 4.17 Mil/uL (4.40-5.90); RED CELL DISTRIBUTION WIDTH 12.2 % (11.5-14.5); WHITE BLOOD COUNT 3.6 K/uL (4.8-10.8)
[2017-10-06 23:17] LABS: URINE BILIRUBIN NEGATIVE (NEGATIVE); URINE BLOOD NEGATIVE (NEGATIVE); URINE CLARITY Clear (Clear); URINE COLOR Colorless (YELLOW); URINE GLUCOSE (UA) NORMAL (Normal); URINE LEUKOCYTE ESTERASE NEG Leu/uL (Negative); URINE NITRATE NEGATIVE (NEGATIVE); URINE PROTEIN NEGATIVE (NEGATIVE); URINE UROBILINOGEN NORMAL mg/dL (0.2-1.0)
[2017-10-06 23:28] LABS: ALB/GLOB RATIO 1.1 (1.0-2.1); ALBUMIN 4.5 g/dL (3.5-5.0); ALT/SGPT 45 U/L (21-72); AST/SGOT 56 U/L (17-59); BLOOD UREA NITROGEN 9 mg/dL (9-20); CALCIUM 8.6 mg/dl (8.6-10.4); GFR AFRICAN-AMERICAN > 60; GFR NON-AFRICAN AMERICAN > 60
[2017-10-06 23:30] LABS: BARBITURATES, UR NEGATIVE (NEGATIVE); BENZODIAZEPINES, UR NEGATIVE (NEGATIVE); OPIATES, UR NEGATIVE (NEGATIVE); PHENCYCLIDINE, UR NEGATIVE (NEGATIVE)
[2017-10-07 06:30] VITALS: RESP 20; O2SAT 97
[2017-10-07 10:21] VITALS: BP 124/72; PULSE 108; TEMP 98.6
== END 2017-10-07 11:44 | disposition home or self-care (01) ==
LOC: C.ER 21:56
DX: F10.10 Alcohol abuse, uncomplicated (principal); E78.00 Pure hypercholesterolemia, unspecified; I10 Essential (primary) hypertension; F25.9 Schizoaffective disorder, unspecified

== ENCOUNTER 2017-10-11 10:19 | Inpatient (IN) | payer MEDICAID ==
[2017-10-11 10:19] VITALS: BMI 27.1
[2017-10-11 11:05] LABS: BASO % 0.6 % (0.0-2.0); EOS # 0.1 K/uL (0.0-0.7); EOS % 2.3 % (0.0-4.0); HEMOGLOBIN 12.4 g/dL (12.0-18.0); LYMPH # 1.2 K/uL (1.0-4.3); LYMPH % 29.3 % (20.0-40.0); MEAN CELL VOLUME 91.7 fL (80.0-94.0); MEAN CORPUSCULAR HEMOGLOBIN 30.9 pg (27.0-31.0); MEAN CORPUSCULAR HGB CONC 33.7 g/dL (33.0-37.0); MEAN PLATELET VOLUME 8.1 fL (7.2-11.7); MONO # 0.5 K/uL (0.0-0.8); MONO % 11.3 % (0.0-10.0); NEUT # 2.3 K/uL (1.8-7.0); NEUT % 56.5 % (50.0-75.0); RBC 4.01 Mil/uL (4.40-5.90); RED CELL DISTRIBUTION WIDTH 12.1 % (11.5-14.5); WHITE BLOOD COUNT 4.1 K/uL (4.8-10.8)
[2017-10-11 11:22] LABS: URINE BILIRUBIN NEGATIVE (NEGATIVE); URINE BLOOD NEGATIVE (NEGATIVE); URINE CLARITY Clear (Clear); URINE COLOR Colorless (YELLOW); URINE GLUCOSE (UA) NORMAL (Normal); URINE LEUKOCYTE ESTERASE NEG Leu/uL (Negative); URINE NITRATE NEGATIVE (NEGATIVE); URINE PROTEIN NEGATIVE (NEGATIVE); URINE UROBILINOGEN NORMAL mg/dL (0.2-1.0)
[2017-10-11 11:25] LABS: ALB/GLOB RATIO 1.3 (1.0-2.1); ALBUMIN 4.4 g/dL (3.5-5.0); ALT/SGPT 33 U/L (21-72); AST/SGOT 48 U/L (17-59); BLOOD UREA NITROGEN 8 mg/dL (9-20); CALCIUM 8.8 mg/dl (8.6-10.4); GFR AFRICAN-AMERICAN > 60; GFR NON-AFRICAN AMERICAN > 60
--- NOTE | 2017-10-11 11:42 | C.PDOC ---
History Of Present Illness <Marley Pino - Last Filed: 10/11/17 19:16> <Feli Ortega - Last Filed: 10/11/17 22:07> 52yo male brought to ED by EMS for evaluation as patient has not been behaving normally. The patient is unable to answer questions so a full HPI and ROS is unavailable. (Marley Pino) History Per: EMS History/Exam Limitations: clinical condition Onset/Duration Of Symptoms: Unknown Current Symptoms Are (Timing): Still Present <Marley Pino - Last Filed: 10/11/17 19:16> <Feli Ortega - Last Filed: 10/11/17 22:07> Time Seen by Provider: 10/11/17 10:38 Chief Complaint (Nursing): Weakness/Neurological Deficit Past Medical History Reviewed: Historical Data, Nursing Documentation, Vital Signs - Medical History PMH: Anxiety, Depression, HTN, Hypercholesterolemia, Hyperlipidemia, Personality Disorder (multiple fights,agression), Schizophrenia Denies: Alzheimer's Disease, Anemia, Arthritis, Asthma, Atrial Fibrillation, Bipolar Disorder, Bronchitis, Cardia Arrhythmia, CHF, COPD, Crohn's Disease, Dementia, Diabetes (Patient denied), Diverticulitis, Emphysema, Fractures, Gastritis, Gall Bladder Disease, Hepatitis (Patient denied), HIV, Hyperthyroidism, Hypothyroidism, Kidney Stones, Migraine, Mitral Valve Prolapse , Multiple Sclerosis, Osteoporosis, Pancreatitis, Paranoia, Parkinson's Disease , Peripheral Edema, Pneumonia, Post Traumatic Stress Disorder, Pulmonary Embolism, Chronic Kidney Disease, Rheumatoid Arthritis, Seizures, Sickle Cell Disease, Sexually Transmitted Disease, Sleep Apnea, TIA Surgical History: Denies: Appendectomy, CABG, Carotid Endarterectomy, Cholecystectomy, Coronary Stent, Pacemaker, Tonsillectomy Family History: States: Unknown Family Hx - Social History Hx Tobacco Use: No Hx Alcohol Use: Yes Hx Substance Use: No - Immunization History Hx Tetanus Toxoid Vaccination: No Hx Influenza Vaccination: Yes Hx Pneumococcal Vaccination: No <Marley Pino - Last Filed: 10/11/17 19:16> Vital Signs: Last Vital Signs Temp 97.9 F 10/11/17 19:23 Pulse 100 H 10/11/17 21:31 Resp 16 10/11/17 21:31 BP 117/70 10/11/17 21:31 Pulse Ox 97 10/11/17 21:31 - [facility] Procedures ALCOHOL DETOXIFICATION (01/08/14) DETOXIFICATION SERVICES FOR SUBSTANCE ABUSE TREATMENT (02/22/17) GROUP WIND ENERGY PROJECT MANAGER FOR SUBSTANCE ABUSE TREATMENT, PSYCHOEDUCATION (03/06/16) GROUP WIND ENERGY PROJECT MANAGER FOR SUBSTANCE ABUSE, COGNITIVE BEHAVIORAL (02/22/17) GROUP PSYCHOTHERAPY (09/11/17) INDIV WIND ENERGY PROJECT MANAGER FOR SUBSTANCE ABUSE TREATMENT, PSYCHOEDUCATION (02/22/17) INDIV PSYCHOTHERAPY FOR SUBSTANCE ABUSE TREATMENT, SUPPORT (02/22/17) INDIVIDUAL PSYCHOTHERAPY, COGNITIVE-BEHAVIORAL (12/10/16) INDIVIDUAL PSYCHOTHERAPY, SUPPORTIVE (09/11/17) INSERTION OF INFUSION DEV INTO SUP VENA CAVA, PERC APPROACH (12/10/16) MEDICATION MANAGEMENT (09/11/17) MEDS MGMT FOR SUBSTANCE ABUSE TREATMENT, OTH REPL MED (09/11/17) REMOVAL OF INFUSION DEV FROM GREAT VESSEL, PLATFORM LOADER APPROACH (02/02/17) ULTRASONOGRAPHY OF SUPERIOR VENA CAVA, GUIDANCE (12/10/16) Review Of Systems Review Of Systems: ROS cannot be obtained secondary to pt's inabilty to answer questions. Psych: Positive for: Other (abnormal behaviour) <Marley Pino - Last Filed: 10/11/17 19:16> Physical Exam - Physical Exam Appears: No Acute Distress Skin: Normal Color Head: Atraumatic, Normacephalic Eye(s): bilateral: Normal Inspection Neck: Supple Chest: Symmetrical Cardiovascular: Rhythm Regular Respiratory: Normal Breath Sounds Gastrointestinal/Abdominal: Soft, No Tenderness <Marley Pino - Last Filed: 10/11/17 19:16> ED Course And Treatment - Laboratory Results Result Diagrams: 10/11/17 11:02 10/11/17 11:02 O2 Sat by Pulse Oximetry: 95 (RA) Pulse Ox Interpretation: Normal <Marley Pino - Last Filed: 10/11/17 19:16> - Laboratory Results Result Diagrams: 10/11/17 11:02 10/11/17 11:02 <Feli Ortega - Last Filed: 10/11/17 22:07> Medical Decision Making <Marley Pino - Last Filed: 10/11/17 19:16> <Feli Ortega - Last Filed: 10/11/17 22:07> Medical Decision Making: Plan: -- EKG -- Labs -- Psych eval Time: 1140 PROCEDURE: CHEST RADIOGRAPH, 1 VIEW HISTORY: Detox/Psy COMPARISON: 02/02/2017 FINDINGS: LUNGS: Clear. PLEURA: No pneumothorax or pleural fluid seen. CARDIOVASCULAR: No radiographic findings to suggest acute or significant cardiovascular disease. Removal of support apparatus since the prior study: PICC line. OSSEOUS STRUCTURES: No significant abnormalities. VISUALIZED UPPER ABDOMEN: Normal. OTHER FINDINGS: None. IMPRESSION: No active disease. (Marley Pino) Disposition - Disposition Disposition Time: 19:16 <Marley Pino - Last Filed: 10/11/17 19:16> Discussed With DrМария: Maurice Monson Comment: accepted the pt on his service and took over the care at 10:06 PM Doctor Will See Patient In The: Hospital Counseled Patient/Family Regarding: Studies Performed, Diagnosis <Feli Ortega - Last Filed: 10/11/17 22:07> - Disposition Disposition: HOSPITALIZED Condition: FAIR Forms: [facility] (Greenlandic) - Clinical Impression Clinical Impression: Schizoaffective disorder, Alcohol intoxication - PA / MACHINE SET UP OPERATOR / Resident Statement MD/DO has reviewed & agrees with the documentation as recorded. - Scribe Statement The provider has reviewed the documentation as recorded by the Scribe <Marley Pino - Last Filed: 10/11/17 19:16> <Feli Ortega - Last Filed: 10/11/17 22:07> - Scribe Statement Jory López Provider Scribe Attestation: All medical record entries made by the Scribe were at my direction and personally dictated by me. I have reviewed the chart and agree that the record accurately reflects my personal performance of the history, physical exam, medical decision making, and the department course for this patient. I have also personally directed, reviewed, and agree with the discharge instructions and disposition. (Marley Pino) Physician Patient Turnover Patient Signed Over To: Feli Ortega Handoff Comments: crisis evaluation at 8 pm, dispo <Marley Pino - Last Filed: 10/11/17 19:16> Decision To Admit <Marley Pino - Last Filed: 10/11/17 19:16> - Pt Status Changed To: Hospital Disposition Of: Inpatient - Admit Certification Admit to Inpatient:: After my assessment, the patient will require hospitalization for at least two midnights. This is because of the severity of symptoms shown, intensity of services needed, and/or the medical risk in this patient being treated as an outpatient. - InPatient: Physician Admission Certification: I certify that this patient requires 2 or more midnights of care for the following reason:: After my assessment, the patient will require hospitalization for at least two midnights. This is because of the severity of symptoms shown, intensity of services needed, and/or the medical risk in this patient being treated as an outpatient. - . Bed Request Type: Psychiatry Admitting Physician: Maurice Monson <Feli Ortega - Last Filed: 10/11/17 22:07> - . Patient Diagnosis: Schizoaffective disorder, Alcohol intoxication
[2017-10-11 11:59] LABS: BARBITURATES, UR NEGATIVE (NEGATIVE); BENZODIAZEPINES, UR NEGATIVE (NEGATIVE); OPIATES, UR NEGATIVE (NEGATIVE); PHENCYCLIDINE, UR NEGATIVE (NEGATIVE)
--- NOTE | 2017-10-11 23:08 | PCM.BM ---
<Joan Del Toro - Last Filed: 10/11/17 23:06> Treatment Plan Problems - Problems identified on initial assessmt Depression Date Initiated: 10/11/17 Time Initiated: 23:06 Assessment reference: NA Status: Active Substance Abuse Date Initiated: 10/11/17 Time Initiated: 23:06 Assessment reference: NA Status: Active Treatment assets and liabiliti Patient Assests: adapts well (Hyperlipidemia, High Blood pressure), cooperative , educated, self-reliant, ADL independent, physically healthy, negotiates basic needs, cognitively intact Patient Liabilities: live alone, financial problems, poor support system, substance abuse (Alcohol 397 on Admission) - Milieu Protocol Maintain good personal hygiene: daily Encourage regular showers, daily Remind patient to perform daily oral care, daily Assist patient to perform ADL's (Self) , other Assist patient to perform ADL's Maintain personal safety: every shift Educate patient to report safety concerns to staff, every shift Monitor environment for contraband/sharps Medication safety: Monitor for expected outcome, potential side effects: every shift, Assess barriers to learning: every shift, Assess readiness for medication education: every shift <Shruthi Ernst - Last Filed: 10/14/17 10:48> Family Contact Family involvement: Famliy/SO not involved - Goals for Treatment Patient goals for treatment: "I want to go back to [facility] Discharge/Continuing Care - Education Needs Education Needs: Patient Medication, Patient Coping Skills, Patient Placement options, Patient Community resources - Discharge Discharge Criteria: Tolerates medication w/o severe side effects, No longer exhibiting s/s of withdrawal, Reduction of target symptoms Discharge to:: Home - Treatment Team Participation Discussed with Family/SO: No Was Patient/Family/SO present at Treatment Team Meeting: Yes <Monroe Henry - Last Filed: 10/14/17 10:51> - Diagnosis (1) Major depressive disorder, recurrent severe without psychotic features Status: Acute Interventions: 10/14/17 10:51 * Assess/adjust medications daily and /or as needed * See patient on an individual basis 7x/week to assess symptoms of depression * Monitor for side effects & effectiveness of medications * (2) Alcohol dependence Status: Acute Interventions: 10/14/17 10:51 * Assess 7x/week regarding severity of withdrawal * Educate regarding risks, benefits, side effects and alternatives of medications * Use Motivational Interviewing for abstinence * Use CBT for relapse prevention * Medication management for withdrawal symptoms * Encourage medication assisted treatment *
[2017-10-12] MEDS: Multiple Vitamins Tab PO SCH (10:37)
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
--- NOTE | 2017-10-12 23:40 | CARD ---
APPROVED REPORT EKG Measurement Heart [id number] <Conclusion> Normal sinus rhythm Voltage criteria for left ventricular hypertrophy ST elevation, consider early repolarization, pericarditis, or injury Abnormal ECG
[2017-10-13] MEDS: Multiple Vitamins Tab PO SCH (09:02)
--- NOTE | 2017-10-14 00:42 | PCM.PYCHPN ---
Psychiatric Progress Note - Psychiatric Progress Note Patient seen today, length of contact: 15 min Patient Chief Complaint: "I am tired" Problems Identified/Issues Discussed: The pt is seen, chart reviewed, case discussed with staff. The pt is compliant with medications and reports no side-effects. Symptoms are improving but needs more time to stabilize. After care discussed, support and psychoeducation given. Medication Change: No Medical Record Reviewed: Yes Mental Status Examination - Cognitive Function Orientation: Person, Place, Situation, Time Memory: Impaired Attention: WNL Concentration: WNL Association: WNL Fund of Knowledge: WNL - Mood Mood: Depressed, Anxious - Affect Affect: Constricted - Speech Speech: Appropriate - Formal Thought Process Formal Thought Process: No Impairment - Suicidal Ideation Suicidal Ideation: No - Homicidal Ideation Homicidal Ideation: No Goal/Treatment Plan - Goal/Treatment Plan Need for Continued Stay: Discharge may exacerbated symptoms, Severe functional impairment Progress Toward Problem(s) and Goals/Treatment Plan: Librium detox Cont. psych meds As needed medications Gabapentin for augmentation All risks, benefits and alternatives of medications, including no medications, discussed and the patient understood and agreed. Attend groups and activities Supportive therapy and psychoeducation [place] for abstinence CBT for relapse prevention Encourage MAT Refer to rehab or [facility] Attend self-help groups as well
[2017-10-14 06:26] VITALS: O2SAT 99
[2017-10-14] MEDS: Multiple Vitamins Tab PO SCH (09:10)
--- NOTE | 2017-10-14 09:53 | PCM.PYCHPN ---
Psychiatric Progress Note - Psychiatric Progress Note Patient seen today, length of contact: 15 min Patient Chief Complaint: I am feeling depressed.' Medication Change: No Medical Record Reviewed: Yes Mental Status Examination - Cognitive Function Orientation: Person, Place, Situation, Time Memory: Intact Attention: WNL Concentration: Poor Association: WNL Fund of Knowledge: Poor - Mood Mood: Depressed, Anxious - Affect Affect: Constricted - Formal Thought Process Formal Thought Process: No Impairment - Suicidal Ideation Suicidal Ideation: No - Homicidal Ideation Homicidal Ideation: No Goal/Treatment Plan - Goal/Treatment Plan Need for Continued Stay: Severe depression anxiety, Severe functional impairment (Major depression, recurrent, severe, not-psychotic) Progress Toward Problem(s) and Goals/Treatment Plan: Major depression, recurrent, severe, not-psychotic Alcohol withdrawal Alcohol use d/o severe Librium detox Resume psych meds As needed medications Gabapentin for augmentation All risks, benefits and alternatives of medications, including no medications, discussed and the patient understood and agreed. Attend groups and activities Supportive therapy and psychoeducation [place] for abstinence CBT for relapse prevention Encourage MAT Refer to rehab or [facility] Attend self-help groups as well - Smoking Cessation Smoking Cessation Initiated: No
[2017-10-15] MEDS: Multiple Vitamins Tab PO SCH (09:11)
--- NOTE | 2017-10-15 10:30 | PCM.PYCHPN ---
Psychiatric Progress Note - Psychiatric Progress Note Patient seen today, length of contact: 15 min Medication Change: No Medical Record Reviewed: Yes Mental Status Examination - Cognitive Function Orientation: Person, Place, Situation, Time Memory: Impaired Attention: WNL Concentration: WNL Association: WNL Fund of Knowledge: WNL - Mood Mood: Depressed, Anxious - Affect Affect: Constricted - Speech Speech: Appropriate - Formal Thought Process Formal Thought Process: No Impairment - Suicidal Ideation Suicidal Ideation: No - Homicidal Ideation Homicidal Ideation: No Goal/Treatment Plan - Goal/Treatment Plan Need for Continued Stay: Discharge may exacerbated symptoms, Severe functional impairment
[2017-10-16 06:43] VITALS: BP 86/57; PULSE 74; RESP 18; TEMP 98
[2017-10-16] MEDS: Multiple Vitamins Tab PO SCH (09:50)
--- NOTE | 2017-10-16 10:33 | PCM.PYCHDC ---
Discharge Summary - Discharge Note Consultations:: List each consultation separately and include: 1. Reason for request. 2. Findings. 3. Follow-up Summary of Hospital Course include:: 1. Description of specific treatment plan utilized for patients during their course of treatmen. 2. Summarize the time- course for resolution of acute symptoms and/or regressed behaviors. 3. Describe issues identified and worked on during hospitalization. 4. Describe medication utilized. 5. Describe medical problems identified and treated. 6. Reassessment of suicide risk - Diagnosis (1) Major depressive disorder, recurrent severe without psychotic features Current Visit: Yes Status: Acute (2) Alcohol dependence Current Visit: No Status: Acute - Final Diagnosis (DSM 5) Condition upon Discharge: FAIR Disposition: HOME/ ROUTINE Follow-up Treatment Plan: Major depression, recurrent, severe, not-psychotic Alcohol withdrawal Alcohol use d/o severe Librium detox Resume psych meds As needed medications Gabapentin for augmentation All risks, benefits and alternatives of medications, including no medications, discussed and the patient understood and agreed. Attend groups and activities Supportive therapy and psychoeducation [place] for abstinence CBT for relapse prevention Encourage MAT Refer to rehab or [facility] Attend self-help groups as well Prescriptions/Medication Reconciliation: Gabapentin [Neurontin] 300 mg PO BID 14 Days cap QUEtiapine [Seroquel] 100 mg PO HS #14 tab Sertraline [Zoloft] 100 mg PO DAILY 14 Days #30 tab
== END 2017-10-16 14:00 | disposition home or self-care (01) | DRG 750 ==
LOC: C.ER 10:19 → C.5E 22:05
PROVIDERS: ADMIT Psychiatry & Neurology Psychiatry; ATTEND Psychiatry & Neurology Psychiatry
PROC: HZ2ZZZZ Detoxification Services for Substance Abuse Treatment (ICD-10-PCS; principal; 2017-10-12)
PROC: HZ42ZZZ Group Counseling for Substance Abuse Treatment, Cognitive-Behavioral (ICD-10-PCS; 2017-10-12)
PROC: HZ52ZZZ Individual Psychotherapy for Substance Abuse Treatment, Cognitive-Behavioral (ICD-10-PCS; 2017-10-12)
PROC: HZ59ZZZ Individual Psychotherapy for Substance Abuse Treatment, Supportive (ICD-10-PCS; 2017-10-12)
PROC: HZ56ZZZ Individual Psychotherapy for Substance Abuse Treatment, Psychoeducation (ICD-10-PCS; 2017-10-12)
PROC: HZ46ZZZ Group Counseling for Substance Abuse Treatment, Psychoeducation (ICD-10-PCS; 2017-10-12)
DX: F10.230 Alcohol dependence with withdrawal, uncomplicated (principal); F33.2 Major depressive disorder, recurrent severe without psychotic features; I11.0 Hypertensive heart disease with heart failure; F25.9 Schizoaffective disorder, unspecified; I50.9 Heart failure, unspecified; F10.220 Alcohol dependence with intoxication, uncomplicated; E78.00 Pure hypercholesterolemia, unspecified; F41.9 Anxiety disorder, unspecified; Y90.8 Blood alcohol level of 240 mg/100 ml or more

== ENCOUNTER 2017-10-17 22:32 | Emergency (ER) | payer MEDICAID ==
[2017-10-17 22:32] VITALS: BMI 27.1
--- NOTE | 2017-10-18 02:10 | C.PDOC ---
History Of Present Illness 52 year old male, who is homeless, presents to the ER with a complaint of 2 episodes of diarrhea, associated with mild abdominal pain. As per triage, patient was eating dinner while waiting to be seen. Patient states he just wants a place to sleep. Denies nausea, vomiting, fever, or pain at this time. Time Seen by Provider: 10/18/17 01:23 Chief Complaint (Nursing): Abdominal Pain History Per: Patient History/Exam Limitations: no limitations Onset/Duration Of Symptoms: Hrs Current Symptoms Are (Timing): Still Present Recent travel outside of the [place]: No Past Medical History Reviewed: Historical Data, Nursing Documentation, Vital Signs Vital Signs: Last Vital Signs Temp 97.9 F 10/17/17 23:32 Pulse 89 10/17/17 23:32 Resp 18 10/17/17 23:32 BP 111/75 10/17/17 23:32 Pulse Ox 98 10/18/17 05:44 - Medical History PMH: Anxiety, Bipolar Disorder, Depression, HTN, Hypercholesterolemia, Hyperlipidemia, Personality Disorder (multiple fights,agression), Schizophrenia (Schizoaffective) - [facility] Procedures ALCOHOL DETOXIFICATION (01/08/14) DETOXIFICATION SERVICES FOR SUBSTANCE ABUSE TREATMENT (10/11/17) GROUP CONSULTING PRACTICE MANAGER FOR SUBSTANCE ABUSE TREATMENT, PSYCHOEDUCATION (10/11/17) GROUP CONSULTING PRACTICE MANAGER FOR SUBSTANCE ABUSE, COGNITIVE BEHAVIORAL (10/11/17) GROUP PSYCHOTHERAPY (09/11/17) INDIV CONSULTING PRACTICE MANAGER FOR SUBSTANCE ABUSE TREATMENT, PSYCHOEDUCATION (02/22/17) INDIV PSYCHOTHERAPY FOR SUBSTANCE ABUSE TREATMENT, SUPPORT (10/11/17) INDIV PSYCHOTHERAPY FOR SUBSTANCE ABUSE, COGNITIV BEHAVIORAL (10/11/17) INDIV PSYCHOTHERAPY FOR SUBSTANCE ABUSE, PSYCHOEDUCATION (10/11/17) INDIVIDUAL PSYCHOTHERAPY, COGNITIVE-BEHAVIORAL (12/10/16) INDIVIDUAL PSYCHOTHERAPY, SUPPORTIVE (09/11/17) INSERTION OF INFUSION DEV INTO SUP VENA CAVA, PERC APPROACH (12/10/16) MEDICATION MANAGEMENT (09/11/17) MEDS MGMT FOR SUBSTANCE ABUSE TREATMENT, OTH REPL MED (09/11/17) REMOVAL OF INFUSION DEV FROM GREAT VESSEL, MAINTENANCE SUPERVISOR ELECTRICAL APPROACH (02/02/17) ULTRASONOGRAPHY OF SUPERIOR VENA CAVA, GUIDANCE (12/10/16) Family History: States: Unknown Family Hx - Social History Hx Tobacco Use: No Hx Alcohol Use: Yes Hx Substance Use: No - Immunization History Hx Tetanus Toxoid Vaccination: No Hx Influenza Vaccination: Yes Hx Pneumococcal Vaccination: No Review Of Systems Constitutional: Negative for: Fever, Chills Cardiovascular: Negative for: Palpitations Respiratory: Negative for: Cough, Shortness of Breath Gastrointestinal: Positive for: Abdominal Pain, Diarrhea. Negative for: Nausea , Vomiting Neurological: Negative for: Headache Physical Exam - Physical Exam Appears: Non-toxic, No Acute Distress, Unkempt Skin: Normal Color, Warm, Dry, No Diaphoretic, No Pale, No Rash Head: Atraumatic, Normacephalic Eye(s): bilateral: Normal Inspection Oral Mucosa: Moist Neck: Normal ROM Chest: Symmetrical, No Tenderness Cardiovascular: Rhythm Regular, No Murmur Respiratory: Normal Breath Sounds, No Rales, No Rhonchi, No Wheezing Gastrointestinal/Abdominal: Soft, No Tenderness, No Mass, No Distention, No Guarding Extremity: Bilateral: Atraumatic, No Pedal Edema Neurological/Psych: Oriented x3, Normal Speech ED Course And Treatment O2 Sat by Pulse Oximetry: 98 (Room air) Pulse Ox Interpretation: Normal Medical Decision Making Medical Decision Making: Patient is homeless individual. Abdominal exam was benign. Patient wants place to sleep. Plan is to allow patient to sleep in safe environment and DC in the AM. 2:42 Patient is sleeping on stretcher 4:18 patient observed to be sleeping comfortably on stretcher Disposition Counseled Patient/Family Regarding: Diagnosis, Need For Followup - Disposition Referrals: [facility] [Outside] [facility] [Outside] Disposition: HOME/ ROUTINE Disposition Time: 05:58 Condition: STABLE Additional Instructions: Follow up with the clinic in 2-5 days for further evaluation. Try soup, rice, bread, crackers, cereal, bananas to help with diarrhea. Instructions: Acute Diarrhea (ED), Nutrition Tips for Relief of Diarrhea (DC) Forms: [facility] (Slovenian) - POA Present On Arrival: None - Clinical Impression Clinical Impression: Diarrhea - PA / LOCK UP WORKER / Resident Statement MD/DO has reviewed & agrees with the documentation as recorded. - Scribe Statement The provider has reviewed the documentation as recorded by the Scribe Drew Mcnamara All medical record entries made by the Scribe were at my direction and personally dictated by me. I have reviewed the chart and agree that the record accurately reflects my personal performance of the history, physical exam, medical decision making, and the department course for this patient. I have also personally directed, reviewed, and agree with the discharge instructions and disposition.
[2017-10-18 06:15] VITALS: BP 135/76; PULSE 78; RESP 20; TEMP 98
[2017-10-18 06:27] VITALS: O2SAT 98
== END 2017-10-18 06:14 | disposition home or self-care (01) ==
LOC: C.ER 22:32 → SUPCPDRO 22:32 → C.ER 10-18 06:14
DX: R19.7 Diarrhea, unspecified (principal); Z59.0 Homelessness; E78.00 Pure hypercholesterolemia, unspecified; I10 Essential (primary) hypertension

== ENCOUNTER 2017-10-18 22:16 | Emergency (ER) | payer MEDICAID ==
[2017-10-18 22:18] VITALS: BMI 27.1
--- NOTE | 2017-10-18 23:37 | C.PDOC ---
History Of Present Illness Patient is a 52 y/o male, with a Hx of depression and alcohol abuse, who presents to the ED requesting a place to stay for the night. Denies any SI; admits to "feeling funny" from medication. No other physical complaints at this time. 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) Current Symptoms Are (Timing): Still Present Severity: Mild Recent travel outside of the [place]: No Past Medical History Reviewed: Historical Data, Nursing Documentation, Vital Signs Vital Signs: Last Vital Signs Temp 97.6 F 10/19/17 05:21 Pulse 82 10/19/17 05:21 Resp 18 10/19/17 05:21 BP 102/67 10/19/17 05:21 Pulse Ox 96 10/19/17 05:21 - Medical History PMH: Anxiety, Bipolar Disorder, Depression, HTN, Hypercholesterolemia, Hyperlipidemia, Personality Disorder (multiple fights,agression), Schizophrenia (Schizoaffective) Denies: Alzheimer's Disease, Anemia, Arthritis, Asthma, Atrial Fibrillation, Bronchitis, Cardia Arrhythmia, CHF, COPD, Crohn's Disease, Dementia, Diabetes ( Patient denied), Diverticulitis, Emphysema, Fractures, Gastritis, Gall Bladder Disease, Hepatitis (Patient denied), HIV (Patient denied), Hyperthyroidism, Hypothyroidism, Kidney Stones, Migraine, Mitral Valve Prolapse, Multiple Sclerosis, Osteoporosis, Pancreatitis, Paranoia, Parkinson's Disease, Peripheral Edema, Pneumonia, Post Traumatic Stress Disorder, Pulmonary Embolism , Chronic Kidney Disease, Rheumatoid Arthritis, Seizures (Patient denied), Sickle Cell Disease, Sexually Transmitted Disease (Patient denied), Sleep Apnea , TIA Surgical History: Denies: Appendectomy, CABG, Carotid Endarterectomy, Cholecystectomy, Coronary Stent, Pacemaker, Tonsillectomy Other Surgeries: INSERTION OF INFUSION DEV INTO SUP VENA CAVA, PERC APPROACH (). REMOVAL OF INFUSION DEV FROM GREAT VESSEL, GAS STOVE SERVICER HELPER APPROACH (02/02/17) - [facility] Procedures ALCOHOL DETOXIFICATION (01/08/14) DETOXIFICATION SERVICES FOR SUBSTANCE ABUSE TREATMENT (10/11/17) GROUP NIGHT CLEANER FOR SUBSTANCE ABUSE TREATMENT, PSYCHOEDUCATION (10/11/17) GROUP NIGHT CLEANER FOR SUBSTANCE ABUSE, COGNITIVE BEHAVIORAL (10/11/17) GROUP PSYCHOTHERAPY (09/11/17) INDIV NIGHT CLEANER FOR SUBSTANCE ABUSE TREATMENT, PSYCHOEDUCATION (02/22/17) INDIV PSYCHOTHERAPY FOR SUBSTANCE ABUSE TREATMENT, SUPPORT (10/11/17) INDIV PSYCHOTHERAPY FOR SUBSTANCE ABUSE, COGNITIV BEHAVIORAL (10/11/17) INDIV PSYCHOTHERAPY FOR SUBSTANCE ABUSE, PSYCHOEDUCATION (10/11/17) INDIVIDUAL PSYCHOTHERAPY, COGNITIVE-BEHAVIORAL (12/10/16) INDIVIDUAL PSYCHOTHERAPY, SUPPORTIVE (09/11/17) INSERTION OF INFUSION DEV INTO SUP VENA CAVA, PERC APPROACH (12/10/16) MEDICATION MANAGEMENT (09/11/17) MEDS MGMT FOR SUBSTANCE ABUSE TREATMENT, OTH REPL MED (09/11/17) REMOVAL OF INFUSION DEV FROM GREAT VESSEL, GAS STOVE SERVICER HELPER APPROACH (02/02/17) ULTRASONOGRAPHY OF SUPERIOR VENA CAVA, GUIDANCE (12/10/16) Family History: States: Unknown Family Hx - Social History Hx Tobacco Use: No Hx Alcohol Use: Yes Hx Substance Use: No - Immunization History Hx Tetanus Toxoid Vaccination: No Hx Influenza Vaccination: Yes Hx Pneumococcal Vaccination: No Review Of Systems Constitutional: Positive for: Other ("feels funny" ). Negative for: Fever, Chills Psych: Negative for: Suicidal ideation Physical Exam - Physical Exam Appears: Non-toxic, No Acute Distress Skin: Warm, Dry Head: Normacephalic Oral Mucosa: Moist Chest: Symmetrical Cardiovascular: Rhythm Regular Respiratory: No Rales, No Rhonchi, No Wheezing Neurological/Psych: Oriented x3, Normal Speech ED Course And Treatment O2 Sat by Pulse Oximetry: 100 Pulse Ox Interpretation: Normal Progress Note: 3:55 vitals stable. list of homeless shelters given Reevaluation Time: 06:13 Reassessment Condition: Improved Disposition Counseled Patient/Family Regarding: Studies Performed, Diagnosis - Disposition Disposition: HOME/ ROUTINE Disposition Time: 23:37 Condition: FAIR Forms: [facility] (Belarusian), General Discharge Instructions - Clinical Impression Clinical Impression: Schizoaffective disorder - Scribe Statement The provider has reviewed the documentation as recorded by the Scribboone Smallwood All medical record entries made by the Scribe were at my direction and personally dictated by me. I have reviewed the chart and agree that the record accurately reflects my personal performance of the history, physical exam, medical decision making, and the department course for this patient. I have also personally directed, reviewed, and agree with the discharge instructions and disposition.
[2017-10-19 02:51] VITALS: PULSE 82
[2017-10-19 05:23] VITALS: BP 102/67; RESP 18; TEMP 97.6
[2017-10-19 06:14] VITALS: O2SAT 100
== END 2017-10-19 06:37 | disposition home or self-care (01) ==
LOC: C.ER 22:16
DX: F25.9 Schizoaffective disorder, unspecified (principal)

== ENCOUNTER 2017-10-19 23:05 | Inpatient (IN) | payer MEDICAID ==
[2017-10-19 23:05] VITALS: BMI 27.1
[2017-10-20 00:02] LABS: BASO % 0.5 % (0.0-2.0); HEMOGLOBIN 12.6 g/dL (12.0-18.0); LYMPH # 1.3 K/uL (1.0-4.3); LYMPH % 29.7 % (20.0-40.0); MEAN CORPUSCULAR HEMOGLOBIN 30.5 pg (27.0-31.0); MEAN CORPUSCULAR HGB CONC 32.8 g/dL (33.0-37.0); MEAN PLATELET VOLUME 7.7 fL (7.2-11.7); MONO # 0.9 K/uL (0.0-0.8); MONO % 19.5 % (0.0-10.0); NEUT # 2.2 K/uL (1.8-7.0); NEUT % 49.3 % (50.0-75.0); RBC 4.12 Mil/uL (4.40-5.90); RED CELL DISTRIBUTION WIDTH 12.6 % (11.5-14.5); WHITE BLOOD COUNT 4.5 K/uL (4.8-10.8)
[2017-10-20 00:45] LABS: ALB/GLOB RATIO 1.2 (1.0-2.1); ALBUMIN 4.4 g/dL (3.5-5.0); ALT/SGPT 32 U/L (21-72); AST/SGOT 45 U/L (17-59); BLOOD UREA NITROGEN 14 mg/dL (9-20); CALCIUM 9.2 mg/dl (8.6-10.4); GFR AFRICAN-AMERICAN > 60; GFR NON-AFRICAN AMERICAN > 60
--- NOTE | 2017-10-20 01:32 | C.PDOC ---
History Of Present Illness 52 year old male presents to the ER requesting detox from ETOH. Patient states he is tired and feels like he might hurt somebody. Denies suicidal ideation. Chief Complaint (Nursing): Psychiatric Evaluation History Per: Patient History/Exam Limitations: no limitations Onset/Duration Of Symptoms: Days Current Symptoms Are (Timing): Still Present Suicide/Self Injury Attempted (Context): None Associated Symptoms: denies: Depression, Suicidal Thoughts, Suicidal Plan Involuntary Hold By: None Recent travel outside of the [place]: No Past Medical History Reviewed: Historical Data, Nursing Documentation, Vital Signs Vital Signs: Last Vital Signs Temp 97.7 F 10/20/17 03:12 Pulse 81 10/20/17 03:12 Resp 20 10/20/17 03:12 BP 127/85 10/20/17 03:12 Pulse Ox 96 10/20/17 06:39 - Medical History PMH: Anxiety, Bipolar Disorder, Depression, HTN, Hypercholesterolemia, Hyperlipidemia, Personality Disorder (multiple fights,agression), Schizophrenia (Schizoaffective) - [facility] Procedures ALCOHOL DETOXIFICATION (01/08/14) DETOXIFICATION SERVICES FOR SUBSTANCE ABUSE TREATMENT (10/11/17) GROUP LABORER [employer]ER FARM FOR SUBSTANCE ABUSE TREATMENT, PSYCHOEDUCATION (10/11/17) GROUP LABORER [employer]ARM FOR SUBSTANCE ABUSE, COGNITIVE BEHAVIORAL (10/11/17) GROUP PSYCHOTHERAPY (09/11/17) INDIV LABORER FR[employer]ER FARM FOR SUBSTANCE ABUSE TREATMENT, PSYCHOEDUCATION (02/22/17) INDIV PSYCHOTHERAPY FOR SUBSTANCE ABUSE TREATMENT, SUPPORT (10/11/17) INDIV PSYCHOTHERAPY FOR SUBSTANCE ABUSE, COGNITIV BEHAVIORAL (10/11/17) INDIV PSYCHOTHERAPY FOR SUBSTANCE ABUSE, PSYCHOEDUCATION (10/11/17) INDIVIDUAL PSYCHOTHERAPY, COGNITIVE-BEHAVIORAL (12/10/16) INDIVIDUAL PSYCHOTHERAPY, SUPPORTIVE (09/11/17) INSERTION OF INFUSION DEV INTO SUP VENA CAVA, PERC APPROACH (12/10/16) MEDICATION MANAGEMENT (09/11/17) MEDS MGMT FOR SUBSTANCE ABUSE TREATMENT, OTH REPL MED (09/11/17) REMOVAL OF INFUSION DEV FROM GREAT VESSEL, TRANSPORTATION MUSEUM HELPER APPROACH (02/02/17) ULTRASONOGRAPHY OF SUPERIOR VENA CAVA, GUIDANCE (12/10/16) Family History: States: Unknown Family Hx - Social History Hx Tobacco Use: No Hx Alcohol Use: Yes Hx Substance Use: No - Immunization History Hx Tetanus Toxoid Vaccination: No Hx Influenza Vaccination: No Hx Pneumococcal Vaccination: No Review Of Systems Constitutional: Negative for: Fever, Chills Gastrointestinal: Negative for: Nausea, Vomiting, Diarrhea Psych: Negative for: Suicidal ideation Physical Exam - Physical Exam Appears: Non-toxic, No Acute Distress Skin: Normal Color, Warm, Dry Head: Atraumatic, Normacephalic Eye(s): bilateral: Normal Inspection Oral Mucosa: Moist Neck: Normal, Supple Chest: Symmetrical, No Tenderness Cardiovascular: Rhythm Regular Respiratory: Normal Breath Sounds, No Rales, No Rhonchi, No Wheezing Gastrointestinal/Abdominal: Soft, No Tenderness Neurological/Psych: Oriented x3, Normal Speech ED Course And Treatment - Laboratory Results Result Diagrams: 10/19/17 23:55 10/19/17 23:55 O2 Sat by Pulse Oximetry: 96 (Room air) Pulse Ox Interpretation: Normal Progress Note: Blood work, CXR, and urinalysis ordered. Patient placed on 1 to 1. Disposition Counseled Patient/Family Regarding: Diagnosis - Disposition Disposition Time: 07:00 Condition: STABLE Forms: [facility] (Romansh) - Clinical Impression Clinical Impression: Alcohol abuse, Psychiatric disorder - Scribe Statement The provider has reviewed the documentation as recorded by the Scribe Drew Mcnamara All medical record entries made by the Scribe were at my direction and personally dictated by me. I have reviewed the chart and agree that the record accurately reflects my personal performance of the history, physical exam, medical decision making, and the department course for this patient. I have also personally directed, reviewed, and agree with the discharge instructions and disposition. Physician Patient Turnover Patient Signed Over To: Anitha Kowalski Handoff Comments: medically cleared, pending crisis disposition.
[2017-10-20 03:16] LABS: URINE BILIRUBIN NEGATIVE (NEGATIVE); URINE BLOOD NEGATIVE (NEGATIVE); URINE CLARITY Clear (Clear); URINE COLOR Straw (YELLOW); URINE GLUCOSE (UA) NORMAL (Normal); URINE LEUKOCYTE ESTERASE NEG Leu/uL (Negative); URINE NITRATE NEGATIVE (NEGATIVE); URINE PROTEIN NEGATIVE (NEGATIVE); URINE UROBILINOGEN NORMAL mg/dL (0.2-1.0)
[2017-10-20 03:30] LABS: BARBITURATES, UR NEGATIVE (NEGATIVE); OPIATES, UR NEGATIVE (NEGATIVE); PHENCYCLIDINE, UR NEGATIVE (NEGATIVE)
[2017-10-20 03:38] LABS: BENZODIAZEPINES, UR POSITIVE (NEGATIVE)
--- NOTE | 2017-10-20 06:49 | RAD ---
Chest x-ray single frontal view History: Chest congestion. Comparison: 10/11/2017 Findings: Mild venous congestion. Small nodular density at the medial aspect of the right lung apex may represent confluence of shadows with ribs and vessels. Mild patchy markings at lung bases. Mild cardiomegaly. Impression: Mild venous congestion. Small nodular density at the medial aspect of the right lung apex may represent confluence of shadows with ribs and vessels. Mild patchy markings at lung bases. Mild cardiomegaly.
--- NOTE | 2017-10-20 10:50 | PCM.BM ---
<Ashanti Gordonn - Last Filed: 10/20/17 10:48> Treatment Plan Problems - Problems identified on initial assessmt depression Date Initiated: 10/20/17 Time Initiated: 10:00 Assessment reference: NA Status: Active alcohol abuse Date Initiated: 10/20/17 Time Initiated: 10:00 Assessment reference: NA Status: Active Treatment assets and liabiliti Patient Assests: adapts well (Hyperlipidemia, High Blood pressure), cooperative , educated, self-reliant, ADL independent, physically healthy, negotiates basic needs, cognitively intact Patient Liabilities: live alone, financial problems, poor support system, substance abuse - Milieu Protocol Maintain good personal hygiene: daily Encourage regular showers, daily Remind patient to perform daily oral care Maintain personal safety: every shift Educate patient to report safety concerns to staff, every shift Monitor environment for contraband/sharps Medication safety: Monitor for expected outcome, potential side effects: every shift, Assess barriers to learning: every shift, Assess readiness for medication education: every shift <Shruthi Ernst - Last Filed: 10/21/17 10:58> Family Contact Family involvement: Famliy/SO not involved - Goals for Treatment Patient goals for treatment: "I want to leave the state." Discharge/Continuing Care - Education Needs Education Needs: Patient Medication, Patient Coping Skills, Patient Placement options, Patient Community resources - Discharge Discharge Criteria: Tolerates medication w/o severe side effects, No longer exhibiting s/s of withdrawal Discharge to:: Substance Abuse Rehab - Treatment Team Participation Discussed with Family/SO: No Was Patient/Family/SO present at Treatment Team Meeting: Yes <Monroe Henry - Last Filed: 10/21/17 10:59> - Diagnosis (1) Depressive disorder Status: Acute Interventions: 10/21/17 10:59 * Assess/adjust medications daily and /or as needed * See patient on an individual basis 7x/week to assess symptoms of depression * Monitor for side effects & effectiveness of medications * (2) Alcohol dependence Status: Acute Interventions: 10/21/17 10:59 * Assess 7x/week regarding severity of withdrawal * Educate regarding risks, benefits, side effects and alternatives of medications * Use Motivational Interviewing for abstinence * Use CBT for relapse prevention * Medication management for withdrawal symptoms * Encourage medication assisted treatment *
--- NOTE | 2017-10-20 19:50 | PCM.PSYCH ---
Initial Psychiatric Evaluation - Initial Psychiatric Evaluation Type of Admission: Voluntary Legal Status: Capacity Chief Complaint (in patient's own words): I am not right I was hearing voices, and sees spots and I came to the hospital for help. History of Present Illness and Precipitating Events: Patient is a 52 years old -[place] male with history of depression and alcohol use. Patient was discharged from the [facility] about 4 days ago. Patient came back with complaints of I am not right, here voices and sees spots. Patient was poor historian and guarded. History was obtained from previous records. According to previous record patient had multiple same symptoms every time. According to patient he was feeling depression and hearing voices. Patient reported he relapsed on alcohol and drank 1 pint of alcohol and 2 beers yesterday. Denied use of any other drugs. Past Psychiatric History - Past Psychiatric History Previous Treatment History: Inpatient [facility]: Mostly at [facility] History of Abuse: None reported History of ETOH/Drug Use: See HPI History of Family Illness: None reported Pertinent Medical Hx (Current Medical&Sleep Prob, Allergies): Allergies Allergy/AdvReac Type Severity Reaction Status Date / Time No Known Allergies Allergy Verified 10/19/17 23:38 Gabapentin [Neurontin] 300 mg PO BID #60 cap 09/24/17 traZODone [Desyrel] 100 mg PO HS PRN #30 tab 09/24/17 QUEtiapine [Seroquel] 100 mg PO HS #14 tab 10/16/17 Sertraline [Zoloft] 100 mg PO DAILY 14 Days #30 tab 10/16/17 Hypertension Hypercholesterolemia Review of Systems - Psychiatric Psychiatric: Depression, Hallucinations, Other Mental Status Examination - Personal Presentation Personal Presentation: Looks stated age - Affect Affect: Depressed - Motor Activity Motor Activity: Calm - Reliability in Providing Information Reliability in Providing Information: Fair - Speech Speech: Relevant - Mood Mood: Depressed - Formal Thought Process Formal Thought Process: No Impairment (At the time of evaluation) - Hallucinations/Delusions Hallucinations: Other (None reported) Delusions: Other - Obsessions/Compulsions Obsessions: None Compulsions: None - Cognitive Functions Orientation: Person, Place, Situation, Time Sensorium: Alert Attention/Concentration: Attentive Abstract Thinking: [place] Estimate of Intelligence: Average Judgement: Intact, as evidence by: Insight regarding need for hospitalization Memory: Recent intact, as evidence by: 3/3 object recall, Remote intact, as evidenced by: Ability to recall historical events - Risk Risk: Withdrawal, Diminished functioning - Strength & Assets Inventory Strength & Assets Inventory: Cooperative - Limitations Limitations: Other DSM 5 DX - DSM 5 DSM 5 Diagnosis: Major depressive disorder recurrent severe without psychotic features Alcohol use disorder severe - Recommended/Plan of Treatment Treatment Recommendations and Plan of Treatment: Patient education Supportive therapy [place] in CBT Librium detox protocol Other as needed medications Sertraline, Seroquel and gabapentin Projected ELOS: 8-10 days Discharge Plan and Discharge Criteria: [facility] - Smoking Cessation Smoking Cessation Initiated: Yes
[2017-10-21 06:18] VITALS: O2SAT 99
[2017-10-21] MEDS: Multiple Vitamins Tab PO SCH (09:42)
--- NOTE | 2017-10-21 11:00 | PCM.PYCHPN ---
Psychiatric Progress Note - Psychiatric Progress Note Patient seen today, length of contact: 15 min Patient Chief Complaint: i relapsed on drinking.' Problems Identified/Issues Discussed: Patient seen and evaluated, chart reviewed and discussed with the nurse. He reports depressed mood and feelings of hopelessness and helplessness. Patient remained isolated, confined and withdrawn. Patient reports withdrawal symptoms including headaches and sweating. He reports that he's feeling ashamed that he stopped taking his medications and relapsed on drinking. However, he is looking forward to going to [facility] rehab after discharge. Patient is compliant with medications and denies any side effects. Symptoms are improving but need more time to stabilize. Support and psychoeducation given. Medication Change: Yes Medical Record Reviewed: Yes Mental Status Examination - Cognitive Function Orientation: Person, Place, Situation, Time Memory: Intact Attention: WNL Concentration: Poor Association: WNL Fund of Knowledge: Poor - Mood Mood: Depressed, Anxious - Affect Affect: Constricted - Speech Speech: Soft - Formal Thought Process Formal Thought Process: No Impairment - Suicidal Ideation Suicidal Ideation: No - Homicidal Ideation Homicidal Ideation: No Goal/Treatment Plan - Goal/Treatment Plan Need for Continued Stay: Discharge may exacerbated symptoms Progress Toward Problem(s) and Goals/Treatment Plan: Major depressive disorder recurrent severe without psychotic features Alcohol use disorder severe Patient education Supportive therapy [place] in CBT Librium prn Other as needed medications Sertraline, Seroquel and gabapentin - Smoking Cessation Smoking Cessation Initiated: No
[2017-10-22] MEDS: Multiple Vitamins Tab PO SCH (09:24)
--- NOTE | 2017-10-22 22:14 | PCM.PYCHPN ---
Psychiatric Progress Note - Psychiatric Progress Note Patient seen today, length of contact: 15 min Patient Chief Complaint: I am feeling little better.' Problems Identified/Issues Discussed: Patient seen and evaluated, chart reviewed and discussed with the nurse. Patient remained isolated, and withdrawn. He still reports depressed mood, but he is hopeful get into a rehab program. As per the staff, patient has started calling different rehab programs. Patient reports withdrawal symptoms including headaches, and sweating. He reports some improvement in his sleep and appetite. Patient is compliant with medications and denies any side effects. Symptoms are improving but need more time to stabilize. Support and psychoeducation given. Medication Change: No Medical Record Reviewed: Yes Mental Status Examination - Cognitive Function Orientation: Person, Place, Situation, Time Memory: Intact Attention: WNL Concentration: Poor Association: WNL Fund of Knowledge: Poor - Mood Mood: Depressed - Affect Affect: Depressed - Speech Speech: Soft - Formal Thought Process Formal Thought Process: No Impairment (At the time of evaluation) - Suicidal Ideation Suicidal Ideation: No - Homicidal Ideation Homicidal Ideation: No Goal/Treatment Plan - Goal/Treatment Plan Need for Continued Stay: Discharge may exacerbated symptoms Progress Toward Problem(s) and Goals/Treatment Plan: Major depressive disorder recurrent severe without psychotic features Alcohol use disorder severe Patient education Supportive therapy [place] in CBT Other as needed medications Sertraline 100 mg PO Daily Seroquel 100 mg PO QHS Ggabapentin 300 mg PO BID - Smoking Cessation Smoking Cessation Initiated: No
[2017-10-23] MEDS: Multiple Vitamins Tab PO SCH (09:57)
[2017-10-23] MEDS ORDERED: Pneumococcal 23-Valent Vaccine IM ONE (10:00)
[2017-10-23] MEDS ORDERED: Influenza Vaccine 60 mcg/0.5 mL SYR (4YR UP) IM ONE (10:00)
--- NOTE | 2017-10-23 10:44 | PCM.PYCHPN ---
Psychiatric Progress Note - Psychiatric Progress Note Patient seen today, length of contact: 15 min Patient Chief Complaint: I am feeling little better.' Problems Identified/Issues Discussed: Patient seen and evaluated, chart reviewed and discussed with the nurse. Patient still reports depressed mood, and irritability. He is hopeful to get into a rehab program. He reports improvement in the withdrawal symptoms He reports some improvement in his sleep and appetite. He denies any AVH. Patient is compliant with medications and denies any side effects. Symptoms are improving but need more time to stabilize. Support and psychoeducation given. Medication Change: No Medical Record Reviewed: Yes Mental Status Examination - Cognitive Function Orientation: Person, Place, Situation, Time Memory: Intact Attention: WNL Concentration: Poor Association: WNL Fund of Knowledge: Poor - Mood Mood: Depressed - Affect Affect: Depressed - Speech Speech: Soft - Formal Thought Process Formal Thought Process: No Impairment (At the time of evaluation) - Suicidal Ideation Suicidal Ideation: No - Homicidal Ideation Homicidal Ideation: No Goal/Treatment Plan - Goal/Treatment Plan Need for Continued Stay: Discharge may exacerbated symptoms Progress Toward Problem(s) and Goals/Treatment Plan: Major depressive disorder recurrent severe without psychotic features Alcohol use disorder severe Patient education Supportive therapy [place] in CBT Other as needed medications Sertraline 100 mg PO Daily Seroquel 100 mg PO QHS Ggabapentin 300 mg PO BID - Smoking Cessation Smoking Cessation Initiated: No
[2017-10-24 06:43] VITALS: BP 97/68; PULSE 72; RESP 19; TEMP 97.6
[2017-10-24] MEDS: Multiple Vitamins Tab PO SCH (09:27)
--- NOTE | 2017-10-24 10:09 | PCM.PYCHDC ---
Mental Status Examination - Mental Status Examination Orientation: Person, Place, Situation, Time Memory: Intact Mood: Neutral Affect: Constricted Speech: Soft Attention: WNL Concentration: WNL Association: WNL Fund of Knowledge: WNL Formal Thought Process: No Impairment Description of patient's judgement and insight: good, fair Psychotic Thoughts and Behaviors: denies any AVH Suicidal Ideation: No Current Homicidal Ideation?: No Discharge Summary - Discharge Note Reason for Hospitalization: Patient is a 52 years old -G[place] male with history of depression and alcohol use. Patient was discharged from the [facility] about 4 days ago. Patient came back with complaints of I am not right, here voices and sees spots. Patient was poor historian and guarded. History was obtained from previous records. According to previous record patient had multiple same symptoms every time. According to patient he was feeling depression and hearing voices. Patient reported he relapsed on alcohol and drank 1 pint of alcohol and 2 beers yesterday. Denied use of any other drugs. Consultations:: List each consultation separately and include: 1. Reason for request. 2. Findings. 3. Follow-up Summary of Hospital Course include:: 1. Description of specific treatment plan utilized for patients during their course of treatmen. 2. Summarize the time- course for resolution of acute symptoms and/or regressed behaviors. 3. Describe issues identified and worked on during hospitalization. 4. Describe medication utilized. 5. Describe medical problems identified and treated. 6. Reassessment of suicide risk Summary of Hospital Course: During the course of his stay, patient (pt) started progressively improving and he no longer remained irritable, depressed, and suicidal. His mood and anxiety were improved and he started attending groups and meetings and started socializing. Patient denied any feelings of hopelessness, helplessness, and worthlessness, denied any problem with the sleep or appetite, denied suicidal ideation or homicidal ideation. Pt denied any auditory or visual hallucinations. Some changes were made in his current medications and patient was discharged on following medications. He tolerated these medications very well and denied any side effects. Pt is to attend outpatient walk-in clinic at [facility] in [place]. - Diagnosis (1) Depressive disorder Status: Acute (2) Alcohol dependence Status: Acute - Final Diagnosis (DSM 5) Condition upon Discharge: STABLE DSM 5: Major depressive disorder recurrent severe without psychotic features Alcohol use disorder severe Disposition: HOME/ ROUTINE Follow-up Treatment Plan: Education: Pt was educated and counseled about the risks and benefits of taking and not taking medications. Pt was educated and counseled about the risks of drinking and abusing drugs. Pt was educated and counseled to go to the ER or call 911 if pt develop suicidal ideation or homicidal ideation, worsening of symptoms or severe side effects of the meds. Prescriptions/Medication Reconciliation: Gabapentin [Neurontin] 300 mg PO BID #60 cap QUEtiapine [Seroquel] 100 mg PO HS #30 tab Sertraline [Zoloft] 100 mg PO DAILY #30 tab - Smoking Cessation Smoking Cessation Medication prescribed: No - Antipsychotic Medications Pt discharged on 2 or more routine antipsychotic medications: No
== END 2017-10-24 12:51 | disposition home or self-care (01) | DRG 430 ==
LOC: C.ER 23:05 → C.5E 10-20 08:44
PROC: GZ3ZZZZ Medication Management (ICD-10-PCS; principal; 2017-10-20)
PROC: HZ89ZZZ Medication Management for Substance Abuse Treatment, Other Replacement Medication (ICD-10-PCS; 2017-10-20)
PROC: GZ56ZZZ Individual Psychotherapy, Supportive (ICD-10-PCS; 2017-10-20)
DX: F33.2 Major depressive disorder, recurrent severe without psychotic features (principal); F10.20 Alcohol dependence, uncomplicated; I10 Essential (primary) hypertension; F25.9 Schizoaffective disorder, unspecified; F60.9 Personality disorder, unspecified; F31.9 Bipolar disorder, unspecified; E78.5 Hyperlipidemia, unspecified; E78.00 Pure hypercholesterolemia, unspecified

== ENCOUNTER 2017-10-26 11:56 | Emergency (ER) | payer MEDICAID ==
[2017-10-26 11:57] VITALS: BMI 27.1
[2017-10-26 12:12] VITALS: TEMP 97.9
--- NOTE | 2017-10-26 13:23 | C.PDOC ---
History Of Present Illness 52 year old male brought to ED by EMS for public intoxication. Pt is requesting detox from alcohol. Denies SI/HI, or any other physical complaints at this time. Chief Complaint (Nursing): Substance Abuse History Per: Patient History/Exam Limitations: no limitations Onset/Duration Of Symptoms: Gradual Current Symptoms Are (Timing): Still Present Modifying Factor(s): Alcohol Associated Symptoms: denies: Suicidal Thoughts, Suicidal Plan Involuntary Hold By: None Recent travel outside of the [place]: No Additional History Per: Patient Past Medical History Reviewed: Historical Data, Nursing Documentation, Vital Signs Vital Signs: Last Vital Signs Temp 97.9 F 10/26/17 12:11 Pulse 72 10/26/17 14:36 Resp 20 10/26/17 14:36 BP 100/62 10/26/17 14:36 Pulse Ox 99 10/26/17 14:36 - Medical History PMH: Anxiety, Bipolar Disorder, Depression, HTN (used to take medication can not remember name), Hypercholesterolemia (used to take medication can not remember name), Hyperlipidemia, Personality Disorder (multiple fights,agression) , Schizophrenia (Schizoaffective) Denies: Alzheimer's Disease, Anemia, Arthritis, Asthma, Atrial Fibrillation, Bronchitis, Cardia Arrhythmia, CHF, COPD, Crohn's Disease, Dementia, Diverticulitis, Emphysema, Fractures, Gastritis, Gall Bladder Disease, HIV ( Patient denied), Hyperthyroidism, Hypothyroidism, Kidney Stones, Migraine, Mitral Valve Prolapse, Multiple Sclerosis, Osteoporosis, Pancreatitis, Parkinson 's Disease, Peripheral Edema, Pneumonia, Post Traumatic Stress Disorder, Pulmonary Embolism, Chronic Kidney Disease, Rheumatoid Arthritis, Seizures ( Patient denied), Sickle Cell Disease, Sexually Transmitted Disease (Patient denied), Sleep Apnea, TIA Surgical History: Denies: Appendectomy, CABG, Carotid Endarterectomy, Cholecystectomy, Coronary Stent, Pacemaker, Tonsillectomy - [facility] Procedures ALCOHOL DETOXIFICATION (01/08/14) DETOXIFICATION SERVICES FOR SUBSTANCE ABUSE TREATMENT (10/11/17) GROUP FILTER CHANGING TECHNICIAN FOR SUBSTANCE ABUSE TREATMENT, PSYCHOEDUCATION (10/11/17) GROUP FILTER CHANGING TECHNICIAN FOR SUBSTANCE ABUSE, COGNITIVE BEHAVIORAL (10/11/17) GROUP PSYCHOTHERAPY (09/11/17) INDIV FILTER CHANGING TECHNICIAN FOR SUBSTANCE ABUSE TREATMENT, PSYCHOEDUCATION (02/22/17) INDIV PSYCHOTHERAPY FOR SUBSTANCE ABUSE TREATMENT, SUPPORT (10/11/17) INDIV PSYCHOTHERAPY FOR SUBSTANCE ABUSE, COGNITIV BEHAVIORAL (10/11/17) INDIV PSYCHOTHERAPY FOR SUBSTANCE ABUSE, PSYCHOEDUCATION (10/11/17) INDIVIDUAL PSYCHOTHERAPY, COGNITIVE-BEHAVIORAL (12/10/16) INDIVIDUAL PSYCHOTHERAPY, SUPPORTIVE (10/20/17) INSERTION OF INFUSION DEV INTO SUP VENA CAVA, PERC APPROACH (12/10/16) MEDICATION MANAGEMENT (10/20/17) MEDS MGMT FOR SUBSTANCE ABUSE TREATMENT, OTH REPL MED (10/20/17) REMOVAL OF INFUSION DEV FROM GREAT VESSEL, AIRPORT MAINTENANCE CHIEF APPROACH (02/02/17) ULTRASONOGRAPHY OF SUPERIOR VENA CAVA, GUIDANCE (12/10/16) Family History: States: Unknown Family Hx - Social History Hx Tobacco Use: No Hx Alcohol Use: Yes Hx Substance Use: No - Immunization History Hx Tetanus Toxoid Vaccination: No Hx Influenza Vaccination: No Hx Pneumococcal Vaccination: No Review Of Systems Except As Marked, All Systems Reviewed And Found Negative. Constitutional: Negative for: Fever, Chills Cardiovascular: Negative for: Chest Pain, Palpitations Respiratory: Negative for: Cough, Shortness of Breath Gastrointestinal: Negative for: Nausea, Vomiting, Abdominal Pain Neurological: Negative for: Headache, Dizziness Psych: Negative for: Suicidal ideation Physical Exam - Physical Exam Appears: Non-toxic, No Acute Distress Skin: Normal Color, Warm, Dry Head: Atraumatic, Normacephalic Eye(s): bilateral: Normal Inspection Cardiovascular: Rhythm Regular, No Murmur Respiratory: Normal Breath Sounds, No Rales, No Rhonchi, No Wheezing Extremity: Bilateral: Atraumatic, Normal ROM Neurological/Psych: Oriented x3, Normal Speech ED Course And Treatment O2 Sat by Pulse Oximetry: 97 Pulse Ox Interpretation: Normal Disposition - Disposition Referrals: [facility] [Outside] [facility] [Outside] Disposition: HOME/ ROUTINE Disposition Time: 13:00 Condition: IMPROVED Additional Instructions: Thank you for letting us take care of you today. The emergency medical care you received today was directed at your acute symptoms. If you were prescribed any medication, please fill it and take as directed. It may take several days for your symptoms to resolve. Return to the Emergency Department if your symptoms worsen, do not improve, or if you have any other problems. Please contact your doctor or call one of the physicians/clinics you have been referred to that are listed on the Patient Visit Information form that is included in your discharge packet. Bring any paperwork you were given at discharge with you along with any medications you are taking to your follow up visit. Our treatment cannot replace ongoing medical care by a primary care provider (PCP) outside of the emergency department. Thank you for allowing the [facility] team to be part of your care today. Follow up with the clinic in 3-4 days for re-evaluation and further management. Instructions: Alcohol Intoxication (ED) Forms: [employer] (Moldovan) - Clinical Impression Clinical Impression: Alcohol abuse - Scribe Statement The provider has reviewed the documentation as recorded by the Scribe Quentin Cobian All medical record entries made by the Scribe were at my direction and personally dictated by me. I have reviewed the chart and agree that the record accurately reflects my personal performance of the history, physical exam, medical decision making, and the department course for this patient. I have also personally directed, reviewed, and agree with the discharge instructions and disposition.
[2017-10-26 14:37] VITALS: BP 100/62; PULSE 72; RESP 20
[2017-10-26 18:52] VITALS: O2SAT 97
== END 2017-10-26 18:38 | disposition home or self-care (01) ==
LOC: C.ER 11:56
DX: F10.10 Alcohol abuse, uncomplicated (principal); Y90.9 Presence of alcohol in blood, level not specified

== ENCOUNTER 2017-10-26 21:50 | Emergency (ER) | payer MEDICAID ==
[2017-10-26 21:50] VITALS: BMI 27.1
--- NOTE | 2017-10-27 01:02 | C.PDOC ---
History Of Present Illness 52 y/o brought to ED for public intoxication. Admits to ETOH use today. Denies any physical complaints or injuries. Chief Complaint (Nursing): Substance Abuse History Per: Patient History/Exam Limitations: no limitations Onset/Duration Of Symptoms: Hrs Current Symptoms Are (Timing): Still Present Suicide/Self Injury Attempted (Context): None Modifying Factor(s): Alcohol Involuntary Hold By: None Recent travel outside of the [place]: No Past Medical History Reviewed: Historical Data, Nursing Documentation, Vital Signs Vital Signs: Last Vital Signs Temp 98.5 F 10/27/17 05:06 Pulse 82 10/27/17 05:06 Resp 18 10/27/17 05:06 BP 113/71 10/27/17 05:06 Pulse Ox 100 10/27/17 05:06 - Medical History PMH: Anxiety, Bipolar Disorder, Depression, HTN (used to take medication can not remember name), Hypercholesterolemia (used to take medication can not remember name), Hyperlipidemia, Personality Disorder (multiple fights,agression) , Schizophrenia (Schizoaffective) Surgical History: Denies: Appendectomy, CABG, Carotid Endarterectomy, Cholecystectomy, Coronary Stent, Pacemaker, Tonsillectomy - [facility] Procedures ALCOHOL DETOXIFICATION (01/08/14) DETOXIFICATION SERVICES FOR SUBSTANCE ABUSE TREATMENT (10/11/17) GROUP MICROCOMPUTER SUPPORT SPECIALIST FOR SUBSTANCE ABUSE TREATMENT, PSYCHOEDUCATION (10/11/17) GROUP MICROCOMPUTER SUPPORT SPECIALIST FOR SUBSTANCE ABUSE, COGNITIVE BEHAVIORAL (10/11/17) GROUP PSYCHOTHERAPY (09/11/17) INDIV MICROCOMPUTER SUPPORT SPECIALIST FOR SUBSTANCE ABUSE TREATMENT, PSYCHOEDUCATION (02/22/17) INDIV PSYCHOTHERAPY FOR SUBSTANCE ABUSE TREATMENT, SUPPORT (10/11/17) INDIV PSYCHOTHERAPY FOR SUBSTANCE ABUSE, COGNITIV BEHAVIORAL (10/11/17) INDIV PSYCHOTHERAPY FOR SUBSTANCE ABUSE, PSYCHOEDUCATION (10/11/17) INDIVIDUAL PSYCHOTHERAPY, COGNITIVE-BEHAVIORAL (12/10/16) INDIVIDUAL PSYCHOTHERAPY, SUPPORTIVE (10/20/17) INSERTION OF INFUSION DEV INTO SUP VENA CAVA, PERC APPROACH (12/10/16) MEDICATION MANAGEMENT (10/20/17) MEDS MGMT FOR SUBSTANCE ABUSE TREATMENT, OTH REPL MED (10/20/17) REMOVAL OF INFUSION DEV FROM GREAT VESSEL, DISTRIBUTION SPEC APPROACH (02/02/17) ULTRASONOGRAPHY OF SUPERIOR VENA CAVA, GUIDANCE (12/10/16) Family History: States: Unknown Family Hx - Social History Hx Tobacco Use: No Hx Alcohol Use: Yes Hx Substance Use: No - Immunization History Hx Tetanus Toxoid Vaccination: No Hx Influenza Vaccination: No Hx Pneumococcal Vaccination: No Review Of Systems Constitutional: Negative for: Fever, Chills Cardiovascular: Negative for: Chest Pain, Palpitations Respiratory: Negative for: Shortness of Breath Gastrointestinal: Negative for: Nausea, Vomiting, Abdominal Pain, Diarrhea Neurological: Negative for: Weakness, Numbness Psych: Negative for: Suicidal ideation Physical Exam - Physical Exam Appears: Well, Non-toxic, No Acute Distress, Other (Slurred speech; responds to verbal stimuli; no trauma) Skin: Normal Color, Warm, Dry Head: Atraumatic, Normacephalic Eye(s): bilateral: Normal Inspection Oral Mucosa: Moist Neck: Supple Chest: Symmetrical, No Tenderness Cardiovascular: Rhythm Regular Respiratory: Normal Breath Sounds, No Decreased Breath Sounds, No Rales, No Rhonchi, No Wheezing Gastrointestinal/Abdominal: Normal Exam, Soft, No Tenderness, No Distention Extremity: Normal ROM, No Tenderness, No Pedal Edema Neurological/Psych: Oriented x3, Normal Speech, Normal Cognition ED Course And Treatment O2 Sat by Pulse Oximetry: 97 (RA) Pulse Ox Interpretation: Normal Disposition - Disposition Referrals: [facility] [Outside] Disposition: HOME/ ROUTINE Disposition Time: 05:36 Condition: GOOD Instructions: Alcohol Intoxication (ED) Forms: [facility] (Filipino) Print Language: TELUGU - Clinical Impression Clinical Impression: Alcohol abuse - Scribe Statement The provider has reviewed the documentation as recorded by the Scribboone [place] All medical record entries made by the Scribe were at my direction and personally dictated by me. I have reviewed the chart and agree that the record accurately reflects my personal performance of the history, physical exam, medical decision making, and the department course for this patient. I have also personally directed, reviewed, and agree with the discharge instructions and disposition.
[2017-10-27 05:06] VITALS: BP 113/71; PULSE 82; RESP 18; TEMP 98.5
[2017-10-27 05:36] VITALS: O2SAT 97
== END 2017-10-27 05:39 | disposition home or self-care (01) ==
LOC: C.ER 21:50
DX: F10.10 Alcohol abuse, uncomplicated (principal); Y90.9 Presence of alcohol in blood, level not specified

== ENCOUNTER 2017-10-27 18:43 | Emergency (ER) | payer MEDICAID ==
[2017-10-27 18:44] VITALS: BMI 27.1
--- NOTE | 2017-10-27 19:14 | C.PDOC ---
History Of Present Illness Patient is a 52-year-old male, presents to the emergency department with complaints of public intoxication, looking for a place to stay, initially patient potentially homicidal, then claiming he wants detox. Patient admitted -10/24, seen in the ER twice yesterday for alcohol intoxication, without HI/ SI. Time Seen by Provider: 10/27/17 19:10 Chief Complaint (Nursing): Psychiatric Evaluation History Per: Patient Past Medical History Reviewed: Historical Data, Nursing Documentation, Vital Signs Vital Signs: Last Vital Signs Temp 98.2 F 10/27/17 19:20 Pulse 89 10/27/17 19:20 Resp 18 10/27/17 19:20 BP 119/67 10/27/17 19:20 Pulse Ox 97 10/27/17 19:20 - Medical History PMH: Anxiety, Bipolar Disorder, Depression, HTN (used to take medication can not remember name), Hypercholesterolemia (used to take medication can not remember name), Hyperlipidemia, Personality Disorder (multiple fights,agression) , Schizophrenia (Schizoaffective) Denies: Alzheimer's Disease, Anemia, Arthritis, Asthma, Atrial Fibrillation, Bronchitis, Cardia Arrhythmia, CHF, COPD, Crohn's Disease, Dementia, Diverticulitis, Emphysema, Fractures, Gastritis, Gall Bladder Disease, HIV ( Patient denied), Hyperthyroidism, Hypothyroidism, Kidney Stones, Migraine, Mitral Valve Prolapse, Multiple Sclerosis, Osteoporosis, Pancreatitis, Parkinson 's Disease, Peripheral Edema, Pneumonia, Post Traumatic Stress Disorder, Pulmonary Embolism, Chronic Kidney Disease, Rheumatoid Arthritis, Seizures ( Patient denied), Sickle Cell Disease, Sexually Transmitted Disease (Patient denied), Sleep Apnea, TIA Surgical History: Denies: Appendectomy, CABG, Carotid Endarterectomy, Cholecystectomy, Coronary Stent, Pacemaker, Tonsillectomy - [facility] Procedures ALCOHOL DETOXIFICATION (01/08/14) DETOXIFICATION SERVICES FOR SUBSTANCE ABUSE TREATMENT (10/11/17) GROUP SOCIAL WORK JOB TITLES FOR SUBSTANCE ABUSE TREATMENT, PSYCHOEDUCATION (10/11/17) GROUP SOCIAL WORK JOB TITLES FOR SUBSTANCE ABUSE, COGNITIVE BEHAVIORAL (10/11/17) GROUP PSYCHOTHERAPY (09/11/17) INDIV SOCIAL WORK JOB TITLES FOR SUBSTANCE ABUSE TREATMENT, PSYCHOEDUCATION (02/22/17) INDIV PSYCHOTHERAPY FOR SUBSTANCE ABUSE TREATMENT, SUPPORT (10/11/17) INDIV PSYCHOTHERAPY FOR SUBSTANCE ABUSE, COGNITIV BEHAVIORAL (10/11/17) INDIV PSYCHOTHERAPY FOR SUBSTANCE ABUSE, PSYCHOEDUCATION (10/11/17) INDIVIDUAL PSYCHOTHERAPY, COGNITIVE-BEHAVIORAL (12/10/16) INDIVIDUAL PSYCHOTHERAPY, SUPPORTIVE (10/20/17) INSERTION OF INFUSION DEV INTO SUP VENA CAVA, PERC APPROACH (12/10/16) MEDICATION MANAGEMENT (10/20/17) MEDS MGMT FOR SUBSTANCE ABUSE TREATMENT, OTH REPL MED (10/20/17) REMOVAL OF INFUSION DEV FROM GREAT VESSEL, CLIENT SOLUTIONS SPECIALIST APPROACH (02/02/17) ULTRASONOGRAPHY OF SUPERIOR VENA CAVA, GUIDANCE (12/10/16) Family History: States: No Known Family Hx - Social History Hx Tobacco Use: No Hx Alcohol Use: Yes Hx Substance Use: No - Immunization History Hx Tetanus Toxoid Vaccination: No Hx Influenza Vaccination: No Hx Pneumococcal Vaccination: No Review Of Systems Constitutional: Negative for: Fever Cardiovascular: Negative for: Chest Pain, Palpitations Respiratory: Negative for: Shortness of Breath Gastrointestinal: Negative for: Vomiting Neurological: Negative for: Weakness, Numbness Psych: Positive for: Other (Homicidal ideation). Negative for: Withdrawal Physical Exam - Physical Exam Appears: Non-toxic, No Acute Distress, Unkempt (disheveled), Other (Alcohol on breath. Obese. Foul smelling) Skin: Warm, Dry, No Rash, No Jaundice Head: Atraumatic Oral Mucosa: Moist Neck: Normal ROM Chest: Symmetrical Cardiovascular: Rhythm Regular, No Murmur Respiratory: Normal Breath Sounds, No Accessory Muscle Use Extremity: Normal ROM Neurological/Psych: Oriented x3 Medical Decision Making Medical Decision Making: persistent alcohol abuse adm topsych 10/20-10/24, no sig new issues Eval yesterday x 2 for ETOH abuse- no psych issues. suspect malingering, no SI/HI d/c with opt f/u. Disposition Doctor Will See Patient In The: Office Counseled Patient/Family Regarding: Studies Performed, Diagnosis - Disposition Referrals: Alcoholics Anonymous [Outside] [facility] [Outside] [facility] [Outside] [facility] [Outside] Disposition: HOME/ ROUTINE Disposition Time: 19:14 Condition: GOOD Additional Instructions: continue outpatient psych and detox evals Instructions: Abuse of Alcohol (ED) Forms: [employer] [facility] (T[place]ight) - Clinical Impression Clinical Impression: Alcohol abuse - Scribe Statement The provider has reviewed the documentation as recorded by the Scribe (Gaby Brody) All medical record entries made by the Agustin were at my direction and personally dictated by me. I have reviewed the chart and agree that the record accurately reflects my personal performance of the history, physical exam, medical decision making, and the department course for this patient. I have also personally directed, reviewed, and agree with the discharge instructions and disposition.
[2017-10-27 19:52] VITALS: BP 119/67; PULSE 89; RESP 18; TEMP 98.2; O2SAT 97
== END 2017-10-27 19:53 | disposition home or self-care (01) ==
LOC: C.ER 18:43
DX: F10.10 Alcohol abuse, uncomplicated (principal); Y90.9 Presence of alcohol in blood, level not specified

== ENCOUNTER 2017-11-17 15:01 | Emergency (ER) | payer MEDICAID ==
[2017-11-17 15:02] VITALS: BMI 27.1
[2017-11-17 15:30] VITALS: BP 95/66; PULSE 70; RESP 18; TEMP 97.4; O2SAT 98
--- NOTE | 2017-11-17 16:06 | C.PDOC ---
History Of Present Illness 52 year old male is brought to the ED by ambulance for evaluation of public alcohol intoxication and malingering. Patient is well known to this ED and had had many prior evaluations concerning alcohol intoxication. Patient denies any injuries and has no physical complaints at this time. Time Seen by Provider: 11/17/17 15:52 Chief Complaint (Nursing): Substance Abuse History Per: Patient History/Exam Limitations: no limitations, intoxication Onset/Duration Of Symptoms: Unknown Current Symptoms Are (Timing): Gone Suicide/Self Injury Attempted (Context): None Modifying Factor(s): Alcohol Associated Symptoms: denies: Suicidal Thoughts, Suicidal Plan Additional History Per: Patient Past Medical History Reviewed: Historical Data, Nursing Documentation, Vital Signs Vital Signs: Last Vital Signs Temp 97.4 F L 11/17/17 15:26 Pulse 70 11/17/17 15:26 Resp 18 11/17/17 15:26 BP 95/66 L 11/17/17 15:26 Pulse Ox 98 11/17/17 16:06 - Medical History PMH: Anxiety, Bipolar Disorder, Depression, HTN (used to take medication can not remember name), Hypercholesterolemia (used to take medication can not remember name), Hyperlipidemia, Personality Disorder (multiple fights,agression) , Schizophrenia (Schizoaffective) Denies: Alzheimer's Disease, Anemia, Arthritis, Asthma, Atrial Fibrillation, Bronchitis, Cardia Arrhythmia, CHF, COPD, Crohn's Disease, Dementia, Diverticulitis, Emphysema, Fractures, Gastritis, Gall Bladder Disease, HIV ( Patient denied), Hyperthyroidism, Hypothyroidism, Kidney Stones, Migraine, Mitral Valve Prolapse, Multiple Sclerosis, Osteoporosis, Pancreatitis, Parkinson 's Disease, Peripheral Edema, Pneumonia, Post Traumatic Stress Disorder, Pulmonary Embolism, Chronic Kidney Disease, Rheumatoid Arthritis, Seizures ( Patient denied), Sickle Cell Disease, Sexually Transmitted Disease (Patient denied), Sleep Apnea, TIA Surgical History: Denies: Appendectomy, CABG, Carotid Endarterectomy, Cholecystectomy, Coronary Stent, Pacemaker, Tonsillectomy - [facility] Procedures ALCOHOL DETOXIFICATION (01/08/14) DETOXIFICATION SERVICES FOR SUBSTANCE ABUSE TREATMENT (10/11/17) GROUP MECHANICAL ENGINEERING MANAGER FOR SUBSTANCE ABUSE TREATMENT, PSYCHOEDUCATION (10/11/17) GROUP MECHANICAL ENGINEERING MANAGER FOR SUBSTANCE ABUSE, COGNITIVE BEHAVIORAL (10/11/17) GROUP PSYCHOTHERAPY (09/11/17) INDIV MECHANICAL ENGINEERING MANAGER FOR SUBSTANCE ABUSE TREATMENT, PSYCHOEDUCATION (02/22/17) INDIV PSYCHOTHERAPY FOR SUBSTANCE ABUSE TREATMENT, SUPPORT (10/11/17) INDIV PSYCHOTHERAPY FOR SUBSTANCE ABUSE, COGNITIV BEHAVIORAL (10/11/17) INDIV PSYCHOTHERAPY FOR SUBSTANCE ABUSE, PSYCHOEDUCATION (10/11/17) INDIVIDUAL PSYCHOTHERAPY, COGNITIVE-BEHAVIORAL (12/10/16) INDIVIDUAL PSYCHOTHERAPY, SUPPORTIVE (10/20/17) INSERTION OF INFUSION DEV INTO SUP VENA CAVA, PERC APPROACH (12/10/16) MEDICATION MANAGEMENT (10/20/17) MEDS MGMT FOR SUBSTANCE ABUSE TREATMENT, OTH REPL MED (10/20/17) REMOVAL OF INFUSION DEV FROM GREAT VESSEL, FORMING TUBE SELECTOR APPROACH (02/02/17) ULTRASONOGRAPHY OF SUPERIOR VENA CAVA, GUIDANCE (12/10/16) Family History: States: Unknown Family Hx - Social History Hx Tobacco Use: No Hx Alcohol Use: Yes Hx Substance Use: No - Immunization History Hx Tetanus Toxoid Vaccination: No Hx Influenza Vaccination: No Hx Pneumococcal Vaccination: No Review Of Systems Psych: Positive for: Other (EtOH intoxication ) Physical Exam - Physical Exam Appears: Non-toxic, No Acute Distress, Other (disheveld, black male, foul- mouthed, argumentative ) Skin: Normal Color, Warm, Dry Head: Atraumatic, Normacephalic Eye(s): bilateral: Normal Inspection Oral Mucosa: Moist, Other (alcohol on breath ) Neck: Supple Chest: Symmetrical, No Deformity, No Tenderness Cardiovascular: Rhythm Regular, No Murmur Respiratory: Normal Breath Sounds, No Rales, No Rhonchi, No Wheezing Extremity: Normal ROM, Capillary Refill (less than 2 seconds ) Neurological/Psych: Other (arousable to touch and verbal stimuli ) ED Course And Treatment O2 Sat by Pulse Oximetry: 98 (on RA ) Pulse Ox Interpretation: Normal Medical Decision Making Medical Decision Making: persistent alcohol abuse, stable psych though h/o schizo, no HI/SI d/w Crisis, no psych nor detox avail Disposition Doctor Will See Patient In The: Office Counseled Patient/Family Regarding: Studies Performed, Diagnosis - Disposition Referrals: Alcoholics Anonymous [Outside] [facility] [Outside] [facility] [Outside] Disposition: HOME/ ROUTINE Disposition Time: 16:06 Condition: GOOD Additional Instructions: seek outpatient resources as offered Seek detox, call for availability. Instructions: Alcohol Abuse and Alcoholism (DC) Forms: [facility] (Swedish) - Clinical Impression Clinical Impression: Alcohol abuse - Scribe Statement The provider has reviewed the documentation as recorded by the Scribe (Monika Cobian) Provider Attestation: All medical record entries made by the Scribe were at my direction and personally dictated by me. I have reviewed the chart and agree that the record accurately reflects my personal performance of the history, physical exam, medical decision making, and the department course for this patient. I have also personally directed, reviewed, and agree with the discharge instructions and disposition.
== END 2017-11-17 16:25 | disposition home or self-care (01) ==
LOC: C.ER 15:01
DX: F10.129 Alcohol abuse with intoxication, unspecified (principal); I10 Essential (primary) hypertension

== ENCOUNTER 2018-01-27 20:27 | Emergency (ER) | payer MEDICAID ==
[2018-01-27 20:28] VITALS: BMI 27.1
[2018-01-27 21:20] LABS: BASO # 0.1 K/uL (0.0-0.2); BASO % 0.8 % (0.0-2.0); EOS # 0.1 K/uL (0.0-0.7); EOS % 1.5 % (0.0-4.0); HEMOGLOBIN 11.7 g/dL (12.0-18.0); LYMPH # 2.2 K/uL (1.0-4.3); LYMPH % 32.9 % (20.0-40.0); MEAN CELL VOLUME 91.2 fL (80.0-94.0); MEAN CORPUSCULAR HEMOGLOBIN 30.2 pg (27.0-31.0); MEAN CORPUSCULAR HGB CONC 33.1 g/dL (33.0-37.0); MONO # 0.7 K/uL (0.0-0.8); MONO % 10.9 % (0.0-10.0); NEUT # 3.7 K/uL (1.8-7.0); NEUT % 53.9 % (50.0-75.0); NRBC % 0.2 % (0.0-2.0); RBC 3.89 Mil/uL (4.40-5.90); RED CELL DISTRIBUTION WIDTH 12.8 % (11.5-14.5)
[2018-01-27 21:21] LABS: WHITE BLOOD COUNT 6.8 K/uL (4.8-10.8)
[2018-01-27 21:27] LABS: URINE BILIRUBIN NEGATIVE (NEGATIVE); URINE BLOOD NEGATIVE (NEGATIVE); URINE CLARITY Clear (Clear); URINE COLOR Colorless (YELLOW); URINE GLUCOSE (UA) NORMAL (Normal); URINE LEUKOCYTE ESTERASE NEG Leu/uL (Negative); URINE PROTEIN NEGATIVE (NEGATIVE); URINE UROBILINOGEN NORMAL mg/dL (0.2-1.0)
[2018-01-27 21:32] LABS: ALB/GLOB RATIO 1.2 (1.0-2.1); ALBUMIN 4.3 g/dL (3.5-5.0); ALT/SGPT 28 U/L (21-72); AST/SGOT 34 U/L (17-59); BLOOD UREA NITROGEN 15 mg/dL (9-20); CALCIUM 9.3 mg/dl (8.6-10.4); GFR AFRICAN-AMERICAN > 60; GFR NON-AFRICAN AMERICAN > 60
[2018-01-27 21:36] LABS: BARBITURATES, UR NEGATIVE (NEGATIVE); BENZODIAZEPINES, UR NEGATIVE (NEGATIVE); PHENCYCLIDINE, UR NEGATIVE (NEGATIVE)
[2018-01-27 21:53] LABS: OPIATES, UR NEGATIVE (NEGATIVE)
[2018-01-27 23:05] VITALS: RESP 16; O2SAT 100
--- NOTE | 2018-01-28 00:26 | C.PDOC ---
History Of Present Illness <Charisma Lindsey - Last Filed: 01/28/18 00:23> <Georgina Johnson - Last Filed: 01/28/18 08:50> 52 y/o male with a history of alcohol abuse, schizophrenia, and bipolar disorder presents to the ED for auditory and visual hallucination. PMD: [place] (Charisma Lindsey) History Per: Patient History/Exam Limitations: clinical condition Onset/Duration Of Symptoms: Hrs Current Symptoms Are (Timing): Still Present Modifying Factor(s): Alcohol Associated Symptoms: Paranoia, Suicidal Thoughts Recent travel outside of the [place]: No <Charisma Lindsey - Last Filed: 01/28/18 00:23> <Georgina Johnson - Last Filed: 01/28/18 08:50> Time Seen by Provider: 01/27/18 20:54 Chief Complaint (Nursing): Psychiatric Evaluation Past Medical History - Medical History PMH: Anxiety, Bipolar Disorder, Depression, HTN (used to take medication can not remember name), Hypercholesterolemia (used to take medication can not remember name), Hyperlipidemia, Personality Disorder (multiple fights,agression) , Schizophrenia (Schizoaffective) Denies: Alzheimer's Disease, Anemia, Arthritis, Asthma, Atrial Fibrillation, Bronchitis, Cardia Arrhythmia, CHF, COPD, Crohn's Disease, Dementia, Diabetes, Diverticulitis, Emphysema, Fractures, Gastritis, Gall Bladder Disease, Hepatitis , HIV (Patient denied), Hyperthyroidism, Hypothyroidism, Kidney Stones, Migraine , Mitral Valve Prolapse, Multiple Sclerosis, Osteoporosis, Pancreatitis, Parkinson's Disease, Peripheral Edema, Pneumonia, Post Traumatic Stress Disorder , Pulmonary Embolism, Chronic Kidney Disease, Rheumatoid Arthritis, Seizures ( Patient denied), Sickle Cell Disease, Sexually Transmitted Disease (Patient denied), Sleep Apnea, TIA Other PMH: EtOH abuse Surgical History: Denies: Appendectomy, CABG, Carotid Endarterectomy, Cholecystectomy, Coronary Stent, Pacemaker, Tonsillectomy Family History: States: Unknown Family Hx - Social History Hx Tobacco Use: No Hx Alcohol Use: Yes Hx Substance Use: No - Immunization History Hx Tetanus Toxoid Vaccination: No Hx Influenza Vaccination: No Hx Pneumococcal Vaccination: No <Charisma Lindsey - Last Filed: 01/28/18 00:23> Vital Signs: Last Vital Signs Temp 97.9 F 01/28/18 05:45 Pulse 81 01/28/18 05:45 Resp 16 01/28/18 05:45 BP 115/65 01/28/18 05:45 Pulse Ox 100 01/28/18 05:45 - [facility] Procedures ALCOHOL DETOXIFICATION (01/08/14) DETOXIFICATION SERVICES FOR SUBSTANCE ABUSE TREATMENT (10/11/17) GROUP DOG GROOMER FOR SUBSTANCE ABUSE TREATMENT, PSYCHOEDUCATION (10/11/17) GROUP DOG GROOMER FOR SUBSTANCE ABUSE, COGNITIVE BEHAVIORAL (10/11/17) GROUP PSYCHOTHERAPY (09/11/17) INDIV DOG GROOMER FOR SUBSTANCE ABUSE TREATMENT, PSYCHOEDUCATION (02/22/17) INDIV PSYCHOTHERAPY FOR SUBSTANCE ABUSE TREATMENT, SUPPORT (10/11/17) INDIV PSYCHOTHERAPY FOR SUBSTANCE ABUSE, COGNITIV BEHAVIORAL (10/11/17) INDIV PSYCHOTHERAPY FOR SUBSTANCE ABUSE, PSYCHOEDUCATION (10/11/17) INDIVIDUAL PSYCHOTHERAPY, COGNITIVE-BEHAVIORAL (12/10/16) INDIVIDUAL PSYCHOTHERAPY, SUPPORTIVE (10/20/17) INSERTION OF INFUSION DEV INTO SUP VENA CAVA, PERC APPROACH (12/10/16) MEDICATION MANAGEMENT (10/20/17) MEDS MGMT FOR SUBSTANCE ABUSE TREATMENT, OTH REPL MED (10/20/17) REMOVAL OF INFUSION DEV FROM GREAT VESSEL, HEMATOLOGIST APPROACH (02/02/17) ULTRASONOGRAPHY OF SUPERIOR VENA CAVA, GUIDANCE (12/10/16) Review Of Systems Except As Marked, All Systems Reviewed And Found Negative. Constitutional: Positive for: Other (EtOH abuse) Psych: Positive for: Suicidal ideation <Charisma Lindsey - Last Filed: 01/28/18 00:23> ED Course And Treatment - Laboratory Results Result Diagrams: 01/27/18 21:14 01/27/18 21:14 O2 Sat by Pulse Oximetry: 100 (RA) Pulse Ox Interpretation: Normal <Charisma Lindsey - Last Filed: 01/28/18 00:23> - Laboratory Results Result Diagrams: 01/27/18 21:14 01/27/18 21:14 <Georgina Johnson - Last Filed: 01/28/18 08:50> Medical Decision Making <Charisma Lindsey - Last Filed: 01/28/18 00:23> <Georgina Johnson - Last Filed: 01/28/18 08:50> Medical Decision Making: Uncooperative for exam. Medically cleared for psych consult. EtOH was 298. Scribe Attestation: Documented by Lloyd Kelley acting as a scribe César Sepulveda MD. Scribe Attestation: All medical record entries made by the Scribe were at my direction and personally dictated by me. I have reviewed the chart and agree that the record accurately reflects my personal performance of the history, physical exam, medical decision making, and the department course for this patient. I have also personally directed, reviewed, and agree with the discharge instructions and disposition. (Charisma Lindsey) Disposition <Charisma Lindsey - Last Filed: 01/28/18 00:23> - Disposition Disposition Time: 08:50 <Georgina Johnson - Last Filed: 01/28/18 08:50> - Disposition Disposition: HOME/ ROUTINE Condition: GOOD Additional Instructions: Pt given referrals for outpt mental health Instructions: Alcohol Use - When Is Drinking a Problem? Forms: [facility] (Danish) Print Language: UGANDAN - Clinical Impression Clinical Impression: Alcohol abuse
[2018-01-28 05:46] VITALS: BP 115/65; PULSE 81; TEMP 97.9
== END 2018-01-28 06:30 | disposition home or self-care (01) ==
LOC: C.ER 20:27
DX: F10.10 Alcohol abuse, uncomplicated (principal); Y90.8 Blood alcohol level of 240 mg/100 ml or more; F20.9 Schizophrenia, unspecified; F31.9 Bipolar disorder, unspecified; I10 Essential (primary) hypertension; E78.00 Pure hypercholesterolemia, unspecified; Z87.891 Personal history of nicotine dependence

== ENCOUNTER 2018-02-26 19:20 | Emergency (ER) | payer MEDICAID ==
[2018-02-26 19:20] VITALS: BMI 27.1
[2018-02-26] MEDS ORDERED: Sodium Chloride 0.9% 1,000 ML IV ONE (19:58)
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
[2018-02-26 20:19] LABS: BARBITURATES, UR NEGATIVE (NEGATIVE); BENZODIAZEPINES, UR NEGATIVE (NEGATIVE); OPIATES, UR NEGATIVE (NEGATIVE); PHENCYCLIDINE, UR NEGATIVE (NEGATIVE)
[2018-02-26] MEDS ORDERED: Sodium Chloride 0.9% 1,000 ML ONE (20:30)
[2018-02-26 20:35] LABS: BASO % 1.7 % (0.0-2.0); EOS % 1.1 % (0.0-4.0); HEMOGLOBIN 12.9 g/dL (12.0-18.0); LYMPH # 1.1 K/uL (1.0-4.3); LYMPH % 38.7 % (20.0-40.0); MEAN CELL VOLUME 92.1 fL (80.0-94.0); MEAN CORPUSCULAR HEMOGLOBIN 30.2 pg (27.0-31.0); MEAN CORPUSCULAR HGB CONC 32.8 g/dL (33.0-37.0); MEAN PLATELET VOLUME 7.3 fL (7.2-11.7); MONO # 0.5 K/uL (0.0-0.8); MONO % 16.2 % (0.0-10.0); NEUT # 1.2 K/uL (1.8-7.0); NEUT % 42.3 % (50.0-75.0); NRBC % 0.2 % (0.0-2.0); RBC 4.25 Mil/uL (4.40-5.90); RED CELL DISTRIBUTION WIDTH 13.9 % (11.5-14.5); WHITE BLOOD COUNT 2.8 K/uL (4.8-10.8)
[2018-02-26 20:44] LABS: URINE BILIRUBIN NEGATIVE (NEGATIVE); URINE BLOOD NEGATIVE (NEGATIVE); URINE CLARITY Clear (Clear); URINE COLOR Colorless (YELLOW); URINE GLUCOSE (UA) NORMAL (Normal); URINE LEUKOCYTE ESTERASE NEG Leu/uL (Negative); URINE PROTEIN NEGATIVE (NEGATIVE); URINE UROBILINOGEN NORMAL mg/dL (0.2-1.0)
[2018-02-26 20:58] LABS: ALB/GLOB RATIO 1.2 (1.0-2.1); ALBUMIN 4.4 g/dL (3.5-5.0); ALT/SGPT 16 U/L (21-72); AST/SGOT 50 U/L (17-59); BLOOD UREA NITROGEN 12 mg/dL (9-20); CALCIUM 9.2 mg/dl (8.6-10.4); GFR AFRICAN-AMERICAN > 60; GFR NON-AFRICAN AMERICAN > 60
[2018-02-27 05:24] VITALS: BP 132/74; PULSE 86; RESP 18; TEMP 98.3; O2SAT 98
--- NOTE | 2018-02-27 08:28 | RAD ---
Chest x-ray single frontal view History: Detox. Comparison: 10/20/2017 Findings: Mild venous congestion. Mild patchy increased markings at the left lung base. Heart size within normal limits. Degenerative changes in the spine. Impression: Mild venous congestion. Mild patchy increased markings at the left lung base.
--- NOTE | 2018-02-27 19:19 | CARD ---
APPROVED REPORT EKG Measurement Heart [id number] <Conclusion> Normal sinus rhythm Voltage criteria for left ventricular hypertrophy Abnormal ECG
== END 2018-02-27 05:19 | disposition home or self-care (01) ==
LOC: C.ER 19:20
DX: F11.10 Opioid abuse, uncomplicated (principal); I10 Essential (primary) hypertension; E78.00 Pure hypercholesterolemia, unspecified
CPT/HCPCS: 71045; 80053; 80320; 80324; 80345; 80346; 80349; 80353; 80358; 80361; 81001; 82948; 83992; 85025; 93005; 99285; J7030

== ENCOUNTER 2018-03-14 14:35 | Emergency (ER) | payer MEDICAID ==
[2018-03-14 14:36] VITALS: BMI 27.1
--- NOTE | 2018-03-14 16:06 | C.PDOC ---
History Of Present Illness 52-year-old male is brought to the ED by ambulance for evaluation of public alcohol intoxication for an unknown duration. Patient is requesting detox. Patient has had many prior evaluation for similar complaints, with his most recent visit being on 02/26. Patient denies suicidal/homicidal ideation or any new injuries at this time. Time Seen by Provider: 03/14/18 15:07 Chief Complaint (Nursing): Substance Abuse History Per: Patient, EMS History/Exam Limitations: intoxication Onset/Duration Of Symptoms: Hrs Current Symptoms Are (Timing): Still Present Suicide/Self Injury Attempted (Context): None Modifying Factor(s): Alcohol Associated Symptoms: denies: Suicidal Thoughts, Suicidal Plan Involuntary Hold By: None Recent travel outside of the [place]: No Additional History Per: Patient Past Medical History Reviewed: Historical Data, Nursing Documentation, Vital Signs Vital Signs: Last Vital Signs Temp 97.9 F 03/14/18 16:16 Pulse 84 03/14/18 16:16 Resp 16 03/14/18 16:16 BP 101/66 03/14/18 16:16 Pulse Ox 96 03/14/18 16:27 - Medical History PMH: Anxiety, Bipolar Disorder, Depression, HTN, Hypercholesterolemia, Hyperlipidemia, Personality Disorder, Schizophrenia (Schizoaffective) Denies: Alzheimer's Disease, Anemia, Arthritis, Asthma, Atrial Fibrillation, Bronchitis, Cardia Arrhythmia, CHF, COPD, Crohn's Disease, Dementia, Diabetes, Diverticulitis, Emphysema, Fractures, Gastritis, Gall Bladder Disease, Hepatitis , HIV (Patient denied), Hyperthyroidism, Hypothyroidism, Kidney Stones, Migraine , Mitral Valve Prolapse, Multiple Sclerosis, Osteoporosis, Pancreatitis, Parkinson's Disease, Peripheral Edema, Pneumonia, Post Traumatic Stress Disorder , Pulmonary Embolism, Chronic Kidney Disease, Rheumatoid Arthritis, Seizures ( Patient denied), Sickle Cell Disease, Sexually Transmitted Disease (Patient denied), Sleep Apnea, TIA Surgical History: No Surg Hx Denies: Appendectomy, CABG, Carotid Endarterectomy, Cholecystectomy, Coronary Stent, Pacemaker, Tonsillectomy - [facility] Procedures ALCOHOL DETOXIFICATION (01/08/14) DETOXIFICATION SERVICES FOR SUBSTANCE ABUSE TREATMENT (10/11/17) GROUP COOPERATIVE EXTENSION AGENT FOR SUBSTANCE ABUSE TREATMENT, PSYCHOEDUCATION (10/11/17) GROUP COOPERATIVE EXTENSION AGENT FOR SUBSTANCE ABUSE, COGNITIVE BEHAVIORAL (10/11/17) GROUP PSYCHOTHERAPY (09/11/17) INDIV COOPERATIVE EXTENSION AGENT FOR SUBSTANCE ABUSE TREATMENT, PSYCHOEDUCATION (02/22/17) INDIV PSYCHOTHERAPY FOR SUBSTANCE ABUSE TREATMENT, SUPPORT (10/11/17) INDIV PSYCHOTHERAPY FOR SUBSTANCE ABUSE, COGNITIV BEHAVIORAL (10/11/17) INDIV PSYCHOTHERAPY FOR SUBSTANCE ABUSE, PSYCHOEDUCATION (10/11/17) INDIVIDUAL PSYCHOTHERAPY, COGNITIVE-BEHAVIORAL (12/10/16) INDIVIDUAL PSYCHOTHERAPY, SUPPORTIVE (10/20/17) INSERTION OF INFUSION DEV INTO SUP VENA CAVA, PERC APPROACH (12/10/16) MEDICATION MANAGEMENT (10/20/17) MEDS MGMT FOR SUBSTANCE ABUSE TREATMENT, OTH REPL MED (10/20/17) REMOVAL OF INFUSION DEV FROM GREAT VESSEL, WIRE COMMUNICATIONS ENGINEER APPROACH (02/02/17) ULTRASONOGRAPHY OF SUPERIOR VENA CAVA, GUIDANCE (12/10/16) Family History: States: Unknown Family Hx - Social History Hx Tobacco Use: No Hx Alcohol Use: Yes Hx Substance Use: No - Immunization History Hx Tetanus Toxoid Vaccination: No Hx Influenza Vaccination: No Hx Pneumococcal Vaccination: No Review Of Systems Psych: Positive for: Other (EtOH intoxication ) Physical Exam - Physical Exam Appears: Non-toxic, No Acute Distress, Other (visibly intoxicated, argumentative , confrontational, foul-mouthed ) Skin: Normal Color, Warm, Dry Head: Other (3x3cm round lesion to left forehead region, chronic ) Eye(s): bilateral: Normal Inspection Oral Mucosa: Moist, Other (alcohol on breath ) Neck: Supple Chest: Symmetrical, No Deformity, No Tenderness Cardiovascular: Rhythm Regular Respiratory: Normal Breath Sounds, No Rales, No Rhonchi, No Wheezing Extremity: Normal ROM, Capillary Refill (less than 2 seconds ) Neurological/Psych: Other (arousable to touch and verbal stimuli ) ED Course And Treatment O2 Sat by Pulse Oximetry: 96 (on RA) Pulse Ox Interpretation: Normal Progress Note: Patient is verbally abusive with staff. Case discussed with color drum worker, who states there are no detox beds available at this time. Patient is informed of this and is provided with a list of detox centers for further inquiry. Medical Decision Making Medical Decision Making: typical substance abuse, malingering Claims to be seeking Detox, then Psych adm no SI/HI deferred by Crisis evaluators- frequent evals for same. Disposition Doctor Will See Patient In The: Office Counseled Patient/Family Regarding: Studies Performed, Diagnosis - Disposition Referrals: Alcoholics Anonymous [Outside] [facility] [Outside] [facility] [Outside] [facility] [Outside] [facility] [Outside] Disposition: HOME/ ROUTINE Disposition Time: 16:05 Condition: GOOD Additional Instructions: continue to seek outpatient counseling for your substance and psych issues. Instructions: Drug Abuse and Drug Addiction (DC) Forms: [facility] (Yakut) - Clinical Impression Clinical Impression: Drug abuse - Scribe Statement The provider has reviewed the documentation as recorded by the Scribe (Monika Cobian) Provider Attestation: All medical record entries made by the Scribe were at my direction and personally dictated by me. I have reviewed the chart and agree that the record accurately reflects my personal performance of the history, physical exam, medical decision making, and the department course for this patient. I have also personally directed, reviewed, and agree with the discharge instructions and disposition.
[2018-03-14 16:17] VITALS: BP 101/66; PULSE 84; RESP 16; TEMP 97.9
[2018-03-14 16:25] VITALS: O2SAT 96
== END 2018-03-14 16:50 | disposition home or self-care (01) ==
LOC: C.ER 14:35
DX: F10.129 Alcohol abuse with intoxication, unspecified (principal); Y90.9 Presence of alcohol in blood, level not specified

== ENCOUNTER 2018-03-21 16:55 | Inpatient (IN) | payer MEDICAID ==
[2018-03-21 16:55] VITALS: BMI 27.1
[2018-03-21 17:43] LABS: BASO % 0.9 % (0.0-2.0); HEMOGLOBIN 11.9 g/dL (12.0-18.0); LYMPH # 1.3 K/uL (1.0-4.3); LYMPH % 25.6 % (20.0-40.0); MEAN CELL VOLUME 92.2 fL (80.0-94.0); MEAN CORPUSCULAR HEMOGLOBIN 30.5 pg (27.0-31.0); MEAN PLATELET VOLUME 7.3 fL (7.2-11.7); MONO # 0.8 K/uL (0.0-0.8); MONO % 16.7 % (0.0-10.0); NEUT # 2.7 K/uL (1.8-7.0); NEUT % 55.8 % (50.0-75.0); NRBC % 0.1 % (0.0-2.0); RBC 3.92 Mil/uL (4.40-5.90); RED CELL DISTRIBUTION WIDTH 13.4 % (11.5-14.5); WHITE BLOOD COUNT 4.9 K/uL (4.8-10.8)
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
[2018-03-21 18:04] LABS: ALB/GLOB RATIO 1.4 (1.0-2.1); ALBUMIN 4.4 g/dL (3.5-5.0); ALT/SGPT 24 U/L (21-72); AST/SGOT 27 U/L (17-59); BLOOD UREA NITROGEN 14 mg/dL (9-20); CALCIUM 8.8 mg/dl (8.6-10.4); GFR AFRICAN-AMERICAN > 60; GFR NON-AFRICAN AMERICAN > 60
[2018-03-21 18:04] LABS: URINE BILIRUBIN NEGATIVE (NEGATIVE); URINE BLOOD NEGATIVE (NEGATIVE); URINE CLARITY Clear (Clear); URINE COLOR Straw (YELLOW); URINE GLUCOSE (UA) NORMAL (Normal); URINE LEUKOCYTE ESTERASE NEG Leu/uL (Negative); URINE PROTEIN NEGATIVE (NEGATIVE); URINE UROBILINOGEN NORMAL mg/dL (0.2-1.0)
[2018-03-21 18:11] LABS: ACETAMINOPHEN < 10.0 ug/mL (10.0-30.0); SALICYLATE < 1.0 [, mg/dL 1]
[2018-03-21 18:16] LABS: BARBITURATES, UR NEGATIVE (NEGATIVE); BENZODIAZEPINES, UR NEGATIVE (NEGATIVE); OPIATES, UR NEGATIVE (NEGATIVE); PHENCYCLIDINE, UR NEGATIVE (NEGATIVE)
--- NOTE | 2018-03-22 03:24 | PCM.BM ---
<Carlos Maurice - Last Filed: 03/22/18 03:21> Treatment Plan Problems - Problems identified on initial assessmt DEPRESSION Date Initiated: 03/22/18 Time Initiated: 02:50 Assessment reference: NA Status: Active ALCOHOL ABUSE Date Initiated: 03/22/18 Time Initiated: 02:50 Assessment reference: NA Status: Active Treatment assets and liabiliti Patient Assests: adapts well (Hyperlipidemia, High Blood pressure), cooperative , self-reliant, ADL independent, negotiates basic needs, cognitively intact Patient Liabilities: live alone, financial problems, poor support system, relationship conflicts, substance abuse, legal issue - Milieu Protocol Maintain good personal hygiene: daily Encourage regular showers, daily Remind patient to perform daily oral care, daily Assist patient to perform ADL's Maintain personal safety: every shift Educate patient to report safety concerns to staff, every shift Monitor environment for contraband/sharps Medication safety: Monitor for expected outcome, potential side effects: every shift, Assess barriers to learning: every shift, Assess readiness for medication education: every shift <Monroe Henry - Last Filed: 03/24/18 11:40> - Diagnosis (1) Bipolar disorder Status: Acute Interventions: 03/24/18 11:41 * Assess/adjust medications daily and /or as needed * See patient on an individual basis 7x/week to assess level of manic behaviors and stability * Discuss risks, benefits, side effects and alternatives of medications * <Shruthi Ernst - Last Filed: 03/24/18 13:43> Family Contact Family involvement: Famliy/SO not involved - Goals for Treatment Patient goals for treatment: "I need my meds." Discharge/Continuing Care - Education Needs Education Needs: Patient Medication, Patient Coping Skills - Discharge Discharge Criteria: Tolerates medication w/o severe side effects, No longer exhibiting s/s of withdrawal, Reduction of target symptoms Discharge to:: Alf - Treatment Team Participation Discussed with Family/SO: No Was Patient/Family/SO present at Treatment Team Meeting: Yes
[2018-03-22] MEDS: Divalproex 500 mg DR Tab PO SCH ×3 (06:36→17:55)
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
[2018-03-23] MEDS: Divalproex 500 mg DR Tab PO SCH ×2 (10:45→17:40)
--- NOTE | 2018-03-23 14:35 | PCM.PYCHPN ---
Psychiatric Progress Note - Psychiatric Progress Note Patient seen today, length of contact: 15 minutes Patient Chief Complaint: "I'm feeling okay" Problems Identified/Issues Discussed: Pt was seen and evaluated. Chart reviewed and nurse input received. Pt stated that he is doing well. He reported some improvement in his symptoms. However, he still has passive suicidal thoughts, but no intent or plan. He also c/o AH to hurt himself and others. but he had no plan or intent to hurt other. He contracted hospital for safety. He denied alcohol withdrawal symptoms. Medication Change: Yes (d/c seroquel and start Risperdal) Medical Record Reviewed: Yes Mental Status Examination - Cognitive Function Orientation: Person, Place, Situation, Time Memory: Intact Attention: WNL Concentration: Poor Association: Loose Fund of Knowledge: WNL Decription of patient's judgement and insights: limited/limited - Mood Mood: Depressed, Anxious - Affect Affect: Constricted - Speech Speech: Appropriate - Formal Thought Process Formal Thought Process: Hallucinations, Delusions, Paranoia Psychotic Thoughts and Behaviors: +ve AH - Suicidal Ideation Suicidal Ideation: No Plan: denied - Homicidal Ideation Homicidal Ideation: No Plan: denied Goal/Treatment Plan - Goal/Treatment Plan Need for Continued Stay: Remain at risks for inpatient hospitalization, Discharge may exacerbated symptoms Progress Toward Problem(s) and Goals/Treatment Plan: Librium detox Continue current medication and treatment As needed meds and vitamins Attend groups and activities [place] for abstinence and CBT for relapse prevention Support and psychoeducation Consider and encourage MAT Recommend PHP at the time of discharge Estimated Date of D/C: 03/25/18
[2018-03-24] MEDS: Divalproex 500 mg DR Tab PO SCH ×2 (09:08→18:03)
[2018-03-24] MEDS ORDERED: Pneumococcal 23-Valent Vaccine IM ONE (10:10)
--- NOTE | 2018-03-24 11:14 | PCM.PYCHPN ---
Psychiatric Progress Note - Psychiatric Progress Note Patient seen today, length of contact: 15 minutes Patient Chief Complaint: I am feeling depressed.' Problems Identified/Issues Discussed: Patient seen and evaluated, chart reviewed and discussed with the nurse. He reports depressed and irritable mood, AH and paranoia. He remained isolated, confined and withdrawn. Patient reports withdrawal symptoms including nausea, headaches, cramps and sweating. Patient is compliant with medications and denies any side effects. Symptoms are improving but need more time to stabilize. Support and psychoeducation given. Medication Change: Yes (d/c seroquel and start Risperdal) Medical Record Reviewed: Yes Mental Status Examination - Cognitive Function Orientation: Person, Place, Situation, Time Memory: Intact Attention: WNL Concentration: Poor Association: Loose Fund of Knowledge: WNL - Mood Mood: Depressed, Anxious - Affect Affect: Constricted - Speech Speech: Appropriate - Formal Thought Process Formal Thought Process: Hallucinations, Delusions, Paranoia - Suicidal Ideation Suicidal Ideation: No - Homicidal Ideation Homicidal Ideation: No Goal/Treatment Plan - Goal/Treatment Plan Need for Continued Stay: Remain at risks for inpatient hospitalization, Discharge may exacerbated symptoms Progress Toward Problem(s) and Goals/Treatment Plan: Schizoaffective disorder bipolar type Alcohol use disorder severe Patient education. Supportive therapy. CBT for relapse prevention. [place] for abstinence. PRN medications. Methadone taper Trazodone 50 mg PO QHS Depakote 500 mg PO BID Lexapro 20 mg po daily Risperdal 1 mg PO BID Cogentin 1 mg PO BID Librium taper Estimated Date of D/C: 03/31/18 - Smoking Cessation Smoking Cessation Initiated: No
[2018-03-25] MEDS: Divalproex 500 mg DR Tab PO SCH ×2 (09:04→17:27)
--- NOTE | 2018-03-26 01:45 | PCM.PYCHPN ---
Psychiatric Progress Note - Psychiatric Progress Note Patient seen today, length of contact: 15 minutes Patient Chief Complaint: I am feeling less irritable.' Problems Identified/Issues Discussed: Patient seen and evaluated, chart reviewed and discussed with the nurse. He reports depressed and irritable mood, AH and paranoia. He remained isolated, confined and withdrawn. Patient reports withdrawal symptoms including nausea, headaches, cramps and sweating. Patient is compliant with medications and denies any side effects. Symptoms are improving but need more time to stabilize. Support and psychoeducation given. Medication Change: Yes (librium taper) Medical Record Reviewed: Yes Mental Status Examination - Cognitive Function Orientation: Person, Place, Situation, Time Memory: Intact Attention: WNL Concentration: Poor Association: Loose Fund of Knowledge: WNL - Mood Mood: Depressed, Anxious - Affect Affect: Constricted - Speech Speech: Appropriate - Formal Thought Process Formal Thought Process: Hallucinations, Delusions, Paranoia - Suicidal Ideation Suicidal Ideation: No - Homicidal Ideation Homicidal Ideation: No Goal/Treatment Plan - Goal/Treatment Plan Need for Continued Stay: Remain at risks for inpatient hospitalization, Discharge may exacerbated symptoms Progress Toward Problem(s) and Goals/Treatment Plan: Schizoaffective disorder bipolar type Alcohol use disorder severe Patient education. Supportive therapy. CBT for relapse prevention. [place] for abstinence. PRN medications. Methadone taper Trazodone 50 mg PO QHS Depakote 500 mg PO BID Lexapro 20 mg po daily Risperdal 1 mg PO BID Cogentin 1 mg PO BID Librium taper Estimated Date of D/C: 03/31/18 - Smoking Cessation Smoking Cessation Initiated: No
[2018-03-26] MEDS: Divalproex 500 mg DR Tab PO SCH ×2 (09:15→17:44)
--- NOTE | 2018-03-26 17:56 | PCM.PYCHPN ---
Psychiatric Progress Note - Psychiatric Progress Note Patient seen today, length of contact: 15 minutes Patient Chief Complaint: "I'm feeling better" Problems Identified/Issues Discussed: Pt was seen and evaluated. Chart reviewed and nurse input received. Pt stated that he is feeling better. He reported some improvement in his symptoms. However , he still has passive suicidal thoughts, but no intent or plan. He denied AH. He denied VH, paranoid delusions. He contracted hospital for safety. He denied alcohol withdrawal symptoms. He needs more time to stabilize Medication Change: Yes (librium taper) Medical Record Reviewed: Yes Mental Status Examination - Cognitive Function Orientation: Person, Place, Situation, Time Memory: Intact Attention: WNL Concentration: Poor Association: Loose Fund of Knowledge: WNL Decription of patient's judgement and insights: Improving/Improving - Mood Mood: Depressed, Anxious - Affect Affect: Constricted - Speech Speech: Appropriate - Formal Thought Process Formal Thought Process: Hallucinations, Delusions, Paranoia - Suicidal Ideation Suicidal Ideation: No Plan: denied - Homicidal Ideation Homicidal Ideation: No Plan: denied Goal/Treatment Plan - Goal/Treatment Plan Need for Continued Stay: Remain at risks for inpatient hospitalization, Discharge may exacerbated symptoms Progress Toward Problem(s) and Goals/Treatment Plan: Librium detox Continue current medication and treatment As needed meds and vitamins Attend groups and activities [place] for abstinence and CBT for relapse prevention Support and psychoeducation Consider and encourage MAT Recommend PHP at the time of discharge Estimated Date of D/C: 03/31/18
[2018-03-27] MEDS: Divalproex 500 mg DR Tab PO SCH ×2 (09:38→17:40)
--- NOTE | 2018-03-27 09:51 | PCM.PYCHPN ---
Psychiatric Progress Note - Psychiatric Progress Note Patient seen today, length of contact: 15 minutes Patient Chief Complaint: I am feeling less irritable.' Problems Identified/Issues Discussed: Patient seen and evaluated, chart reviewed and discussed with the nurse. He reports some improvement in his irritability, AH and paranoia. He remained isolated, confined and withdrawn. Patient reports some improvement in withdrawal symptoms including nausea, headaches, cramps and sweating. Patient is compliant with medications and denies any side effects. Symptoms are improving but need more time to stabilize. Support and psychoeducation given. Medication Change: Yes (librium taper) Medical Record Reviewed: Yes Mental Status Examination - Cognitive Function Orientation: Person, Place, Situation, Time Memory: Intact Attention: WNL Concentration: Poor Association: Loose Fund of Knowledge: WNL - Mood Mood: Depressed, Anxious - Affect Affect: Constricted - Speech Speech: Appropriate - Formal Thought Process Formal Thought Process: Hallucinations, Delusions, Paranoia - Suicidal Ideation Suicidal Ideation: No - Homicidal Ideation Homicidal Ideation: No Goal/Treatment Plan - Goal/Treatment Plan Need for Continued Stay: Remain at risks for inpatient hospitalization, Discharge may exacerbated symptoms Progress Toward Problem(s) and Goals/Treatment Plan: Schizoaffective disorder bipolar type Alcohol use disorder severe Patient education. Supportive therapy. CBT for relapse prevention. [place] for abstinence. PRN medications. Methadone taper Trazodone 50 mg PO QHS Depakote 500 mg PO BID Lexapro 20 mg po daily Risperdal 1 mg PO BID Cogentin 1 mg PO BID Librium taper Estimated Date of D/C: 03/31/18
[2018-03-28] MEDS: Divalproex 500 mg DR Tab PO SCH ×2 (09:19→18:35)
--- NOTE | 2018-03-28 14:27 | PCM.PYCHPN ---
Psychiatric Progress Note - Psychiatric Progress Note Patient seen today, length of contact: 15 minutes Patient Chief Complaint: Major Depressive Disorder ' Problems Identified/Issues Discussed: Mr. Claros says that he is not doing okay. His mood is worse than yesterday and he has thoughts of hurting himself and others. He says his sleep is okay, but interest decreased, guilt increased, energy decreased, concentration decreased. He seemed frustrated with answering questions and usually answered in one-word sentences after a brief pause. Medication Change: Yes (librium taper) Medical Record Reviewed: Yes Mental Status Examination - Cognitive Function Orientation: Person, Place, Situation, Time Memory: Intact Attention: WNL Concentration: Poor Association: Loose Fund of Knowledge: WNL - Mood Mood: Depressed, Anxious - Affect Affect: Constricted - Speech Speech: Appropriate - Formal Thought Process Formal Thought Process: Hallucinations, Delusions, Paranoia - Suicidal Ideation Suicidal Ideation: No - Homicidal Ideation Homicidal Ideation: No Goal/Treatment Plan - Goal/Treatment Plan Need for Continued Stay: Remain at risks for inpatient hospitalization, Discharge may exacerbated symptoms Progress Toward Problem(s) and Goals/Treatment Plan: Schizoaffective disorder bipolar type Alcohol use disorder severe Patient education. Supportive therapy. CBT for relapse prevention. [place] for abstinence. PRN medications. Methadone taper Trazodone 50 mg PO QHS Depakote 500 mg PO BID Lexapro 20 mg po daily Risperdal 1 mg PO BID Cogentin 1 mg PO BID Librium taper Estimated Date of D/C: 03/31/18
[2018-03-29] MEDS: Divalproex 500 mg DR Tab PO SCH ×2 (10:59→17:41)
--- NOTE | 2018-03-29 14:34 | PCM.PYCHPN ---
Psychiatric Progress Note - Psychiatric Progress Note Patient seen today, length of contact: 15 minutes Patient Chief Complaint: I am feeling much better. I still have some sleeping problems. Problems Identified/Issues Discussed: Patient seen, chart reviewed, case was discussed with the staff. Issues related to illness and treatment were discussed with the staff and the patient. Reported compliant with treatment with no adverse effects. Tolerating treatment very well. Patient reported feeling better. Also reported decreased sleep. Patient was calm and cooperative. After clear discussed with patient. At the time of evaluation, patient was awake alert oriented x3, no delusions, no auditory hallucination or visual hallucinations, no suicidal or homicidal ideations. Medical Problems: None reported Diagnostic Results: Reviewed DSM 5 Symptoms Update: Improvement with treatment. Medication Change: Yes (Started trazodone 50 mg at bedtime) Medical Record Reviewed: Yes Mental Status Examination - Cognitive Function Orientation: Person, Place, Situation, Time Memory: Intact Attention: WNL Concentration: WNL Association: WNL Fund of Knowledge: WN Decription of patient's judgement and insights: Fair - Mood Mood: Depressed (Much less than before) - Affect Affect: Other (Appropriate) - Speech Speech: Appropriate - Formal Thought Process Formal Thought Process: No Impairment Psychotic Thoughts and Behaviors: None - Suicidal Ideation Suicidal Ideation: No - Homicidal Ideation Homicidal Ideation: No Goal/Treatment Plan - Goal/Treatment Plan Need for Continued Stay: Remain at risks for inpatient hospitalization, Discharge may exacerbated symptoms, Severe functional impairment Progress Toward Problem(s) and Goals/Treatment Plan: Improving. Patient education. Supportive therapy. We will start trazodone 50 mg at bedtime. Continue rest of pretreatment as before. Patient will go back to [facility]. Estimated Date of D/C: 03/31/18 - Smoking Cessation Smoking Cessation Initiated: No
[2018-03-30 06:45] VITALS: RESP 20; TEMP 98.2
[2018-03-30] MEDS: Divalproex 500 mg DR Tab PO SCH ×2 (09:09→17:19)
--- NOTE | 2018-03-30 17:29 | PCM.PYCHPN ---
Psychiatric Progress Note - Psychiatric Progress Note Patient seen today, length of contact: 15 minutes Patient Chief Complaint: I am feeling much better. Problems Identified/Issues Discussed: Patient seen, chart reviewed, case was discussed with the staff. Issues related to illness and treatment were discussed with the staff and the patient. Reported compliant with treatment with no adverse effects. Tolerating treatment very well. Patient reported feeling better. Patient was calm and cooperative. After clear discussed with patient. At the time of evaluation, patient was awake alert oriented x3, no delusions, no auditory hallucination or visual hallucinations, no suicidal or homicidal ideations. Medical Problems: None reported Diagnostic Results: Reviewed DSM 5 Symptoms Update: Improving with treatment Medication Change: No Medical Record Reviewed: Yes Mental Status Examination - Cognitive Function Orientation: Person, Place, Situation, Time Memory: Intact Attention: WNL Concentration: WNL Association: WN Fund of Knowledge: [facility] Decription of patient's judgement and insights: Fair - Mood Mood: Neutral - Affect Affect: Other (Appropriate) - Speech Speech: Appropriate - Formal Thought Process Formal Thought Process: No Impairment Psychotic Thoughts and Behaviors: None - Suicidal Ideation Suicidal Ideation: No - Homicidal Ideation Homicidal Ideation: No Goal/Treatment Plan - Goal/Treatment Plan Need for Continued Stay: Remain at risks for inpatient hospitalization, Discharge may exacerbated symptoms, Severe functional impairment Progress Toward Problem(s) and Goals/Treatment Plan: Improving. Patient education. Supportive therapy. Continue treatment as before. Patient will go back to [facility] program. Estimated Date of D/C: 03/31/18 - Smoking Cessation Smoking Cessation Initiated: No
[2018-03-31 06:33] VITALS: BP 104/63; PULSE 73; O2SAT 100
[2018-03-31] MEDS: Divalproex 500 mg DR Tab PO SCH (09:06)
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
== END 2018-03-31 11:13 | disposition home or self-care (01) | DRG 430 ==
LOC: C.ER 16:55 → C.5E 03-22 02:06
PROVIDERS: ADMIT Psychiatry & Neurology Psychiatry; ATTEND Psychiatry & Neurology Psychiatry
PROC: GZ3ZZZZ Medication Management (ICD-10-PCS; principal; 2018-03-22)
PROC: HZ2ZZZZ Detoxification Services for Substance Abuse Treatment (ICD-10-PCS; 2018-03-22)
PROC: HZ59ZZZ Individual Psychotherapy for Substance Abuse Treatment, Supportive (ICD-10-PCS; 2018-03-22)
PROC: GZHZZZZ Group Psychotherapy (ICD-10-PCS; 2018-03-22)
PROC: GZ56ZZZ Individual Psychotherapy, Supportive (ICD-10-PCS; 2018-03-22)
PROC: HZ46ZZZ Group Counseling for Substance Abuse Treatment, Psychoeducation (ICD-10-PCS; 2018-03-22)
DX: F25.0 Schizoaffective disorder, bipolar type (principal); F10.239 Alcohol dependence with withdrawal, unspecified; R45.851 Suicidal ideations; F33.9 Major depressive disorder, recurrent, unspecified; F60.9 Personality disorder, unspecified; I10 Essential (primary) hypertension; E78.5 Hyperlipidemia, unspecified; E78.00 Pure hypercholesterolemia, unspecified; Z91.14 Patient's other noncompliance with medication regimen; Z79.899 Other long term (current) drug therapy

== ENCOUNTER 2018-04-01 15:56 | Emergency (ER) | payer MEDICAID, OTHER ==
[2018-04-01 15:56] VITALS: BMI 27.1
[2018-04-01 16:08] VITALS: RESP 18; O2SAT 96
--- NOTE | 2018-04-01 18:26 | C.PDOC ---
History Of Present Illness 52-year-old male, presents to the emergency department with complaints of public intoxication. Patient has a history of many prior evaluation for similar presentation. No SI/HI. Time Seen by Provider: 04/01/18 16:06 Chief Complaint (Nursing): Substance Abuse History Per: Patient, EMS Past Medical History Reviewed: Historical Data, Nursing Documentation, Vital Signs Vital Signs: Last Vital Signs Temp 97.6 F 04/01/18 16:07 Pulse 93 H 04/01/18 16:07 Resp 18 04/01/18 16:07 BP 97/54 L 04/01/18 16:07 Pulse Ox 96 04/01/18 18:26 - Medical History PMH: Anxiety, Bipolar Disorder, Depression, Diabetes, HTN, Hypercholesterolemia , Hyperlipidemia, Personality Disorder, Schizophrenia Denies: Alzheimer's Disease, Anemia, Arthritis, Asthma, Atrial Fibrillation, Bronchitis, Cardia Arrhythmia, CHF, COPD, Crohn's Disease, Dementia, Diverticulitis, Emphysema, Fractures, Gastritis, Gall Bladder Disease, Hepatitis , HIV, Hyperthyroidism, Hypothyroidism, Kidney Stones, Migraine, Mitral Valve Prolapse, Multiple Sclerosis, Osteoporosis, Pancreatitis, Parkinson's Disease, Peripheral Edema, Pneumonia, Post Traumatic Stress Disorder, Pulmonary Embolism , Chronic Kidney Disease, Rheumatoid Arthritis, Seizures, Sickle Cell Disease, Sexually Transmitted Disease, Sleep Apnea, TIA Surgical History: Denies: Appendectomy, CABG, Carotid Endarterectomy, Cholecystectomy, Coronary Stent, Pacemaker, Tonsillectomy - [facility] Procedures ALCOHOL DETOXIFICATION (01/08/14) DETOXIFICATION SERVICES FOR SUBSTANCE ABUSE TREATMENT (03/22/18) GROUP RESTAURANT SHIFT SUPERVISOR FOR SUBSTANCE ABUSE TREATMENT, PSYCHOEDUCATION (03/22/18) GROUP RESTAURANT SHIFT SUPERVISOR FOR SUBSTANCE ABUSE, COGNITIVE BEHAVIORAL (03/01/18) GROUP PSYCHOTHERAPY (03/22/18) INDIV RESTAURANT SHIFT SUPERVISOR FOR SUBSTANCE ABUSE TREATMENT, PSYCHOEDUCATION (02/22/17) INDIV PSYCHOTHERAPY FOR SUBSTANCE ABUSE TREATMENT, SUPPORT (03/22/18) INDIV PSYCHOTHERAPY FOR SUBSTANCE ABUSE, COGNITIV BEHAVIORAL (03/01/18) INDIV PSYCHOTHERAPY FOR SUBSTANCE ABUSE, PSYCHOEDUCATION (03/01/18) INDIVIDUAL PSYCHOTHERAPY, COGNITIVE-BEHAVIORAL (03/01/18) INDIVIDUAL PSYCHOTHERAPY, SUPPORTIVE (03/22/18) INSERTION OF INFUSION DEV INTO SUP VENA CAVA, PERC APPROACH (12/10/16) MEDICATION MANAGEMENT (03/22/18) MEDS MGMT FOR SUBSTANCE ABUSE TREATMENT, OTH REPL MED (10/20/17) REMOVAL OF INFUSION DEV FROM GREAT VESSEL, LICENSED CLINICIAN APPROACH (02/02/17) ULTRASONOGRAPHY OF SUPERIOR VENA CAVA, GUIDANCE (12/10/16) Family History: States: No Known Family Hx - Social History Hx Tobacco Use: No Hx Alcohol Use: Yes Hx Substance Use: Yes - Immunization History Hx Tetanus Toxoid Vaccination: No Hx Influenza Vaccination: No Hx Pneumococcal Vaccination: No Review Of Systems Constitutional: Negative for: Fever Cardiovascular: Negative for: Chest Pain Respiratory: Negative for: Shortness of Breath Psych: Negative for: Psychosis, Suicidal ideation, Withdrawal Physical Exam - Physical Exam Appears: Non-toxic, No Acute Distress (EtOH on breath), Other (No injuries) Skin: Warm, Dry, No Rash Head: Atraumatic Eye(s): bilateral: Normal Inspection Nose: Normal Oral Mucosa: Moist Lips: Normal Appearing Neck: Normal ROM Cardiovascular: Rhythm Regular, No Murmur Respiratory: Normal Breath Sounds, No Accessory Muscle Use Gastrointestinal/Abdominal: Soft, No Tenderness Extremity: Normal ROM, No Deformity Neurological/Psych: Oriented x3, Normal Speech ED Course And Treatment O2 Sat by Pulse Oximetry: 96 Reevaluation Time: 22:02 Reassessment Condition: Improved Medical Decision Making Medical Decision Making: typical alcohol abuse Was inpatient from 03/21-03/31 (yesterday) Crisis declines re-eval at this time no SI/HI Disposition Doctor Will See Patient In The: Office Counseled Patient/Family Regarding: Studies Performed, Diagnosis - Disposition Disposition: HOME/ ROUTINE Disposition Time: 22:03 Condition: GOOD Forms: [facility] (Sammarinese) - Clinical Impression Clinical Impression: Alcohol abuse - Scribe Statement The provider has reviewed the documentation as recorded by the Scribe (Gaby Brody) All medical record entries made by the Scribe were at my direction and personally dictated by me. I have reviewed the chart and agree that the record accurately reflects my personal performance of the history, physical exam, medical decision making, and the department course for this patient. I have also personally directed, reviewed, and agree with the discharge instructions and disposition.
[2018-04-01 22:07] VITALS: BP 97/57; PULSE 78; TEMP 97.7
== END 2018-04-01 23:00 | disposition home or self-care (01) ==
LOC: C.ER 15:56
DX: F10.10 Alcohol abuse, uncomplicated (principal); E11.9 Type 2 diabetes mellitus without complications

== ENCOUNTER 2018-04-02 10:46 | Emergency (ER) | payer MEDICAID ==
[2018-04-02 10:47] VITALS: BMI 27.1
[2018-04-02 11:00] VITALS: O2SAT 97
--- NOTE | 2018-04-02 11:07 | C.PDOC ---
History Of Present Illness 52 year old male patient presents to the ER for alcohol abuse. Patient has a history of visits to the ER for the same. Patient denies suicidal ideation, homicideal ideation, or other psychiatric complaints. Patient offers no other medical complaints. Time Seen by Provider: 04/02/18 10:59 Chief Complaint (Nursing): Substance Abuse History Per: Patient History/Exam Limitations: other (alcohol in breath, appears intoxicated) Past Medical History Reviewed: Historical Data, Nursing Documentation, Vital Signs Vital Signs: Last Vital Signs Temp 97.4 F L 04/02/18 17:44 Pulse 73 04/02/18 17:44 Resp 18 04/02/18 17:44 BP 99/64 L 04/02/18 17:44 Pulse Ox 97 04/02/18 18:31 - Medical History PMH: Anxiety, Bipolar Disorder, Depression, Diabetes, HTN, Hypercholesterolemia , Hyperlipidemia, Personality Disorder, Schizophrenia - [facility] Procedures ALCOHOL DETOXIFICATION (01/08/14) DETOXIFICATION SERVICES FOR SUBSTANCE ABUSE TREATMENT (03/22/18) GROUP CATSHOVEL DRIVER FOR SUBSTANCE ABUSE TREATMENT, PSYCHOEDUCATION (03/22/18) GROUP CATSHOVEL DRIVER FOR SUBSTANCE ABUSE, COGNITIVE BEHAVIORAL (03/01/18) GROUP PSYCHOTHERAPY (03/22/18) INDIV CATSHOVEL DRIVER FOR SUBSTANCE ABUSE TREATMENT, PSYCHOEDUCATION (02/22/17) INDIV PSYCHOTHERAPY FOR SUBSTANCE ABUSE TREATMENT, SUPPORT (03/22/18) INDIV PSYCHOTHERAPY FOR SUBSTANCE ABUSE, COGNITIV BEHAVIORAL (03/01/18) INDIV PSYCHOTHERAPY FOR SUBSTANCE ABUSE, PSYCHOEDUCATION (03/01/18) INDIVIDUAL PSYCHOTHERAPY, COGNITIVE-BEHAVIORAL (03/01/18) INDIVIDUAL PSYCHOTHERAPY, SUPPORTIVE (03/22/18) INSERTION OF INFUSION DEV INTO SUP VENA CAVA, PERC APPROACH (12/10/16) MEDICATION MANAGEMENT (03/22/18) MEDS MGMT FOR SUBSTANCE ABUSE TREATMENT, OTH REPL MED (10/20/17) REMOVAL OF INFUSION DEV FROM GREAT VESSEL, CHEF ASSISTANT APPROACH (02/02/17) ULTRASONOGRAPHY OF SUPERIOR VENA CAVA, GUIDANCE (12/10/16) Family History: States: No Known Family Hx - Social History Hx Tobacco Use: No Hx Alcohol Use: Yes Hx Substance Use: Yes - Immunization History Hx Tetanus Toxoid Vaccination: No Hx Influenza Vaccination: No Hx Pneumococcal Vaccination: No Review Of Systems Except As Marked, All Systems Reviewed And Found Negative. Constitutional: Negative for: Fever, Chills Respiratory: Negative for: Shortness of Breath Physical Exam - Physical Exam Appears: No Acute Distress, Unkempt, Other (alcoholic breath, appears intoxicated) Skin: Normal Color, Warm, Dry Head: Atraumatic, Normacephalic Eye(s): bilateral: Normal Inspection, PERRL, EOMI Nose: Normal Oral Mucosa: Moist Tongue: Normal Appearing Lips: Normal Appearing Throat: Normal Neck: Normal ROM, Supple Chest: Symmetrical, No Deformity Cardiovascular: Rhythm Regular Respiratory: Normal Breath Sounds, No Rales, No Rhonchi, No Wheezing Gastrointestinal/Abdominal: Soft, No Tenderness Extremity: Normal ROM (x4) Neurological/Psych: Normal Speech Gait: Steady ED Course And Treatment O2 Sat by Pulse Oximetry: 97 (RA) Pulse Ox Interpretation: Normal - CT Scan/US CT HEAD Other Rad Studies (CT/US): Read By Radiologist, Radiology Report Reviewed CT/US Interpretation: Accession No. : [id number]. Patient Name / ID : FERNANDO MAYA / [id number]. Exam Date : 04/02/2018 13:20:08 ( Approved ). Study Comment : Sex / Age : M / 52Y. Creator : Sherice Hammond MD. Dictator : Sherice Hammond MD. Service Desk Team Lead : Studio Owner : Sherice Hammond MD. Approver2 : Report Date : 04/02/2018 14:07:35. My Comment : . Date of service: 04/02/2018. PROCEDURE: CT HEAD WITHOUT CONTRAST. HISTORY: Fall. COMPARISON: 10/01/2017. TECHNIQUE: Axial computed tomography images were obtained through the head/brain without intravenous contrast. Radiation dose: Total exam DLP = 1105.68 mGy-cm. This CT exam was performed using one or more of the following dose reduction techniques: Automated exposure control, adjustment of the mA and/or kV according to patient size, and/or use of iterative reconstruction technique. FINDINGS: HEMORRHAGE: No intracranial hemorrhage. BRAIN: Lilly-white matter differentiation is preserved. There is no mass, mass effect or abnormal extra-axial fluid collection. There is no territorial infarction. The midline sagittal structures are normal. VENTRICLES : There is mild age-related global parenchymal volume loss and proportionate enlargement of the ventricles and cortical sulci. CALVARIUM: There is no calvarial fracture or extracranial soft tissue swelling. PARANASAL SINUSES: Unremarkable as visualized. No significant inflammatory changes. MASTOID AIR CELLS: Unremarkable as visualized. No inflammatory changes. OTHER FINDINGS: There is a stable 3.2 x 2.6 cm left frontal sebaceous cyst. IMPRESSION: No acute intracranial abnormality. Progress Note: Patient sleepy but arousable. Patient requested to be discharged and wanted to take a shower before he leaves. Patient slipped in shower unsure if he hit his head. CT ordered. Patient ambulating with steady gait. Discharged Reassessment Condition: Improved Progress - Time Time: 12:40 - Re-Evaluation Re-evaluation Note: 04/02/18 12:40 Informed by RN that patient fell while showering, found lying on bathroom floor. Unknown whether patient hit his head. Patient is AAOx3 with clear speech , steady gait, no focal deficits. CT Head ordered to r/o intracranial bleed or abnormality. - Data Reviewed Data Reviewed: Diagnostic imaging, Old records - Patient Plan Patient Plan: Discharge Medical Decision Making Medical Decision Making: Impression: intoxicated 52 y/o male Plan: -- pending clinical sobriety 14:15 CT scan negative. On reevaluation patient remains AAOx3, in no acute distress, ambulating with steady gait. Stable for discharge home. Disposition Counseled Patient/Family Regarding: Studies Performed, Diagnosis, Need For Followup - Disposition Referrals: [place] [facility] [Outside] [facility] [Outside] Disposition: HOME/ ROUTINE Disposition Time: 18:30 Condition: STABLE Instructions: Polysubstance Abuse Forms: [facility] ([place]orese) - POA Present On Arrival: None - Clinical Impression Clinical Impression: Alcohol abuse - PA / FITNESS AND WELLNESS INSTRUCTOR / Resident Statement / has reviewed & agrees with the documentation as recorded. - Scribe Statement The provider has reviewed the documentation as recorded by the Agustin Larkin Do All medical record entries made by the Scribe were at my direction and personally dictated by me. I have reviewed the chart and agree that the record accurately reflects my personal performance of the history, physical exam, medical decision making, and the department course for this patient. I have also personally directed, reviewed, and agree with the discharge instructions and disposition.
--- NOTE | 2018-04-02 14:08 | CT ---
Date of service: 04/02/2018 PROCEDURE: CT HEAD WITHOUT CONTRAST. HISTORY: Fall COMPARISON: 10/01/2017. TECHNIQUE: Axial computed tomography images were obtained through the head/brain without intravenous contrast. Radiation dose: Total exam DLP = 1105.68 mGy-cm. This CT exam was performed using one or more of the following dose reduction techniques: Automated exposure control, adjustment of the mA and/or kV according to patient size, and/or use of iterative reconstruction technique. FINDINGS: HEMORRHAGE: No intracranial hemorrhage. BRAIN: Lilly-white matter differentiation is preserved. There is no mass, mass effect or abnormal extra-axial fluid collection. There is no territorial infarction. The midline sagittal structures are normal. VENTRICLES: There is mild age-related global parenchymal volume loss and proportionate enlargement of the ventricles and cortical sulci. CALVARIUM: There is no calvarial fracture or extracranial soft tissue swelling. PARANASAL SINUSES: Unremarkable as visualized. No significant inflammatory changes. MASTOID AIR CELLS: Unremarkable as visualized. No inflammatory changes. OTHER FINDINGS: There is a stable 3.2 x 2.6 cm left frontal sebaceous cyst. IMPRESSION: No acute intracranial abnormality.
[2018-04-02 15:10] VITALS: RESP 18
[2018-04-02 17:46] VITALS: BP 99/64; PULSE 73; TEMP 97.4
== END 2018-04-02 18:35 | disposition home or self-care (01) ==
LOC: C.ER 10:46
DX: F10.10 Alcohol abuse, uncomplicated (principal); Y90.9 Presence of alcohol in blood, level not specified; S09.90XA Unspecified injury of head, initial encounter; W18.2XXA Fall in (into) shower or empty bathtub, initial encounter; Y93.E1 Activity, personal bathing and showering; Y92.238 Other place in hospital as the place of occurrence of the external cause

== ENCOUNTER 2018-04-04 12:35 | Emergency (ER) | payer MEDICAID ==
[2018-04-04 12:35] VITALS: BMI 27.1
[2018-04-04 12:49] VITALS: TEMP 98.3; O2SAT 98
--- NOTE | 2018-04-04 12:56 | C.PDOC ---
History Of Present Illness 52yo male, comes to ER for evaluation of chronic knee pains. Patient has had frequent presentations for similar complaints including substance abuse and psychiatric illness. At present, he denies any new trauma, injuries, weakness, numbness or tingling. He has no other medical complaints. Time Seen by Provider: 04/04/18 12:52 Chief Complaint (Nursing): Lower Extremity Problem/Injury History Per: Patient History/Exam Limitations: no limitations Onset/Duration Of Symptoms: Persistent Current Symptoms Are (Timing): Still Present Additional History Per: Patient Past Medical History Reviewed: Historical Data, Nursing Documentation, Vital Signs Vital Signs: Last Vital Signs Temp 98.3 F 04/04/18 12:46 Pulse 60 04/04/18 13:13 Resp 12 04/04/18 13:13 BP 145/70 04/04/18 13:13 Pulse Ox 98 04/04/18 15:45 - Medical History PMH: Anxiety, Bipolar Disorder, Depression, Diabetes, HTN, Hypercholesterolemia , Hyperlipidemia, Personality Disorder, Schizophrenia Denies: Alzheimer's Disease, Anemia, Arthritis, Asthma, Atrial Fibrillation, Bronchitis, Cardia Arrhythmia, CHF, COPD, Crohn's Disease, Dementia, Diverticulitis, Emphysema, Fractures, Gastritis, Gall Bladder Disease, Hepatitis , HIV, Hyperthyroidism, Hypothyroidism, Kidney Stones, Migraine, Mitral Valve Prolapse, Multiple Sclerosis, Osteoporosis, Pancreatitis, Parkinson's Disease, Peripheral Edema, Pneumonia, Post Traumatic Stress Disorder, Pulmonary Embolism , Chronic Kidney Disease, Rheumatoid Arthritis, Seizures, Sickle Cell Disease, Sexually Transmitted Disease, Sleep Apnea, TIA Surgical History: Denies: Appendectomy, CABG, Carotid Endarterectomy, Cholecystectomy, Coronary Stent, Pacemaker, Tonsillectomy - [facility] Procedures ALCOHOL DETOXIFICATION (01/08/14) DETOXIFICATION SERVICES FOR SUBSTANCE ABUSE TREATMENT (03/22/18) GROUP HIM CLERK FOR SUBSTANCE ABUSE TREATMENT, PSYCHOEDUCATION (03/22/18) GROUP HIM CLERK FOR SUBSTANCE ABUSE, COGNITIVE BEHAVIORAL (03/01/18) GROUP PSYCHOTHERAPY (03/22/18) INDIV HIM CLERK FOR SUBSTANCE ABUSE TREATMENT, PSYCHOEDUCATION (02/22/17) INDIV PSYCHOTHERAPY FOR SUBSTANCE ABUSE TREATMENT, SUPPORT (03/22/18) INDIV PSYCHOTHERAPY FOR SUBSTANCE ABUSE, COGNITIV BEHAVIORAL (03/01/18) INDIV PSYCHOTHERAPY FOR SUBSTANCE ABUSE, PSYCHOEDUCATION (03/01/18) INDIVIDUAL PSYCHOTHERAPY, COGNITIVE-BEHAVIORAL (03/01/18) INDIVIDUAL PSYCHOTHERAPY, SUPPORTIVE (03/22/18) INSERTION OF INFUSION DEV INTO SUP VENA CAVA, PERC APPROACH (12/10/16) MEDICATION MANAGEMENT (03/22/18) MEDS MGMT FOR SUBSTANCE ABUSE TREATMENT, OTH REPL MED (10/20/17) REMOVAL OF INFUSION DEV FROM GREAT VESSEL, HAND TOOL FILER APPROACH (02/02/17) ULTRASONOGRAPHY OF SUPERIOR VENA CAVA, GUIDANCE (12/10/16) Family History: States: No Known Family Hx - Social History Hx Tobacco Use: No Hx Alcohol Use: Yes Hx Substance Use: Yes (DENIES 04/04/18) - Immunization History Hx Tetanus Toxoid Vaccination: No Hx Influenza Vaccination: No Hx Pneumococcal Vaccination: No Review Of Systems Except As Marked, All Systems Reviewed And Found Negative. Musculoskeletal: Positive for: Leg Pain (chronic) Neurological: Negative for: Weakness, Numbness Physical Exam - Physical Exam Appears: Non-toxic, No Acute Distress Skin: Warm, Dry Head: Normacephalic Eye(s): bilateral: Normal Inspection Neck: Supple Chest: Symmetrical Cardiovascular: Rhythm Regular Respiratory: Normal Breath Sounds Extremity: Normal ROM (FROM at bilateral knees), No Tenderness, No Pedal Edema, No Calf Tenderness, Capillary Refill (< 2 seconds), No Deformity, No Swelling, Other (chronic knee arthritis. no joint effusion noted. ) Pulses: Left Dorsalis Pedis: Normal, Right Dorsalis Pedis: Normal Neurological/Psych: Oriented x3 Gait: Steady ED Course And Treatment O2 Sat by Pulse Oximetry: 98 (RA) Pulse Ox Interpretation: Normal Medical Decision Making Medical Decision Making: chronic pain and substance abuse issues no new issues Seen last few days for same. denies SI/HI malingering. Disposition Doctor Will See Patient In The: Office Counseled Patient/Family Regarding: Studies Performed, Diagnosis - Disposition Referrals: [facility] [Outside] [facility] [Outside] [facility] [Outside] [facility] [Outside] Disposition: HOME/ ROUTINE Disposition Time: 12:55 Condition: GOOD Additional Instructions: seek nightly penitentiary placement seek outpatient psych and substance abuse assistance. Instructions: Chronic Pain (DC), Drug Abuse Treatment Forms: [employer] [facility] (Italian) - Clinical Impression Clinical Impression: Chronic pain, Substance abuse - Scribe Statement The provider has reviewed the documentation as recorded by the Mikeibboone López Provider Attestation: All medical record entries made by the Mikeibboone were at my direction and personally dictated by me. I have reviewed the chart and agree that the record accurately reflects my personal performance of the history, physical exam, medical decision making, and the department course for this patient. I have also personally directed, reviewed, and agree with the discharge instructions and disposition.
[2018-04-04 13:16] VITALS: BP 145/70; PULSE 60; RESP 12
== END 2018-04-04 13:20 | disposition home or self-care (01) ==
LOC: C.ER 12:35
DX: G89.29 Other chronic pain (principal); M25.569 Pain in unspecified knee; F19.10 Other psychoactive substance abuse, uncomplicated

== ENCOUNTER 2018-04-06 13:38 | Emergency (ER) | payer MEDICAID ==
[2018-04-06 13:39] VITALS: BMI 27.1
--- NOTE | 2018-04-06 15:02 | C.PDOC ---
History Of Present Illness 52 y/o male brought in by EMS for public intoxication. Pt has history of multiple prior visits for alcohol intoxication. Pt denies any active physical complaints at this time. Chief Complaint (Nursing): Substance Abuse History Per: Patient History/Exam Limitations: no limitations Past Medical History Reviewed: Historical Data, Nursing Documentation, Vital Signs Vital Signs: Last Vital Signs Temp 97.5 F L 04/06/18 17:54 Pulse 70 04/06/18 17:54 Resp 20 04/06/18 17:54 BP 96/58 L 04/06/18 17:54 Pulse Ox 100 04/06/18 17:54 - Medical History PMH: Anxiety, Bipolar Disorder, Depression, Diabetes, HTN, Hypercholesterolemia , Hyperlipidemia, Personality Disorder, Schizophrenia Denies: Alzheimer's Disease, Anemia, Arthritis, Asthma, Atrial Fibrillation, Bronchitis, Cardia Arrhythmia, CHF, COPD, Crohn's Disease, Dementia, Diverticulitis, Emphysema, Fractures, Gastritis, Gall Bladder Disease, Hepatitis , HIV, Hyperthyroidism, Hypothyroidism, Kidney Stones, Migraine, Mitral Valve Prolapse, Multiple Sclerosis, Osteoporosis, Pancreatitis, Parkinson's Disease, Peripheral Edema, Pneumonia, Post Traumatic Stress Disorder, Pulmonary Embolism , Chronic Kidney Disease, Rheumatoid Arthritis, Seizures, Sickle Cell Disease, Sexually Transmitted Disease, Sleep Apnea, TIA Surgical History: Denies: Appendectomy, CABG, Carotid Endarterectomy, Cholecystectomy, Coronary Stent, Pacemaker, Tonsillectomy - [facility] Procedures ALCOHOL DETOXIFICATION (01/08/14) DETOXIFICATION SERVICES FOR SUBSTANCE ABUSE TREATMENT (03/22/18) GROUP SITE SUPERVISING TECHNICAL OPERATOR FOR SUBSTANCE ABUSE TREATMENT, PSYCHOEDUCATION (03/22/18) GROUP SITE SUPERVISING TECHNICAL OPERATOR FOR SUBSTANCE ABUSE, COGNITIVE BEHAVIORAL (03/01/18) GROUP PSYCHOTHERAPY (03/22/18) INDIV SITE SUPERVISING TECHNICAL OPERATOR FOR SUBSTANCE ABUSE TREATMENT, PSYCHOEDUCATION (02/22/17) INDIV PSYCHOTHERAPY FOR SUBSTANCE ABUSE TREATMENT, SUPPORT (03/22/18) INDIV PSYCHOTHERAPY FOR SUBSTANCE ABUSE, COGNITIV BEHAVIORAL (03/01/18) INDIV PSYCHOTHERAPY FOR SUBSTANCE ABUSE, PSYCHOEDUCATION (03/01/18) INDIVIDUAL PSYCHOTHERAPY, COGNITIVE-BEHAVIORAL (03/01/18) INDIVIDUAL PSYCHOTHERAPY, SUPPORTIVE (03/22/18) INSERTION OF INFUSION DEV INTO SUP VENA CAVA, PERC APPROACH (12/10/16) MEDICATION MANAGEMENT (03/22/18) MEDS MGMT FOR SUBSTANCE ABUSE TREATMENT, OTH REPL MED (10/20/17) REMOVAL OF INFUSION DEV FROM GREAT VESSEL, FARMWORKER FRYER FARM APPROACH (02/02/17) ULTRASONOGRAPHY OF SUPERIOR VENA CAVA, GUIDANCE (12/10/16) Family History: States: Unknown Family Hx - Social History Hx Tobacco Use: No Hx Alcohol Use: Yes Hx Substance Use: Yes (DENIES 04/06/18) - Immunization History Hx Tetanus Toxoid Vaccination: No Hx Influenza Vaccination: No Hx Pneumococcal Vaccination: No Review Of Systems Except As Marked, All Systems Reviewed And Found Negative. Constitutional: Negative for: Fever, Chills Cardiovascular: Negative for: Chest Pain, Palpitations Respiratory: Negative for: Cough, Shortness of Breath Physical Exam - Physical Exam Appears: Non-toxic, No Acute Distress Skin: Normal Color, Warm, Dry Head: Atraumatic, Normacephalic Eye(s): bilateral: Normal Inspection Oral Mucosa: Moist, Other (EtOH on breath) Neck: Supple Cardiovascular: Rhythm Regular Respiratory: Normal Breath Sounds, No Rales, No Rhonchi, No Wheezing Gastrointestinal/Abdominal: Soft, No Tenderness Extremity: Normal ROM Neurological/Psych: Oriented x3, Normal Speech ED Course And Treatment O2 Sat by Pulse Oximetry: 98 Pulse Ox Interpretation: Normal Disposition - Disposition Referrals: [facility] [Outside] [facility] [Outside] Disposition: HOME/ ROUTINE Disposition Time: 14:00 Condition: IMPROVED Additional Instructions: ZULMA KING, thank you for letting us take care of you today. Your provider was Dimitri Matthews DO and you were treated for SUBSTANCE ABUSE. The emergency medical care you received today was directed at your acute symptoms. If you were prescribed any medication, please fill it and take as directed. It may take several days for your symptoms to resolve. Return to the Emergency Department if your symptoms worsen, do not improve, or if you have any other problems. Please contact your doctor or call one of the physicians/clinics you have been referred to that are listed on the Patient Visit Information form that is included in your discharge packet. Bring any paperwork you were given at discharge with you along with any medications you are taking to your follow up visit. Our treatment cannot replace ongoing medical care by a primary care provider outside of the emergency department. Thank you for allowing the [facility] team to be part of your care today. Do not drink too much alcohol at once. Follow up with your primary doctor or our clinic this week for outpatient care. Instructions: Alcohol Use - When Is Drinking a Problem?, Alcohol Abuse and Alcoholism (DC) Forms: [employer] [facility] (Iranian) - Clinical Impression Clinical Impression: Alcohol abuse - Scribe Statement The provider has reviewed the documentation as recorded by the Scribe KP All medical record entries made by the Scribe were at my direction and personally dictated by me. I have reviewed the chart and agree that the record accurately reflects my personal performance of the history, physical exam, medical decision making, and the department course for this patient. I have also personally directed, reviewed, and agree with the discharge instructions and disposition.
[2018-04-06 17:55] VITALS: BP 96/58; PULSE 70; RESP 20; TEMP 97.5
[2018-04-06 18:35] VITALS: O2SAT 98
== END 2018-04-06 19:11 | disposition home or self-care (01) ==
LOC: C.ER 13:38
DX: F10.10 Alcohol abuse, uncomplicated (principal); E11.9 Type 2 diabetes mellitus without complications; E78.00 Pure hypercholesterolemia, unspecified; F20.9 Schizophrenia, unspecified; I10 Essential (primary) hypertension

== ENCOUNTER 2018-04-07 10:52 | Emergency (ER) | payer MEDICAID ==
[2018-04-07 10:52] VITALS: BMI 27.1
[2018-04-07] MEDS ORDERED: Sodium Chloride 0.9% 1,000 ML IV ONE ×2 (11:33→13:40)
[2018-04-07] MEDS ORDERED: Thiamine 100 mg/ml Inj IV ONE (11:38)
--- NOTE | 2018-04-07 12:00 | C.PDOC ---
History Of Present Illness 52 year old male known to the ED for multiple visits for ETOH intoxication presents to the ER via EMS with a complaint of lightheadedness. Patient was noted to be hypotensive, he admits to ETOH use today. Denies chest pain, nausea , vomiting, SOB, trauma, or injury. Time Seen by Provider: 04/07/18 11:22 Chief Complaint (Nursing): Substance Abuse History Per: Patient, EMS History/Exam Limitations: no limitations Onset/Duration Of Symptoms: Hrs Current Symptoms Are (Timing): Still Present Suicide/Self Injury Attempted (Context): None Modifying Factor(s): Alcohol Involuntary Hold By: None Recent travel outside of the [place]: No Past Medical History Reviewed: Historical Data, Nursing Documentation, Vital Signs Vital Signs: Last Vital Signs Temp 97.7 F 04/07/18 15:16 Pulse 85 04/07/18 15:16 Resp 10 L 04/07/18 15:16 BP 112/58 L 04/07/18 15:16 Pulse Ox 100 04/07/18 15:16 - Medical History PMH: Anxiety, Bipolar Disorder, Depression, Diabetes, HTN, Hypercholesterolemia , Hyperlipidemia, Personality Disorder, Schizophrenia Surgical History: No Surg Hx - [facility] Procedures ALCOHOL DETOXIFICATION (01/08/14) DETOXIFICATION SERVICES FOR SUBSTANCE ABUSE TREATMENT (03/22/18) GROUP SAGGER SOAK FOR SUBSTANCE ABUSE TREATMENT, PSYCHOEDUCATION (03/22/18) GROUP SAGGER SOAK FOR SUBSTANCE ABUSE, COGNITIVE BEHAVIORAL (03/01/18) GROUP PSYCHOTHERAPY (03/22/18) INDIV SAGGER SOAK FOR SUBSTANCE ABUSE TREATMENT, PSYCHOEDUCATION (02/22/17) INDIV PSYCHOTHERAPY FOR SUBSTANCE ABUSE TREATMENT, SUPPORT (03/22/18) INDIV PSYCHOTHERAPY FOR SUBSTANCE ABUSE, COGNITIV BEHAVIORAL (03/01/18) INDIV PSYCHOTHERAPY FOR SUBSTANCE ABUSE, PSYCHOEDUCATION (03/01/18) INDIVIDUAL PSYCHOTHERAPY, COGNITIVE-BEHAVIORAL (03/01/18) INDIVIDUAL PSYCHOTHERAPY, SUPPORTIVE (03/22/18) INSERTION OF INFUSION DEV INTO SUP VENA CAVA, PERC APPROACH (12/10/16) MEDICATION MANAGEMENT (03/22/18) MEDS MGMT FOR SUBSTANCE ABUSE TREATMENT, OTH REPL MED (10/20/17) REMOVAL OF INFUSION DEV FROM GREAT VESSEL, BLUEPRINTING MACHINE OPERATOR APPROACH (02/02/17) ULTRASONOGRAPHY OF SUPERIOR VENA CAVA, GUIDANCE (12/10/16) Family History: States: Unknown Family Hx - Social History Hx Tobacco Use: No Hx Alcohol Use: Yes Hx Substance Use: Yes (DENIES 04/04/18) - Immunization History Hx Tetanus Toxoid Vaccination: No Hx Influenza Vaccination: No Hx Pneumococcal Vaccination: No Review Of Systems Except As Marked, All Systems Reviewed And Found Negative. Cardiovascular: Positive for: Light Headedness Physical Exam - Physical Exam Appears: Non-toxic, Other (ETOH on breath, no sign of injury) Skin: Normal Color, Warm, Dry Head: Atraumatic, Normacephalic Eye(s): bilateral: Normal Inspection, PERRL, EOMI Oral Mucosa: Moist Neck: Normal, Supple Chest: Symmetrical, No Tenderness Cardiovascular: Rhythm Regular Respiratory: Normal Breath Sounds, No Rales, No Rhonchi, No Wheezing Gastrointestinal/Abdominal: Soft, No Tenderness Back: No Vertebral Tenderness, No Paraspinal Tenderness Extremity: Normal ROM (x4) Neurological/Psych: Oriented x3, Normal Speech ED Course And Treatment - Laboratory Results Result Diagrams: 04/07/18 12:18 04/07/18 12:18 ECG: Interpreted By Me, Viewed By Me ECG Rhythm: Sinus Rhythm ECG Interpretation: Normal Interpretation Of ECG: Normal intervals, normal axis, no ST/T wave abnormalities. Rate From EC O2 Sat by Pulse Oximetry: 91 (Room air) Medical Decision Making Medical Decision Making: Assessment: Lightheadedness Plan: * CT head * EKG * Blood work * Urinalysis * CXR * IV fluids * Vitamin B1 * * 1820 - patient observed with improvement in bp. 112/70 on reevaluation. patient without complaint. * will discharge home and advise clinic follow up and decrease alcohol use. Disposition Counseled Patient/Family Regarding: Studies Performed, Diagnosis - Disposition Referrals: [facility] [Outside] Disposition: HOME/ ROUTINE Disposition Time: 18:20 Condition: IMPROVED Additional Instructions: follow up with medical clinic in 2 days call to make an appointment decrease alcohol use return to ER if symptoms worsens or progress Instructions: Polysubstance Abuse, Alcohol Abuse and Alcoholism (DC) Forms: [facility] (Irish), General Discharge Instructions - Clinical Impression Clinical Impression: Alcohol abuse, Dehydration - Scribe Statement The provider has reviewed the documentation as recorded by the Scribe Drew Mcnamara All medical record entries made by the Scribe were at my direction and personally dictated by me. I have reviewed the chart and agree that the record accurately reflects my personal performance of the history, physical exam, medical decision making, and the department course for this patient. I have also personally directed, reviewed, and agree with the discharge instructions and disposition.
[2018-04-07] MEDS ORDERED: Thiamine 100 mg/ml Inj ONE (12:01)
[2018-04-07] MEDS ORDERED: Sodium Chloride 0.9% 1,000 ML ONE ×2 (12:01→13:48)
[2018-04-07 12:25] LABS: BASO % 1.3 % (0.0-2.0); EOS # 0.1 K/uL (0.0-0.7); EOS % 2.6 % (0.0-4.0); HEMOGLOBIN 11.6 g/dL (12.0-18.0); LYMPH # 1.4 K/uL (1.0-4.3); LYMPH % 38.3 % (20.0-40.0); MEAN CORPUSCULAR HGB CONC 33.7 g/dL (33.0-37.0); MEAN PLATELET VOLUME 7.8 fL (7.2-11.7); MONO # 0.5 K/uL (0.0-0.8); MONO % 14.5 % (0.0-10.0); NEUT # 1.6 K/uL (1.8-7.0); NEUT % 43.3 % (50.0-75.0); NRBC % 0.1 % (0.0-2.0); RBC 3.76 Mil/uL (4.40-5.90); RED CELL DISTRIBUTION WIDTH 13.5 % (11.5-14.5); WHITE BLOOD COUNT 3.7 K/uL (4.8-10.8)
[2018-04-07 12:28] LABS: URINE BILIRUBIN NEGATIVE (NEGATIVE); URINE BLOOD NEGATIVE (NEGATIVE); URINE CLARITY Clear (Clear); URINE COLOR Yellow (YELLOW); URINE GLUCOSE (UA) NORMAL (Normal); URINE LEUKOCYTE ESTERASE NEG Leu/uL (Negative); URINE PROTEIN NEGATIVE (NEGATIVE); URINE UROBILINOGEN NORMAL mg/dL (0.2-1.0)
--- NOTE | 2018-04-07 12:38 | RAD ---
Date of service: 04/07/2018 PROCEDURE: CHEST RADIOGRAPH, 1 VIEW HISTORY: SOB COMPARISON: 02/26/2018 FINDINGS: LUNGS: Clear. PLEURA: Mild elevation of right hemidiaphragm, nonspecific. No evidence of pleural effusion or pneumothorax. CARDIOVASCULAR: Normal. OSSEOUS STRUCTURES: No significant abnormalities. VISUALIZED UPPER ABDOMEN: Normal. OTHER FINDINGS: None. IMPRESSION: No active disease.
[2018-04-07 12:50] LABS: BLOOD UREA NITROGEN 13 mg/dL (9-20); GFR AFRICAN-AMERICAN > 60; GFR NON-AFRICAN AMERICAN > 60
[2018-04-07 12:51] LABS: ALB/GLOB RATIO 1.3 (1.0-2.1); ALT/SGPT 38 U/L (21-72); AST/SGOT 51 U/L (17-59); CALCIUM 8.2 mg/dl (8.6-10.4)
[2018-04-07 12:52] LABS: BARBITURATES, UR NEGATIVE (NEGATIVE); OPIATES, UR NEGATIVE (NEGATIVE); PHENCYCLIDINE, UR NEGATIVE (NEGATIVE)
[2018-04-07 12:55] LABS: BENZODIAZEPINES, UR POSITIVE (NEGATIVE)
--- NOTE | 2018-04-07 13:14 | CT ---
Date of service: 04/07/2018 PROCEDURE: CT HEAD WITHOUT CONTRAST. HISTORY: dizzy COMPARISON: CT head dated 04/02/2018. TECHNIQUE: Axial computed tomography images were obtained through the head/brain without intravenous contrast. Radiation dose: Total exam DLP = 979.3 mGy-cm. This CT exam was performed using one or more of the following dose reduction techniques: Automated exposure control, adjustment of the mA and/or kV according to patient size, and/or use of iterative reconstruction technique. FINDINGS: HEMORRHAGE: No intracranial hemorrhage. BRAIN: No mass effect or edema. Mild cerebral and cerebellar atrophy. No chronic microvascular ischemic changes. VENTRICLES: Unremarkable. No hydrocephalus. CALVARIUM: Unremarkable. PARANASAL SINUSES: Unremarkable as visualized. No significant inflammatory changes. MASTOID AIR CELLS: Unremarkable as visualized. No inflammatory changes. OTHER FINDINGS: Stable dysconjugate gaze. Stable left frontal scalp 3.2 x 2.6 cm cyst IMPRESSION: No acute intracranial pathology.
[2018-04-07] MEDS ORDERED: Dextrose 25% Inj (10ml) IV ONE ×2 (18:10→18:44)
[2018-04-07] MEDS ORDERED: Dextrose 50% SYRINGE Inj (50 ml) IV STA (18:45)
[2018-04-07] MEDS ORDERED: Dextrose 50% SYRINGE Inj (50 ml) ONE (18:48)
[2018-04-07 20:28] VITALS: PULSE 96; RESP 16; TEMP 98.1
[2018-04-07 20:38] VITALS: BP 105/69
--- NOTE | 2018-04-08 17:49 | CARD ---
APPROVED REPORT Date of service: 04/07/2018 EKG Measurement Heart [id number] <Conclusion> Normal sinus rhythm Normal ECG
[2018-04-09 07:11] VITALS: O2SAT 91
== END 2018-04-07 20:41 | disposition home or self-care (01) ==
LOC: C.ER 10:52
DX: F10.129 Alcohol abuse with intoxication, unspecified (principal); Y90.8 Blood alcohol level of 240 mg/100 ml or more; E86.0 Dehydration
CPT/HCPCS: 70450; 71045; 80053; 80320; 80324; 80345; 80346; 80349; 80353; 80358; 80361; 81001; 82948; 83735; 83992; 84484; 85025; 93005; 96361; 96374; 96375; 99285; J3411; J7030

== ENCOUNTER 2018-04-10 17:07 | Emergency (ER) | payer MEDICAID ==
[2018-04-10 17:07] VITALS: BMI 27.1
[2018-04-10 17:17] VITALS: BP 108/64; PULSE 74; RESP 20; TEMP 98.2; O2SAT 99
--- NOTE | 2018-04-10 17:56 | CP.PCM.PCO ---
Physician Communication Note - Physician Communication Note Physician Communication Note: Risperdal 2 mg and Trazodone 100 mg #5 each called to [facility].
--- NOTE | 2018-04-10 18:14 | C.PDOC ---
History Of Present Illness 52 yo male, comes to ER stating he is depressed and ran out of his medications. Patient admits to alcohol use today as well. He denies any suicidal or homicidal ideation. He offers no medical complaints. Time Seen by Provider: 04/10/18 17:17 Chief Complaint (Nursing): Substance Abuse History Per: Patient History/Exam Limitations: no limitations Current Symptoms Are (Timing): Still Present Associated Symptoms: Depression. denies: Suicidal Thoughts, Suicidal Plan Past Medical History Reviewed: Historical Data, Nursing Documentation, Vital Signs Vital Signs: Last Vital Signs Temp 98.2 F 04/10/18 17:14 Pulse 74 04/10/18 17:14 Resp 20 04/10/18 17:14 BP 108/64 04/10/18 17:14 Pulse Ox 99 04/10/18 18:21 - Medical History PMH: Anxiety, Bipolar Disorder, Depression, Diabetes, HTN, Hypercholesterolemia , Hyperlipidemia, Personality Disorder, Schizophrenia Denies: Alzheimer's Disease, Anemia, Arthritis, Asthma, Atrial Fibrillation, Bronchitis, Cardia Arrhythmia, CHF, COPD, Crohn's Disease, Dementia, Diverticulitis, Emphysema, Fractures, Gastritis, Gall Bladder Disease, Hepatitis , HIV, Hyperthyroidism, Hypothyroidism, Kidney Stones, Migraine, Mitral Valve Prolapse, Multiple Sclerosis, Osteoporosis, Pancreatitis, Parkinson's Disease, Peripheral Edema, Pneumonia, Post Traumatic Stress Disorder, Pulmonary Embolism , Chronic Kidney Disease, Rheumatoid Arthritis, Seizures, Sickle Cell Disease, Sexually Transmitted Disease, Sleep Apnea, TIA Surgical History: Denies: Appendectomy, CABG, Carotid Endarterectomy, Cholecystectomy, Coronary Stent, Pacemaker, Tonsillectomy - [facility] Procedures ALCOHOL DETOXIFICATION (01/08/14) DETOXIFICATION SERVICES FOR SUBSTANCE ABUSE TREATMENT (03/22/18) GROUP UNEMPLOYMENT INSURANCE HEARING OFFICER FOR SUBSTANCE ABUSE TREATMENT, PSYCHOEDUCATION (03/22/18) GROUP UNEMPLOYMENT INSURANCE HEARING OFFICER FOR SUBSTANCE ABUSE, COGNITIVE BEHAVIORAL (03/01/18) GROUP PSYCHOTHERAPY (03/22/18) INDIV UNEMPLOYMENT INSURANCE HEARING OFFICER FOR SUBSTANCE ABUSE TREATMENT, PSYCHOEDUCATION (02/22/17) INDIV PSYCHOTHERAPY FOR SUBSTANCE ABUSE TREATMENT, SUPPORT (03/22/18) INDIV PSYCHOTHERAPY FOR SUBSTANCE ABUSE, COGNITIV BEHAVIORAL (03/01/18) INDIV PSYCHOTHERAPY FOR SUBSTANCE ABUSE, PSYCHOEDUCATION (03/01/18) INDIVIDUAL PSYCHOTHERAPY, COGNITIVE-BEHAVIORAL (03/01/18) INDIVIDUAL PSYCHOTHERAPY, SUPPORTIVE (03/22/18) INSERTION OF INFUSION DEV INTO SUP VENA CAVA, PERC APPROACH (12/10/16) MEDICATION MANAGEMENT (03/22/18) MEDS MGMT FOR SUBSTANCE ABUSE TREATMENT, OTH REPL MED (10/20/17) REMOVAL OF INFUSION DEV FROM GREAT VESSEL, PHOTOGRAPHER LITHOGRAPHIC APPROACH (02/02/17) ULTRASONOGRAPHY OF SUPERIOR VENA CAVA, GUIDANCE (12/10/16) Family History: States: Unknown Family Hx - Social History Hx Tobacco Use: No Hx Alcohol Use: Yes Hx Substance Use: Yes (DENIES 04/04/18) - Immunization History Hx Tetanus Toxoid Vaccination: No Hx Influenza Vaccination: No Hx Pneumococcal Vaccination: No Review Of Systems Except As Marked, All Systems Reviewed And Found Negative. Constitutional: Negative for: Fever, Chills Cardiovascular: Negative for: Chest Pain Respiratory: Negative for: Shortness of Breath Psych: Positive for: Depression. Negative for: Suicidal ideation Physical Exam - Physical Exam Appears: Non-toxic, No Acute Distress Head: Normacephalic Eye(s): bilateral: Normal Inspection Oral Mucosa: Moist Neck: Normal ROM, Supple Chest: Symmetrical Cardiovascular: Rhythm Regular Respiratory: Normal Breath Sounds Extremity: Normal ROM Pulses: Left Dorsalis Pedis: Normal, Right Dorsalis Pedis: Normal Neurological/Psych: Oriented x3 Gait: Steady ED Course And Treatment O2 Sat by Pulse Oximetry: 99 (RA) Pulse Ox Interpretation: Normal Medical Decision Making Medical Decision Making: Assessment: Depression Plan: -- Accucheck -- Consult with Dr. Monson 1800 Accucheck [address] Monson and he will call in prescription for the patient. Patient instructed on strict follow up with his psychiatrist. Disposition - Disposition Referrals: Maurice Monson MD [Staff Provider] - Disposition: HOME/ ROUTINE Disposition Time: 18:00 Condition: STABLE Additional Instructions: group therapy counselor your prescriptions from pharmacy and take medications as prescribed. Follow up with Dr. Monson in 2-3 days without fail. Return to ER if symptoms worsen or new symptoms arise. Forms: [employer] [facility] (Chadian) - Clinical Impression Clinical Impression: Depression (emotion) - Scribe Statement The provider has reviewed the documentation as recorded by the Mikeibboone López Provider Attestation: All medical record entries made by the Scribe were at my direction and personally dictated by me. I have reviewed the chart and agree that the record accurately reflects my personal performance of the history, physical exam, medical decision making, and the department course for this patient. I have also personally directed, reviewed, and agree with the discharge instructions and disposition.
== END 2018-04-10 18:17 | disposition home or self-care (01) ==
LOC: C.ER 17:07
DX: F32.9 Major depressive disorder, single episode, unspecified (principal); E11.9 Type 2 diabetes mellitus without complications

== ENCOUNTER 2018-04-21 20:10 | Emergency (ER) | payer MEDICAID ==
[2018-04-21 20:11] VITALS: BMI 27.1
[2018-04-21 20:32] VITALS: BP 101/64; PULSE 95; RESP 16; TEMP 97.8; O2SAT 97
--- NOTE | 2018-04-21 22:10 | C.PDOC ---
History Of Present Illness 52 y/o male presented to ED c/o pain to the right knee for "a couple of weeks". Patient reports he recently received X-rays to both knees at another ER and does not need x-rays, only wants pain medication at this time. Patient denies trauma, weakness, numbness. Patient is known in ER for chronic alcoholism. Time Seen by Provider: 04/21/18 20:35 Chief Complaint (Nursing): Lower Extremity Problem/Injury History Per: Patient History/Exam Limitations: no limitations Onset/Duration Of Symptoms: Days Current Symptoms Are (Timing): Still Present Recent travel outside of the [place]: No Past Medical History Reviewed: Historical Data, Nursing Documentation, Vital Signs Vital Signs: Last Vital Signs Temp 97.8 F 04/21/18 20:30 Pulse 95 H 04/21/18 20:30 Resp 16 04/21/18 20:30 BP 101/64 04/21/18 20:30 Pulse Ox 97 04/22/18 02:32 - Medical History PMH: Anxiety, Bipolar Disorder, Depression, Diabetes, HTN, Hypercholesterolemia , Hyperlipidemia, Personality Disorder, Schizophrenia Denies: Alzheimer's Disease, Anemia, Arthritis, Asthma, Atrial Fibrillation, Bronchitis, Cardia Arrhythmia, CHF, COPD, Crohn's Disease, Dementia, Diverticulitis, Emphysema, Fractures, Gastritis, Gall Bladder Disease, Hepatitis , HIV, Hyperthyroidism, Hypothyroidism, Kidney Stones, Migraine, Mitral Valve Prolapse, Multiple Sclerosis, Osteoporosis, Pancreatitis, Parkinson's Disease, Peripheral Edema, Pneumonia, Post Traumatic Stress Disorder, Pulmonary Embolism , Chronic Kidney Disease, Rheumatoid Arthritis, Seizures, Sickle Cell Disease, Sexually Transmitted Disease, Sleep Apnea, TIA Surgical History: Denies: Appendectomy, CABG, Carotid Endarterectomy, Cholecystectomy, Coronary Stent, Pacemaker, Tonsillectomy - [facility] Procedures ALCOHOL DETOXIFICATION (01/08/14) DETOXIFICATION SERVICES FOR SUBSTANCE ABUSE TREATMENT (03/22/18) GROUP CHILD WELFARE CONSULTANT FOR SUBSTANCE ABUSE TREATMENT, PSYCHOEDUCATION (03/22/18) GROUP CHILD WELFARE CONSULTANT FOR SUBSTANCE ABUSE, COGNITIVE BEHAVIORAL (03/01/18) GROUP PSYCHOTHERAPY (03/22/18) INDIV CHILD WELFARE CONSULTANT FOR SUBSTANCE ABUSE TREATMENT, PSYCHOEDUCATION (02/22/17) INDIV PSYCHOTHERAPY FOR SUBSTANCE ABUSE TREATMENT, SUPPORT (03/22/18) INDIV PSYCHOTHERAPY FOR SUBSTANCE ABUSE, COGNITIV BEHAVIORAL (03/01/18) INDIV PSYCHOTHERAPY FOR SUBSTANCE ABUSE, PSYCHOEDUCATION (03/01/18) INDIVIDUAL PSYCHOTHERAPY, COGNITIVE-BEHAVIORAL (03/01/18) INDIVIDUAL PSYCHOTHERAPY, SUPPORTIVE (03/22/18) INSERTION OF INFUSION DEV INTO SUP VENA CAVA, PERC APPROACH (12/10/16) MEDICATION MANAGEMENT (03/22/18) MEDS MGMT FOR SUBSTANCE ABUSE TREATMENT, OTH REPL MED (10/20/17) REMOVAL OF INFUSION DEV FROM GREAT VESSEL, MANUFACTURING ELECTRICIAN APPROACH (02/02/17) ULTRASONOGRAPHY OF SUPERIOR VENA CAVA, GUIDANCE (12/10/16) Family History: States: No Known Family Hx - Social History Hx Tobacco Use: No Hx Alcohol Use: Yes Hx Substance Use: Yes (DENIES 04/04/18) - Immunization History Hx Tetanus Toxoid Vaccination: No Hx Influenza Vaccination: No Hx Pneumococcal Vaccination: No Review Of Systems Musculoskeletal: Positive for: Leg Pain Neurological: Negative for: Weakness, Numbness Physical Exam - Physical Exam Appears: Non-toxic Skin: Normal Color, Warm, Dry Head: Atraumatic, Normacephalic Eye(s): bilateral: Normal Inspection Extremity: Normal ROM (x4), Tenderness (slight to the right anterior knee.), No Calf Tenderness, Capillary Refill (<2 seconds), No Deformity, Swelling (Mild bilateral), No Other (Erythema, warmth, effusion) Extremity: Bilateral: Atraumatic, Normal Color And Temperature Pulses: Left Dorsalis Pedis: Normal, Right Dorsalis Pedis: Normal Neurological/Psych: Oriented x3, Normal Speech, Normal Motor, Normal Sensation Gait: Steady ED Course And Treatment O2 Sat by Pulse Oximetry: 97 (RA) Pulse Ox Interpretation: Normal Progress Note: Toradol administered. Patient reports improvement of pain, he is able to ambulate with a steady gait, will discharge home and advised to follow up with a physician at the clinic. Disposition Counseled Patient/Family Regarding: Diagnosis, Need For Followup, Rx Given - Disposition Referrals: Moraima Cobian MD [Staff Provider] - Disposition: HOME/ ROUTINE Disposition Time: 22:07 Condition: STABLE Additional Instructions: Please follow up with PMD Wear knee brace Take medications as directed Return to ER if worse Prescriptions: Ibuprofen [Motrin] 1 tab PO TID PRN #14 tab PRN Reason: Pain Instructions: Chronic Knee Pain (DC) Forms: [employer] (Lebanese) - Clinical Impression Clinical Impression: Knee pain, chronic - PA / LINUX SERVER ADMINISTRATOR / Resident Statement MD/DO has reviewed & agrees with the documentation as recorded. - Scribe Statement The provider has reviewed the documentation as recorded by the Mikeibe Av Sesay All medical record entries made by the Agustin were at my direction and personally dictated by me. I have reviewed the chart and agree that the record accurately reflects my personal performance of the history, physical exam, medical decision making, and the department course for this patient. I have also personally directed, reviewed, and agree with the discharge instructions and disposition.
== END 2018-04-21 22:40 | disposition home or self-care (01) ==
LOC: C.ER 20:10
DX: M25.561 Pain in right knee (principal); G89.29 Other chronic pain
CPT/HCPCS: 96372; 99283; J1885

== ENCOUNTER 2018-04-24 16:48 | Emergency (ER) | payer MEDICAID ==
[2018-04-24 16:49] VITALS: BMI 27.1
[2018-04-24] MEDS ORDERED: Naproxen 550 mg Tab PO STA (19:14)
[2018-04-24] MEDS ORDERED: Naproxen 550 mg Tab PO ONE (19:25)
[2018-04-24 21:33] VITALS: RESP 14; O2SAT 96
--- NOTE | 2018-04-24 23:56 | C.PDOC ---
History Of Present Illness Pt was BIBEMS due to public alcohol intoxication. He also c/o right knee pain for "a while". Time Seen by Provider: 04/24/18 18:51 Chief Complaint (Nursing): Substance Abuse History Per: Patient, EMS History/Exam Limitations: intoxication Onset/Duration Of Symptoms: Unknown Current Symptoms Are (Timing): Still Present Suicide/Self Injury Attempted (Context): None Modifying Factor(s): Alcohol Severity: Severe Associated Symptoms: denies: Suicidal Thoughts, Suicidal Plan Additional History Per: Prior Records Past Medical History Reviewed: Historical Data, Nursing Documentation, Vital Signs Vital Signs: Last Vital Signs Temp 98.3 F 04/24/18 16:59 Pulse 80 04/24/18 20:30 Resp 14 04/24/18 20:30 BP 100/60 04/24/18 20:30 Pulse Ox 96 04/24/18 23:59 - Medical History PMH: Anxiety, Bipolar Disorder, Depression, Diabetes, HTN, Hypercholesterolemia , Hyperlipidemia, Personality Disorder, Schizophrenia Other PMH: Alcohol abuse - [facility] Procedures ALCOHOL DETOXIFICATION (01/08/14) DETOXIFICATION SERVICES FOR SUBSTANCE ABUSE TREATMENT (03/22/18) GROUP LINE HAUL TRUCK DRIVER FOR SUBSTANCE ABUSE TREATMENT, PSYCHOEDUCATION (03/22/18) GROUP LINE HAUL TRUCK DRIVER FOR SUBSTANCE ABUSE, COGNITIVE BEHAVIORAL (03/01/18) GROUP PSYCHOTHERAPY (03/22/18) INDIV LINE HAUL TRUCK DRIVER FOR SUBSTANCE ABUSE TREATMENT, PSYCHOEDUCATION (02/22/17) INDIV PSYCHOTHERAPY FOR SUBSTANCE ABUSE TREATMENT, SUPPORT (03/22/18) INDIV PSYCHOTHERAPY FOR SUBSTANCE ABUSE, COGNITIV BEHAVIORAL (03/01/18) INDIV PSYCHOTHERAPY FOR SUBSTANCE ABUSE, PSYCHOEDUCATION (03/01/18) INDIVIDUAL PSYCHOTHERAPY, COGNITIVE-BEHAVIORAL (03/01/18) INDIVIDUAL PSYCHOTHERAPY, SUPPORTIVE (03/22/18) INSERTION OF INFUSION DEV INTO SUP VENA CAVA, PERC APPROACH (12/10/16) MEDICATION MANAGEMENT (03/22/18) MEDS MGMT FOR SUBSTANCE ABUSE TREATMENT, OTH REPL MED (10/20/17) REMOVAL OF INFUSION DEV FROM GREAT VESSEL, ADOBE DEVELOPER APPROACH (02/02/17) ULTRASONOGRAPHY OF SUPERIOR VENA CAVA, GUIDANCE (12/10/16) Family History: States: Unknown Family Hx - Social History Hx Tobacco Use: No Hx Alcohol Use: Yes Hx Substance Use: Yes - Immunization History Hx Tetanus Toxoid Vaccination: No Hx Influenza Vaccination: No Hx Pneumococcal Vaccination: No Review Of Systems Review Of Systems: ROS cannot be obtained secondary to pt's inabilty to answer questions. Physical Exam - Physical Exam Appears: No Acute Distress, Other (AOB, intoxicated) Skin: Normal Color, Warm, Dry Head: Atraumatic, Normacephalic Eye(s): bilateral: PERRL Neck: Normal ROM, No Midline Cervical Tenderness, No Step Off Deformity, Supple Chest: Symmetrical Cardiovascular: Rhythm Regular Respiratory: Normal Breath Sounds, No Accessory Muscle Use Gastrointestinal/Abdominal: Soft Extremity: Normal ROM, No Pedal Edema, No Calf Tenderness, No Deformity, Swelling (right knee effusion) Extremity: Bilateral: Normal Color And Temperature Neurological/Psych: Slow To Respond With Command, Other (Moving all extremities) Gait: Unable To Assess ED Course And Treatment O2 Sat by Pulse Oximetry: 96 Pulse Ox Interpretation: Normal - Other Rad Right knee x-rays X-Ray: Interpreted by Me, Viewed By Me Interpretation: No fx or dislocation. Disposition - Disposition Disposition Time: 00:43 Condition: STABLE - Clinical Impression Clinical Impression: Alcohol abuse, Right knee pain Physician Patient Turnover Patient Signed Over To: Anitha Kowalski Handoff Comments: to reassess/dipo pt once sober in the AM.
[2018-04-25 03:05] VITALS: TEMP 97.5
[2018-04-25 03:06] VITALS: BP 100/58; PULSE 68
--- NOTE | 2018-04-25 08:43 | RAD ---
Date of service: 04/24/2018 PROCEDURE: Right Knee Radiographs. HISTORY: Pain/swelling COMPARISON: None. FINDINGS: BONES: Bone alignment and mineralization are normal. There is no acute displaced fracture or bone destruction. JOINTS: There is mild tricompartmental degenerative osteoarthrosis with reduced joint spaces, marginal osteophytes and tibial spiking, worse in the media compartment. JOINT EFFUSION: There is a large suprapatellar joint effusion. OTHER FINDINGS: None. IMPRESSION: Large suprapatellar joint effusion. Mild degenerative osteoarthrosis, worse in the medial compartment. No acute fracture or dislocation.
== END 2018-04-25 05:10 | disposition home or self-care (01) ==
LOC: C.ER 16:48
DX: F10.129 Alcohol abuse with intoxication, unspecified (principal); Y90.9 Presence of alcohol in blood, level not specified; M25.561 Pain in right knee

== ENCOUNTER 2018-04-25 20:13 | Emergency (ER) | payer MEDICAID ==
[2018-04-25 20:14] VITALS: BMI 27.1
--- NOTE | 2018-04-25 20:55 | C.PDOC ---
History Of Present Illness 52 year old male brought in by EMS for public malingering. Patient is a local homeless alcoholic and has had many recent evaluations for the same, mostrecent evaluation was last night. Denies physical complaints at this time. Time Seen by Provider: 04/25/18 20:51 History Per: Patient History/Exam Limitations: no limitations Onset/Duration Of Symptoms: Hrs Current Symptoms Are (Timing): Still Present Suicide/Self Injury Attempted (Context): None Associated Symptoms: denies: Depression, Suicidal Thoughts Involuntary Hold By: None Recent travel outside of the [place]: No Past Medical History Reviewed: Historical Data, Nursing Documentation, Vital Signs Vital Signs: Last Vital Signs Temp 97 F L 04/25/18 20:57 Pulse 89 04/25/18 20:57 Resp 18 04/25/18 20:57 BP 142/78 04/25/18 20:57 Pulse Ox 96 04/25/18 20:57 - Medical History PMH: Anxiety, Bipolar Disorder, Depression, Diabetes, HTN, Hypercholesterolemia , Hyperlipidemia, Personality Disorder, Schizophrenia - [facility] Procedures ALCOHOL DETOXIFICATION (01/08/14) DETOXIFICATION SERVICES FOR SUBSTANCE ABUSE TREATMENT (03/22/18) GROUP [employer] SALES CONSULTANT FOR SUBSTANCE ABUSE TREATMENT, PSYCHOEDUCATION (03/22/18) GROUP [employer] SALES CONSULTANT FOR SUBSTANCE ABUSE, COGNITIVE BEHAVIORAL (03/01/18) GROUP PSYCHOTHERAPY (03/22/18) INDIV [employer] SALES CONSULTANT FOR SUBSTANCE ABUSE TREATMENT, PSYCHOEDUCATION (02/22/17) INDIV PSYCHOTHERAPY FOR SUBSTANCE ABUSE TREATMENT, SUPPORT (03/22/18) INDIV PSYCHOTHERAPY FOR SUBSTANCE ABUSE, COGNITIV BEHAVIORAL (03/01/18) INDIV PSYCHOTHERAPY FOR SUBSTANCE ABUSE, PSYCHOEDUCATION (03/01/18) INDIVIDUAL PSYCHOTHERAPY, COGNITIVE-BEHAVIORAL (03/01/18) INDIVIDUAL PSYCHOTHERAPY, SUPPORTIVE (03/22/18) INSERTION OF INFUSION DEV INTO SUP VENA CAVA, PERC APPROACH (12/10/16) MEDICATION MANAGEMENT (03/22/18) MEDS MGMT FOR SUBSTANCE ABUSE TREATMENT, OTH REPL MED (10/20/17) REMOVAL OF INFUSION DEV FROM GREAT VESSEL, MANAGER REHAB APPROACH (02/02/17) ULTRASONOGRAPHY OF SUPERIOR VENA CAVA, GUIDANCE (12/10/16) Family History: States: Unknown Family Hx - Social History Hx Tobacco Use: No Hx Alcohol Use: Yes Hx Substance Use: Yes - Immunization History Hx Tetanus Toxoid Vaccination: No Hx Influenza Vaccination: No Hx Pneumococcal Vaccination: No Review Of Systems Constitutional: Negative for: Fever, Chills Cardiovascular: Negative for: Chest Pain, Palpitations Respiratory: Negative for: Cough, Shortness of Breath Gastrointestinal: Negative for: Nausea, Vomiting Physical Exam - Physical Exam Appears: Non-toxic, No Acute Distress, Other (No new injuries) Skin: Normal Color, Warm, Dry Head: Atraumatic, Normacephalic Eye(s): bilateral: Normal Inspection Oral Mucosa: Moist Chest: Symmetrical, No Tenderness Cardiovascular: Rhythm Regular Respiratory: Normal Breath Sounds, No Rales, No Rhonchi, No Wheezing Gastrointestinal/Abdominal: Soft, No Tenderness Extremity: Normal ROM (x4) Neurological/Psych: Oriented x3, Normal Speech Gait: Steady Medical Decision Making Medical Decision Making: typical malingering, alcohol abuse no new issues today safe for d/c. Disposition Doctor Will See Patient In The: Office Counseled Patient/Family Regarding: Studies Performed, Diagnosis - Disposition Referrals: Alcoholics Anonymous [Outside] [employer] [Outside] [facility] [Outside] [facility] [Outside] Disposition: HOME/ ROUTINE Disposition Time: 20:56 Condition: GOOD Instructions: Alcohol Abuse and Alcoholism (DC) Forms: [employer] (Yakut) - Clinical Impression Clinical Impression: Alcohol abuse - Scribe Statement The provider has reviewed the documentation as recorded by the Scribboone Mcnamara All medical record entries made by the Scribe were at my direction and personally dictated by me. I have reviewed the chart and agree that the record accurately reflects my personal performance of the history, physical exam, medical decision making, and the department course for this patient. I have also personally directed, reviewed, and agree with the discharge instructions and disposition.
[2018-04-25 21:00] VITALS: BP 142/78; PULSE 89; RESP 18; TEMP 97; O2SAT 96
== END 2018-04-25 21:42 | disposition home or self-care (01) ==
LOC: C.ER 20:13
DX: F10.10 Alcohol abuse, uncomplicated (principal)

== ENCOUNTER 2018-04-27 12:33 | Emergency (ER) | payer MEDICAID ==
[2018-04-27 12:33] VITALS: BMI 27.1
[2018-04-27 12:47] VITALS: O2SAT 98
--- NOTE | 2018-04-27 14:16 | C.PDOC ---
History Of Present Illness 52 year old male presents to the emergency department after being found intoxicated in [facility]. He has a chronic soft tissue mass on his left forehead that he is requesting to have removed. Time Seen by Provider: 04/27/18 13:21 Chief Complaint (Nursing): Abnormal Skin Integrity History Per: Patient, EMS History/Exam Limitations: no limitations Onset/Duration Of Symptoms: Hrs Current Symptoms Are (Timing): Still Present Past Medical History Reviewed: Historical Data, Nursing Documentation, Vital Signs Vital Signs: Last Vital Signs Temp 97.7 F 04/27/18 18:23 Pulse 72 04/27/18 18:23 Resp 20 04/27/18 18:23 BP 131/84 04/27/18 18:23 Pulse Ox 98 04/27/18 18:23 - Medical History PMH: Anxiety, Bipolar Disorder, Depression, Diabetes, HTN, Hypercholesterolemia , Hyperlipidemia, Personality Disorder, Schizophrenia Surgical History: No Surg Hx - [facility] Procedures ALCOHOL DETOXIFICATION (01/08/14) DETOXIFICATION SERVICES FOR SUBSTANCE ABUSE TREATMENT (03/22/18) GROUP LUG BREAKER AND WIRE PULLER FOR SUBSTANCE ABUSE TREATMENT, PSYCHOEDUCATION (03/22/18) GROUP LUG BREAKER AND WIRE PULLER FOR SUBSTANCE ABUSE, COGNITIVE BEHAVIORAL (03/01/18) GROUP PSYCHOTHERAPY (03/22/18) INDIV LUG BREAKER AND WIRE PULLER FOR SUBSTANCE ABUSE TREATMENT, PSYCHOEDUCATION (02/22/17) INDIV PSYCHOTHERAPY FOR SUBSTANCE ABUSE TREATMENT, SUPPORT (03/22/18) INDIV PSYCHOTHERAPY FOR SUBSTANCE ABUSE, COGNITIV BEHAVIORAL (03/01/18) INDIV PSYCHOTHERAPY FOR SUBSTANCE ABUSE, PSYCHOEDUCATION (03/01/18) INDIVIDUAL PSYCHOTHERAPY, COGNITIVE-BEHAVIORAL (03/01/18) INDIVIDUAL PSYCHOTHERAPY, SUPPORTIVE (03/22/18) INSERTION OF INFUSION DEV INTO SUP VENA CAVA, PERC APPROACH (12/10/16) MEDICATION MANAGEMENT (03/22/18) MEDS MGMT FOR SUBSTANCE ABUSE TREATMENT, OTH REPL MED (10/20/17) REMOVAL OF INFUSION DEV FROM GREAT VESSEL, CUBING MACHINE TENDER APPROACH (02/02/17) ULTRASONOGRAPHY OF SUPERIOR VENA CAVA, GUIDANCE (12/10/16) Family History: States: No Known Family Hx - Social History Hx Tobacco Use: No Hx Alcohol Use: Yes Hx Substance Use: No - Immunization History Hx Tetanus Toxoid Vaccination: No Hx Influenza Vaccination: No Hx Pneumococcal Vaccination: No Review Of Systems Review Of Systems: ROS cannot be obtained secondary to pt's inabilty to answer questions. Neurological: Positive for: Altered Mental Status (intoxicated) Physical Exam - Physical Exam Appears: Non-toxic, No Acute Distress, Other (intoxicated) Skin: Warm, Dry Head: Swelling (chippewa-cree-sized soft-tissue mass noted to forehead ) Eye(s): bilateral: Normal Inspection Nose: Normal Oral Mucosa: Moist, Other (alcohol on breath) Neck: Normal, Supple Cardiovascular: Rhythm Regular, No Murmur Respiratory: Normal Breath Sounds, No Rales, No Rhonchi, No Wheezing Gastrointestinal/Abdominal: Normal Exam, Soft, No Tenderness, No Guarding, No Rebound Neurological/Psych: Other (intoxicated) ED Course And Treatment O2 Sat by Pulse Oximetry: 98 (RA) Pulse Ox Interpretation: Normal Reevaluation Time: 19:31 Reassessment Condition: Improved (Patient awake and alert. Tolerating po and ambulating with steady gait.) Disposition - Disposition Disposition: HOME/ ROUTINE Disposition Time: 19:32 Condition: IMPROVED Instructions: Alcohol Abuse and Alcoholism (DC) Forms: [employer] (Macedonian) - Clinical Impression Clinical Impression: Alcohol intoxication, Alcohol abuse, Mass of soft tissue of face - Scribe Statement The provider has reviewed the documentation as recorded by the Scribe (Mani Miller) Provider Attestation: All medical record entries made by the Scribe were at my direction and personally dictated by me. I have reviewed the chart and agree that the record accurately reflects my personal performance of the history, physical exam, medical decision making, and the department course for this patient. I have also personally directed, reviewed, and agree with the discharge instructions and disposition.
[2018-04-27 18:24] VITALS: BP 131/84; PULSE 72; RESP 20; TEMP 97.7
== END 2018-04-27 19:43 | disposition home or self-care (01) ==
LOC: C.ER 12:33
DX: F10.129 Alcohol abuse with intoxication, unspecified (principal); R22.0 Localized swelling, mass and lump, head

== ENCOUNTER 2018-04-29 18:42 | Emergency (ER) | payer MEDICAID ==
[2018-04-29 18:42] VITALS: BMI 27.1
[2018-04-29 18:51] VITALS: BP 121/76; PULSE 106; RESP 16; TEMP 98.3; O2SAT 95
--- NOTE | 2018-04-29 19:49 | C.PDOC ---
History Of Present Illness Patient presents to the ER stating he has been drinking and wants a place to stay the night. Contrary to triage, patient denies suicidal or homicidal ideation. Time Seen by Provider: 04/29/18 19:46 Chief Complaint (Nursing): Psychiatric Evaluation History Per: Patient History/Exam Limitations: no limitations Onset/Duration Of Symptoms: Hrs Current Symptoms Are (Timing): Still Present Suicide/Self Injury Attempted (Context): None Modifying Factor(s): Alcohol Severity: None Pain Scale Rating Of: 0 Associated Symptoms: denies: Depression, Suicidal Thoughts, Other (Homicidal ideation) Involuntary Hold By: None Recent travel outside of the [place]: No Past Medical History Reviewed: Historical Data, Nursing Documentation, Vital Signs Vital Signs: Last Vital Signs Temp 98.3 F 04/29/18 18:47 Pulse 106 H 04/29/18 18:47 Resp 16 04/29/18 18:47 BP 121/76 04/29/18 18:47 Pulse Ox 95 04/29/18 19:49 - Medical History PMH: Anxiety, Bipolar Disorder, Depression, Diabetes, HTN, Hypercholesterolemia , Hyperlipidemia, Personality Disorder, Schizophrenia - [facility] Procedures ALCOHOL DETOXIFICATION (01/08/14) DETOXIFICATION SERVICES FOR SUBSTANCE ABUSE TREATMENT (03/22/18) GROUP BASIC COMBATANT SWIMMER FOR SUBSTANCE ABUSE TREATMENT, PSYCHOEDUCATION (03/22/18) GROUP BASIC COMBATANT SWIMMER FOR SUBSTANCE ABUSE, COGNITIVE BEHAVIORAL (03/01/18) GROUP PSYCHOTHERAPY (03/22/18) INDIV BASIC COMBATANT SWIMMER FOR SUBSTANCE ABUSE TREATMENT, PSYCHOEDUCATION (02/22/17) INDIV PSYCHOTHERAPY FOR SUBSTANCE ABUSE TREATMENT, SUPPORT (03/22/18) INDIV PSYCHOTHERAPY FOR SUBSTANCE ABUSE, COGNITIV BEHAVIORAL (03/01/18) INDIV PSYCHOTHERAPY FOR SUBSTANCE ABUSE, PSYCHOEDUCATION (03/01/18) INDIVIDUAL PSYCHOTHERAPY, COGNITIVE-BEHAVIORAL (03/01/18) INDIVIDUAL PSYCHOTHERAPY, SUPPORTIVE (03/22/18) INSERTION OF INFUSION DEV INTO SUP VENA CAVA, PERC APPROACH (12/10/16) MEDICATION MANAGEMENT (03/22/18) MEDS MGMT FOR SUBSTANCE ABUSE TREATMENT, OTH REPL MED (10/20/17) REMOVAL OF INFUSION DEV FROM GREAT VESSEL, TRIMMER SORTER APPROACH (02/02/17) ULTRASONOGRAPHY OF SUPERIOR VENA CAVA, GUIDANCE (12/10/16) Family History: States: No Known Family Hx - Social History Hx Tobacco Use: No Hx Alcohol Use: Yes Hx Substance Use: No - Immunization History Hx Tetanus Toxoid Vaccination: No Hx Influenza Vaccination: No Hx Pneumococcal Vaccination: No Review Of Systems Constitutional: Negative for: Fever, Chills Cardiovascular: Negative for: Chest Pain, Palpitations Respiratory: Negative for: Cough, Shortness of Breath Gastrointestinal: Negative for: Nausea, Vomiting Psych: Negative for: Suicidal ideation, Other (Homicidal ideation) Physical Exam - Physical Exam Appears: Non-toxic Skin: Warm, Dry Head: Normacephalic Oral Mucosa: Moist Chest: Symmetrical, No Tenderness Cardiovascular: Rhythm Regular Respiratory: No Rales, No Rhonchi, No Wheezing Gastrointestinal/Abdominal: Soft, No Tenderness Neurological/Psych: Oriented x3 Gait: Steady ED Course And Treatment O2 Sat by Pulse Oximetry: 95 (Room air) Pulse Ox Interpretation: Normal Progress Note: Patient was cleared by Dr. Henry for discharge. Disposition Counseled Patient/Family Regarding: Studies Performed, Diagnosis, Need For Followup - Disposition Referrals: [facility] [Outside] Disposition: HOME/ ROUTINE Disposition Time: 19:47 Condition: FAIR Additional Instructions: Please return if symptoms recur Instructions: Alcohol Abuse and Alcoholism (DC) Forms: [employer] (Welsh) - Clinical Impression Clinical Impression: Alcohol abuse with intoxication - Scribe Statement The provider has reviewed the documentation as recorded by the Scribboone Mcnamara All medical record entries made by the Scribe were at my direction and personally dictated by me. I have reviewed the chart and agree that the record accurately reflects my personal performance of the history, physical exam, medical decision making, and the department course for this patient. I have also personally directed, reviewed, and agree with the discharge instructions and disposition.
== END 2018-04-29 19:53 | disposition home or self-care (01) ==
LOC: C.ER 18:42
DX: F10.129 Alcohol abuse with intoxication, unspecified (principal)

== ENCOUNTER 2018-04-30 17:14 | Emergency (ER) | payer MEDICAID ==
[2018-04-30 17:14] VITALS: BMI 27.1
--- NOTE | 2018-04-30 17:31 | C.PDOC ---
History Of Present Illness 52 year old male BIBA due to public intoxication from [place]. Pt reports , " im psychotic, I was walking in traffic. I am tired of everything". Pt has a chronic soft tissue mass on his left forehead that he is requesting to have removed. Patient admits, was drinking today. Pt denies any active physical complaint. FYI: Pt is well known to ED due to multiple visits with same complaints. Last visit yesterday 04/29/18, pt had PES evaluation and was cleared for discharge. Time Seen by Provider: 04/30/18 17:27 History Per: Patient Past Medical History Reviewed: Historical Data, Nursing Documentation, Vital Signs Vital Signs: Last Vital Signs Temp 98.8 F 04/30/18 19:07 Pulse 94 H 04/30/18 19:07 Resp 16 04/30/18 19:07 BP 123/86 04/30/18 19:07 Pulse Ox 98 04/30/18 19:07 - Medical History PMH: Anxiety, Bipolar Disorder, Depression, Diabetes, HTN, Hypercholesterolemia , Hyperlipidemia, Personality Disorder, Schizophrenia - [facility] Procedures ALCOHOL DETOXIFICATION (01/08/14) DETOXIFICATION SERVICES FOR SUBSTANCE ABUSE TREATMENT (03/22/18) GROUP VENETIAN BLIND WASHER FOR SUBSTANCE ABUSE TREATMENT, PSYCHOEDUCATION (03/22/18) GROUP VENETIAN BLIND WASHER FOR SUBSTANCE ABUSE, COGNITIVE BEHAVIORAL (03/01/18) GROUP PSYCHOTHERAPY (03/22/18) INDIV VENETIAN BLIND WASHER FOR SUBSTANCE ABUSE TREATMENT, PSYCHOEDUCATION (02/22/17) INDIV PSYCHOTHERAPY FOR SUBSTANCE ABUSE TREATMENT, SUPPORT (03/22/18) INDIV PSYCHOTHERAPY FOR SUBSTANCE ABUSE, COGNITIV BEHAVIORAL (03/01/18) INDIV PSYCHOTHERAPY FOR SUBSTANCE ABUSE, PSYCHOEDUCATION (03/01/18) INDIVIDUAL PSYCHOTHERAPY, COGNITIVE-BEHAVIORAL (03/01/18) INDIVIDUAL PSYCHOTHERAPY, SUPPORTIVE (03/22/18) INSERTION OF INFUSION DEV INTO SUP VENA CAVA, PERC APPROACH (12/10/16) MEDICATION MANAGEMENT (03/22/18) MEDS MGMT FOR SUBSTANCE ABUSE TREATMENT, OTH REPL MED (10/20/17) REMOVAL OF INFUSION DEV FROM GREAT VESSEL, ASSISTANT PROFESSOR OF EDUCATION APPROACH (02/02/17) ULTRASONOGRAPHY OF SUPERIOR VENA CAVA, GUIDANCE (12/10/16) Family History: States: No Known Family Hx - Social History Hx Tobacco Use: No Hx Alcohol Use: Yes Hx Substance Use: No - Immunization History Hx Tetanus Toxoid Vaccination: No Hx Influenza Vaccination: No Hx Pneumococcal Vaccination: No Review Of Systems Except As Marked, All Systems Reviewed And Found Negative. Constitutional: Negative for: Fever, Chills Cardiovascular: Negative for: Chest Pain Respiratory: Negative for: Cough, Shortness of Breath Gastrointestinal: Negative for: Nausea Skin: Negative for: Rash Neurological: Negative for: Weakness, Numbness, Seizures, Altered Mental Status Psych: Positive for: Depression Physical Exam - Physical Exam Appears: Well, Non-toxic, No Acute Distress Skin: Normal Color, Warm, Dry Head: Normacephalic, Other ((+) soft,non-tender, non-erythematous mass along left hair line, (-) flatulance.) Eye(s): bilateral: PERRL Nose: No Flaring, No Discharge Oral Mucosa: Moist, No Drooling Throat: No Drooling Neck: Trachea Midline, No Midline Cervical Tenderness, No Paracervical Tenderness, No Step Off Deformity, Supple Cardiovascular: Rhythm Regular, No Murmur, No JVD Respiratory: No Decreased Breath Sounds, No Accessory Muscle Use, No Stridor, No Wheezing Gastrointestinal/Abdominal: Soft, No Tenderness, No Distention, No Guarding Back: No Vertebral Tenderness, No Paraspinal Tenderness Extremity: Normal ROM, No Tenderness, No Pedal Edema, No Deformity Neurological/Psych: Oriented x3, Normal Speech, Normal Motor, Normal Sensation, Normal Reflexes ED Course And Treatment O2 Sat by Pulse Oximetry: 97 Pulse Ox Interpretation: Normal Progress Note: PES was asked to see patient. Asper PES, pt was evaluated yesterday and case was discussed with -cleared for discharges. Pt was seen by PES today as well, and pscyhiatricaly cleared for discharge, DOMINIK ref for F/U given. On re-eval, pt is afebrile, hemodynamicaly stable. AAO#3, ambulatory in ED with stalbe gait. Pt is stable for discharge now. Disposition - Disposition Referrals: [facility] [Outside] Alcoholics Anonymous [Outside] Disposition: HOME/ ROUTINE Disposition Time: 18:24 Condition: STABLE Instructions: Polysubstance Abuse - Clinical Impression Clinical Impression: Drug dependence, Schizoaffective disorder
[2018-04-30 19:08] VITALS: BP 123/86; PULSE 94; RESP 16; TEMP 98.8
[2018-05-01 13:13] VITALS: O2SAT 97
== END 2018-04-30 19:44 | disposition home or self-care (01) ==
LOC: C.ER 17:14
DX: F25.9 Schizoaffective disorder, unspecified (principal); F19.20 Other psychoactive substance dependence, uncomplicated

== ENCOUNTER 2018-05-02 13:19 | Emergency (ER) | payer MEDICAID ==
[2018-05-02 13:20] VITALS: BMI 27.1
--- NOTE | 2018-05-02 15:17 | C.PDOC ---
History Of Present Illness 52yo male, brought to ER by EMS after he was noted to be publicly intoxicated. Patient is sleepy and no trauma noted. HPI and ROS unavailable as patient is intoxicated. Time Seen by Provider: 05/02/18 13:32 Chief Complaint (Nursing): Substance Abuse History Per: EMS History/Exam Limitations: intoxication Past Medical History Reviewed: Historical Data, Nursing Documentation, Vital Signs Vital Signs: Last Vital Signs Temp 99.3 F 05/03/18 00:45 Pulse 104 H 05/03/18 00:45 Resp 20 05/03/18 00:45 BP 138/90 05/03/18 00:45 Pulse Ox 90 L 05/03/18 19:32 - Medical History PMH: Anxiety, Bipolar Disorder, Depression, Diabetes, HTN, Hypercholesterolemia , Hyperlipidemia, Personality Disorder, Schizophrenia - [facility] Procedures ALCOHOL DETOXIFICATION (01/08/14) DETOXIFICATION SERVICES FOR SUBSTANCE ABUSE TREATMENT (03/22/18) GROUP CLERICAL OFFICE WORKER FOR SUBSTANCE ABUSE TREATMENT, PSYCHOEDUCATION (03/22/18) GROUP CLERICAL OFFICE WORKER FOR SUBSTANCE ABUSE, COGNITIVE BEHAVIORAL (03/01/18) GROUP PSYCHOTHERAPY (03/22/18) INDIV CLERICAL OFFICE WORKER FOR SUBSTANCE ABUSE TREATMENT, PSYCHOEDUCATION (02/22/17) INDIV PSYCHOTHERAPY FOR SUBSTANCE ABUSE TREATMENT, SUPPORT (03/22/18) INDIV PSYCHOTHERAPY FOR SUBSTANCE ABUSE, COGNITIV BEHAVIORAL (03/01/18) INDIV PSYCHOTHERAPY FOR SUBSTANCE ABUSE, PSYCHOEDUCATION (03/01/18) INDIVIDUAL PSYCHOTHERAPY, COGNITIVE-BEHAVIORAL (03/01/18) INDIVIDUAL PSYCHOTHERAPY, SUPPORTIVE (03/22/18) INSERTION OF INFUSION DEV INTO SUP VENA CAVA, PERC APPROACH (12/10/16) MEDICATION MANAGEMENT (03/22/18) MEDS MGMT FOR SUBSTANCE ABUSE TREATMENT, OTH REPL MED (10/20/17) REMOVAL OF INFUSION DEV FROM GREAT VESSEL, SAWMILL SUPERVISOR APPROACH (02/02/17) ULTRASONOGRAPHY OF SUPERIOR VENA CAVA, GUIDANCE (12/10/16) Family History: States: Unknown Family Hx - Social History Hx Tobacco Use: No Hx Alcohol Use: Yes Hx Substance Use: No - Immunization History Hx Tetanus Toxoid Vaccination: No Hx Influenza Vaccination: No Hx Pneumococcal Vaccination: No Review Of Systems Review Of Systems: ROS cannot be obtained secondary to pt's inabilty to answer questions. (intoxicated) Physical Exam - Physical Exam Appears: No Acute Distress Skin: Normal Color Head: Atraumatic, Normacephalic, Other (soft tissue mass left forehead) Eye(s): bilateral: PERRL (small , reactive) Oral Mucosa: Moist Cardiovascular: Rhythm Regular Respiratory: Normal Breath Sounds, No Wheezing Gastrointestinal/Abdominal: Soft, No Tenderness Neurological/Psych: Other (sleepy but arousable with painful stimuli) ED Course And Treatment - Laboratory Results Result Diagrams: 05/02/18 18:36 05/02/18 18:36 O2 Sat by Pulse Oximetry: 90 Medical Decision Making Medical Decision Making: Plan: Patient to be observed in ER pending sobriety. Disposition - Disposition Referrals: Alcoholics Anonymous [Outside] [facility] [Outside] [facility] [Outside] Disposition: HOME/ ROUTINE Disposition Time: 00:45 Condition: STABLE Additional Instructions: ZULMA KING, thank you for letting us take care of you today. The emergency medical care you received today was directed at your acute symptoms. If you were prescribed any medication, please fill it and take as directed. It may take several days for your symptoms to resolve. Return to the Emergency Department if your symptoms worsen, do not improve, or if you have any other problems. Please contact your doctor or call one of the physicians/clinics you have been referred to that are listed on the Patient Visit Information form that is included in your discharge packet. Bring any paperwork you were given at discharge with you along with any medications you are taking to your follow up visit. Our treatment cannot replace ongoing medical care by a primary care provider outside of the emergency department. Thank you for allowing the [facility] team to be part of your care today. Do not drink too much alcohol at once. Follow up with the clinic for outpatient care in 3-5 days. Instructions: Alcohol Abuse and Alcoholism (DC) Forms: [employer] (Lao) - Clinical Impression Clinical Impression: Alcohol intoxication - PA / SUPERVISOR SAWING AND ASSEMBLY / Resident Statement MD/DO has reviewed & agrees with the documentation as recorded. - Scribe Statement The provider has reviewed the documentation as recorded by the Agustin López Provider attestation: All medical record entries made by the Mikeibboone were at my direction and personally dictated by me. I have reviewed the chart and agree that the record accurately reflects my personal performance of the history, physical exam, medical decision making, and the department course for this patient. I have also personally directed, reviewed, and agree with the discharge instructions and disposition.
[2018-05-02] MEDS ORDERED: Sodium Chloride 0.9% 1,000 ML IV ONE (18:05)
[2018-05-02 18:42] LABS: BASO % 0.5 % (0.0-2.0); EOS % 0.6 % (0.0-4.0); HEMOGLOBIN 13.8 g/dL (12.0-18.0); LYMPH # 0.8 K/uL (1.0-4.3); LYMPH % 13.2 % (20.0-40.0); MEAN CELL VOLUME 92.7 fL (80.0-94.0); MEAN CORPUSCULAR HEMOGLOBIN 31.5 pg (27.0-31.0); MEAN PLATELET VOLUME 8.2 fL (7.2-11.7); MONO # 0.8 K/uL (0.0-0.8); MONO % 13.9 % (0.0-10.0); NEUT # 4.4 K/uL (1.8-7.0); NEUT % 71.8 % (50.0-75.0); NRBC % 0.3 % (0.0-2.0); RBC 4.37 Mil/uL (4.40-5.90); RED CELL DISTRIBUTION WIDTH 13.5 % (11.5-14.5); WHITE BLOOD COUNT 6.1 K/uL (4.8-10.8)
[2018-05-02 19:22] LABS: ALB/GLOB RATIO 1.2 (1.0-2.1); ALBUMIN 4.6 g/dL (3.5-5.0); ALT/SGPT 33 U/L (21-72); AST/SGOT 56 U/L (17-59); BLOOD UREA NITROGEN 10 mg/dL (9-20); CALCIUM 9.1 mg/dl (8.6-10.4); GFR AFRICAN-AMERICAN > 60; GFR NON-AFRICAN AMERICAN > 60
[2018-05-02 21:06] VITALS: TEMP 99.3
[2018-05-03 00:46] VITALS: BP 138/90; PULSE 104; RESP 20
--- NOTE | 2018-05-03 11:22 | CT ---
Date of service: 05/02/2018 PROCEDURE: CT HEAD WITHOUT CONTRAST. HISTORY: intoxicated COMPARISON: Comparison is made with 04/07/2018 TECHNIQUE: Axial computed tomography images were obtained through the head/brain without intravenous contrast. Radiation dose: Total exam DLP = 1006.17 mGy-cm. This CT exam was performed using one or more of the following dose reduction techniques: Automated exposure control, adjustment of the mA and/or kV according to patient size, and/or use of iterative reconstruction technique. FINDINGS: HEMORRHAGE: No intracranial hemorrhage. BRAIN: No mass effect or edema. No atrophy or chronic microvascular ischemic changes. VENTRICLES: Unremarkable. No hydrocephalus. CALVARIUM: Unremarkable. PARANASAL SINUSES: Unremarkable as visualized. No significant inflammatory changes. MASTOID AIR CELLS: Unremarkable as visualized. No inflammatory changes. OTHER FINDINGS: Again noted is left frontal scalp low-attenuation mass lesion measures 3.3 centimeter in the AP diameter and 2.9 centimeter in the transverse diameter contains solid and cystic components. IMPRESSION: No evidence of acute intracranial hemorrhage intracranial collection mass effect or midline shift. Re- demonstration of left frontal scalp lesion as described above. Preliminary report was submitted by virtual Radiology.
[2018-05-03 19:32] VITALS: O2SAT 90
== END 2018-05-03 00:45 | disposition home or self-care (01) ==
LOC: C.ER 13:19
DX: F10.129 Alcohol abuse with intoxication, unspecified (principal); E11.9 Type 2 diabetes mellitus without complications; E78.00 Pure hypercholesterolemia, unspecified; I10 Essential (primary) hypertension; F20.9 Schizophrenia, unspecified

== ENCOUNTER 2018-05-09 15:59 | Emergency (ER) | payer MEDICAID ==
[2018-05-09 15:59] VITALS: BMI 27.1
--- NOTE | 2018-05-09 16:05 | C.PDOC ---
History Of Present Illness 52-year-old homeless male brought in by ambulance for public intoxication. Patient has many prior ER visits for the same. No acute complaints offered at this time. Time Seen by Provider: 05/09/18 16:02 Chief Complaint (Nursing): Substance Abuse History Per: Patient History/Exam Limitations: no limitations Onset/Duration Of Symptoms: Hrs Current Symptoms Are (Timing): Still Present Modifying Factor(s): Alcohol Past Medical History Reviewed: Historical Data, Nursing Documentation, Vital Signs Vital Signs: Last Vital Signs Temp 98.4 F 05/09/18 16:04 Pulse 92 H 05/09/18 16:04 Resp 96 H 05/09/18 16:04 BP 110/72 05/09/18 16:04 Pulse Ox 96 05/09/18 16:04 - Medical History PMH: Anxiety, Bipolar Disorder, Depression, Diabetes, HTN, Hypercholesterolemia , Hyperlipidemia, Personality Disorder, Schizophrenia - [facility] Procedures ALCOHOL DETOXIFICATION (01/08/14) DETOXIFICATION SERVICES FOR SUBSTANCE ABUSE TREATMENT (03/22/18) GROUP COMPUTER FORENSIC SPECIALIST FOR SUBSTANCE ABUSE TREATMENT, PSYCHOEDUCATION (03/22/18) GROUP COMPUTER FORENSIC SPECIALIST FOR SUBSTANCE ABUSE, COGNITIVE BEHAVIORAL (03/01/18) GROUP PSYCHOTHERAPY (03/22/18) INDIV COMPUTER FORENSIC SPECIALIST FOR SUBSTANCE ABUSE TREATMENT, PSYCHOEDUCATION (02/22/17) INDIV PSYCHOTHERAPY FOR SUBSTANCE ABUSE TREATMENT, SUPPORT (03/22/18) INDIV PSYCHOTHERAPY FOR SUBSTANCE ABUSE, COGNITIV BEHAVIORAL (03/01/18) INDIV PSYCHOTHERAPY FOR SUBSTANCE ABUSE, PSYCHOEDUCATION (03/01/18) INDIVIDUAL PSYCHOTHERAPY, COGNITIVE-BEHAVIORAL (03/01/18) INDIVIDUAL PSYCHOTHERAPY, SUPPORTIVE (03/22/18) INSERTION OF INFUSION DEV INTO SUP VENA CAVA, PERC APPROACH (12/10/16) MEDICATION MANAGEMENT (03/22/18) MEDS MGMT FOR SUBSTANCE ABUSE TREATMENT, OTH REPL MED (10/20/17) REMOVAL OF INFUSION DEV FROM GREAT VESSEL, BAND SAW OPERATOR CAKE CUTTING APPROACH (02/02/17) ULTRASONOGRAPHY OF SUPERIOR VENA CAVA, GUIDANCE (12/10/16) Family History: States: Unknown Family Hx - Social History Hx Tobacco Use: No Hx Alcohol Use: Yes Hx Substance Use: No - Immunization History Hx Tetanus Toxoid Vaccination: No Hx Influenza Vaccination: No Hx Pneumococcal Vaccination: No Review Of Systems Constitutional: Negative for: Fever Cardiovascular: Negative for: Chest Pain Respiratory: Negative for: Shortness of Breath Gastrointestinal: Negative for: Vomiting Psych: Positive for: Other (Alcohol intoxication). Negative for: Suicidal ideation Physical Exam - Physical Exam Appears: Non-toxic, No Acute Distress, Unkempt, Other (Foul-smelling) Skin: Warm, Dry, No Rash Head: Atraumatic, Normacephalic Eye(s): bilateral: Normal Inspection, EOMI Oral Mucosa: Moist Neck: Normal ROM, Supple Chest: Symmetrical Cardiovascular: Rhythm Regular, No Murmur Respiratory: Normal Breath Sounds, No Accessory Muscle Use, No Wheezing Gastrointestinal/Abdominal: Soft, No Tenderness, No Distention Extremity: Bilateral: Atraumatic, Normal Color And Temperature, Normal ROM Neurological/Psych: Normal Speech, Other (+Alcohol on breath, easily arousible to verbal stimuli) ED Course And Treatment O2 Sat by Pulse Oximetry: 96 (RA) Pulse Ox Interpretation: Normal Medical Decision Making Medical Decision Making: Impression: alcohol abuse, malingering no acute issues many previous and recent evals for same, no sig change from baseline. Patient is stable for discharge home. Disposition Doctor Will See Patient In The: Office Counseled Patient/Family Regarding: Studies Performed, Diagnosis - Disposition Referrals: [facility] [Outside] [facility] [Outside] [facility] [Outside] [facility] [Outside] [facility] [Outside] Disposition: HOME/ ROUTINE Disposition Time: 16:04 Condition: GOOD Additional Instructions: seek outpatient assitance for your alcohol abuse see nightly nursing home placement. Instructions: Alcohol Abuse and Alcoholism (DC) Forms: [employer] (Kiswahili) - Clinical Impression Clinical Impression: Alcohol abuse, Malingering - Scribe Statement The provider has reviewed the documentation as recorded by the Agustin Delgadillo Provider Attestation: All medical record entries made by the Mikeibe were at my direction and personally dictated by me. I have reviewed the chart and agree that the record accurately reflects my personal performance of the history, physical exam, medical decision making, and the department course for this patient. I have also personally directed, reviewed, and agree with the discharge instructions and disposition.
[2018-05-09 16:09] VITALS: O2SAT 96
[2018-05-09 17:07] VITALS: BP 109/71; PULSE 93; RESP 19; TEMP 98.2
== END 2018-05-09 17:08 | disposition home or self-care (01) ==
LOC: C.ER 15:59
DX: F10.10 Alcohol abuse, uncomplicated (principal); Z76.5 Malingerer [conscious simulation]; E11.9 Type 2 diabetes mellitus without complications

== ENCOUNTER 2018-05-30 03:20 | Emergency (ER) | payer MEDICAID ==
--- NOTE | 2018-05-30 03:36 | C.PDOC ---
History Of Present Illness Patient states that he has had some chest discomfort after drinking. Speaking in complete sentences. No f/c/n/v. Time Seen by Provider: 05/30/18 03:35 Chief Complaint (Nursing): Chest Pain History Per: Patient History/Exam Limitations: no limitations Onset/Duration Of Symptoms: Days Current Symptoms Are (Timing): Gone Context: Other Severity: Mild Pain Scale Rating Of: 2 Quality: Aching Associated Symptoms: denies: Nausea Modifying Factors: None Exacerbating Factors: None Alleviating Factors: None Recent travel outside of the [place]: No Additional History Per: Patient Past Medical History Reviewed: Historical Data, Nursing Documentation, Vital Signs Vital Signs: Last Vital Signs Temp 98.4 F 05/30/18 03:27 Pulse 102 H 05/30/18 03:27 Resp 22 05/30/18 03:27 BP 122/90 05/30/18 03:27 Pulse Ox 98 05/30/18 04:17 - Medical History PMH: Anxiety, Bipolar Disorder, Depression, Diabetes, HTN, Hypercholesterolemia , Hyperlipidemia, Personality Disorder, Schizophrenia - [facility] Procedures ALCOHOL DETOXIFICATION (01/08/14) DETOXIFICATION SERVICES FOR SUBSTANCE ABUSE TREATMENT (03/22/18) GROUP KAYAK MAKER FOR SUBSTANCE ABUSE TREATMENT, PSYCHOEDUCATION (03/22/18) GROUP KAYAK MAKER FOR SUBSTANCE ABUSE, COGNITIVE BEHAVIORAL (03/01/18) GROUP PSYCHOTHERAPY (03/22/18) INDIV KAYAK MAKER FOR SUBSTANCE ABUSE TREATMENT, PSYCHOEDUCATION (02/22/17) INDIV PSYCHOTHERAPY FOR SUBSTANCE ABUSE TREATMENT, SUPPORT (03/22/18) INDIV PSYCHOTHERAPY FOR SUBSTANCE ABUSE, COGNITIV BEHAVIORAL (03/01/18) INDIV PSYCHOTHERAPY FOR SUBSTANCE ABUSE, PSYCHOEDUCATION (03/01/18) INDIVIDUAL PSYCHOTHERAPY, COGNITIVE-BEHAVIORAL (03/01/18) INDIVIDUAL PSYCHOTHERAPY, SUPPORTIVE (03/22/18) INSERTION OF INFUSION DEV INTO SUP VENA CAVA, PERC APPROACH (12/10/16) MEDICATION MANAGEMENT (03/22/18) MEDS MGMT FOR SUBSTANCE ABUSE TREATMENT, OTH REPL MED (10/20/17) REMOVAL OF INFUSION DEV FROM GREAT VESSEL, ENERGY MANAGEMENT SPECIALIST APPROACH (02/02/17) ULTRASONOGRAPHY OF SUPERIOR VENA CAVA, GUIDANCE (12/10/16) Family History: States: No Known Family Hx - Social History Hx Tobacco Use: No Hx Alcohol Use: Yes Hx Substance Use: No - Immunization History Hx Tetanus Toxoid Vaccination: No Hx Influenza Vaccination: No Hx Pneumococcal Vaccination: No Review Of Systems Constitutional: Negative for: Fever, Chills Cardiovascular: Positive for: Chest Pain Respiratory: Negative for: Shortness of Breath Gastrointestinal: Negative for: Abdominal Pain Musculoskeletal: Negative for: Back Pain Skin: Negative for: Rash Neurological: Negative for: Weakness Psych: Negative for: Anxiety Physical Exam - Physical Exam Appears: Non-toxic, No Acute Distress Skin: Warm, Dry Head: Other (soft tissue mass left forehead(chronic)) Eye(s): bilateral: Normal Inspection Neck: Supple Chest: Symmetrical Cardiovascular: Rhythm Regular Respiratory: No Rales, No Rhonchi, No Wheezing Gastrointestinal/Abdominal: Soft, No Tenderness, No Distention Back: Normal Inspection Extremity: Normal ROM Extremity: Bilateral: Atraumatic Neurological/Psych: Oriented x3 Gait: Steady ED Course And Treatment - Laboratory Results Result Diagrams: 05/30/18 04:23 05/30/18 04:23 ECG: Interpreted By Me, Viewed By Me ECG Rhythm: Sinus Rhythm (93), Nonspecific Changes O2 Sat by Pulse Oximetry: 98 Pulse Ox Interpretation: Normal - Radiology CXR: Interpreted by Me, Viewed By Me CXR Interpretation: No: Infiltrates, Fracture, Pnemothorax Reevaluation Time: 05:22 Reassessment Condition: Improved Medical Decision Making Medical Decision Making: I considered the following diagnoses: acute coronary syndrome, pulmonary embolism, lower respiratory infection, aortic dissection/aneurysm, pneumothorax , pericarditis, esophagitis/GERD, zoster and esophageal rupture but found them to be unlikely based on the history, physical exam, and diagnostics. My conclusions regarding the unlikely diagnoses were based on: the absence of significant EKG abnormalities, the lack of suggestive x-ray findings, the absence of significant abnormalities on cardiac monitoring, the absence of asymmetric pulses, Upon provider reevaluation patient is feeling better, is medically stable, and requires no further treatment in the ED at this time. Patient will be discharged home . Counseling was provided and all questions were answered regarding diagnosis and need for follow up with the referred clinic. There is agreement to discharge plan. Return if symptoms persist or worsen. Disposition Counseled Patient/Family Regarding: Studies Performed, Diagnosis, Need For Followup - Disposition Referrals: [facility] [Outside] Disposition: HOME/ ROUTINE Disposition Time: 03:35 Condition: FAIR Instructions: Alcohol Abuse and Alcoholism (DC) Forms: [employer] (Greenlandic) - Clinical Impression Clinical Impression: Chest discomfort, Alcohol intoxication
[2018-05-30 03:38] VITALS: BMI 24.7
[2018-05-30] MEDS ORDERED: Aspirin 325 mg EC Tablets PO STA (03:38)
[2018-05-30 04:15] LABS: URINE BILIRUBIN NEGATIVE (NEGATIVE); URINE BLOOD NEGATIVE (NEGATIVE); URINE CLARITY Clear (Clear); URINE COLOR Straw (YELLOW); URINE GLUCOSE (UA) NORMAL (Normal); URINE LEUKOCYTE ESTERASE NEG Leu/uL (Negative); URINE PROTEIN NEGATIVE (NEGATIVE); URINE UROBILINOGEN NORMAL mg/dL (0.2-1.0)
[2018-05-30 04:28] LABS: BARBITURATES, UR NEGATIVE (NEGATIVE); BENZODIAZEPINES, UR NEGATIVE (NEGATIVE); OPIATES, UR NEGATIVE (NEGATIVE); PHENCYCLIDINE, UR NEGATIVE (NEGATIVE)
[2018-05-30 04:29] LABS: BASO % 0.6 % (0.0-2.0); EOS # 0.1 K/uL (0.0-0.7); LYMPH % 32.2 % (20.0-40.0); MEAN CELL VOLUME 92.2 fL (80.0-94.0); MEAN CORPUSCULAR HEMOGLOBIN 31.1 pg (27.0-31.0); MEAN CORPUSCULAR HGB CONC 33.7 g/dL (33.0-37.0); MEAN PLATELET VOLUME 8.8 fL (7.2-11.7); MONO # 0.7 K/uL (0.0-0.8); MONO % 20.8 % (0.0-10.0); NEUT # 1.4 K/uL (1.8-7.0); NEUT % 43.4 % (50.0-75.0); NRBC % 0.2 % (0.0-2.0); PLATELET COUNT 114 K/uL (130-400); RBC 3.86 Mil/uL (4.40-5.90); RED CELL DISTRIBUTION WIDTH 13.4 % (11.5-14.5); WHITE BLOOD COUNT 3.3 K/uL (4.8-10.8)
[2018-05-30 05:22] LABS: ALB/GLOB RATIO 1.4 (1.0-2.1); ALBUMIN 4.5 g/dL (3.5-5.0); ALT/SGPT 80 U/L (21-72); AST/SGOT 134 U/L (17-59); BLOOD UREA NITROGEN 3 mg/dL (9-20); CALCIUM 9.6 mg/dl (8.6-10.4); GFR NON-AFRICAN AMERICAN > 60
[2018-05-30 05:29] LABS: EOSINOPHIL 2 % (0-4); LYMPHOCYTE 32 % (20-40); MONOCYTE 23 % (0-10); NEUTROPHIL 43 % (50-75); PLATELET ESTIMATE NORMAL (NORMAL); TOTAL CELLS COUNTED 100
[2018-05-30 05:32] VITALS: BP 113/67; PULSE 90; RESP 16; TEMP 98.1; O2SAT 97
--- NOTE | 2018-05-30 08:47 | RAD ---
Date of service: 05/30/2018 PROCEDURE: CHEST RADIOGRAPH, 1 VIEW HISTORY: chest pain COMPARISON: 04/07/2018. FINDINGS: LUNGS: The lungs are well inflated and clear. PLEURA: No pneumothorax or pleural fluid seen. CARDIOVASCULAR: Normal. OSSEOUS STRUCTURES: No significant abnormalities. VISUALIZED UPPER ABDOMEN: Normal. OTHER FINDINGS: None. IMPRESSION: No active pulmonary disease.
== END 2018-05-30 05:46 | disposition home or self-care (01) ==
LOC: C.ER 03:20
DX: R07.89 Other chest pain (principal); F10.129 Alcohol abuse with intoxication, unspecified; E11.9 Type 2 diabetes mellitus without complications; E78.00 Pure hypercholesterolemia, unspecified; I10 Essential (primary) hypertension; F20.9 Schizophrenia, unspecified

== ENCOUNTER 2018-08-12 13:30 | Emergency (ER) | payer MEDICAID ==
[2018-08-12 13:31] VITALS: BMI 24.7
[2018-08-12 13:44] VITALS: RESP 18
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
[2018-08-12 15:05] LABS: BASO % 0.3 % (0.0-2.0); EOS # 0.4 K/uL (0.0-0.7); EOS % 9.5 % (0.0-4.0); HEMOGLOBIN 12.4 g/dL (12.0-18.0); LYMPH # 1.1 K/uL (1.0-4.3); LYMPH % 23.2 % (20.0-40.0); MEAN CELL VOLUME 92.3 fL (80.0-94.0); MEAN CORPUSCULAR HEMOGLOBIN 31.6 pg (27.0-31.0); MEAN CORPUSCULAR HGB CONC 34.3 g/dL (33.0-37.0); MEAN PLATELET VOLUME 7.6 fL (7.2-11.7); MONO # 0.5 K/uL (0.0-0.8); NEUT # 2.6 K/uL (1.8-7.0); RBC 3.91 Mil/uL (4.40-5.90); RED CELL DISTRIBUTION WIDTH 12.8 % (11.5-14.5); WHITE BLOOD COUNT 4.6 K/uL (4.8-10.8)
--- NOTE | 2018-08-12 15:12 | RAD ---
Date of service: 08/12/2018 PROCEDURE: Right Knee Radiographs. HISTORY: r knee pain COMPARISON: None. FINDINGS: BONES: Normal. No fracture. JOINTS: Normal. No osteoarthritis. JOINT EFFUSION: No significant joint effusion OTHER FINDINGS: None. IMPRESSION: No acute findings related to/accounting for the clinical presentation.
[2018-08-12 15:19] LABS: ACETAMINOPHEN < 10.0 ug/mL (10.0-30.0); SALICYLATE < 1.0 mg/dL 1
[2018-08-12 16:36] LABS: ALB/GLOB RATIO 1.3 (1.0-2.1); ALBUMIN 4.4 g/dL (3.5-5.0)
[2018-08-12 16:42] LABS: URINE BILIRUBIN NEGATIVE (NEGATIVE); URINE BLOOD NEGATIVE (NEGATIVE); URINE CLARITY Clear (Clear); URINE COLOR Straw (YELLOW); URINE GLUCOSE (UA) NORMAL (Normal); URINE LEUKOCYTE ESTERASE NEG Leu/uL (Negative); URINE PROTEIN NEGATIVE (NEGATIVE); URINE UROBILINOGEN NORMAL mg/dL (0.2-1.0)
[2018-08-12 16:45] LABS: ALT/SGPT 31 U/L (21-72); AST/SGOT 82 U/L (17-59); BLOOD UREA NITROGEN 10 mg/dL (9-20); GFR NON-AFRICAN AMERICAN > 60
[2018-08-12 17:11] LABS: BARBITURATES, UR NEGATIVE (NEGATIVE); BENZODIAZEPINES, UR NEGATIVE (NEGATIVE); OPIATES, UR NEGATIVE (NEGATIVE); PHENCYCLIDINE, UR NEGATIVE (NEGATIVE)
[2018-08-12 21:57] VITALS: BP 116/68; PULSE 106; TEMP 99.1; O2SAT 95
--- NOTE | 2018-08-14 07:32 | CARD ---
APPROVED REPORT Date of service: 08/12/2018 EKG Measurement Heart [id number] <Conclusion> Normal sinus rhythm Possible Left atrial enlargement Left ventricular hypertrophy Abnormal ECG
== END 2018-08-12 22:08 | disposition home or self-care (01) ==
LOC: C.ER 13:30
DX: T14.8XXD Other injury of unspecified body region, subsequent encounter (principal); Y04.0XXD Assault by unarmed brawl or fight, subsequent encounter; F10.10 Alcohol abuse, uncomplicated; Y90.8 Blood alcohol level of 240 mg/100 ml or more; F31.9 Bipolar disorder, unspecified

== ENCOUNTER 2018-09-18 21:58 | Emergency (ER) | payer MEDICAID ==
[2018-09-18 21:59] VITALS: BMI 24.7
[2018-09-18 22:15] VITALS: BP 110/70; PULSE 100; RESP 20; TEMP 97.3; O2SAT 99
--- NOTE | 2018-09-18 23:06 | C.PDOC ---
History Of Present Illness 53 year old male with PMHx of DM presents to the ED c/o bilateral leg swelling and pain for the past 4 days. Patient states he is homeless spends a lot of time on his feet. Patient denies fever, chills, nausea, vomit, diarrhea, injury, fall, trauma, SOB, CP. Time Seen by Provider: 09/18/18 22:19 Chief Complaint (Nursing): Lower Extremity Problem/Injury History Per: Patient History/Exam Limitations: no limitations Onset/Duration Of Symptoms: Days (4) Current Symptoms Are (Timing): Still Present Recent travel outside of the [place]: No Additional History Per: Patient Past Medical History Reviewed: Historical Data, Nursing Documentation, Vital Signs Vital Signs: Last Vital Signs Temp 97.3 F L 09/18/18 22:07 Pulse 100 H 09/18/18 22:07 Resp 20 09/18/18 22:07 BP 110/70 09/18/18 22:07 Pulse Ox 99 09/18/18 22:07 - Medical History PMH: Anxiety, Bipolar Disorder, Depression, Diabetes, HTN, Hypercholesterolemia, Hyperlipidemia, Personality Disorder, Schizophrenia Denies: Hepatitis, HIV, Seizures, Sexually Transmitted Disease Surgical History: No Surg Hx - [facility] Procedures ALCOHOL DETOXIFICATION (01/08/14) DETOXIFICATION SERVICES FOR SUBSTANCE ABUSE TREATMENT (03/22/18) GROUP CABINET BUILDER FOR SUBSTANCE ABUSE TREATMENT, PSYCHOEDUCATION (03/22/18) GROUP CABINET BUILDER FOR SUBSTANCE ABUSE, COGNITIVE BEHAVIORAL (03/01/18) GROUP PSYCHOTHERAPY (03/22/18) INDIV CABINET BUILDER FOR SUBSTANCE ABUSE TREATMENT, PSYCHOEDUCATION (02/22/17) INDIV PSYCHOTHERAPY FOR SUBSTANCE ABUSE TREATMENT, SUPPORT (03/22/18) INDIV PSYCHOTHERAPY FOR SUBSTANCE ABUSE, COGNITIV BEHAVIORAL (03/01/18) INDIV PSYCHOTHERAPY FOR SUBSTANCE ABUSE, PSYCHOEDUCATION (03/01/18) INDIVIDUAL PSYCHOTHERAPY, COGNITIVE-BEHAVIORAL (03/01/18) INDIVIDUAL PSYCHOTHERAPY, SUPPORTIVE (03/22/18) INSERTION OF INFUSION DEV INTO SUP VENA CAVA, PERC APPROACH (12/10/16) MEDICATION MANAGEMENT (03/22/18) MEDS MGMT FOR SUBSTANCE ABUSE TREATMENT, OTH REPL MED (10/20/17) REMOVAL OF INFUSION DEV FROM GREAT VESSEL, PAPERHANGER PIPE APPROACH (02/02/17) ULTRASONOGRAPHY OF SUPERIOR VENA CAVA, GUIDANCE (03/20/17) Family History: States: Unknown Family Hx - Social History Hx Tobacco Use: No Hx Alcohol Use: Yes Hx Substance Use: No - Immunization History Hx Tetanus Toxoid Vaccination: No Hx Influenza Vaccination: No Hx Pneumococcal Vaccination: No Review Of Systems Constitutional: Negative for: Fever, Chills Cardiovascular: Negative for: Chest Pain, Palpitations Respiratory: Negative for: Shortness of Breath Gastrointestinal: Negative for: Nausea, Vomiting, Abdominal Pain Musculoskeletal: Positive for: Leg Pain Skin: Negative for: Rash Neurological: Negative for: Weakness, Numbness, Headache, Dizziness Physical Exam - Physical Exam Appears: Non-toxic, No Acute Distress, Unkempt Skin: Normal Color, Warm, Dry, Other (extensive macerated skin in between toes with calluses on plantar aspect bilaterally, minimal erythema to tibial shins b/l) Head: Atraumatic, Normacephalic Eye(s): bilateral: Normal Inspection Neck: Normal ROM, Supple Chest: Symmetrical Cardiovascular: Rhythm Regular Respiratory: Normal Breath Sounds, No Rales, No Rhonchi, No Wheezing Gastrointestinal/Abdominal: Soft, No Tenderness, No Rebound Extremity: Normal ROM, No Tenderness, Pedal Edema (bilateral 2+ pitting w/ dif fuse erythematous tib/[place] area), No Calf Tenderness, Capillary Refill (< 2 seconds) Pulses: Left Dorsalis Pedis: Normal, Right Dorsalis Pedis: Normal Neurological/Psych: Oriented x3, Normal Speech, Normal Cognition, Normal Motor, Normal Sensation Gait: Steady ED Course And Treatment O2 Sat by Pulse Oximetry: 99 (ON RA) Pulse Ox Interpretation: Normal Progress Note: Patient was given betadine solution to soak his feet in, with some new socks. Patient was found to have multiple bugs crawling from his pockets of the pants and his clothes. Clothing was removed and placed in sealed bags. Patient with moderately dry skin, no rash. Pt given clean clothes. Refused to bathe. Will dc with follow up Disposition Counseled Patient/Family Regarding: Diagnosis, Need For Followup - Disposition Referrals: Moraima Cobian MD [Staff Provider] - Disposition: HOME/ ROUTINE Disposition Time: 00:08 Condition: IMPROVED Additional Instructions: Keep feet clean, elevate legs Follow up with PMD Follow up with POdiatry Return to ER if worse Instructions: Dependent Edema (DC) Forms: [employer] (Pakistani) - POA Core Measure Indicators: Chest Pain - Clinical Impression Clinical Impression: Dependent edema, Homelessness - PA / DISHWASHING MACHINE REPAIRER / Resident Statement MD/DO has reviewed & agrees with the documentation as recorded. - Scribe Statement The provider has reviewed the documentation as recorded by the Scribe Gage Beth All medical record entries made by the Scribe were at my direction and personally dictated by me. I have reviewed the chart and agree that the record accurately reflects my personal performance of the history, physical exam, medical decision making, and the department course for this patient. I have also personally directed, reviewed, and agree with the discharge instructions and disposition.
== END 2018-09-19 00:31 | disposition home or self-care (01) ==
LOC: C.ER 21:58
DX: R60.9 Edema, unspecified (principal); Z59.0 Homelessness; E11.9 Type 2 diabetes mellitus without complications; E78.00 Pure hypercholesterolemia, unspecified; F20.9 Schizophrenia, unspecified; F31.9 Bipolar disorder, unspecified; I10 Essential (primary) hypertension

== ENCOUNTER 2018-11-20 08:37 | Emergency (ER) | payer MEDICAID ==
[2018-11-20 08:42] VITALS: BMI 24.6
[2018-11-20 08:47] VITALS: BP 116/75; PULSE 97; RESP 18; TEMP 97.8; O2SAT 98
--- NOTE | 2018-11-20 09:21 | C.PDOC ---
History Of Present Illness CO EXAC R>L KNEE SWELL X 4 DAYS. MULT PRIOR ER VISITS FOR ETOH ABUSE, KNEE PAIN AND SWELLING. NO NEW TRAUMA. PS HAS BEEN EVAL BY [facility] "BUT THEY DON'T TAKE MY INSURANCE". MIN IMPROVE W KNEE BRACE. PS PMD ADVISED HIM TO COME TO ER "WHENEVER IT HURTS". hx of Anxiety, bipolar, HTN, HLD etoh abuse, CHRONIC KNEE PAIN EXAM NAD NONTOXIC EXT +R KNEE SWELL LOCALIZED LIMITED FULL FLEX DUE TO SWELL NO DEFORM. NO CALF SWELL, TEND SKIN INTACT NO ERYTHEMA, LESIONS NEURO INTACT PSYCH CALM COOPERATIVE NO ACUTE INTOX/WITHDRAWAL Time Seen by Provider: 11/20/18 08:40 Chief Complaint (Nursing): Lower Extremity Problem/Injury History Per: Patient History/Exam Limitations: no limitations Onset/Duration Of Symptoms: Days Current Symptoms Are (Timing): Still Present Severity: Moderate Past Medical History Reviewed: Historical Data, Nursing Documentation, Vital Signs Vital Signs: Last Vital Signs Temp 97.8 F 11/20/18 08:43 Pulse 97 H 11/20/18 08:43 Resp 18 11/20/18 08:43 BP 116/75 11/20/18 08:43 Pulse Ox 98 11/20/18 08:43 - Medical History PMH: Anxiety, Bipolar Disorder, Depression, Diabetes, HTN, Hypercholesterolemia, Hyperlipidemia, Personality Disorder, Schizophrenia Denies: Hepatitis, HIV, Seizures, Sexually Transmitted Disease Surgical History: Other Surgeries: Hx of surgeries - [facility] Procedures ALCOHOL DETOXIFICATION (01/08/14) DETOXIFICATION SERVICES FOR SUBSTANCE ABUSE TREATMENT (03/22/18) GROUP HANDTOOLS REPAIRER FOR SUBSTANCE ABUSE TREATMENT, PSYCHOEDUCATION (03/22/18) GROUP HANDTOOLS REPAIRER FOR SUBSTANCE ABUSE, COGNITIVE BEHAVIORAL (03/01/18) GROUP PSYCHOTHERAPY (03/22/18) INDIV HANDTOOLS REPAIRER FOR SUBSTANCE ABUSE TREATMENT, PSYCHOEDUCATION (02/22/17) INDIV PSYCHOTHERAPY FOR SUBSTANCE ABUSE TREATMENT, SUPPORT (03/22/18) INDIV PSYCHOTHERAPY FOR SUBSTANCE ABUSE, COGNITIV BEHAVIORAL (03/01/18) INDIV PSYCHOTHERAPY FOR SUBSTANCE ABUSE, PSYCHOEDUCATION (03/01/18) INDIVIDUAL PSYCHOTHERAPY, COGNITIVE-BEHAVIORAL (03/01/18) INDIVIDUAL PSYCHOTHERAPY, SUPPORTIVE (03/22/18) INSERTION OF INFUSION DEV INTO SUP VENA CAVA, PERC APPROACH (12/10/16) MEDICATION MANAGEMENT (03/22/18) MEDS MGMT FOR SUBSTANCE ABUSE TREATMENT, OTH REPL MED (10/20/17) REMOVAL OF INFUSION DEV FROM GREAT VESSEL, FLUMER APPROACH (02/02/17) ULTRASONOGRAPHY OF SUPERIOR VENA CAVA, GUIDANCE (12/10/16) Family History: States: No Known Family Hx - Social History Hx Tobacco Use: No Hx Alcohol Use: Yes Hx Substance Use: No - Immunization History Hx Tetanus Toxoid Vaccination: Yes Hx Influenza Vaccination: Yes Hx Pneumococcal Vaccination: Yes Review Of Systems Except As Marked, All Systems Reviewed And Found Negative. Musculoskeletal: Positive for: Other (bilateral knee swelling) Physical Exam - Physical Exam Appears: Non-toxic, No Acute Distress Skin: Normal Color, Warm, Dry, Other (skin intact to right knee, no erythema, no lesions) Head: Atraumatic, Normacephalic Eye(s): bilateral: Normal Inspection Extremity: No Normal ROM (limited full flexion to right knee secondary to swelling), No Calf Tenderness, No Deformity, Swelling (localized swelling to right knee) Neurological/Psych: Oriented x3, Normal Speech, Normal Motor, Normal Sensation, Other (psych: calm, cooperative, no acute intox/withdrawal) ED Course And Treatment O2 Sat by Pulse Oximetry: 98 (RA) Pulse Ox Interpretation: Normal Medical Decision Making Medical Decision Making: Plan: --Toradol IM Disposition Counseled Patient/Family Regarding: Diagnosis, Need For Followup - Disposition Referrals: Moraima Cobian MD [Staff Provider] - Disposition: HOME/ ROUTINE Disposition Time: 09:16 Condition: IMPROVED Additional Instructions: FOLLOW UP WITH YOUR PMD FOR CHRONIC PAIN MANAGEMENT. TAKE MOTRIN DIRECTED FOR PAIN. Prescriptions: Naproxen 250 mg PO BID #30 tablet Instructions: Chronic Pain (DC), Swollen Joints (DC) Forms: [employer] (Portuguese) - Clinical Impression Clinical Impression: Knee effusion, Chronic pain - Scribe Statement The provider has reviewed the documentation as recorded by the Agustin Coffman Provider Attestation: All medical record entries made by the Mikeibboone were at my direction and personally dictated by me. I have reviewed the chart and agree that the record accurately reflects my personal performance of the history, physical exam, medical decision making, and the department course for this patient. I have also personally directed, reviewed, and agree with the discharge instructions and disposition.
== END 2018-11-20 09:31 | disposition home or self-care (01) ==
LOC: C.ER 08:37
DX: M25.461 Effusion, right knee (principal); G89.29 Other chronic pain
CPT/HCPCS: 96372; 99284; J1885

== ENCOUNTER 2018-11-21 11:52 | Inpatient (IN) | payer MEDICAID ==
[2018-11-21 11:52] VITALS: BMI 24.6
--- NOTE | 2018-11-21 12:52 | C.PDOC ---
History Of Present Illness Patient comes in requesting alcohol detox. Patient admits to drinking today. patient well known to ED with multiple visits, last visit was yesterday. patient denies SI in contrary to triage. Patient denies falls and no signs of apparent injury <Magaly Mancia Thong - Last Filed: 11/21/18 18:59> History Per: Patient History/Exam Limitations: intoxication Onset/Duration Of Symptoms: Days Current Symptoms Are (Timing): Still Present Modifying Factor(s): Alcohol Associated Symptoms: denies: Suicidal Thoughts, Suicidal Plan <ReddMagaly Thong - Last Filed: 11/21/18 18:59> <Enrique Tamez - Last Filed: 11/21/18 21:58> Time Seen by Provider: 11/21/18 12:03 Chief Complaint (Nursing): Substance Abuse Past Medical History Reviewed: Historical Data, Nursing Documentation, Vital Signs - Medical History PMH: Anxiety, Bipolar Disorder, Depression, Diabetes, HTN, Hypercholesterolemia, Hyperlipidemia, Personality Disorder, Schizophrenia Denies: Hepatitis, Seizures, Sexually Transmitted Disease Surgical History: - [facility] Procedures ALCOHOL DETOXIFICATION (01/08/14) DETOXIFICATION SERVICES FOR SUBSTANCE ABUSE TREATMENT (03/22/18) GROUP MOLD SPRAYER FOR SUBSTANCE ABUSE TREATMENT, PSYCHOEDUCATION (03/22/18) GROUP MOLD SPRAYER FOR SUBSTANCE ABUSE, COGNITIVE BEHAVIORAL (03/01/18) GROUP PSYCHOTHERAPY (03/22/18) INDIV MOLD SPRAYER FOR SUBSTANCE ABUSE TREATMENT, PSYCHOEDUCATION (02/22/17) INDIV PSYCHOTHERAPY FOR SUBSTANCE ABUSE TREATMENT, SUPPORT (03/22/18) INDIV PSYCHOTHERAPY FOR SUBSTANCE ABUSE, COGNITIV BEHAVIORAL (03/01/18) INDIV PSYCHOTHERAPY FOR SUBSTANCE ABUSE, PSYCHOEDUCATION (03/01/18) INDIVIDUAL PSYCHOTHERAPY, COGNITIVE-BEHAVIORAL (03/01/18) INDIVIDUAL PSYCHOTHERAPY, SUPPORTIVE (03/22/18) INSERTION OF INFUSION DEV INTO SUP VENA CAVA, PERC APPROACH (12/10/16) MEDICATION MANAGEMENT (03/22/18) MEDS MGMT FOR SUBSTANCE ABUSE TREATMENT, OTH REPL MED (10/20/17) REMOVAL OF INFUSION DEV FROM GREAT VESSEL, PHOTOGRAPHER MOTION PICTURE APPROACH (02/02/17) ULTRASONOGRAPHY OF SUPERIOR VENA CAVA, GUIDANCE (12/10/16) Family History: States: Unknown Family Hx - Social History Hx Tobacco Use: No Hx Alcohol Use: Yes Hx Substance Use: No - Immunization History Hx Tetanus Toxoid Vaccination: Yes Hx Influenza Vaccination: Yes Hx Pneumococcal Vaccination: Yes <Magaly Mancia - Last Filed: 11/21/18 18:59> Vital Signs: Last Vital Signs Temp 98.4 F 11/21/18 17:55 Pulse 84 11/21/18 17:55 Resp 16 11/21/18 17:55 BP 118/79 11/21/18 17:55 Pulse Ox 100 11/21/18 17:55 - [facility] Procedures ALCOHOL DETOXIFICATION (01/08/14) DETOXIFICATION SERVICES FOR SUBSTANCE ABUSE TREATMENT (03/22/18) GROUP MOLD SPRAYER FOR SUBSTANCE ABUSE TREATMENT, PSYCHOEDUCATION (03/22/18) GROUP MOLD SPRAYER FOR SUBSTANCE ABUSE, COGNITIVE BEHAVIORAL (03/01/18) GROUP PSYCHOTHERAPY (03/22/18) INDIV MOLD SPRAYER FOR SUBSTANCE ABUSE TREATMENT, PSYCHOEDUCATION (02/22/17) INDIV PSYCHOTHERAPY FOR SUBSTANCE ABUSE TREATMENT, SUPPORT (03/22/18) INDIV PSYCHOTHERAPY FOR SUBSTANCE ABUSE, COGNITIV BEHAVIORAL (03/01/18) INDIV PSYCHOTHERAPY FOR SUBSTANCE ABUSE, PSYCHOEDUCATION (03/01/18) INDIVIDUAL PSYCHOTHERAPY, COGNITIVE-BEHAVIORAL (03/01/18) INDIVIDUAL PSYCHOTHERAPY, SUPPORTIVE (03/22/18) INSERTION OF INFUSION DEV INTO SUP VENA CAVA, PERC APPROACH (12/10/16) MEDICATION MANAGEMENT (03/22/18) MEDS MGMT FOR SUBSTANCE ABUSE TREATMENT, OTH REPL MED (10/20/17) REMOVAL OF INFUSION DEV FROM GREAT VESSEL, PHOTOGRAPHER MOTION PICTURE APPROACH (02/02/17) ULTRASONOGRAPHY OF SUPERIOR VENA CAVA, GUIDANCE (12/10/16) <Enrique Tamez - Last Filed: 11/21/18 21:58> Review Of Systems Except As Marked, All Systems Reviewed And Found Negative. Constitutional: Negative for: Fever Respiratory: Negative for: Shortness of Breath Gastrointestinal: Negative for: Vomiting, Abdominal Pain Psych: Positive for: Other (ETOH). Negative for: Suicidal ideation <Magaly Mancia - Last Filed: 11/21/18 18:59> Physical Exam - Physical Exam Appears: Non-toxic, No Acute Distress, Agitated, Other (AOB) Skin: Warm, Dry, No Rash Head: Atraumatic, Normacephalic Eye(s): bilateral: Normal Inspection Neck: Normal ROM Chest: Symmetrical Cardiovascular: Rhythm Regular, No Murmur Respiratory: Normal Breath Sounds, No Accessory Muscle Use Gastrointestinal/Abdominal: Soft, No Tenderness, No Distention Extremity: Bilateral: Atraumatic, Normal Color And Temperature Neurological/Psych: Other (Awake, alert, answering some questions) <ManciaMagaly garcia Thong - Last Filed: 11/21/18 18:59> ED Course And Treatment - Laboratory Results Result Diagrams: 11/21/18 13:09 11/21/18 13:09 <ReddMagaly L - Last Filed: 11/21/18 18:59> - Laboratory Results Result Diagrams: 11/21/18 13:09 11/21/18 13:09 Lab Results: Total Bilirubin 0.4 mg/dL (0.2-1.3) 11/21/18 13:09 AST 48 U/L (17-59) 11/21/18 13:09 ALT 18 U/L (21-72) L D 11/21/18 13:09 Alkaline Phosphatase 82 U/L (38-126) 11/21/18 13:09 Total Protein 7.4 g/dL (6.3-8.3) 11/21/18 13:09 Albumin 4.4 g/dL (3.5-5.0) 11/21/18 13:09 Globulin 3.1 gm/dL (2.2-3.9) 11/21/18 13:09 Albumin/Globulin Ratio 1.4 (1.0-2.1) 11/21/18 13:09 Urine Color Colorless (YELLOW) 11/21/18 13:09 Urine Clarity Clear (Clear) 11/21/18 13:09 Urine pH 5.0 (5.0-8.0) 11/21/18 13:09 Ur Specific [place] 1.003 (1.003-1.030) 11/21/18 13:09 Urine Protein Negative mg/dL (NEGATIVE) 11/21/18 13:09 Urine Glucose (UA) Normal mg/dL (Normal) 11/21/18 13:09 Urine Ketones Negative mg/dL (NEGATIVE) 11/21/18 13:09 Urine Blood Negative (NEGATIVE) 11/21/18 13:09 Urine Nitrate Negative (NEGATIVE) 11/21/18 13:09 Urine Bilirubin Negative (NEGATIVE) 11/21/18 13:09 Urine Urobilinogen Normal mg/dL (0.2-1.0) 11/21/18 13:09 Ur Leukocyte Esterase Neg Evelyn/uL (Negative) 11/21/18 13:09 Urine WBC (Auto) < 1 /hpf (0-5) 11/21/18 13:09 Ur Squamous Epith Cells < 1 /hpf (0-5) 11/21/18 13:09 Urine Bacteria Rare (<OCC) 11/21/18 13:09 <Enrique Tamez - Last Filed: 11/21/18 21:58> Medical Decision Making Medical Decision Making: Plan: Labs ordered for medical clearance. Patient pending crisis evaluation. 1315 ETOH is 390; patient to be observed for sobriety 1400 per crisis patient clears ETOH and able to be evaluated at 2030 1620 Patient sleeping on stretcher, easily arousable 1830 Patient continues to sleep, still pending sobriety 1900 Patient signed out to night physician Dr Tamez, pending sobriety crisis evaluation and dispo <Magaly Mancia - Last Filed: 11/21/18 18:59> Medical Decision Makin medically cleared by previous team. No meningeal signs, labs largely unremarkable No signs of withdrawal signed out to me by PRIYANK mancia: pending eval by Crisis pending sobriety 2200 clinically sober Appreciate consult w/ CRISIS: to be admitted to Psych for schizophrenia pt agreeable to plan, in NAD no signs of withdrawal. <Enrique Tamez - Last Filed: 11/21/18 21:58> Disposition - Disposition Disposition Time: 19:00 - POA Present On Arrival: None <Magaly Mancia - Last Filed: 11/21/18 18:59> <Enrique Tamez - Last Filed: 11/21/18 21:58> - Disposition Condition: STABLE Forms: [email or web address] ([place]) - Clinical Impression Clinical Impression: Alcohol abuse - PA / [employer] TR[employer] DISPATCHER / Resident Statement MD/DO has reviewed & agrees with the documentation as recorded. - Scribe Statement The provider has reviewed the documentation as recorded by the Scribe Mary Delgadillo All medical record entries made by the Scribe were at my direction and personally dictated by me. I have reviewed the chart and agree that the record accurately reflects my personal performance of the history, physical exam, medical decision making, and the department course for this patient. I have also personally directed, reviewed, and agree with the discharge instructions and disposition. <Magaly Mancia - Last Filed: 11/21/18 18:59> Physician Patient Turnover Patient Signed Over To: Enrique Tamez Handoff Comments: Pending sobriety, crisis evaluation and dispo <Magaly Mancia - Last Filed: 11/21/18 18:59> Addendum Addendum: 11/21/18 20:34 53 year old male present for alcohol detox. Patient was medically cleared by previous team, recovered from alcohol intoxication at 20:30, currently pending psych admission. <Enrique Tamez - Last Filed: 11/21/18 21:58>
[2018-11-21 13:19] LABS: BASO % 1.2 % (0.0-2.0); EOS # 0.1 K/uL (0.0-0.7); EOS % 4.3 % (0.0-4.0); HEMOGLOBIN 12.2 g/dL (12.0-18.0); LYMPH # 0.8 K/uL (1.0-4.3); LYMPH % 23.9 % (20.0-40.0); MEAN CELL VOLUME 93.4 fL (80.0-94.0); MEAN CORPUSCULAR HEMOGLOBIN 30.1 pg (27.0-31.0); MEAN CORPUSCULAR HGB CONC 32.3 g/dL (33.0-37.0); MEAN PLATELET VOLUME 7.8 fL (7.2-11.7); MONO # 0.6 K/uL (0.0-0.8); MONO % 17.6 % (0.0-10.0); NEUT # 1.8 K/uL (1.8-7.0); RBC 4.05 Mil/uL (4.40-5.90); WHITE BLOOD COUNT 3.3 K/uL (4.8-10.8)
[2018-11-21 13:31] LABS: SQUAMOUS EPITHIAL < 1 /hpf (0-5); URINE BACTERIA RARE (<OCC); URINE BILIRUBIN NEGATIVE (NEGATIVE); URINE BLOOD NEGATIVE (NEGATIVE); URINE CLARITY Clear (Clear); URINE COLOR Colorless (YELLOW); URINE GLUCOSE (UA) NORMAL (Normal); URINE LEUKOCYTE ESTERASE NEG Leu/uL (Negative); URINE PROTEIN NEGATIVE (NEGATIVE); URINE UROBILINOGEN NORMAL mg/dL (0.2-1.0)
[2018-11-21 13:36] LABS: ALB/GLOB RATIO 1.4 (1.0-2.1); ALBUMIN 4.4 g/dL (3.5-5.0); ALT/SGPT 18 U/L (21-72); AST/SGOT 48 U/L (17-59); BLOOD UREA NITROGEN 11 mg/dL (9-20); CALCIUM 8.9 mg/dl (8.6-10.4); GFR NON-AFRICAN AMERICAN > 60
[2018-11-21 13:45] LABS: BARBITURATES, UR NEGATIVE (NEGATIVE); BENZODIAZEPINES, UR NEGATIVE (NEGATIVE); OPIATES, UR NEGATIVE (NEGATIVE); PHENCYCLIDINE, UR NEGATIVE (NEGATIVE)
--- NOTE | 2018-11-22 00:25 | PCM.BM ---
<Carlos Maurice - Last Filed: 11/22/18 00:22> Treatment Plan Problems - Problems identified on initial assessmt DEPRESSION Date Initiated: 11/21/18 Time Initiated: 23:00 Assessment reference: NA Status: Active AUDITORY HALLUCINATION Date Initiated: 11/21/18 Time Initiated: 23:00 Assessment reference: NA Status: Active Treatment assets and liabiliti Patient Assests: adapts well, cooperative, self-reliant, ADL independent, negotiates basic needs Patient Liabilities: live alone, financial problems, poor support system, substance abuse - Milieu Protocol Maintain good personal hygiene: daily Encourage regular showers, daily Remind patient to perform daily oral care, daily Assist patient to perform ADL's Conduct patient checks and document Observation sheet: Q15 minutes Maintain personal safety: every shift Educate patient to report safety concerns to staff, every shift Monitor environment for contraband/sharps Medication safety: Monitor for expected outcome, potential side effects: every shift, Assess barriers to learning: every shift, Assess readiness for medication education: every shift <Monroe Henry - Last Filed: 11/24/18 10:53> - Diagnosis (1) Schizoaffective disorder Status: Acute Interventions: 11/24/18 10:54 * Assess/adjust medications daily and /or as needed * See patient on an individual basis 7x/week to assess status of hallucinations * Discuss risks, benefits, side effects and alternatives of medications * (2) Alcohol dependence Status: Acute Interventions: 11/24/18 10:54 * Assess 7x/week regarding severity of withdrawal * Educate regarding risks, benefits, side effects and alternatives of medications * Use Motivational Interviewing for abstinence * Use CBT for relapse prevention * Medication management for withdrawal symptoms * Encourage medication assisted treatment * <Bonnie Butterfield - Last Filed: 11/28/18 14:11> Family Contact Family involvement: Patient does not wish Family/SO involvement Family contact: Patient declines to allow family contact at present - Goals for Treatment Patient goals for treatment: "I want to return to my psychiatrist, Dr. Henry." Discharge/Continuing Care - Education Needs Education Needs: Patient Medication, Patient Diagnosis/Disease Process, Patient Coping Skills - Discharge Discharge Criteria: Free of Suicidal thoughts, Normal sleep pattern, Ability to care for self, No longer exhibiting s/s of withdrawal, Reduction of target symptoms Discharge to:: Home - Treatment Team Participation Discussed with Family/SO: No Was Patient/Family/SO present at Treatment Team Meeting: Yes
[2018-11-22] MEDS: Multiple Vitamins Tab PO SCH (09:53)
[2018-11-22] MEDS: Divalproex 500 mg DR Tab PO SCH (17:48)
--- NOTE | 2018-11-22 23:03 | PCM.PSYCH ---
Initial Psychiatric Evaluation - Initial Psychiatric Evaluation Type of Admission: Voluntary Legal Status: Capacity Chief Complaint (in patient's own words): I am depressed, with hearing voices. I also need help for my alcohol use. History of Present Illness and Precipitating Events: Patient is a 53 years old, single, unemployed, -Monegasque male with history of schizoaffective disorder depressive type and alcohol use disorder was admitted due to worsening of his depression and also withdrawing from alcohol. Patient reported history of schizoaffective disorder for last 6 years and was taking medications from his PCP including Seroquel, Depakote, Remeron and trazodone. Noncompliant for last 2 months. Reported feeling increasingly depressed with decreased sleep but no change in appetite. Head suicidal ideations 2 days ago and attempted to kill himself by drinking Drano. Patient reported he was intoxicated at that time. Did not go for any help. Patient reported history of more than 5 suicidal attempts in the past. No homicidal ideations but reported heads homicidal ideations 1 week ago to random people. Patient was also intoxicated at that time. Crying at times. Feels hopeless and helpless. Also feels guilty. Patient reported hearing voices and seeing things at times. Also having mood swings and irritability at times. Alcohol: He started drinking alcohol at 9 years of age, increased gradually. Currently lives drinking 2 pints of vodka and 9, 24 ounces cans of beer daily. Last drink yesterday. His longest period of abstinence first 8-1/2-years in the past. Patient has history of 6 detox and 5 rehabs. Denied use of any other drugs including cannabis, cocaine and heroin. Denied smoking cigarettes. Patient was born in [place] and has 12 grade of education. Patient is not working for last 7 months. 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 Patient lives alone. Never , has 9 children from 9 different females. His 6 children ages 4, 7, 9, 11, 15 and 17 years of age or living with their mothers. His height is 6 feet 3 inches and weight is 197 pounds. Current Medications: Active Medications Generic Name Dose Route Start Last Admin Trade Name Freq PRN Reason Stop Dose Admin Chlordiazepoxide 25 mg 11/22/18 00:00 11/22/18 17:48 Librium PO 11/25/18 23:59 25 mg Q6 NAOMY Administration Taper Chlordiazepoxide 25 mg 11/22/18 15:21 Librium PO Q4H PRN Alcohol Withdrawal Clonidine HCl 0.1 mg 11/22/18 15:22 Catapres PO Q4H PRN Symptoms of alcohol withdrawl Divalproex Sodium 500 mg 11/22/18 18:00 11/22/18 17:[address] PO 500 mg BID NAOMY Administration Folic Acid 1 mg 11/22/18 10:00 11/22/18 09:53 Folic Acid PO 1 mg DAILY NAOMY Administration Gabapentin 400 mg 11/22/18 18:00 11/22/18 17:48 Neurontin PO 400 mg TID NAOMY Administration Ibuprofen 400 mg 11/22/18 15:23 Motrin Tab PO Q6H PRN Pain, moderate (4-7) Mirtazapine 15 mg 11/22/18 22:00 11/22/18 21:04 Remeron PO 15 mg HS NAOMY Administration Multivitamins 1 tab 11/22/18 10:00 11/22/18 09:53 Hexavitamin PO 1 tab DAILY NAOMY Administration Quetiapine Fumarate 100 mg 11/22/18 22:00 11/22/18 21:04 Seroquel PO 100 mg HS NAOMY Administration Thiamine HCl 100 mg 11/22/18 10:00 11/22/18 09:53 Vitamin B1 Tab PO 100 mg DAILY NAOMY Administration Trazodone HCl 50 mg 11/21/18 22:45 11/22/18 21:04 Desyrel PO 50 mg HS NAOMY Administration Past Psychiatric History - Past Psychiatric History Previous Treatment History: Inpatient At [facility]: [facility] History of Abuse: None reported History of ETOH/Drug Use: See HPI History of Family Illness: None reported Pertinent Medical Hx (Current Medical&Sleep Prob, Allergies): Allergies Allergy/AdvReac Type Severity Reaction Status Date / Time No Known Allergies Allergy Verified 11/20/18 08:41 Naproxen 250 mg PO BID #30 tablet 11/20/18 Water Pill 75 mg PO DAILY 11/20/18 Arthritis Hypercholesterolemia Review of Systems - Psychiatric Psychiatric: As Per HPI, Anhedonia, Depression, Hallucinations, Hopelessness, Mood Swings Mental Status Examination - Personal Presentation Personal Presentation: Looks stated age - Affect Affect: Depressed - Motor Activity Motor Activity: Calm - Reliability in Providing Information Reliability in Providing Information: Fair - Speech Speech: Organized - Mood Mood: Depressed - Formal Thought Process Formal Thought Process: No Impairment - Hallucinations/Delusions Hallucinations: Other (None reported) Delusions: Other - Obsessions/Compulsions Obsessions: None Compulsions: None - Cognitive Functions Orientation: Person, Place, Situation, Time Sensorium: Alert Attention/Concentration: Attentive Abstract Thinking: [place] Estimate of Intelligence: Average Judgement: Intact, as evidence by: Insight regarding need for hospitalization Memory: Recent intact, as evidence by: Ability to recall events of the day, Remote intact, as evidenced by: Ability to recall historical events - Risk Risk: Withdrawal, Diminished functioning - Strength & Assets Inventory Strength & Assets Inventory: Cooperative - Limitations Limitations: Living alone DSM 5 DX - DSM 5 DSM 5 Diagnosis: Schizoaffective disorder bipolar type Alcohol withdrawal Alcohol use disorder severe - Recommended/Plan of Treatment Treatment Recommendations and Plan of Treatment: Patient education. Supportive therapy. CBT for relapse prevention. [place] for abstinence. Will start Librium taper for alcohol withdrawal symptoms. Will start his home medications. Other PRN medications. Projected ELOS: 8-10 days Discharge Plan and Discharge Criteria: No withdrawal symptoms. No or minimal depression. No adverse effects from medications. - Smoking Cessation Smoking Cessation Initiated: No Reason for not providing: Patient does not smoke cigarettes.
[2018-11-23] MEDS: Divalproex 500 mg DR Tab PO SCH ×2 (09:40→17:45)
[2018-11-23] MEDS: Multiple Vitamins Tab PO SCH (09:40)
[2018-11-24 06:46] VITALS: O2SAT 98
[2018-11-24] MEDS: Multiple Vitamins Tab PO SCH (09:29)
[2018-11-24] MEDS: Divalproex 500 mg DR Tab PO SCH ×2 (09:29→17:05)
--- NOTE | 2018-11-24 10:53 | PCM.PYCHPN ---
Psychiatric Progress Note - Psychiatric Progress Note Patient seen today, length of contact: 15 min Patient Chief Complaint: I was feeling depressed.' Problems Identified/Issues Discussed: Patient was seen and evaluated, chart reviewed and discussed with staff. Patient still reports depressed mood but reports improvement in the feelings of hopelessness and helplessness. He reports improvement in the withdrawal symptoms but still reports nausea, cramps, joint pains, headaches and anxiety. Reports some irritability and agitation. He still reports auditory hallucinations and paranoia. He is taking medication but denies any side effects Symptoms improving gradually but he needs to stay longer for further stabilization. Supportive therapy was given Medication Change: Yes Medical Record Reviewed: Yes Mental Status Examination - Cognitive Function Orientation: Person, Place, Situation, Time Memory: Intact Attention: WNL Concentration: Poor Association: WNL Fund of Knowledge: Poor - Mood Mood: Depressed, Anxious - Affect Affect: Constricted, Depressed - Speech Speech: Soft - Formal Thought Process Formal Thought Process: Delusions, Paranoia, Loosening of associations - Suicidal Ideation Suicidal Ideation: No - Homicidal Ideation Homicidal Ideation: No Goal/Treatment Plan - Goal/Treatment Plan Need for Continued Stay: Remain at risks for inpatient hospitalization Progress Toward Problem(s) and Goals/Treatment Plan: Schizoaffective disorder bipolar type Alcohol withdrawal Alcohol use disorder severe Patient education. Supportive therapy. CBT for relapse prevention. [place] for abstinence. Librium taper for alcohol withdrawal symptoms. Home medications. Other PRN medications. Remeron for depression Seroquel for insomnia Neurontin for augmentation
[2018-11-25] MEDS: Divalproex 500 mg DR Tab PO SCH ×2 (09:56→17:10)
[2018-11-25] MEDS: guaiFENesin 200 mg/10 ml Syrup UD PO PRN (09:56)
[2018-11-25] MEDS: Multiple Vitamins Tab PO SCH (09:56)
[2018-11-26] MEDS: Divalproex 500 mg DR Tab PO SCH ×2 (10:30→17:50)
[2018-11-26] MEDS: Multiple Vitamins Tab PO SCH (10:30)
--- NOTE | 2018-11-27 09:48 | PCM.PYCHPN ---
Psychiatric Progress Note - Psychiatric Progress Note Patient seen today, length of contact: 15 min Patient Chief Complaint: I m feeling little better.' Problems Identified/Issues Discussed: Patient was seen and evaluated, chart reviewed and discussed with staff. As per staff patient has started coming out of his room. However he reports some improvement in the depressed mood and reports some improvement in the hallucinations and paranoia. He reports improvement in the withdrawal symptoms but still reports cramps, headaches and anxiety. Reports some irritability and agitation. He is taking medication but denies any side effects Symptoms improving gradually but he needs to stay longer for further stabilization. Supportive therapy was given Medication Change: Yes Medical Record Reviewed: Yes Mental Status Examination - Cognitive Function Orientation: Person, Place, Situation, Time Memory: Intact Attention: WNL Concentration: Poor Association: WNL Fund of Knowledge: Poor - Mood Mood: Depressed, Anxious - Affect Affect: Constricted, Depressed - Speech Speech: Soft - Formal Thought Process Formal Thought Process: Delusions, Paranoia, Loosening of associations - Suicidal Ideation Suicidal Ideation: No - Homicidal Ideation Homicidal Ideation: No Goal/Treatment Plan - Goal/Treatment Plan Need for Continued Stay: Remain at risks for inpatient hospitalization Progress Toward Problem(s) and Goals/Treatment Plan: Schizoaffective disorder bipolar type Alcohol withdrawal Alcohol use disorder severe Patient education. Supportive therapy. CBT for relapse prevention. [place] for abstinence. Librium taper for alcohol withdrawal symptoms. Home medications. Other PRN medications. Remeron for depression Seroquel for insomnia Neurontin for augmentation
[2018-11-27] MEDS: Divalproex 500 mg DR Tab PO SCH ×2 (09:53→17:05)
[2018-11-27] MEDS: Multiple Vitamins Tab PO SCH (09:53)
[2018-11-27] MEDS: guaiFENesin 200 mg/10 ml Syrup UD PO PRN (17:29)
[2018-11-28] MEDS: Divalproex 500 mg DR Tab PO SCH ×2 (09:24→18:11)
[2018-11-28] MEDS: Multiple Vitamins Tab PO SCH (09:25)
[2018-11-28] MEDS: guaiFENesin 200 mg/10 ml Syrup UD PO PRN ×2 (09:26→21:49)
--- NOTE | 2018-11-28 09:54 | PCM.PYCHPN ---
Psychiatric Progress Note - Psychiatric Progress Note Patient seen today, length of contact: 15 min Patient Chief Complaint: I was feeling depressed.' Problems Identified/Issues Discussed: Patient was seen and evaluated, chart reviewed and discussed with staff. As per staff patient has started coming out of his room. However he reports some improvement in the depressed mood and reports some improvement in the hallucinations and paranoia. He reports improvement in the withdrawal symptoms but still reports cramps, headaches and anxiety. Reports some irritability and agitation. He is taking medication but denies any side effects Symptoms improving gradually but he needs to stay longer for further stabilization. Supportive therapy was given Medication Change: Yes Medical Record Reviewed: Yes Mental Status Examination - Cognitive Function Orientation: Person, Place, Situation, Time Memory: Intact Attention: WNL Concentration: Poor Association: WNL Fund of Knowledge: Poor - Mood Mood: Depressed, Anxious - Affect Affect: Constricted, Depressed - Speech Speech: Soft - Formal Thought Process Formal Thought Process: Delusions, Paranoia, Loosening of associations - Suicidal Ideation Suicidal Ideation: No - Homicidal Ideation Homicidal Ideation: No Goal/Treatment Plan - Goal/Treatment Plan Need for Continued Stay: Remain at risks for inpatient hospitalization Progress Toward Problem(s) and Goals/Treatment Plan: Schizoaffective disorder bipolar type Alcohol withdrawal Alcohol use disorder severe Patient education. Supportive therapy. CBT for relapse prevention. [place] for abstinence. Librium taper for alcohol withdrawal symptoms. Home medications. Other PRN medications. Remeron for depression Seroquel for insomnia Neurontin for augmentation
[2018-11-29] MEDS: guaiFENesin 200 mg/10 ml Syrup UD PO PRN ×2 (09:20→19:47)
[2018-11-29] MEDS: Divalproex 500 mg DR Tab PO SCH ×2 (09:21→18:10)
[2018-11-29] MEDS: Multiple Vitamins Tab PO SCH (09:21)
--- NOTE | 2018-11-29 12:21 | PCM.PYCHPN ---
Psychiatric Progress Note - Psychiatric Progress Note Patient seen today, length of contact: 15 min Patient Chief Complaint: "Tired but better" Problems Identified/Issues Discussed: The pt is seen, chart reviewed, case is discussed with staff. The pt is compliant with medications and reports no side-effects. Symptoms are improving but needs more time to stabilize and to avoid relapse. Pt attends groups and activities. Support given, psycho-education provided. After care discussed. Medication Change: Yes Medical Record Reviewed: Yes Mental Status Examination - Cognitive Function Orientation: Person, Place, Situation, Time Memory: Intact Attention: WNL Concentration: Poor Association: WNL Fund of Knowledge: Poor - Mood Mood: Depressed, Anxious - Affect Affect: Constricted, Depressed - Speech Speech: Soft - Formal Thought Process Formal Thought Process: Delusions, Paranoia, Loosening of associations - Suicidal Ideation Suicidal Ideation: No - Homicidal Ideation Homicidal Ideation: No Goal/Treatment Plan - Goal/Treatment Plan Need for Continued Stay: Discharge may exacerbated symptoms, Severe functional impairment Progress Toward Problem(s) and Goals/Treatment Plan: Continue medications Support and psychoeducation daily Attend groups and activities daily Individual therapy After care planning by ROGER and the team
[2018-11-30 08:52] LABS: ALB/GLOB RATIO 1.4 (1.0-2.1); ALBUMIN 4.2 g/dL (3.5-5.0); ALT/SGPT 14 U/L (21-72); AST/SGOT 26 U/L (17-59); BLOOD UREA NITROGEN 15 mg/dL (9-20); GFR NON-AFRICAN AMERICAN > 60
[2018-11-30] MEDS: Multiple Vitamins Tab PO SCH (09:18)
[2018-11-30] MEDS: Divalproex 500 mg DR Tab PO SCH ×2 (09:18→17:56)
[2018-11-30] MEDS: guaiFENesin 200 mg/10 ml Syrup UD PO PRN ×2 (09:19→22:24)
[2018-12-01] MEDS: guaiFENesin 200 mg/10 ml Syrup UD PO PRN ×2 (09:00→21:12)
[2018-12-01] MEDS: Multiple Vitamins Tab PO SCH (09:00)
[2018-12-01] MEDS: Divalproex 500 mg DR Tab PO SCH ×2 (09:00→17:15)
--- NOTE | 2018-12-01 11:21 | PCM.PYCHPN ---
Psychiatric Progress Note - Psychiatric Progress Note Patient seen today, length of contact: 15 min Patient Chief Complaint: I m feeling much better.' Problems Identified/Issues Discussed: Patient was seen and evaluated, chart reviewed and discussed with staff. Patient reports improvement in his mood and paranoia. He reports improvement in the withdrawal symptom as well. He denies any auditory or visual hallucinations. He is taking medication but denies any side effects Symptoms improving gradually but he needs to stay longer for further stabilization. Supportive therapy was given Medication Change: Yes Medical Record Reviewed: Yes Mental Status Examination - Cognitive Function Orientation: Person, Place, Situation, Time Memory: Intact Attention: WNL Concentration: WNL Association: WNL Fund of Knowledge: Poor - Mood Mood: Depressed, Anxious - Affect Affect: Constricted, Depressed - Speech Speech: Soft - Formal Thought Process Formal Thought Process: Loosening of associations - Suicidal Ideation Suicidal Ideation: No - Homicidal Ideation Homicidal Ideation: No Goal/Treatment Plan - Goal/Treatment Plan Need for Continued Stay: Remain at risks for inpatient hospitalization, Failed transitioning Progress Toward Problem(s) and Goals/Treatment Plan: Schizoaffective disorder bipolar type Alcohol withdrawal Alcohol use disorder severe Patient education. Supportive therapy. CBT for relapse prevention. [place] for abstinence. Librium taper for alcohol withdrawal symptoms. Home medications. Other PRN medications. Remeron for depression Seroquel for insomnia Neurontin for augmentation
[2018-12-02 06:39] VITALS: BP 121/84; PULSE 93; RESP 18; TEMP 97.7
--- NOTE | 2018-12-02 10:10 | PCM.PYCHDC ---
Mental Status Examination - Mental Status Examination Orientation: Person, Place, Situation, Time Memory: Intact Mood: Neutral Affect: Constricted Speech: Soft Attention: WNL Concentration: WNL Association: WNL Fund of Knowledge: WNL Formal Thought Process: No Impairment Description of patient's judgement and insight: good, fair Psychotic Thoughts and Behaviors: denies any AVH Suicidal Ideation: No Current Homicidal Ideation?: No Discharge Summary - Discharge Note Reason for Hospitalization: Patient is a 53 years old, single, unemployed, -[place] male with history of schizoaffective disorder depressive type and alcohol use disorder was admitted due to worsening of his depression and also withdrawing from alcohol. Patient reported history of schizoaffective disorder for last 6 years and was taking medications from his PCP including Seroquel, Depakote, Remeron and trazodone. Noncompliant for last 2 months. Reported feeling increasingly depressed with decreased sleep but no change in appetite. Head suicidal ideations 2 days ago and attempted to kill himself by drinking Drano. Patient reported he was intoxicated at that time. Did not go for any help. Patient reported history of more than 5 suicidal attempts in the past. No homicidal ideations but reported heads homicidal ideations 1 week ago to random people. Patient was also intoxicated at that time. Crying at times. Feels hopeless and helpless. Also feels guilty. Patient reported hearing voices and seeing things at times. Also having mood swings and irritability at times. Alcohol: He started drinking alcohol at 9 years of age, increased gradually. Currently lives drinking 2 pints of vodka and 9, 24 ounces cans of beer daily. Last drink yesterday. His longest period of abstinence first 8-1/2-years in the past. Patient has history of 6 detox and 5 rehabs. Denied use of any other drugs including cannabis, cocaine and heroin. Denied smoking cigarettes. Patient was born in [place] and has 12 grade of education. Patient is not working for last 7 months. 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 Patient lives alone. Never , has 9 children from 9 different females. His 6 children ages 4, 7, 9, 11, 15 and 17 years of age or living with their mothers. His height is 6 feet 3 inches and weight is 197 pounds. Consultations:: List each consultation separately and include: 1. Reason for request. 2. Findings. 3. Follow-up Summary of Hospital Course include:: 1. Description of specific treatment plan utilized for patients during their course of treatmen. 2. Summarize the time- course for resolution of acute symptoms and/or regressed behaviors. 3. Describe issues identified and worked on during hospitalization. 4. Describe medication utilized. 5. Describe medical problems identified and treated. 6. Reassessment of suicide risk Summary of Hospital Course: During the course of his stay, patient (pt) started progressively improving and no longer remained irritable, depressed, paranoid and suicidal. His mood and anxiety were improved and he started attending groups and meetings and started socializing. Patient denied any feelings of hopelessness, helplessness, and worthlessness, denied any problem with the sleep or appetite, denied suicidal ideation or homicidal ideation. Pt denied any auditory or visual hallucinations. He denied any withdrawal symptoms. Pt was treated with medications along with supportive therapy, milieu therapy and group therapy. Some changes were made in his current medications and patient was discharged on following medications. He tolerated these medications very well and denied any side effects. - Diagnosis (1) Schizoaffective disorder Current Visit: No Status: Acute (2) Alcohol dependence Current Visit: No Status: Acute - Final Diagnosis (DSM 5) Condition upon Discharge: STABLE DSM 5: Schizoaffective disorder bipolar type Alcohol withdrawal Alcohol use disorder severe Disposition: HOME/ ROUTINE Follow-up Treatment Plan: Followup: [facility] Education: Pt was educated and counseled about the risks and benefits of taking and not taking medications. Pt was educated and counseled about the risks of drinking and abusing drugs. Pt was educated and counseled to go to the ER or call 911 if pt develop suicidal ideation or homicidal ideation, worsening of symptoms or severe side effects of the meds. Prescriptions/Medication Reconciliation: Divalproex [Depakote DR] 500 mg PO BID #60 tcp Gabapentin [Neurontin] 400 mg PO TID #60 cap Mirtazapine [Remeron] 15 mg PO HS #30 tab QUEtiapine [Seroquel] 100 mg PO HS #30 tab - Smoking Cessation Smoking Cessation Medication prescribed: No - Antipsychotic Medications Pt discharged on 2 or more routine antipsychotic medications: No
[2018-12-02] MEDS: Divalproex 500 mg DR Tab PO SCH (10:11)
[2018-12-02] MEDS: Multiple Vitamins Tab PO SCH (10:11)
== END 2018-12-02 12:30 | disposition home or self-care (01) | DRG 750 ==
LOC: C.ER 11:52 → C.5E 21:54
PROC: HZ2ZZZZ Detoxification Services for Substance Abuse Treatment (ICD-10-PCS; principal; 2018-11-21)
PROC: HZ52ZZZ Individual Psychotherapy for Substance Abuse Treatment, Cognitive-Behavioral (ICD-10-PCS; 2018-11-21)
PROC: HZ59ZZZ Individual Psychotherapy for Substance Abuse Treatment, Supportive (ICD-10-PCS; 2018-11-21)
PROC: HZ56ZZZ Individual Psychotherapy for Substance Abuse Treatment, Psychoeducation (ICD-10-PCS; 2018-11-21)
PROC: HZ42ZZZ Group Counseling for Substance Abuse Treatment, Cognitive-Behavioral (ICD-10-PCS; 2018-11-21)
PROC: HZ46ZZZ Group Counseling for Substance Abuse Treatment, Psychoeducation (ICD-10-PCS; 2018-11-21)
PROC: GZHZZZZ Group Psychotherapy (ICD-10-PCS; 2018-11-21)
PROC: GZ58ZZZ Individual Psychotherapy, Cognitive-Behavioral (ICD-10-PCS; 2018-11-21)
PROC: GZ56ZZZ Individual Psychotherapy, Supportive (ICD-10-PCS; 2018-11-21)
DX: F10.230 Alcohol dependence with withdrawal, uncomplicated (principal); F25.0 Schizoaffective disorder, bipolar type; F10.220 Alcohol dependence with intoxication, uncomplicated; Y90.8 Blood alcohol level of 240 mg/100 ml or more; E78.00 Pure hypercholesterolemia, unspecified; E11.9 Type 2 diabetes mellitus without complications; I10 Essential (primary) hypertension; R45.851 Suicidal ideations; G47.00 Insomnia, unspecified; F60.9 Personality disorder, unspecified; Z91.19 Patient's noncompliance with other medical treatment and regimen

== ENCOUNTER 2018-12-11 18:55 | Emergency (ER) | payer MEDICAID ==
[2018-12-11 18:55] VITALS: BMI 24.6
[2018-12-11 20:11] LABS: BASO % 0.7 % (0.0-2.0); EOS # 0.2 K/uL (0.0-0.7); EOS % 3.9 % (0.0-4.0); HEMOGLOBIN 11.2 g/dL (12.0-18.0); LYMPH # 1.4 K/uL (1.0-4.3); LYMPH % 29.8 % (20.0-40.0); MEAN CORPUSCULAR HEMOGLOBIN 29.7 pg (27.0-31.0); MEAN PLATELET VOLUME 7.3 fL (7.2-11.7); MONO # 0.5 K/uL (0.0-0.8); MONO % 10.8 % (0.0-10.0); NEUT # 2.6 K/uL (1.8-7.0); NEUT % 54.8 % (50.0-75.0); NRBC % 0.2 % (0.0-2.0); RBC 3.76 Mil/uL (4.40-5.90); RED CELL DISTRIBUTION WIDTH 13.2 % (11.5-14.5); WHITE BLOOD COUNT 4.7 K/uL (4.8-10.8)
[2018-12-11 20:21] LABS: ACETAMINOPHEN < 10.0 ug/mL (10.0-30.0); SALICYLATE < 1.0 mg/dL 1
[2018-12-11 20:26] LABS: VALPROIC ACID 42.8 ug/mL (50.0-100.0)
--- NOTE | 2018-12-11 20:29 | C.PDOC ---
History Of Present Illness 53 y/o male,w/ PMHx of anxiety, bipolar disorder, depression, diabetes, HTN, hypercholesterolemia, and hyperlipidemia, presents to the ER complaining of feeling tired. Patient states that he took too many tablets of a medication. Ho wever, he does not know the name of the medications or the number of tablets he took. Denies having suicidal ideation, homicidal ideation, fever,chills, CP,SOB, nausea, vomiting, and abdominal pain. Of note, patient's history may not be reliable because patient is intoxicated. Time Seen by Provider: 12/11/18 19:17 Chief Complaint (Nursing): Psychiatric Evaluation History Per: Patient History/Exam Limitations: no limitations Past Medical History Reviewed: Historical Data, Nursing Documentation, Vital Signs Vital Signs: Last Vital Signs Temp 97.6 F 12/11/18 18:57 Pulse 89 12/11/18 18:57 Resp 20 12/11/18 18:57 BP 136/95 H 12/11/18 18:57 Pulse Ox 99 12/11/18 18:57 - Medical History PMH: Anxiety, Bipolar Disorder, Depression, Diabetes, HTN, Hypercholesterolemia, Hyperlipidemia, Personality Disorder, Schizophrenia Denies: Hepatitis (Patient denied.), HIV (Patient denied.), Seizures (Patient denied.), Sexually Transmitted Disease (Patient denied.) Surgical History: Other Surgeries: Hx of surgeries - [facility] ALCOHOL DETOXIFICATION (01/08/14) DETOXIFICATION SERVICES FOR SUBSTANCE ABUSE TREATMENT (11/21/18) GROUP MACHINE DESIGNER FOR SUBSTANCE ABUSE TREATMENT, PSYCHOEDUCATION (11/21/18) GROUP MACHINE DESIGNER FOR SUBSTANCE ABUSE, COGNITIVE BEHAVIORAL (11/21/18) GROUP PSYCHOTHERAPY (11/21/18) INDIV MACHINE DESIGNER FOR SUBSTANCE ABUSE TREATMENT, PSYCHOEDUCATION (02/22/17) INDIV PSYCHOTHERAPY FOR SUBSTANCE ABUSE TREATMENT, SUPPORT (11/21/18) INDIV PSYCHOTHERAPY FOR SUBSTANCE ABUSE, COGNITIV BEHAVIORAL (11/21/18) INDIV PSYCHOTHERAPY FOR SUBSTANCE ABUSE, PSYCHOEDUCATION (11/21/18) INDIVIDUAL PSYCHOTHERAPY, COGNITIVE-BEHAVIORAL (11/21/18) INDIVIDUAL PSYCHOTHERAPY, SUPPORTIVE (11/21/18) INSERTION OF INFUSION DEV INTO SUP VENA CAVA, PERC APPROACH (12/10/16) MEDICATION MANAGEMENT (03/22/18) MEDS MGMT FOR SUBSTANCE ABUSE TREATMENT, OTH REPL MED (10/20/17) REMOVAL OF INFUSION DEV FROM GREAT VESSEL, INVESTMENT EXECUTIVE APPROACH (02/02/17) ULTRASONOGRAPHY OF SUPERIOR VENA CAVA, GUIDANCE (12/10/16) Family History: States: No Known Family Hx - Social History Hx Tobacco Use: No Hx Alcohol Use: Yes Hx Substance Use: Yes - Immunization History Hx Tetanus Toxoid Vaccination: Yes Hx Influenza Vaccination: Yes Hx Pneumococcal Vaccination: Yes Review Of Systems Except As Marked, All Systems Reviewed And Found Negative. Constitutional: Negative for: Fever, Chills Psych: Negative for: Suicidal ideation Physical Exam - Physical Exam Appears: No Acute Distress, Other (lethargic but arousable to verbal stimuli, answers some questions) Skin: Normal Color, Warm, Dry Head: Atraumatic, Normacephalic, Swelling (Lipoma-like swelling to LEFT upper forehead/scalp) Eye(s): bilateral: PERRL, EOMI Nose: Normal Oral Mucosa: Moist Lips: Normal Appearing Throat: No Erythema, No Exudate Neck: Supple Chest: Symmetrical Cardiovascular: Rhythm Regular Respiratory: Normal Breath Sounds, No Rales, No Rhonchi, No Wheezing Gastrointestinal/Abdominal: Soft, No Tenderness Back: Normal Inspection, No Decreased ROM Extremity: Normal ROM, No Deformity Neurological/Psych: Oriented x3, Normal Speech, Normal Motor, Normal Sensation Gait: Steady ED Course And Treatment - Laboratory Results Result Diagrams: 12/11/18 20:00 12/11/18 20:00 O2 Sat by Pulse Oximetry: 99 (RA) Pulse Ox Interpretation: Normal Medical Decision Making Medical Decision Making: Impression: Lethargy Differentials: ETOH intoxication, drug intoxication, overdose of psychiatric medications Labs demonstrate elevated BAL, otherwise no emergently significant abnormalities. 1245am Pt evaluated by Allegra COLON who dw Psych floral designer salesperson. Pt stable for dc with [facility] followup. Disposition Counseled Patient/Family Regarding: Studies Performed, Diagnosis - Disposition Referrals: [facility] [Outside] (FOLLOWUP INSTRUCTED BY HEMODIALYSIS CHARGE NURSE) Disposition: HOME/ ROUTINE Disposition Time: 00:44 Condition: STABLE Instructions: Alcohol Abuse and Alcoholism (DC), Depression, Adult (DC) Forms: [facility] (Ukrainian) - Clinical Impression Clinical Impression: Disorder due to alcohol abuse, Depressive disorder - Scribe Statement The provider has reviewed the documentation as recorded by the Agustin Coffman Provider Attestation: All medical record entries made by the Scribe were at my direction and personally dictated by me. I have reviewed the chart and agree that the record accurately reflects my personal performance of the history, physical exam, medical decision making, and the department course for this patient. I have also personally directed, reviewed, and agree with the discharge instructions and disposition.
[2018-12-11 20:32] LABS: ALB/GLOB RATIO 1.3 (1.0-2.1); ALBUMIN 4.1 g/dL (3.5-5.0); ALT/SGPT 15 U/L (21-72); AST/SGOT 42 U/L (17-59); BLOOD UREA NITROGEN 24 mg/dL (9-20); CALCIUM 8.5 mg/dl (8.6-10.4); GFR NON-AFRICAN AMERICAN > 60
[2018-12-11 21:25] LABS: URINE BILIRUBIN NEGATIVE (NEGATIVE); URINE BLOOD NEGATIVE (NEGATIVE); URINE CLARITY Clear (Clear); URINE COLOR Colorless (YELLOW); URINE GLUCOSE (UA) NORMAL (Normal); URINE LEUKOCYTE ESTERASE NEG Leu/uL (Negative); URINE PROTEIN NEGATIVE (NEGATIVE); URINE UROBILINOGEN NORMAL mg/dL (0.2-1.0)
[2018-12-11 21:38] LABS: BARBITURATES, UR NEGATIVE (NEGATIVE); BENZODIAZEPINES, UR NEGATIVE (NEGATIVE); OPIATES, UR NEGATIVE (NEGATIVE); PHENCYCLIDINE, UR NEGATIVE (NEGATIVE)
[2018-12-11 23:25] VITALS: RESP 16
[2018-12-12] MEDS ORDERED: Divalproex 500 mg DR Tab PO STA (01:50)
[2018-12-12] MEDS ORDERED: Divalproex 500 mg DR Tab PO ONE (02:02)
[2018-12-12 02:09] VITALS: TEMP 98.1
[2018-12-12 05:36] VITALS: BP 99/64; PULSE 87; O2SAT 97
--- NOTE | 2018-12-14 20:03 | CARD ---
APPROVED REPORT Date of service: 12/11/2018 EKG Measurement Heart [id number] <Conclusion> Normal sinus rhythm Normal ECG
== END 2018-12-12 06:10 | disposition home or self-care (01) ==
LOC: C.ER 18:55
DX: F10.10 Alcohol abuse, uncomplicated (principal); Y90.8 Blood alcohol level of 240 mg/100 ml or more; F32.9 Major depressive disorder, single episode, unspecified